=== PATIENT | female | born 1960 | race Caucasian/White ===

== ENCOUNTER 2020-10-07 16:05 | Outpatient (REF) | payer OTHER, SELFPAY ==
[2020-10-07 16:46] LABS: MANUAL DIFF FLAG NO
[2020-10-07 16:49] LABS: Basophils Percent Auto 0.3 % (0-2); Eosinophils Percent Auto 0.5 % (0-4); Hematocrit 36.3 % (37-47); Imm Gran Abs Auto 0.02 X10*3/uL (0.00-0.03); Imm Gran Pct Auto 0.3 % (0.0-0.4); Lymphocytes Absolute Auto 2.3 X10*3/uL (1.2-4.9); Lymphocytes Percent Auto 39.1 % (20-40); Mean Corpuscular HGB Conc 33.1 g/dl (31.0-35.0); Mean Corpuscular Hemoglobin 27.8 pg (27.0-33.0); Mean Platelet Volume 10.7 fL (9.4-12.3); Monocytes Absolute Auto 0.3 X10*3/uL (0.1-1.2); Monocytes Percent Auto 5.3 % (2-11); Neutrophils Absolute Auto 3.2 X10*3/uL (2.0-8.3); Neutrophils Percent Auto 54.5 % (45-73); Platelet Count 305 X10*3/uL (160-400); Red Blood Count 4.32 X10*6/uL (4.20-5.50); Red Cell Distribution Width 14.2 % (11.0-16.0); White Blood Count 5.8 X10*3/uL (4.8-10.8)
[2020-10-07 17:33] LABS: Alanine Aminotransferase 17 U/L (0-31); Albumin Level 4.4 g/dL (3.5-5.0); Alkaline Phosphatase 98 U/L (39-117); Anion Gap 9 (12-20); Aspartate Amino Transferase 15 U/L (5-31); Bilirubin Total 0.2 mg/dL (0.0-1.0); Blood Urea Nitrogen 12 mg/dL (9-16); C Reactive Protein 0.29 mg/dL (< or = 0.50); Calcium 9.1 mg/dL (8.4-10.2); Carbon Dioxide 27 mmol/L (22-29); Chloride 104 mmol/L (96-108); Estimated Glomerular Filt Rate > 60; Glucose Random 85 mg/dL (60-115); Potassium 4.1 mmol/l (3.3-5.1); Sodium 136 mmol/L (135-145); Total Protein 7.7 g/dL (6.5-8.0)
[2020-10-07 17:34] LABS: Vitamin D 25-OH Total 13.6 ng/mL (>30)
== END 2020-10-07 16:06 | disposition home or self-care (01) ==
LOC: HO.LAB 16:05
PROVIDERS: PCP Family Medicine; Visit Provider Student in an Organized Health Care Education/Training Program
DX: M05.9 Rheumatoid arthritis with rheumatoid factor, unspecified (principal); R76.8 Other specified abnormal immunological findings in serum; Z79.899 Other long term (current) drug therapy
CPT/HCPCS: 36415; 80053; 82306; 85025; 86140

== ENCOUNTER → 2020-10-11 09:03 | Outpatient (BNVA) | payer OTHER, SELFPAY | PROVIDERS: PCP Family Medicine; Visit Provider Student in an Organized Health Care Education/Training Program | DX: Z13.89 Encounter for screening for other disorder (principal) ==

== ENCOUNTER 2020-12-19 15:32 | Outpatient (REF) | payer OTHER, SELFPAY ==
[2020-12-19 17:01] LABS: MANUAL DIFF FLAG NO
[2020-12-19 17:12] LABS: Basophils Percent Auto 0.9 % (0-2); Eosinophils Percent Auto 0.6 % (0-4); Hematocrit 38.7 % (37-47); Hemoglobin 12.5 g/dl (12.0-16.0); Imm Gran Abs Auto 0.01 X10*3/uL (0.00-0.03); Imm Gran Pct Auto 0.2 % (0.0-0.4); Lymphocytes Absolute Auto 2.2 X10*3/uL (1.2-4.9); Mean Corpuscular HGB Conc 32.3 g/dl (31.0-35.0); Mean Corpuscular Hemoglobin 27.5 pg (27.0-33.0); Mean Corpuscular Volume 85.1 fL (80-98); Mean Platelet Volume 11.5 fL (9.4-12.3); Monocytes Absolute Auto 0.4 X10*3/uL (0.1-1.2); Monocytes Percent Auto 7.9 % (2-11); Neutrophils Absolute Auto 2.1 X10*3/uL (2.0-8.3); Neutrophils Percent Auto 44.4 % (45-73); Platelet Count 286 X10*3/uL (160-400); Red Blood Count 4.55 X10*6/uL (4.20-5.50); Red Cell Distribution Width 13.9 % (11.0-16.0); White Blood Count 4.7 X10*3/uL (4.8-10.8)
[2020-12-19 17:47] LABS: Alanine Aminotransferase 13 U/L (0-31); Albumin Level 4.2 g/dL (3.5-5.0); Alkaline Phosphatase 99 U/L (39-117); Anion Gap 12 (12-20); Aspartate Amino Transferase 14 U/L (5-31); Bilirubin Total 0.3 mg/dL (0.0-1.0); Blood Urea Nitrogen 14 mg/dL (9-16); C Reactive Protein 0.19 mg/dL (< or = 0.50); Calcium 8.9 mg/dL (8.4-10.2); Carbon Dioxide 25 mmol/L (22-29); Chloride 105 mmol/L (96-108); Estimated Glomerular Filt Rate > 60; Glucose Random 96 mg/dL (60-115); Potassium 4.1 mmol/L (3.3-5.1); Sodium 138 mmol/L (135-145); Total Protein 7.4 g/dL (6.5-8.0)
[2020-12-19 18:17] LABS: Erythrocyte Sedimentation Rate 14 MM/HR (0-20)
== END 2020-12-19 15:33 | disposition home or self-care (01) ==
LOC: HO.LAB 15:32
PROVIDERS: PCP Family Medicine; Visit Provider Student in an Organized Health Care Education/Training Program
DX: M05.9 Rheumatoid arthritis with rheumatoid factor, unspecified (principal)
CPT/HCPCS: 36415; 80053; 85025; 85652; 86140

== ENCOUNTER → 2020-12-27 08:18 | Outpatient (BNVA) | payer OTHER, SELFPAY | PROVIDERS: Visit Provider Student in an Organized Health Care Education/Training Program ==

== ENCOUNTER 2021-03-24 15:31 | Outpatient (REF) | payer OTHER, SELFPAY ==
[2021-03-24 17:54] LABS: MANUAL DIFF FLAG NO
[2021-03-24 17:57] LABS: Basophils Percent Auto 0.7 % (0-2); Eosinophils Absolute Auto 0.1 X10*3/uL (0.0-0.4); Eosinophils Percent Auto 1.5 % (0-4); Hematocrit 37.5 % (37-47); Hemoglobin 12.4 g/dl (12.0-16.0); Imm Gran Abs Auto 0.01 X10*3/uL (0.00-0.03); Imm Gran Pct Auto 0.2 % (0.0-0.4); Lymphocytes Absolute Auto 2.4 X10*3/uL (1.2-4.9); Lymphocytes Percent Auto 51.3 % (20-40); Mean Corpuscular HGB Conc 33.1 g/dl (31.0-35.0); Mean Corpuscular Hemoglobin 27.9 pg (27.0-33.0); Mean Corpuscular Volume 84.3 fL (80-98); Monocytes Absolute Auto 0.4 X10*3/uL (0.1-1.2); Neutrophils Absolute Auto 1.7 X10*3/uL (2.0-8.3); Neutrophils Percent Auto 37.3 % (45-73); Platelet Count 306 X10*3/uL (160-400); Red Blood Count 4.45 X10*6/uL (4.20-5.50); Red Cell Distribution Width 14.6 % (11.0-16.0); White Blood Count 4.6 X10*3/uL (4.8-10.8)
[2021-03-24 18:23] LABS: Alanine Aminotransferase 22 U/L (0-31); Albumin Level 4.4 g/dL (3.5-5.0); Alkaline Phosphatase 98 U/L (39-117); Anion Gap 13 (12-20); Aspartate Amino Transferase 18 U/L (5-31); Bilirubin Total 0.3 mg/dL (0.0-1.0); Blood Urea Nitrogen 13 mg/dL (9-16); Calcium 9.3 mg/dL (8.4-10.2); Carbon Dioxide 24 mmol/L (22-29); Chloride 105 mmol/L (96-108); Estimated Glomerular Filt Rate > 60; Glucose Random 89 mg/dL (60-115); Potassium 4.4 mmol/L (3.3-5.1); Sodium 138 mmol/L (135-145); Total Protein 7.7 g/dL (6.5-8.0)
[2021-03-24 18:38] LABS: Erythrocyte Sedimentation Rate 14 MM/HR (0-20)
== END 2021-03-24 15:32 | disposition home or self-care (01) ==
LOC: HO.LAB 15:31
PROVIDERS: PCP Family Medicine; Visit Provider Student in an Organized Health Care Education/Training Program
DX: M05.9 Rheumatoid arthritis with rheumatoid factor, unspecified (principal)
CPT/HCPCS: 36415; 80053; 85025; 85652; 86140

== ENCOUNTER → 2021-03-27 07:59 | Outpatient (BNVA) | payer OTHER, SELFPAY | PROVIDERS: PCP Family Medicine; Visit Provider Student in an Organized Health Care Education/Training Program ==

== ENCOUNTER 2021-04-16 15:32 | Outpatient (REF) | payer OTHER, SELFPAY ==
--- NOTE | ~2021-04-16 | XR_ITS ---
EXAMINATION: XR TIBIA AND FIBULA, LEFT CLINICAL INFORMATION: Left lower leg pain. COMPARISON: None TECHNIQUE: AP and lateral views of the left tibia and fibula were obtained. FINDINGS: No acute fracture or dislocation. No lytic or blastic osseous lesion. No abnormal soft tissue calcification. XR/XR tibia fibula LT 2V IMPRESSION: Unremarkable examination.
== END 2021-04-16 15:33 | disposition home or self-care (01) ==
LOC: HO.XRAY 15:32
PROVIDERS: PCP Family Medicine; Visit Provider Family Medicine
DX: M79.662 Pain in left lower leg (principal)
CPT/HCPCS: 73590

== ENCOUNTER 2021-04-17 15:36 | Outpatient (REF) | payer OTHER, SELFPAY ==
--- NOTE | ~2021-04-17 | MM_ITS ---
EXAMINATION: MM SCREENING DIGITAL BREAST TOMOSYNTHESIS, BILATERAL CLINICAL INFORMATION: Screening. Asymptomatic. The lifetime risk of breast cancer based on the Tyrer-Cuzick Model is 4%. COMPARISON: Mammography: 12/13/2018, 12/11/2016, 10/08/2015, 06/06/2014, 05/31/2013 TECHNIQUE: Digital breast tomosynthesis is performed in both the craniocaudal and mediolateral oblique views along with computer-aided detection (CAD). Synthesized 2D images are generated from the tomosynthesis. FINDINGS: There are scattered areas of fibroglandular density (ACR BI-RADS breast composition Category b). There are no significant masses, abnormal calcifications, or other abnormalities. Axillary nodes are stable. The skin contours are smooth. No significant changes. MM/MM tomosynthesis screening BI IMPRESSION: No mammographic evidence of malignancy. ASSESSMENT: BI-RADS 1: Negative RECOMMENDATION: Routine annual mammography screening. This patient's information was entered into a reminder system with a target due date for their next mammogram.
== END 2021-04-17 15:37 | disposition home or self-care (01) ==
LOC: HO.MAMMO 15:36
PROVIDERS: PCP Family Medicine; Visit Provider Family Medicine
DX: Z12.31 Encounter for screening mammogram for malignant neoplasm of breast (principal)
CPT/HCPCS: 77063; 77067

== ENCOUNTER 2021-07-29 15:36 | Outpatient (REF) | payer OTHER, SELFPAY ==
[2021-07-29 15:47] LABS: MANUAL DIFF FLAG NO
[2021-07-29 16:08] LABS: Basophils Percent Auto 0.8 % (0-2); Eosinophils Absolute Auto 0.1 X10*3/uL (0.0-0.4); Eosinophils Percent Auto 1.5 % (0-4); Hematocrit 37.5 % (37-47); Hemoglobin 12.3 g/dl (12.0-16.0); Imm Gran Abs Auto 0.01 X10*3/uL (0.00-0.03); Imm Gran Pct Auto 0.2 % (0.0-0.4); Lymphocytes Absolute Auto 2.2 X10*3/uL (1.2-4.9); Lymphocytes Percent Auto 41.9 % (20-40); Mean Corpuscular HGB Conc 32.8 g/dl (31.0-35.0); Mean Corpuscular Hemoglobin 27.6 pg (27.0-33.0); Mean Corpuscular Volume 84.3 fL (80-98); Mean Platelet Volume 10.6 fL (9.4-12.3); Monocytes Absolute Auto 0.4 X10*3/uL (0.1-1.2); Monocytes Percent Auto 7.1 % (2-11); Neutrophils Absolute Auto 2.6 X10*3/uL (2.0-8.3); Neutrophils Percent Auto 48.5 % (45-73); Platelet Count 295 X10*3/uL (160-400); Red Blood Count 4.45 X10*6/uL (4.20-5.50); Red Cell Distribution Width 14.5 % (11.0-16.0); White Blood Count 5.3 X10*3/uL (4.8-10.8)
[2021-07-29 16:25] LABS: Alanine Aminotransferase 17 U/L (0-31); Albumin Level 4.2 g/dL (3.5-5.0); Alkaline Phosphatase 96 U/L (39-117); Anion Gap 13 (12-20); Aspartate Amino Transferase 12 U/L (5-31); Bilirubin Total 0.3 mg/dL (0.0-1.0); Blood Urea Nitrogen 12 mg/dL (9-16); C Reactive Protein 0.28 mg/dL (< or = 0.50); Calcium 9.4 mg/dL (8.4-10.2); Carbon Dioxide 22 mmol/L (22-29); Chloride 105 mmol/L (96-108); Estimated Glomerular Filt Rate > 60; Glucose Random 102 mg/dL (60-115); Potassium 4.3 mmol/L (3.3-5.1); Sodium 136 mmol/L (135-145); Total Protein 7.7 g/dL (6.5-8.0)
== END 2021-07-29 15:37 | disposition home or self-care (01) ==
LOC: HO.LAB 15:36
PROVIDERS: Visit Provider Student in an Organized Health Care Education/Training Program
DX: M05.9 Rheumatoid arthritis with rheumatoid factor, unspecified (principal)
CPT/HCPCS: 36415; 80053; 85025; 86140

== ENCOUNTER → 2021-07-31 08:05 | Outpatient (BNVA) | payer OTHER, SELFPAY | PROVIDERS: PCP Family Medicine; Visit Provider Nurse Practitioner Family ==

== ENCOUNTER 2021-09-27 10:35 | Emergency (ER) | payer OTHER, SELFPAY ==
--- NOTE | ~2021-09-27 | XR_ITS ---
EXAMINATION: XR hand wrist RT, XR forearm RT 2V CLINICAL INFORMATION: Injury. COMPARISON: Left hand radiographs 03/09/2019. TECHNIQUE: 4 view series right wrist; 2 view series right forearm. FINDINGS: Right wrist: A minimally displaced comminuted intra-articular fracture of the distal radius with minimal dorsal angulation is identified. A minimally displaced transverse fracture of the ulnar styloid process is identified. Diffuse osteopenia is noted. Mild joint space narrowing and osteophytosis of the second through fourth distal interphalangeal joints is visualized. Soft tissue inflammatory changes are noted about the wrist. The scaphoid is intact. Left forearm: No additional fractures beyond those noted above identified. The radial head appears intact. XR/XR forearm RT 2V IMPRESSION: *Minimally displaced comminuted intra-articular fracture of the distal radius. *Minimally displaced transverse fracture of the ulnar styloid process. 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
--- NOTE | ~2021-09-27 | XR_ITS ---
EXAMINATION: XR hand wrist RT, XR forearm RT 2V CLINICAL INFORMATION: Injury. COMPARISON: Left hand radiographs 03/09/2019. TECHNIQUE: 4 view series right wrist; 2 view series right forearm. FINDINGS: Right wrist: A minimally displaced comminuted intra-articular fracture of the distal radius with minimal dorsal angulation is identified. A minimally displaced transverse fracture of the ulnar styloid process is identified. Diffuse osteopenia is noted. Mild joint space narrowing and osteophytosis of the second through fourth distal interphalangeal joints is visualized. Soft tissue inflammatory changes are noted about the wrist. The scaphoid is intact. Left forearm: No additional fractures beyond those noted above identified. The radial head appears intact. XR/XR hand wrist RT IMPRESSION: *Minimally displaced comminuted intra-articular fracture of the distal radius. *Minimally displaced transverse fracture of the ulnar styloid process. 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
[2021-09-27 10:52] VITALS: BP 133/69; PULSE 93; RESP 16; TEMP 36.8; O2SAT 97; BMI 21.6
--- NOTE | 2021-09-27 11:09 | ED.EXTPRO ---
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 The parking lot was coated with ice and the patient slipped and fell No other injury or complaint Related Data Previous Rx's Medication Instructions Recorded miscellaneous medical supply 1 ea MISCELLANEOUS DAILY #2 ea 03/27/21 cholecalciferol (vitamin D3) 25 25 mcg PO DAILY #30 cap 07/31/21 mcg (1,000 unit) capsule leflunomide 20 mg tablet 20 mg PO DAILY #30 tab 07/31/21 acetaminophen 500 mg tablet 1,000 mg PO QID PRN #30 tab 09/27/21 acetaminophen 500 mg tablet 1,000 mg PO QID PRN #30 tab 09/27/21 ibuprofen 600 mg tablet 600 mg PO Q6H PRN #20 tab 09/27/21 oxycodone 5 mg tablet 5 mg PO Q6H PRN #20 tab 09/27/21 Allergies Allergy/AdvReac Type Severity Reaction Status Date / Time No Known Allergies Allergy Verified 07/31/21 08:12 [No Known Allergies*] Review of Systems Review of Systems: Positive for right wrist pain and swelling Negatives are no headache no head injury no neck pain no numbness weakness or tingling no chest pain no abdominal pain no back pain no other extremity pains Yes all other systems are reviewed and are negative PMFSH Past Medical History Source: nursing notes reviewed Medical History DARLEEN positive Arthritis GERD (gastroesophageal reflux disease) Seropositive rheumatoid arthritis Surgical History H/O abdominoplasty Hx of section Family History Family History Mother HTN (hypertension) CVD (cardiovascular disease) Father Stroke HTN (hypertension) Brother CVD (cardiovascular disease) Social History Social History Alcohol intake: never Patient Tobacco Use Status: Current everyday Tobacco user Tobacco use type: Cigarette Cigarettes Per Day: 6 Years Smoked: 30 e-Cigarette/Vaping Use: Never Used Advance Directives: No Advance Directives Information Provided: No Patient : No Physical Exam Vital Signs: Vital Signs: Last Vital Signs Temp 98.3 F 09/27/21 10:52 Pulse 93 09/27/21 10:52 Resp 16 09/27/21 10:52 BP 133/69 09/27/21 10:52 Pulse Ox 97 09/27/21 10:52 BMI result Body Mass Index 21.6 General appearance no acute distress Head is normocephalic atraumatic Neck is supple nontender The back has full range of motion and is nontender Respiratory no distress Extremities the right wrist is tender and swollen with limited range of motion neurovascular intact distal, there is also some tenderness to the right forearm, right elbow and shoulder have full range of motion as do the fingers Other extremities normal Neuro no focal motor sensory deficits Course Course Course Narrative: Right hand and wrist x-ray showed minimally displaced comminuted intra-articular fracture of the distal radius It also showed minimally displaced transverse fracture of the ulnar styloid process A sterile splint was placed with immobilization of the wrist and elbow as well as a sling The arm was neurovascular intact after the splint was placed Patient ambulated easily and was comfortable after analgesics and was discharged to follow with work connection for work related arm fracture Discharge Plan Discharge Clinical Impression: Fracture of right wrist Patient Disposition: Home, Self-Care Additional Instructions: Follow with work connection and Orthopedics for your broken wrist next week Return any time any worse condition or concerns Leave splint on and return if it is too tight or if there are any problems Prescriptions: New acetaminophen 500 mg tablet 1,000 mg PO QID PRN (Reason: pain) Qty: 30 RF: 0 ibuprofen 600 mg tablet 600 mg PO Q6H PRN (Reason: pain) Qty: 20 RF: 0 acetaminophen 500 mg tablet 1,000 mg PO QID PRN (Reason: pain) Qty: 30 RF: 0 oxycodone 5 mg tablet 5 mg PO Q6H PRN (Reason: pain) Qty: 20 RF: 0 No Action miscellaneous medical supply Misc 1 ea miscellaneous DAILY Qty: 2 RF: 0 cholecalciferol (vitamin D3) 25 mcg (1,000 unit) capsule 25 mcg PO DAILY Qty: 30 RF: 3 leflunomide 20 mg tablet 20 mg PO DAILY Qty: 30 RF: 3 Referrals: Harjit Williamson MD [Physician] - 2 days (Employee 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
[2021-09-27] MEDS: Acetaminophen 325 MG TABLET 650 MG PO (11:32)
[2021-09-27] MEDS: oxyCODONE HCl Immed Release 5 MG TABLET PO (11:33)
[2021-09-27] MEDS: Ibuprofen 600 MG TABLET PO (11:33)
== END 2021-09-27 13:33 | disposition home or self-care (01) ==
PROVIDERS: Emergency Provider Emergency Medicine Emergency Medical Services; PCP Family Medicine
DX: S52.571A Other intraarticular fracture of lower end of right radius, initial encounter for closed fracture (principal); S52.611A Displaced fracture of right ulna styloid process, initial encounter for closed fracture; W00.0XXA Fall on same level due to ice and snow, initial encounter; Y93.9 Activity, unspecified; Y92.238 Other place in hospital as the place of occurrence of the external cause; Y99.0 Civilian activity done for income or pay
CPT/HCPCS: 29125; 73090; 73110; 73130; 99283; 99284

== ENCOUNTER → 2021-09-29 11:26 | Outpatient (BNVA) | payer OTHER, SELFPAY | PROVIDERS: PCP Family Medicine; Visit Provider Physician Assistant Medical | DX: Z13.89 Encounter for screening for other disorder (principal) | CPT/HCPCS: 99202 ==

== ENCOUNTER 2021-10-07 10:49 | Outpatient (REF) | payer OTHER, SELFPAY ==
--- NOTE | ~2021-10-07 | XR_ITS ---
EXAMINATION: CR WRIST, RIGHT CLINICAL INFORMATION: Pain in right wrist. COMPARISON: Right hand films dated 09/27/2021. TECHNIQUE: PA, lateral, and oblique views of the right wrist. FINDINGS: Diffuse osteopenia. No significant change in the subtle comminuted minimally displaced intra-articular fracture of the distal radius compared to 09/27/2021. A mildly displaced transverse fracture at the base of the ulna styloid process is also unchanged. Mild soft tissue swelling about the breast is again noted. No additional fracture is seen. Carpal row alignment is maintained. No radiopaque foreign body is seen in the soft tissues. XR/XR wrist RT min 3V IMPRESSION: 1. No significant change in the comminuted minimally displaced intra-articular fracture of the distal radius. 2. No significant change in minimally displaced transverse fracture of the ulna styloid process.
== END 2021-10-07 10:50 | disposition home or self-care (01) ==
LOC: HO.HOSX 10:49
PROVIDERS: PCP Family Medicine; Visit Provider Physician Assistant
DX: S52.501A Unspecified fracture of the lower end of right radius, initial encounter for closed fracture (principal); S52.611A Displaced fracture of right ulna styloid process, initial encounter for closed fracture; F17.210 Nicotine dependence, cigarettes, uncomplicated; W19.XXXA Unspecified fall, initial encounter; Y93.9 Activity, unspecified; Y92.9 Unspecified place or not applicable; Y99.0 Civilian activity done for income or pay
CPT/HCPCS: 29085; 73110; 99202

== ENCOUNTER 2021-10-29 14:40 | Outpatient (REF) | payer OTHER, SELFPAY ==
[2021-10-29 14:54] LABS: MANUAL DIFF FLAG NO
[2021-10-29 15:03] LABS: Basophils Percent Auto 0.4 % (0-2); Eosinophils Absolute Auto 0.1 X10*3/uL (0.0-0.4); Eosinophils Percent Auto 0.7 % (0-4); Hematocrit 41.2 % (37.0-47.0); Hemoglobin 13.4 g/dl (12.0-16.0); Imm Gran Abs Auto 0.02 X10*3/uL (0.00-0.03); Imm Gran Pct Auto 0.3 % (0.0-0.4); Lymphocytes Absolute Auto 2.5 X10*3/uL (1.2-4.9); Lymphocytes Percent Auto 34.3 % (20-40); Mean Corpuscular HGB Conc 32.5 g/dl (31.0-35.0); Mean Corpuscular Hemoglobin 27.9 pg (27.0-33.0); Mean Corpuscular Volume 85.7 fL (80.0-98.0); Mean Platelet Volume 10.2 fL (9.4-12.3); Monocytes Absolute Auto 0.4 X10*3/uL (0.1-1.2); Monocytes Percent Auto 5.8 % (2-11); Neutrophils Absolute Auto 4.2 x10*3/uL (2.0-8.3); Neutrophils Percent Auto 58.5 % (45-73); Platelet Count 323 X10*3/uL (160-400); Red Blood Count 4.81 X10*6/uL (4.20-5.50); Red Cell Distribution Width 14.7 % (11.0-16.0); White Blood Count 7.2 X10*3/uL (4.8-10.8)
[2021-10-29 15:28] LABS: Alanine Aminotransferase 43 U/L (0-31); Albumin Level 4.5 g/dL (3.5-5.0); Alkaline Phosphatase 100 U/L (39-117); Anion Gap 12 (12-20); Aspartate Amino Transferase 25 U/L (5-31); Bilirubin Total < 0.2 mg/dL (0.0-1.0); Blood Urea Nitrogen 17 mg/dL (9-16); C Reactive Protein 0.22 mg/dL (< or = 0.50); Calcium 10.1 mg/dL (8.4-10.2); Carbon Dioxide 26 mmol/L (22-29); Chloride 104 mmol/L (96-108); Estimated Glomerular Filt Rate > 60; Glucose Random 111 mg/dL (60-115); Sodium 138 mmol/L (135-145); Total Protein 8.3 g/dL (6.5-8.0)
[2021-10-29 15:40] LABS: Erythrocyte Sedimentation Rate 13 MM/HR (0-20)
== END 2021-10-29 14:41 | disposition home or self-care (01) ==
LOC: HO.LAB 14:40
PROVIDERS: PCP Family Medicine; Visit Provider Nurse Practitioner Family
DX: M05.9 Rheumatoid arthritis with rheumatoid factor, unspecified (principal)
CPT/HCPCS: 36415; 80053; 85025; 85652; 86140

== ENCOUNTER → 2021-10-31 08:05 | Outpatient (BNVA) | payer OTHER, SELFPAY | PROVIDERS: PCP Family Medicine; Visit Provider Nurse Practitioner Family ==

== ENCOUNTER 2021-11-11 07:43 | Outpatient (REF) | payer OTHER, SELFPAY ==
--- NOTE | ~2021-11-11 | XR_ITS ---
EXAMINATION: XR WRIST, RIGHT CLINICAL INFORMATION: Pain. COMPARISON: None TECHNIQUE: PA, lateral, and oblique views of the right wrist. FINDINGS: There is diffuse osteopenia with reduction of the radioulnar scaphoid joint. No visible acute fracture or dislocation seen. The soft tissues are normal. XR/XR wrist RT min 3V IMPRESSION: Diffuse osteopenia. No visible acute fracture or dislocation seen.
== END 2021-11-11 07:44 | disposition home or self-care (01) ==
LOC: HO.HOSX 07:43
PROVIDERS: Visit Provider Physician Assistant
DX: S52.611D Displaced fracture of right ulna styloid process, subsequent encounter for closed fracture with routine healing (principal); F17.210 Nicotine dependence, cigarettes, uncomplicated; X58.XXXD Exposure to other specified factors, subsequent encounter
CPT/HCPCS: 29085; 73110

== ENCOUNTER 2021-11-25 07:29 | Outpatient (REF) | payer OTHER, SELFPAY ==
--- NOTE | ~2021-11-25 | XR_ITS ---
EXAMINATION: XR WRIST, RIGHT CLINICAL INFORMATION: Wrist pain COMPARISON: Previous exam most recent November 11 2021 TECHNIQUE: PA, lateral, and oblique views of the right wrist. FINDINGS: The bones are osteopenic. There is a transverse sclerotic line in the right distal radius suggestive of healing nondisplaced fracture. This is similar to previous exam. There is a minimally displaced ulnar styloid fracture that appears unchanged. The carpal bones are normal. Soft tissues are normal. XR/XR wrist RT min 3V IMPRESSION: Osteopenia. Healing nondisplaced distal radius fracture. No change in the ulnar styloid fracture.
== END 2021-11-25 07:30 | disposition home or self-care (01) ==
LOC: HO.HOSX 07:29
PROVIDERS: Visit Provider Physician Assistant
DX: M25.531 Pain in right wrist (principal); S52.611A Displaced fracture of right ulna styloid process, initial encounter for closed fracture; S52.501A Unspecified fracture of the lower end of right radius, initial encounter for closed fracture; X58.XXXA Exposure to other specified factors, initial encounter; Y93.9 Activity, unspecified; Y92.9 Unspecified place or not applicable; Y99.8 Other external cause status; M85.80 Other specified disorders of bone density and structure, unspecified site; M05.9 Rheumatoid arthritis with rheumatoid factor, unspecified; F17.210 Nicotine dependence, cigarettes, uncomplicated
CPT/HCPCS: 73110; 99212

== ENCOUNTER → 2021-12-01 12:47 | Outpatient (BNVA) | payer OTHER, SELFPAY | LOC: CF 14:24 | PROVIDERS: PCP Family Medicine; Visit Provider Internal Medicine Rheumatology | DX: M05.9 Rheumatoid arthritis with rheumatoid factor, unspecified (principal); S52.501D Unspecified fracture of the lower end of right radius, subsequent encounter for closed fracture with routine healing; N95.9 Unspecified menopausal and perimenopausal disorder; Z79.899 Other long term (current) drug therapy | CPT/HCPCS: 99212 ==

== ENCOUNTER 2021-12-03 13:12 | Outpatient (REF) | payer OTHER, SELFPAY ==
--- NOTE | ~2021-12-03 | XR_ITS ---
EXAMINATION: XR CHEST CLINICAL INFORMATION: R05.9 - Cough, unspecified COMPARISON: Chest radiographs 10/01/2009 TECHNIQUE: 2 views of the chest were obtained. FINDINGS: There is no airspace consolidation or groundglass opacity or effusion. The heart is normal in size. The vascularity is normal. The hilar and mediastinal contours and bony structures are unremarkable. XR/XR chest 2V IMPRESSION: Unremarkable examination.
[2021-12-03 13:34] LABS: MANUAL DIFF FLAG NO
[2021-12-03 13:46] LABS: Basophils Percent Auto 0.3 % (0-2); Eosinophils Percent Auto 0.7 % (0-4); Hematocrit 40.1 % (37.0-47.0); Imm Gran Abs Auto 0.02 X10*3/uL (0.00-0.03); Imm Gran Pct Auto 0.3 % (0.0-0.4); Lymphocytes Absolute Auto 2.2 X10*3/uL (1.2-4.9); Lymphocytes Percent Auto 36.9 % (20-40); Mean Corpuscular HGB Conc 32.4 g/dl (31.0-35.0); Mean Corpuscular Hemoglobin 27.2 pg (27.0-33.0); Mean Corpuscular Volume 83.9 fL (80.0-98.0); Mean Platelet Volume 10.2 fL (9.4-12.3); Monocytes Absolute Auto 0.4 X10*3/uL (0.1-1.2); Monocytes Percent Auto 6.7 % (2-11); Neutrophils Absolute Auto 3.2 x10*3/uL (2.0-8.3); Neutrophils Percent Auto 55.1 % (45-73); Platelet Count 329 X10*3/uL (160-400); Red Blood Count 4.78 X10*6/uL (4.20-5.50); Red Cell Distribution Width 14.6 % (11.0-16.0); White Blood Count 5.9 X10*3/uL (4.8-10.8)
[2021-12-03 14:25] LABS: Alanine Aminotransferase 27 U/L (0-31); Aspartate Amino Transferase 19 U/L (5-31); C Reactive Protein 0.28 mg/dL (< or = 0.50); Estimated Glomerular Filt Rate > 60
[2021-12-03 14:31] LABS: Erythrocyte Sedimentation Rate 27 MM/HR (0-20)
== END 2021-12-03 13:13 | disposition home or self-care (01) ==
LOC: HO.LAB 13:12
PROVIDERS: PCP Family Medicine; Visit Provider Internal Medicine Rheumatology
DX: R05.9 Cough, unspecified (principal); M05.9 Rheumatoid arthritis with rheumatoid factor, unspecified; Z79.899 Other long term (current) drug therapy
CPT/HCPCS: 36415; 71046; 82565; 84450; 84460; 85025; 85652; 86140

== ENCOUNTER 2021-12-23 07:20 | Outpatient (REF) | payer OTHER, SELFPAY ==
--- NOTE | ~2021-12-23 | XR_ITS ---
EXAMINATION: XR WRIST, RIGHT CLINICAL INFORMATION: Right wrist pain COMPARISON: None TECHNIQUE: PA, lateral, and oblique views of the right wrist. FINDINGS: There is diffuse osteopenia. No visible acute fracture, dislocation or subluxation seen. The joint space is maintained normal. There is minimal dorsal wrist soft tissue swelling. XR/XR wrist RT min 3V IMPRESSION: Diffuse osteopenia. No visible acute fracture or dislocation seen. Minimal dorsal wrist soft tissue swelling.
== END 2021-12-23 07:21 | disposition home or self-care (01) ==
LOC: HO.HOSX 07:20
PROVIDERS: Visit Provider Physician Assistant
DX: M25.531 Pain in right wrist (principal)
CPT/HCPCS: 73110; 99212

== ENCOUNTER 2021-12-26 09:31 | Outpatient (REF) | payer OTHER, SELFPAY ==
--- NOTE | ~2021-12-26 | MM_ITS ---
EXAMINATION: BONE DENSITOMETRY CLINICAL INDICATION: Unspecified fracture of the distal lower end right radius, initial encounter for closed fracture. COMPARISON: This is the patient's baseline examination. TECHNIQUE: Using a OMsignal DXA System (software version: 13.1) manufactured by [employer], dual-energy x-ray absorptiometry was performed of the lumbar spine and left hip. The images are of good technical quality. Summary results are attached. FINDINGS: AP SPINE L1-L4: BMD 0.971 g/cm2, Z-score -0.3, T-score -1.7, osteopenia. LEFT FEMUR, NECK: BMD 0.832 g/cm2, Z-score -0.1, T-score -1.5, osteopenia. LEFT FEMUR, TOTAL: BMD 0.848 g/cm2, Z-score -0.2, T-score -1.3, osteopenia. IDENTIFIED RISK FACTORS: History of adult fracture. Rheumatoid arthritis. Current smoker. Low body weight. Secondary osteoporosis (early menopause). HISTORY OF FRACTURE: Wrist. MEDICATIONS: Vitamin D. MM/XR DEXA axial skeleton IMPRESSION: 1. DIAGNOSIS: Osteopenia based on the lowest T-score value of -1.7 in the lumbar spine applying World Health Organization criteria. 2. 10-YEAR FRACTURE RISK PREDICTION, FRAX: Major osteoporotic fracture (clinical spine, forearm, hip or shoulder) 9.6%. Hip fracture 1.7%. 3. Treatment Recommendations: NOF guidelines recommend consideration for treatment in postmenopausal women and men age 50 and older presenting with the following: -A hip or vertebral (clinical or morphometric) fracture. -T-score less than or equal to -2.5 at the femoral neck or spine after appropriate evaluation to exclude secondary causes. -Low bone mass at the hip or spine and a 10-year fracture probability by FRAX of greater than or equal to 3% for hip fracture or greater than or equal to 20% for major osteoporotic fracture based on the [place] adapted WHO algorithm. 4. Other Recommendations: All treatment decisions require clinical judgment and consideration of individual patient factors, including patient preferences, comorbidities, previous drug use, risk factors not captured in the FRAX model (e.g. frailty, falls, vitamin D deficiency, increased bone turnover, interval significant decline in bone density) and possible under or overestimation of fracture risk by FRAX. Additional medical evaluation for secondary cause of low bone mineral density may be appropriate. FUTURE SCAN RECOMMENDATION: People with diagnosed cases of osteoporosis or at high risk for fracture should have regular bone mineral density tests. For patients eligible for Medicare, routine testing is allowed once every 2 years. The testing frequency can be increased to one year for patients who have rapidly progressing disease, those who are receiving or discontinuing medical therapy to restore bone mass, or have additional risk factors.
== END 2021-12-26 09:32 | disposition home or self-care (01) ==
LOC: HO.MAMMO 09:31
PROVIDERS: Visit Provider Internal Medicine Rheumatology
DX: Z13.820 Encounter for screening for osteoporosis (principal); S52.501A Unspecified fracture of the lower end of right radius, initial encounter for closed fracture; Z78.0 Asymptomatic menopausal state; M85.80 Other specified disorders of bone density and structure, unspecified site
CPT/HCPCS: 77080

== ENCOUNTER 2022-01-08 10:00 | Outpatient (RCR) | payer OTHER, SELFPAY ==
--- NOTE | 2021-12-22 13:59 | MHC.OT.OR ---
Occupational Therapy Outpt Reeval Start: 12/03/21 13:53 Freq: Status: Active Protocol: Activity Type Activity Date Activity User E-Sign Co-Sign Detail Recorded Client Recorded Date Recorded By Document 12/22/21 13:55 JOSEPH [id number] 12/22/21 13:56 JOSEPH 12/22/21 13:55 Outpatient Occupational Therapy Re- evaluation [Treatment History] -Attending Provider JANICE Bui -Diagnosis Right DR fx and right ulna styloid process fx -Evaluation Date 12/03/21 -Treatments to Date 8 -Cancellations to Date 0 -No-Shows to Date 0 [Subjective] -Subjective Pt reports low pain with very limited use of her right dominant hand. Unable to use right to bathe self Appt with [facility] on at 1:30 -Pain Scale(0-10) 3 -Pain Location left ulnar wrist [Objective] -Tests and Measures AROM right wrist 40 deg ext, 30 deg flex.. inc to 35 deg after rx . 5 deg rad dev, 20 deg ulnar dev Digits 2-5 to DPC Modified wt bearing test with Wrist Widget on R 15 lb L 40 lb [Assessment] -Status Progressing -Assessment Pt with sx of TFCC injury, benefiting from fabricated Wrist Widget and ther ex. Working in pronation and WW on for pain management. ROM right wrist 40 deg ext, 30 deg flex.. inc to 35 deg after rx. 5 deg rad dev, 20 deg ulnar dev Digits 2-5 to DPC Modified wt bearing test with Wrist Widget on R 15 lb L 40 lb [ End ] [Plan of Care] -Short Term Goals Demo indep with her HEP Inc wrist flex to >40 deg Inc wrist ext to > 55 deg Inc wrist ulnar dev to 5 deg Right ceramic saw tender to > 15 lb Right hand use with all ADL -Yarn Carrier Goals Wrist ext to > 60 deg Wrist flex to > 60 deg Ulnar dev to > 20 deg Gun Stock Maker to > 45 lb Demo safe lift Tolerate simulated work tasks with modifications as needed -Frequency and Duration of Visits 2x wk x 3 wks -Treatment Plan Therapeutic Exercise, Therapeutic Activity,Home Exercise Program,Patient Education, Edema Control, Ultrasound, Fluidotherapy, MHP,Soft Tissue Mobilization -Electronically signed by: Maria Esther Townsend OT CHT CLT -Reviewed/agreed with student N/A documentation
--- NOTE | 2022-01-08 11:14 | MHC.OT.DC ---
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 Pain improved with ibuprofen at night but returned in this am Pt reports an inc pain today with no change in strength or wt bearing tolerance with a Bulls eye wrist wrap on she purchased on [employer]. Improvement with wrist strap for DRUJ stabilization may be needed due to pt injury and ho RA sx. Progress in OT at a plateau. Goals not met for ROM or strength. Pt to con't her HEP and follow up with MD Electronically Signed By: Maria Esther Townsend OT CHT CLT Reviewed/agree with student documentation: N/A Therapist: Please Sign and return to therapist, thank you for your referral.
== END 2022-01-08 11:14 | disposition home or self-care (01) ==
LOC: HO.OT 10:00
PROVIDERS: Visit Provider Physician Assistant
DX: S52.611D Displaced fracture of right ulna styloid process, subsequent encounter for closed fracture with routine healing (principal); S52.501D Unspecified fracture of the lower end of right radius, subsequent encounter for closed fracture with routine healing
CPT/HCPCS: 97018; 97033; 97035; 97110; 97165; 97530

== ENCOUNTER → 2022-01-22 13:36 | Outpatient (BNVA) | payer OTHER, SELFPAY | PROVIDERS: PCP Family Medicine; Visit Provider Physician Assistant | DX: Z13.89 Encounter for screening for other disorder (principal) | CPT/HCPCS: 99214 ==

== ENCOUNTER → 2022-02-10 09:36 | Outpatient (BNVA) | payer OTHER, SELFPAY | PROVIDERS: PCP Family Medicine; Visit Provider Physician Assistant | DX: S52.611D Displaced fracture of right ulna styloid process, subsequent encounter for closed fracture with routine healing (principal); S52.501D Unspecified fracture of the lower end of right radius, subsequent encounter for closed fracture with routine healing | CPT/HCPCS: 99212 ==

== ENCOUNTER → 2022-02-23 12:52 | Outpatient (BNVA) | payer OTHER, SELFPAY | PROVIDERS: PCP Family Medicine; Visit Provider Internal Medicine Rheumatology | DX: M05.9 Rheumatoid arthritis with rheumatoid factor, unspecified (principal) ==

== ENCOUNTER → 2022-03-05 12:53 | Outpatient (BNVA) | payer OTHER, SELFPAY | PROVIDERS: PCP Family Medicine; Visit Provider Physician Assistant | DX: Z13.89 Encounter for screening for other disorder (principal) | CPT/HCPCS: 99213 ==

== ENCOUNTER 2022-03-24 07:37 | Outpatient (REF) | payer OTHER, SELFPAY ==
--- NOTE | ~2022-03-24 | XR_ITS ---
EXAMINATION: XR WRIST, RIGHT CLINICAL INFORMATION: M25.539 - Pain in unspecified wrist COMPARISON: Radiographs right wrist 12/22/2019, 11/25/2021, 10/07/2021, 09/27/2021 TECHNIQUE: PA, lateral, and oblique views of the right wrist. FINDINGS: There is interval healing of the distal radial fracture and fracture base ulnar styloid since prior studies. There is no acute fracture or dislocation or destructive process. Ulnar variance is neutral. There is no interval joint narrowing or erosive changes or chondrocalcinosis. XR/XR wrist RT min 3V IMPRESSION: No acute fracture or dislocation or interval arthropathy.
== END 2022-03-24 07:38 | disposition home or self-care (01) ==
LOC: HO.HOSX 07:37
PROVIDERS: Visit Provider Physician Assistant
DX: M25.531 Pain in right wrist (principal); M05.9 Rheumatoid arthritis with rheumatoid factor, unspecified; S52.511D Displaced fracture of right radial styloid process, subsequent encounter for closed fracture with routine healing; S52.611D Displaced fracture of right ulna styloid process, subsequent encounter for closed fracture with routine healing; W00.0XXD Fall on same level due to ice and snow, subsequent encounter
CPT/HCPCS: 73110; 99212

== ENCOUNTER 2022-03-25 15:30 | Outpatient (RCR) | payer OTHER, SELFPAY ==
--- NOTE | 2022-03-06 12:43 | MHC.OT.OEV ---
[address] [phone] F: [phone] Occupational Therapy Evaluation Diagnosis: Right DR FX and right ulna styloid FX Date of Onset: 09/27/21 Date of Surgery: Attending Provider: JANICE Bui Prescribed Treatment: Eval and treat MD Follow Up Appointment: History of Current Condition: Pt with a minimally displaced comminuted intra articular DR FX and minimally displaced transverse ulna styoid FX Cast was removed 11/25/21. Pt placed in a removable wrist splint Pt seen in OT 12/03/21-01/08/22 without improvement in pain. 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 Turning ignition kaye Pain on right with scrubbing, lifting... Uses left as able Sleep: WNL wearing wrist support Driving: Pain with ignition kaye and turning the steering wheel with right Vision: Balance: Pain Assessment Pain Score: 5 Pain Scale Used: Numeric (0 - 10) Pain Location and Description: 0-5 Right ulnar wrist and medial elbow Aggravating Factors: Turning palm up and down, Pronation >supination Alleviating Factors: Wrist support Skin and Soft Tissue Assessment Skin and Soft Tissue: Swelling Comments: Mild edema at ulnar and dorsal wrist Nerve assessment Ulnar Nerve: WFL Median Nerve: WFL Radial Nerve: Not Tested Comments: MMT in neutral rotation for pain control Sensory Assessment Temperature: Light Touch: WNL Proprioception: Vibration: Comments: Edema Assessment Upper Extremity: Lower Extremity: Comments: Mild right ulnar wrist Dexterity Assessment Dexterity: WNL Not Tested Comments: Special Tests Comments: Avoided Polks test for medial and lateral epicondylitis to protect TFCC Trialed a counter force brace with classified ad taker strength test . Right classified ad taker inc to 40 lb without pain AROM(PROM) Strength Cervical Cervical Flexion: Cervical Extension: Cervical Lateral Flexion: Cervical Rotation: Comments: Shoulder Flexion: Extension: Abduction: Internal Rotation: External Rotation: Comments: WNL Flexion: Extension: Abduction: Internal Rotation: External Rotation: Comments: Elbow Flexion: Extension: Pronation: 50 deg Supination: 75 deg Comments: WFL. Pain at end range pronation, discomfort at end range supination Flexion: Extension: Pronation: Supination: Comments: Wrist Flexion: 55 deg Extension: 55 deg Ulnar Deviation: 5 deg Radial Deviation: 25 deg Comments: Wrist ROM pain free Flexion: Extension: Ulnar Deviation: Radial Deviation: Comments: Thumb Thumb CMC Flexion: Thumb MCP Flexion: Thumb IP Flexion: Radial Abduction: Palmar Abduction: [place] (Kapandji 0-10): Comments: WNL Digits Index MCP: PIP: DIP: Long MCP: PIP: DIP: Ring MCP: PIP: DIP: Small MCP: PIP: DIP: Comments: WNL Gross Grasp: R 30 lb with pain....L 55 lb Lateral Pinch: Two-Point Pinch: Three-Jaw Hossein: Comments: R classified ad taker with CFB on 40 lb painfree Patient Education Primary Language: Stunner And Shackler Required: Yes Current Knowledge: Minimal, needs reinforcement Teaching Method: Demonstration Verbal Education Needs Identified on Evaluation: ADL's Exercise Pain How did patient/family demonstrate learning? Patient demonstrates Patient verbalizes Barriers to Learning: None Readiness for Learning: Accepting Who was educated? Patient Comments: Plan of Care Assessment: Pt is a 61 yo female re referred to OT for right radial wrist pain s/p right DR fx 5 months ago.She has returned to work and is avoiding use of her right dominant hand for heavy use as she is able. Today this Pt presents with residual ulna styloid pain and S+S consistent with mild lateral epicondylitis and mild medial epicondylitis. 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
--- NOTE | 2022-03-23 16:29 | MHC.OT.OP ---
[address] [phone] F: [phone] Occupational Therapy Progress Note Diagnosis: Right DR FX and right ulna styloid FX Date of Surgery: Date of Evaluation: 03/06/22 Treatments to Date: 5 Cancellations to Date: 0 No Shows to Date: 0 Subjective: Pt reports inc wrist pain today with increased work load today .. Wednesday and Wednesday alot of pain. Pt reports doing a lot of housework over the week end. Pt reports pain a five this am. Not noticing pain while working.. 5 after working wrist and medial elbow Pain Score: 5 Pain Location: Right ulnar wrist and medial elbow Objective Measures: Right paper baler 20 lb max Left 50 lb Status: Not Progressing Assessment: Reports decrease in pain with resting and not working. 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 Attempts to avoid heavy use with her right dominant hand . Pt using a counter force brace with work Pain and paper baler strength essentially unchanged Mild wrist edema inc today /varies Tolerating light-mod resist isometric wrist ther ex . Mild dec strength at right shoulder noted. Pt educated and practiced scapula stabilization for her HEP Has f/u with ortho PA on 03/24/22. Short Term Goals: Indep with HEP Tolerate eccentric wrist strengthening ex Painfree forearm pronation to end range Right paper baler to > 40 lb Full use of right dominant hand with all ADL Demo awareness of jt protection techniques with homemaking and work tasks Quick DASH to < 30 pts Combine Mechanic Goals: Same as above Frequency and Duration: The patient will be seen 2 x wk x 3 wks Treatment Plan: Therapeutic Exercise Therapeutic Activity Home Exercise Program Patient Education Pt reports not noticing pain while working, avoiding use of her right dominant hand much of the day as she is able Electronically Signed By: Maria Esther Townsend OT CHT CLT Reviewed/agree with student documentation: N/A Therapist:
== END 2022-06-25 09:11 | disposition home or self-care (01) ==
LOC: HO.OT 15:30
PROVIDERS: Visit Provider Physician Assistant
DX: S52.611A Displaced fracture of right ulna styloid process, initial encounter for closed fracture (principal); S52.501A Unspecified fracture of the lower end of right radius, initial encounter for closed fracture
CPT/HCPCS: 97033; 97110; 97140; 97166

== ENCOUNTER 2022-06-18 11:04 | Outpatient (REF) | payer OTHER, SELFPAY ==
[2022-06-18 11:28] LABS: MANUAL DIFF FLAG NO
[2022-06-18 11:59] LABS: Basophils Percent Auto 0.5 % (0-2); Eosinophils Absolute Auto 0.1 X10*3/uL (0.0-0.4); Eosinophils Percent Auto 1.4 % (0-4); Hematocrit 40.5 % (37.0-47.0); Hemoglobin 13.1 g/dl (12.0-16.0); Imm Gran Abs Auto 0.02 X10*3/uL (0.00-0.03); Imm Gran Pct Auto 0.3 % (0.0-0.4); Lymphocytes Absolute Auto 2.2 X10*3/uL (1.2-4.9); Lymphocytes Percent Auto 33.1 % (20-40); Mean Corpuscular HGB Conc 32.3 g/dl (31.0-35.0); Mean Corpuscular Hemoglobin 26.9 pg (27.0-33.0); Mean Corpuscular Volume 83.2 fL (80.0-98.0); Mean Platelet Volume 10.6 fL (9.4-12.3); Monocytes Absolute Auto 0.4 X10*3/uL (0.1-1.2); Monocytes Percent Auto 5.4 % (2-11); Neutrophils Absolute Auto 3.9 x10*3/uL (2.0-8.3); Neutrophils Percent Auto 59.3 % (45-73); Platelet Count 341 X10*3/uL (160-400); Red Blood Count 4.87 X10*6/uL (4.20-5.50); Red Cell Distribution Width 14.5 % (11.0-16.0); White Blood Count 6.5 X10*3/uL (4.8-10.8)
[2022-06-18 12:20] LABS: Alanine Aminotransferase 26 U/L (0-31); Aspartate Amino Transferase 19 U/L (5-31); C Reactive Protein 0.29 mg/dL (< or = 0.50); Estimated Glomerular Filt Rate > 60
[2022-06-18 12:56] LABS: Erythrocyte Sedimentation Rate 16 MM/HR (0-20)
[2022-06-24 12:01] LABS: Vitamin D 25-OH, D2 4 ng/mL; Vitamin D 25-OH, D3 13 ng/mL; Vitamin D 25-OH, Total 17 ng/mL (30-100)
== END 2022-06-18 11:05 | disposition home or self-care (01) ==
LOC: HO.LAB 11:04
PROVIDERS: PCP Family Medicine; Visit Provider Internal Medicine Rheumatology
DX: M05.9 Rheumatoid arthritis with rheumatoid factor, unspecified (principal); M85.80 Other specified disorders of bone density and structure, unspecified site; Z79.899 Other long term (current) drug therapy
CPT/HCPCS: 36415; 82306; 82565; 84450; 84460; 85025; 85652; 86140

== ENCOUNTER 2022-09-23 12:23 | Outpatient (REF) | payer OTHER, SELFPAY ==
[2022-09-23 12:35] LABS: MANUAL DIFF FLAG NO
[2022-09-23 13:29] LABS: Basophils Percent Auto 0.6 % (0-2); Eosinophils Absolute Auto 0.1 X10*3/uL (0.0-0.4); Hematocrit 38.4 % (37.0-47.0); Hemoglobin 12.2 g/dl (12.0-16.0); Imm Gran Abs Auto 0.03 X10*3/uL (0.00-0.03); Imm Gran Pct Auto 0.4 % (0.0-0.4); Lymphocytes Absolute Auto 2.2 X10*3/uL (1.2-4.9); Lymphocytes Percent Auto 30.7 % (20-40); Mean Corpuscular HGB Conc 31.8 g/dl (31.0-35.0); Mean Corpuscular Hemoglobin 26.8 pg (27.0-33.0); Mean Corpuscular Volume 84.4 fL (80.0-98.0); Mean Platelet Volume 10.5 fL (9.4-12.3); Monocytes Absolute Auto 0.4 X10*3/uL (0.1-1.2); Monocytes Percent Auto 5.1 % (2-11); Neutrophils Absolute Auto 4.5 x10*3/uL (2.0-8.3); Neutrophils Percent Auto 62.2 % (45-73); Platelet Count 396 X10*3/uL (160-400); Red Blood Count 4.55 X10*6/uL (4.20-5.50); Red Cell Distribution Width 14.3 % (11.0-16.0); White Blood Count 7.2 X10*3/uL (4.8-10.8)
[2022-09-23 13:45] LABS: Alanine Aminotransferase 15 U/L (0-31); Aspartate Amino Transferase 10 U/L (5-31); C Reactive Protein 1.46 mg/dL (< or = 0.50); Estimated Glomerular Filt Rate > 60
[2022-09-23 14:22] LABS: Erythrocyte Sedimentation Rate 28 MM/HR (0-20)
[2022-09-29 16:24] LABS: Vitamin D 25-OH, D2 <4 ng/mL; Vitamin D 25-OH, D3 8 ng/mL; Vitamin D 25-OH, Total 8 ng/mL (30-100)
== END 2022-09-23 12:24 | disposition home or self-care (01) ==
LOC: HO.LAB 12:23
PROVIDERS: PCP Family Medicine; Visit Provider Internal Medicine Rheumatology
DX: M05.9 Rheumatoid arthritis with rheumatoid factor, unspecified (principal); M85.80 Other specified disorders of bone density and structure, unspecified site; R79.89 Other specified abnormal findings of blood chemistry; Z79.899 Other long term (current) drug therapy
CPT/HCPCS: 36415; 82306; 82565; 84450; 84460; 85025; 85652; 86140

== ENCOUNTER → 2022-09-24 10:28 | Outpatient (BNVA) | payer OTHER, SELFPAY | PROVIDERS: PCP Family Medicine; Visit Provider Internal Medicine Rheumatology | DX: M05.9 Rheumatoid arthritis with rheumatoid factor, unspecified (principal) ==

== ENCOUNTER 2023-01-13 13:24 | Outpatient (REF) | payer OTHER, SELFPAY ==
[2023-01-13 13:34] LABS: MANUAL DIFF FLAG NO
[2023-01-13 14:43] LABS: Basophils Percent Auto 0.6 % (0-2); Eosinophils Absolute Auto 0.1 X10*3/uL (0.0-0.4); Eosinophils Percent Auto 1.1 % (0-4); Hematocrit 37.7 % (37.0-47.0); Hemoglobin 12.6 g/dl (12.0-16.0); Imm Gran Abs Auto 0.02 X10*3/uL (0.00-0.03); Imm Gran Pct Auto 0.3 % (0.0-0.4); Lymphocytes Absolute Auto 2.6 X10*3/uL (1.2-4.9); Lymphocytes Percent Auto 39.3 % (20-40); Mean Corpuscular HGB Conc 33.4 g/dl (31.0-35.0); Mean Corpuscular Hemoglobin 28.1 pg (27.0-33.0); Mean Corpuscular Volume 84.2 fL (80.0-98.0); Mean Platelet Volume 10.8 fL (9.4-12.3); Monocytes Absolute Auto 0.4 X10*3/uL (0.1-1.2); Monocytes Percent Auto 5.4 % (2-11); Neutrophils Absolute Auto 3.5 x10*3/uL (2.0-8.3); Neutrophils Percent Auto 53.3 % (45-73); Platelet Count 340 X10*3/uL (160-400); Red Blood Count 4.48 X10*6/uL (4.20-5.50); Red Cell Distribution Width 14.6 % (11.0-16.0); White Blood Count 6.6 X10*3/uL (4.8-10.8)
[2023-01-13 15:22] LABS: Erythrocyte Sedimentation Rate 14 MM/HR (0-20)
[2023-01-13 15:51] LABS: Alanine Aminotransferase 14 U/L (0-31); Aspartate Amino Transferase 14 U/L (5-31); C Reactive Protein 0.48 mg/dL (< or = 0.50); Estimated Glomerular Filt Rate > 60
== END 2023-01-13 13:25 | disposition home or self-care (01) ==
LOC: HO.LAB 13:24
PROVIDERS: PCP Family Medicine; Visit Provider Internal Medicine Rheumatology
DX: M05.9 Rheumatoid arthritis with rheumatoid factor, unspecified (principal); Z79.899 Other long term (current) drug therapy
CPT/HCPCS: 36415; 82565; 84450; 84460; 85025; 85652; 86140

== ENCOUNTER → 2023-01-14 09:59 | Outpatient (BNVA) | payer OTHER, SELFPAY | PROVIDERS: PCP Family Medicine; Visit Provider Internal Medicine Rheumatology | DX: Z13.89 Encounter for screening for other disorder (principal) ==

== ENCOUNTER 2023-04-29 12:13 | Outpatient (REF) | payer OTHER, SELFPAY ==
--- NOTE | ~2023-04-29 | XR_ITS ---
EXAMINATION: XR ELBOW, RIGHT CLINICAL INFORMATION: Right elbow pain for a year. No injury. COMPARISON: None available. TECHNIQUE: AP, lateral, and oblique views of the right elbow. FINDINGS: There is no evidence of acute fracture or dislocation of the right elbow. No right elbow effusion is identified. There is a small calcification about the coronoid process. There is mild prominence of the soft tissues about the olecranon and may be related to olecranon bursitis. XR/XR elbow RT min 3V IMPRESSION: Small bony density adjacent to the coronoid process which could represent spur or possible small loose body. Soft tissue prominence about the olecranon which may be related to olecranon bursitis.
== END 2023-04-29 12:14 | disposition home or self-care (01) ==
LOC: HO.HHCX 12:13
PROVIDERS: Visit Provider Family Medicine
DX: M25.521 Pain in right elbow (principal); G89.29 Other chronic pain
CPT/HCPCS: 73080

== ENCOUNTER 2023-05-10 10:56 | Outpatient (REF) | payer OTHER, SELFPAY ==
[2023-05-10 11:05] LABS: MANUAL DIFF FLAG NO
[2023-05-10 11:50] LABS: Basophils Percent Auto 0.4 % (0-2); Eosinophils Absolute Auto 0.1 X10*3/uL (0.0-0.4); Eosinophils Percent Auto 0.9 % (0-4); Hematocrit 37.8 % (37.0-47.0); Hemoglobin 12.2 g/dl (12.0-16.0); Imm Gran Abs Auto 0.02 X10*3/uL (0.00-0.03); Imm Gran Pct Auto 0.3 % (0.0-0.4); Lymphocytes Absolute Auto 2.1 X10*3/uL (1.2-4.9); Lymphocytes Percent Auto 30.7 % (20-40); Mean Corpuscular HGB Conc 32.3 g/dl (31.0-35.0); Mean Corpuscular Hemoglobin 27.7 pg (27.0-33.0); Mean Corpuscular Volume 85.9 fL (80.0-98.0); Mean Platelet Volume 10.8 fL (9.4-12.3); Monocytes Absolute Auto 0.4 X10*3/uL (0.1-1.2); Monocytes Percent Auto 5.8 % (2-11); Neutrophils Absolute Auto 4.1 x10*3/uL (2.0-8.3); Neutrophils Percent Auto 61.9 % (45-73); Platelet Count 320 X10*3/uL (160-400); Red Cell Distribution Width 14.3 % (11.0-16.0); White Blood Count 6.7 X10*3/uL (4.8-10.8)
[2023-05-10 12:09] LABS: Alanine Aminotransferase 16 U/L (0-31); Aspartate Amino Transferase 13 U/L (5-31); C Reactive Protein 0.39 mg/dL (< or = 0.50); Estimated Glomerular Filt Rate > 60
[2023-05-10 12:25] LABS: Erythrocyte Sedimentation Rate 14 MM/HR (0-20)
== END 2023-05-10 10:57 | disposition home or self-care (01) ==
LOC: HO.LAB 10:56
PROVIDERS: PCP Family Medicine; Visit Provider Internal Medicine Rheumatology
DX: M05.9 Rheumatoid arthritis with rheumatoid factor, unspecified (principal); Z79.899 Other long term (current) drug therapy
CPT/HCPCS: 36415; 82565; 84450; 84460; 85025; 85652; 86140

== ENCOUNTER 2023-05-12 08:41 | Outpatient (AMB) | payer OTHER, SELFPAY ==
[2023-05-12 08:47] VITALS: BP 103/65; PULSE 82; RESP 17; TEMP 36.7; O2SAT 97
--- NOTE | 2023-05-12 08:47 | A.OFFVIS_ITS ---
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 She remains on the leflunomide 20 mg daily. She had some back pain that developed yesterday with some spasm. Other than that she still has some right elbow pain. Now it seems to be mostly on the medial aspect. There was no injury or swelling in that area allthough that was the limb that sustained a wrist fracture about a year and half ago. The wrist is occasionally uncomfortable but it is getting stronger. 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 [facility] Medical History DARLEEN positive GERD (gastroesophageal reflux disease) Osteopenia Seropositive rheumatoid arthritis Surgical History H/O abdominoplasty Hx of section Family History Mother HTN (hypertension) CVD (cardiovascular disease) Father Stroke HTN (hypertension) Brother CVD (cardiovascular disease) Social History Housing Other:: Born in [place]. In the [place] since [place]. Alcohol intake: never Patient Tobacco Use Status: Current everyday Tobacco user Tobacco use type: Cigarette Cigarettes Per Day: 6 Years Smoked: 30 e-Cigarette/Vaping Use: Never Used Current occupational status: employed Current occupation: [employer] Review of Systems Const Details: Negative for appetite change, weight change, fever, chills, malaise and fatigue Eyes Details: Negative for vision change, dry eyes,headaches and dizziness ENT Details: Negative for hearing change, tinnitus, oral ulcer, nose bleeds and oral dryness. Card Details: Negative chest pain, edema and syncope Resp Details: Negative for SOB, cough and wheezing GI Details: Negative indigestion/heartburn, nausea, abdominal pain, bowel changes, diarrhea, constipation and bloody stool. Skin/Breast Details: Negative for itching, rash, hives, Raynaud's symptoms, sun sensitivity, and skin cancer Endo Details: Negative for polyuria and polydypsia Juan/Lymph Details: Negative for excessive bruising or bleeding. Physical Exam Vital Signs: Last Vital Signs Temp 98.1 F 05/12/23 08:47 Pulse 82 05/12/23 08:47 Resp 17 05/12/23 08:47 BP 103/65 05/12/23 08:47 Pulse Ox 97 05/12/23 08:47 Oxygen Delivery Method Room Air 05/12/23 08:47 APPEARANCE: Patient in no acute distress EYES no redness, pupils equal and reactive to light, eyelids normal EXTREMITIES:? No edema, no calf tenderness, normal peripheral pulses. JOINT EXAM:?? Cervical Spine:.? Full range of motion without pain; no tenderness. Thoracic Spine:.? No scoliosis.? No tenderness on palpation. Lumbar Spine:.? Alignment normal.? Full range of motion without pain, no tenderness. Chest Wall:.? No tenderness, swelling, increased warmth or erythema. Hands:.? Right; no TENDERNESS ACROSS THE PIP JOINTS WITH MINIMAL BONY ENLARGEMENT.? MILD BONY ENLARGEMENT AND TENDERNESS AT THE 2ND and 3rd D IP joints.? There is some slight thickening without tenderness of the 1st MCP joint.? No pain with motion or triggering. Left:?? Mild bony enlargement and minimal tenderness at the 2nd and 3rd PIP joints but there is no tenderness in the other PIP or MCP joints.. Wrists:? Right:? Mild discomfort with flexion at 75 degrees or extension at 60 degrees with some minimal tenderness but no swelling.? No redness or warmth..Left:? There is no pain with extremes of flexion or extension.? She has no tenderness or swelling.? No redness or warmth. Elbows:.? Right:? Mild pain at full extension or flexion.? There is mild medial epicondylar tenderness.? No tenderness or swelling over the joint space.? Left: Normal pain-free range of motion without tenderness, swelling, increased warmth or erythema. Shoulders:? Right: Slight discomfort with extremes of normal range of motion.? There is some minimal anterior tenderness but no abductor weakness, swelling, or adenopathy.? Left:?? Full range of motion without pain. No tenderness, weakness, swelling, increased warmth or erythema. Hips:.? Full range of motion without pain. Hip bursa:.? No tenderness. Knees:.?? Normal pain-free range of motion without tenderness, swelling, increased warmth or erythema.? There is no effusion or crepitation Ankles:.? Normal pain-free range of motion without tenderness, swelling, increased warmth or erythema. Feet:. Right: Normal pain-free range of motion. There is some hammertoe defor mity at the 3rd and 4th toes. These are tight slightly tender but there is no breaks in the skin. Left:? Normal pain-free range of motion without tenderness, swelling, increased warmth or erythema. Tender points: No tenderness at the occiput, trapezius, second rib, lateral epicondyle, knees, greater trochanter and gluteal area bilaterally. Results Reviewed Results Reviewed: Laboratory Tests 05/10/23 05/10/23 05/10/23 11:04 11:04 11:04 WBC 6.7 Hgb 12.2 ESR 14 Creatinine 0.66 AST 13 ALT 16 C-Reactive Protein 0.[address] [address] XRay Report Signed Patient: Jannette Hanley MR#: [id number] : 1960 Acct:[id number] Age/Sex: 62 / F ADM Date: 04/29/[address]: Marielos Dumont MD Ordering Physician: Marielos Dumont MD Date of Service: 04/29/23 Procedure(s): XR elbow RT min 3V Accession Number(s): [id number] cc: Marielos Dumont MD~ EXAMINATION: XR ELBOW, RIGHT CLINICAL INFORMATION: Right elbow pain for a year. No injury.? COMPARISON: None available.? TECHNIQUE: AP, lateral, and oblique views of the right elbow. FINDINGS: There is no evidence of acute fracture or dislocation of the right elbow. No right elbow effusion is identified. There is a small calcification about the coronoid process. There is mild prominence of the soft tissues about the olecranon and may be related to olecranon bursitis.? XR/XR elbow RT min 3V IMPRESSION: Small bony density adjacent to the coronoid process which could represent spur or possible small loose body. ? Soft tissue prominence about the olecranon which may be related to olecranon bursitis. Dictated By: Zheng Lauren MD Assessment & Plan Assessment & Plan (1) Medial epicondylitis of right elbow: Code(s): M77.01 - Medial epicondylitis, right elbow (2) superintendent container terminal current use of immunosuppressive drug: Code(s): Z79.899 - Other termite inspector (current) drug therapy (3) Seropositive rheumatoid arthritis: Comment: Onset of rheumatoid arthritis, perhaps in 2019: Initial treatment with methotrexate complicated by GI intolerance. Leflunomide started 2019 Code(s): M05.9 - Rheumatoid arthritis with rheumatoid factor, unspecified Plan Rheumatoid arthritis with I think good control of synovitis with current treatment. She has some mild changes in her hands suggesting some underlying osteoarthritis. There is some medial epicondylar pain in the right elbow consistent with medial epicondylitis. This has not improved with the use of a tennis elbow band. We talked about possible corticosteroid injection but she was not that interested. The x-ray has been done and looks normal. We will see if Orthopedics can offer her something. She is advised to get another set of blood work before next visit in about 3 months and continue with the above leflunomide. Orders: Orders Alanine Aminotransferase Today M05.9 - Rheumatoid arthritis with rheumatoid factor, unspecified, Z79.899 - Other [facility] (current) drug therapy Aspartate Amino Transferase Today M05.9 - Rheumatoid arthritis with rheumatoid factor, unspecified, Z79.899 - Other termite inspector (current) drug therapy Creatinine Today M05.9 - Rheumatoid arthritis with rheumatoid factor, unspecified, Z79.899 - Other [facility] (current) drug therapy C Reactive Protein Today M05.9 - Rheumatoid arthritis with rheumatoid factor, unspecified Complete Blood Count Auto Diff Today M05.9 - Rheumatoid arthritis with rheumatoid factor, unspecified, Z79.899 - Other termite inspector (current) drug therapy Erythrocyte Sedimentation Rate Today M05.9 - Rheumatoid arthritis with rheumatoid factor, unspecified Referrals Orthopedics Referral M77.01 - Medial epicondylitis, right elbow Coding Level of Care Code Est Pt Level 3 (89627) Diagnoses Medial epicondylitis of right elbow M77.01 long-term current use of immunosuppressive drug Z79.899 Seropositive rheumatoid arthritis M05.9
== END 2023-05-12 09:35 | disposition home or self-care (01) ==
PROVIDERS: PCP Family Medicine; Visit Provider Internal Medicine Rheumatology
DX: M05.89 Other rheumatoid arthritis with rheumatoid factor of multiple sites (principal); M77.01 Medial epicondylitis, right elbow; Z79.899 Other long term (current) drug therapy
CPT/HCPCS: 99213

== ENCOUNTER → 2023-05-12 08:41 | Outpatient (BNVA) | payer OTHER, SELFPAY | PROVIDERS: PCP Family Medicine; Visit Provider Internal Medicine Rheumatology ==

== ENCOUNTER 2023-05-31 12:28 | Outpatient (AMB) | payer OTHER, SELFPAY ==
[2023-05-31 12:33] VITALS: BMI 21.8
--- NOTE | 2023-05-31 12:33 | A.OFFVIS_ITS ---
Intake Vital Signs 05/31/23 12:33 Height 5 ft 5 in Weight 131 lb BMI 21.8 Intake Visit Reasons: New prob-RT elbow, Medial epicondylitis Intake Note: Jannette 62 yr old female who is right hand dominant, presents today for her right elbow pain. Hx of R.A and O.A. Seen with rhumeaologist who referred patient to see an orthopedic for further evaluation of elbow. States her elbow pain started about 1 little less than 1 yr ago and increases with over use of arm and with daily activities. No injury she can recall. 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 Denies P.T, bracing or numbness. Allergies No Known Allergies [No Known Allergies*] Allergy (Verified 05/31/23 12:40) HPI New prob-RT elbow, Medial epicondylitis HPI Details 62-year-old right hand dominant female, who is Tristanian speaking, presents in the office today for an evaluation of right elbow pain. The patient reports the right elbow pain began around a year ago, in 2021, and has increased over time with use of the arm and with daily activities. She does not recall any injury. She denies numbness or tingling. Patient denies use of a brace or participating in Physical Therapy. Patient has a medical history of rheumatoid arthritis and osteoarthritis. She is currently follow by a Cylinder Machine Operator who referred her to Orthopedics for further evaluation. 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 She states the right elbow pain is affecting her work. [facility] Medical History DARLEEN positive GERD (gastroesophageal reflux disease) Osteopenia Seropositive rheumatoid arthritis Surgical History H/O abdominoplasty Hx of section Family History Mother HTN (hypertension) CVD (cardiovascular disease) Father Stroke HTN (hypertension) Brother CVD (cardiovascular disease) Social History Housing Other:: Born in [place]. [place] the [place]. Alcohol intake: never Patient Tobacco Use Status: Current everyday Tobacco user Tobacco use type: Cigarette Cigarettes Per Day: 6 Years Smoked: 30 e-Cigarette/Vaping Use: Never Used Current occupational status: employed Current occupation: [employer] Review of Systems Const All systems reviewed & are unremarkable except as noted in HPI and below Physical Exam Vital Signs: BMI result Body Mass Index 21.8 Const General: cooperative, healthy appearing and no acute distress Resp Effort & Inspection: normal respiratory effort and able to speak in complete sentences Cardio Rate: regular rate Peripheral pulses: Peripheral pulses 2+ throughout GI Palpation (GI): Soft to palpation Skin Lesions: no lesions Rashes: no rashes Extrem Other: Right elbow: Normal to inspection. No ecchymosis, erythema, or edema. Tenderness to palpation over the medial epicondyle. Full elbow ROM in all planes. NVI. Assessment & Plan Assessment & Plan (1) Medial epicondylitis of right elbow: Code(s): M77.01 - Medial epicondylitis, right elbow Plan Ms. Hanley is a 62-year-old right hand dominant female, who is Tristanian speaking, presents in the office today for an evaluation of right elbow pain. The patient reports the right elbow pain began around a year ago, in 2021, and has increased over time with use of the arm and with daily activities. She does not recall any injury. She denies numbness or tingling. Patient denies use of a brace or participating in Physical Therapy. Patient has a medical history of rheumatoid arthritis and osteoarthritis. She is currently follow by a Cylinder Machine Operator who referred her to Orthopedics for further evaluation. 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 She states the right elbow pain is affecting her work. The patient will be referred to physical therapy. I also sent in a prescription for Diclofenac 75 mg PO BID to the pharmacy. She reports her symptoms have been present for 8 months. She will follow up in 6 weeks after working with physical therapy. Should her elbow still be symptomatic and bothering her we will discuss the possibility of cortisone injection. Follow up will be in 6 weeks after completion of physical therapy, or sooner if needed. Medications: New diclofenac sodium 75 mg PO BID 30 days PRN 60 tabs 0RF pain Patient Instructions: Scribed for Judi Tubbs PA-C by Aimee Klein biomedical engineering supervisor, on 05/31/2023 at 12:32 pm, EST. Coding Level of Care Code New Pt Level 4 (93261) Diagnoses Medial epicondylitis of right elbow M77.01
== END 2023-05-31 12:47 | disposition home or self-care (01) ==
PROVIDERS: PCP Family Medicine; Visit Provider Physician Assistant
DX: M77.01 Medial epicondylitis, right elbow (principal)
CPT/HCPCS: 99214

== ENCOUNTER → 2023-05-31 12:28 | Outpatient (BNVA) | payer OTHER, SELFPAY | PROVIDERS: PCP Family Medicine; Visit Provider Physician Assistant ==

== ENCOUNTER 2023-07-14 10:00 | Outpatient (RCR) | payer OTHER, SELFPAY ==
--- NOTE | 2023-06-14 11:19 | MHC.OT.EP ---
[address] [phone] Occupational Therapy Plan of Care Patient Name: Jannette Hanley Date of Evaluation: 06/14/23 Diagnosis: Right Medial Epicondylitis Pain Location: 4/10 resting pain in right medial elbow, constant ache 8/10 sharp burning in right medial elbow w/ heavy use Tender to palpate right medial epicondyle and volar soft tissue also noting pain through right radial wrist and tender at MCP Pain Score: 4 Pain Scale Used: Numeric (0 - 10) Aggravating Factors: Mopping, scrubbing Alleviating Factors: Medication for ortho Assessment: 62 yo female presents w/ persistent sharp/burning pain in right medial elbow for the past few months. She was seen at [facility] and referred to OT for cont'd management of right medial epicondylitis. On assessment today, she has complaint of constant sharp pain in right elbow w/ tenderness to palpate over medial epicondyle with some discomfort over volar forearm. She also reports pain/tenderness in right thumb MCP, states she has hx of arthritis. No loss of range, sensation or coordination, but she does have weakness w/ gross grasp and reports difficulty w/ heavy everyday use of arm (ie mopping, lifting, grasping, scrubbing). 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 Frequency and Duration: The patient will be seen 2x/wk for 4 weeks Short Term Goals: Ind w/ HEP Ind w/ CFB wear Good follow through w/ joint protection techniques Ind w/ heat/cold modalities Usp Goals: Ind w/ progression of strengthening exercises Gross grasp 45lb w/ ease QuickDASH score <20 pts Pain free at rest Pt to report <3/10 pain w/ work tasks (w/ cont'd CFB wear) Treatment Plan: Therapeutic Exercise Therapeutic Activity Home Exercise Program Splinting Patient Education Edema Control ADL Training Ultrasound Iontophoresis MHP Cold Packs Soft Tissue Mobilization Kinesiotaping Counter Force Brace Nighttime resting wrist orthosis Ionto w/ Dex for pain and inflammation Electronically Signed By: Izabel Pink, OTR/L CHT Please Sign and return to therapist. Thank you once again for your referral.
--- NOTE | 2023-07-14 14:00 | MHC.OT.DC ---
[address] [phone] F: [phone] Occupational Therapy Discharge Note Patient Name: Jannette Hanley Provider: Judi Tubbs PA-C Diagnosis: Right Medial Epicondylitis Date of Evaluation: 06/14/23 Date of Discharge: 07/14/23 Treatments to Date: 7 Discharge Status: Achieved Goals Improved Function Independent with HEP Discharge Summary: Jannette was seen initially for R medial epicondylitis. Her symptoms included pain and tenderness at the medial epicondyle and some weakness with gripping and heavy lifting. She has been using a counter force brace and states it works well for her when she is working. She is currently pain free at rest w/ occasional pain at medial epicondyle with heavier use. Most of her therapy goals have been met, and she Ind w/ HEP and good awareness of joint protection and activity modification. Electronically Signed By: Joyce Walker OT/s Reviewed/agree with student documentation: Yes Therapist: Izabel Pink OTR/L Please Sign and return to therapist, thank you for your referral.
== END 2023-07-15 07:03 | disposition home or self-care (01) ==
LOC: HO.OT 10:00
PROVIDERS: PCP Family Medicine; Visit Provider Physician Assistant
DX: M77.01 Medial epicondylitis, right elbow (principal)
CPT/HCPCS: 97033; 97035; 97110; 97140; 97165

== ENCOUNTER 2023-08-05 11:24 | Outpatient (REF) | payer OTHER, SELFPAY ==
--- NOTE | ~2023-08-05 | XR_ITS ---
EXAMINATION: XR ANKLE, LEFT CLINICAL INFORMATION: Left ankle swelling for 3 days. Ongoing pain and swelling. Patient states her pain is in the back of her ankle. COMPARISON: None available. TECHNIQUE: AP, lateral, and mortise views of the left ankle. FINDINGS: Ankle joint effusion present. Small dorsal calcaneal spur. Alignment preserved. Narrowing of the talonavicular joint. No displaced fracture. XR/XR ankle LT min 3V IMPRESSION: Ankle joint effusion present. Small dorsal calcaneal spur. No displaced fracture. Recommend follow-up imaging in 10-14 days if fracture is suspected.
== END 2023-08-05 11:25 | disposition home or self-care (01) ==
LOC: HO.HHCX 11:24
PROVIDERS: Visit Provider Student in an Organized Health Care Education/Training Program
DX: M25.472 Effusion, left ankle (principal)
CPT/HCPCS: 73610

== ENCOUNTER 2023-08-10 09:14 | Outpatient (REF) | payer OTHER, SELFPAY ==
[2023-08-10 09:26] LABS: MANUAL DIFF FLAG NO
[2023-08-10 09:56] LABS: Basophils Percent Auto 0.6 % (0-2); Eosinophils Absolute Auto 0.1 X10*3/uL (0.0-0.4); Eosinophils Percent Auto 1.1 % (0-4); Hematocrit 38.7 % (37.0-47.0); Hemoglobin 12.7 g/dl (12.0-16.0); Imm Gran Abs Auto 0.02 X10*3/uL (0.00-0.03); Imm Gran Pct Auto 0.3 % (0.0-0.4); Lymphocytes Absolute Auto 1.8 X10*3/uL (1.2-4.9); Lymphocytes Percent Auto 27.5 % (20-40); Mean Corpuscular HGB Conc 32.8 g/dl (31.0-35.0); Mean Corpuscular Hemoglobin 27.3 pg (27.0-33.0); Mean Corpuscular Volume 83.2 fL (80.0-98.0); Mean Platelet Volume 10.1 fL (9.4-12.3); Monocytes Absolute Auto 0.4 X10*3/uL (0.1-1.2); Monocytes Percent Auto 6.1 % (2-11); Neutrophils Absolute Auto 4.2 x10*3/uL (2.0-8.3); Neutrophils Percent Auto 64.4 % (45-73); Platelet Count 371 X10*3/uL (160-400); Red Blood Count 4.65 X10*6/uL (4.20-5.50); Red Cell Distribution Width 14.2 % (11.0-16.0); White Blood Count 6.6 X10*3/uL (4.8-10.8)
[2023-08-10 10:32] LABS: Alanine Aminotransferase 13 U/L (0-31); Aspartate Amino Transferase 15 U/L (5-31); C Reactive Protein 0.26 mg/dL (< or = 0.50); Estimated Glomerular Filt Rate > 60
[2023-08-10 10:45] LABS: Erythrocyte Sedimentation Rate 14 MM/HR (0-20)
== END 2023-08-10 09:15 | disposition home or self-care (01) ==
LOC: HO.LAB 09:14
PROVIDERS: PCP Family Medicine; Visit Provider Internal Medicine Rheumatology
DX: M05.9 Rheumatoid arthritis with rheumatoid factor, unspecified (principal); Z79.899 Other long term (current) drug therapy
CPT/HCPCS: 36415; 82565; 84450; 84460; 85025; 85652; 86140

== ENCOUNTER 2023-08-11 08:20 | Outpatient (AMB) | payer OTHER, SELFPAY ==
[2023-08-11 08:22] VITALS: BP 94/56; PULSE 93; TEMP 36.5; O2SAT 97; BMI 21.2
--- NOTE | 2023-08-11 08:22 | MHC.OFFVIS ---
Intake Vital Signs 08/11/23 08:22 Height 5 ft 5 in Weight 127 lb 3.307 oz BMI 21.2 BP 94/56 L Blood Pressure Location Lt brachial Position Sitting Pulse 93 Pulse Source Pulse Oximeter Temp 97.7 F Temp Source Skin Pulse Oximetry (%) 97 Oxygen Delivery Method Room Air Intake Visit Reasons: ra Intake Note: Patient presents today to follow up on RA. Reports having a bump on her foot that is now gone. Xray's were done at [facility]. Per patient, she never received results. 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 Required: No Accompanied by: Self / Same As Patient Allergies No Known Allergies [No Known Allergies*] Allergy (Verified 08/11/23 08:26) Medication List - Last Reconciled 08/11/23 by Carlos Teran MD acetaminophen 1,000 mg (2 x 500 mg) PO QID PRN arm brace (Elbow Strap) use on arm when heavy use of arm or hand is equred cholecalciferol (vitamin D3) 25 mcg PO DAILY ibuprofen 400 mg PO TID leflunomide 20 mg PO DAILY miscellaneous medical supply 1 ea miscellaneous DAILY omeprazole mg PO HPI HPI Comments History of Present Illness Details The patient returns for evaluation of her rheumatoid arthritis. She is presently taking leflunomide 20 mg every other day. She had cut the dose back from 20mg daily dosage because of some cramping in the abdomen and loose stools at times. With the reduced dose she does not seem to have any of those side effects. In general the joints have been fairly comfortable. She has been having some discomfort around the left Achilles where she notes some swelling. She gets intermittent elbow pain that was helped with some physical therapy but still occurs when she works heavily. 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 She did have an x-ray of the ankle. [facility] Medical History (Updated 08/11/23 @ 08:57 by Carlos Teran MD) Fracture of right ulnar styloid Fracture of distal end of right radius Osteopenia DARLEEN positive GERD (gastroesophageal reflux disease) Seropositive rheumatoid arthritis Surgical History H/O abdominoplasty Hx of section Family History Mother HTN (hypertension) CVD (cardiovascular disease) Father Stroke HTN (hypertension) Brother CVD (cardiovascular disease) Social History (Updated 08/11/23 @ 08:28 by SHEY Grover) Housing Other:: Born in [place]. In the [place]. Alcohol intake: never Patient Tobacco Use Status: Current everyday Tobacco user Tobacco use type: Cigarette Cigarettes Per Day: 5 Years Smoked: 30 e-Cigarette/Vaping Use: Never Used Current occupational status: employed Current occupation: [employer] Review of Systems Const Details: Negative for appetite change, weight change, fever, chills, malaise and fatigue Eyes Details: Negative for vision change, dry eyes,headaches and dizziness ENT Details: Negative for hearing change, tinnitus, oral ulcer, nose bleeds and oral dryness. Card Details: Negative chest pain, edema and syncope Resp Details: Negative for SOB, cough and wheezing GI Details: Intermittent crampy pain and loose stools, helped with reduction in the dose frequency of the leflunomide. Negative indigestion/heartburn, nausea, constipation and bloody stool. Skin/Breast Details: Negative for itching, rash, hives, Raynaud's symptoms, sun sensitivity, and skin cancer Juan/Lymph Details: Negative for excessive bruising or bleeding. Physical Exam Vital Signs: Last Vital Signs Temp 97.7 F 08/11/23 08:22 Pulse 93 08/11/23 08:22 BP 94/56 L 08/11/23 08:22 Pulse Ox 97 08/11/23 08:22 Oxygen Delivery Method Room Air 08/11/23 08:22 BMI result Body Mass Index 21.2 APPEARANCE: Patient in no acute distress EYES no redness, pupils equal and reactive to light, eyelids normal ABD: Normal bowel sounds, no organomegaly, masses or tenderness. EXTREMITIES: No edema, no calf tenderness, normal peripheral pulses. SKIN: No inflammatory or neoplastic lesions. Normal color and turgor JOINT EXAM: Cervical Spine:.? Full range of motion without pain; no tenderness. Thoracic Spine:.? No scoliosis.? No tenderness on palpation. Lumbar Spine:.? Alignment normal.? Full range of motion without pain; there is some mild left paraspinal muscle tenderness. Chest Wall:.? No tenderness, swelling, increased warmth or erythema. Hands:.? Right: Slight bony enlargement across the thumb IP and PIP joints with some minimal tenderness at the 2nd through 4th PIP.? MILD BONY ENLARGEMENT AND TENDERNESS AT THE 2ND and 3rd D IP joints.? There is some slight thickening without tenderness of the 1st MCP joint.? No pain with motion or triggering. Left:?? Mild bony enlargement and minimal tenderness at the 2nd and 3rd PIP joints and the 2nd and 3rd D IP joints. However there there is no tenderness or swelling in the MCP joints.. Wrists:? Right:?no discomfort with flexion at 75 degrees or extension at 60 degrees with some minimal tenderness but no swelling.? No redness or warmth..Left:? There is no pain with extremes of flexion or extension.? She has no tenderness or swelling.? No redness or warmth. Elbows:.? Right:? no pain at full extension or flexion.? There is mild medial epicondylar tenderness.? No tenderness or swelling over the joint space.? Left: Normal pain-free range of motion without tenderness, swelling, increased warmth or erythema. Shoulders:? Right: no discomfort with extremes of normal range of motion.? There is some minimal anterior tenderness but no abductor weakness, swelling, or adenopathy.? Left:?? Full range of motion without pain. No tenderness, weakness, swelling, increased warmth or erythema. Hips:.? Full range of motion without pain. Hip bursa:.? No tenderness. Knees:.?? Normal pain-free range of motion without tenderness, swelling, increased warmth or erythema.? There is no effusion or crepitation Ankles:. Right: Slight tenderness over the base of the Achilles without swelling or redness. Otherwise there is normal pain-free range of motion without tenderness, swelling, increased warmth or erythema. Left: Mild tenderness and perhaps some slight thickening in the lower 3rd of the Achilles tendon. No redness or warmth. Otherwise range of motion in the ankle seems normal without pain and there is no swelling or tenderness elsewhere. Feet:. Right: Normal pain-free range of motion. There is some hammertoe deformity at the 3rd and 4th toes. These are tight slightly tender but there is no breaks in the skin. Left:? Normal pain-free range of motion without tenderness, swelling, increased warmth or erythema. Tender points: No tenderness at the occiput, trapezius, second rib, lateral epicondyle, knees, greater trochanter and gluteal area bilaterally. ??? Results Reviewed Results Reviewed: Laboratory Tests 08/10/23 09:25 WBC 6.6 Hgb 12.7 ESR 14 Creatinine 0.66 AST 15 ALT 13 C-Reactive Protein 0.[address] [address] XRay Report Signed Patient: Jannette Hanley MR#: [id number] : 1960 Acct:[id number] Age/Sex: 62 / F ADM Date: 08/05/[address]: Caity Sinha MD Ordering Physician: Caity Fields MD Date of Service: 08/05/23 Procedure(s): XR ankle LT min 3V Accession Number(s): [id number] cc: Caity Fields MD~ EXAMINATION: XR ANKLE, LEFT CLINICAL INFORMATION: Left ankle swelling for 3 days. Ongoing pain and swelling. Patient states her pain is in the back of her ankle. COMPARISON: None available. TECHNIQUE: AP, lateral, and mortise views of the left ankle. FINDINGS: Ankle joint effusion present. Small dorsal calcaneal spur. Alignment preserved. Narrowing of the talonavicular joint. No displaced fracture. XR/XR ankle LT min 3V IMPRESSION: Ankle joint effusion present. Small dorsal calcaneal spur. No displaced fracture. Recommend follow-up imaging in 10-14 days if fracture is suspected. 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 Leflunomide started 2019 Code(s): M05.9 - Rheumatoid arthritis with rheumatoid factor, unspecified Plan Rheumatoid arthritis with I think good control of synovitis with current treatment. She has cut the frequency of the 20 mg leflunomide down to every other day the but there has been no increase in synovitis so far. The cramping and diarrhea are likely due to the leflunomide as that is a dose related side effect. She has normal blood tests so I think it can be continued as every other day dosing. She does have some tenderness across the PIP joints and a few DIP joints consistent with some osteoarthritis. There is some tenderness around right medial epicondyle indicating some tendinitis at the elbow. There is also some Achilles tendinitis. Stretching for these problems is recommended. Local icing is recommended if she gets soreness after using the joints. She has ibuprofen 400 mg that she can take up to 3 or 4 times a day but she is warned about potential GI side effects. A return visit at 3 months with lab work before that visit is recommended. Orders: Orders Erythrocyte Sedimentation Rate 1 Month M05.9 - Rheumatoid arthritis with rheumatoid factor, unspecified Creatinine Today M05.9 - Rheumatoid arthritis with rheumatoid factor, unspecified, Z79.899 - Other rodent exterminator (current) drug therapy C Reactive Protein 1 Month M05.9 - Rheumatoid arthritis with rheumatoid factor, unspecified Alanine Aminotransferase Today M05.9 - Rheumatoid arthritis with rheumatoid factor, unspecified, Z79.899 - Other senior living (current) drug therapy Aspartate Amino Transferase Today M05.9 - Rheumatoid arthritis with rheumatoid factor, unspecified, Z79.899 - Other rodent exterminator (current) drug therapy Complete Blood Count Auto Diff 1 Month M05.9 - Rheumatoid arthritis with rheumatoid factor, unspecified, Z79.899 - Other rodent exterminator (current) drug therapy Medications: Changed From leflunomide 20 mg PO DAILY 90 tabs 1RF M05.9 - Rheumatoid arthritis with rheumatoid factor, unspecified To leflunomide 20 mg PO .every other day 45 tabs 1RF M05.9 - Rheumatoid arthritis with rheumatoid factor, unspecified Coding Level of Care Code Est Pt Level 3 (86871) Diagnoses Medial epicondylitis of right elbow M77.01 Osteoarthritis of hands, bilateral M19.041; M19.042 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
== END 2023-08-11 08:48 | disposition home or self-care (01) ==
PROVIDERS: PCP Family Medicine; Visit Provider Internal Medicine Rheumatology
DX: M05.79 Rheumatoid arthritis with rheumatoid factor of multiple sites without organ or systems involvement (principal); M77.01 Medial epicondylitis, right elbow; M19.041 Primary osteoarthritis, right hand; M19.042 Primary osteoarthritis, left hand; Z79.899 Other long term (current) drug therapy; M76.62 Achilles tendinitis, left leg
CPT/HCPCS: 99214

== ENCOUNTER → 2023-08-11 08:20 | Outpatient (BNVA) | payer OTHER, SELFPAY | PROVIDERS: PCP Family Medicine; Visit Provider Internal Medicine Rheumatology ==

== ENCOUNTER 2023-09-13 08:07 | Outpatient (REF) | payer OTHER, SELFPAY | END 2023-09-13 08:08 | disposition home or self-care (01) | LOC: HO.MAMMO 08:07 | PROVIDERS: Visit Provider Family Medicine | DX: Z12.31 Encounter for screening mammogram for malignant neoplasm of breast (principal) | CPT/HCPCS: 77063; 77067 ==

== ENCOUNTER → 2023-09-13 08:15 | Outpatient (BNV) | payer OTHER, SELFPAY | PROVIDERS: Visit Provider Radiology Diagnostic Radiology | DX: Z12.31 Encounter for screening mammogram for malignant neoplasm of breast (principal) | CPT/HCPCS: 77063; 77067 ==

== ENCOUNTER 2023-12-17 09:02 | Outpatient (AMB) | payer OTHER, SELFPAY ==
--- NOTE | 2023-12-17 09:12 | MHC.OFFVIS ---
Intake Vital Signs 12/17/23 09:15 Height 5 ft 5 in Weight 125 lb BMI 20.8 BP 136/62 Blood Pressure Location Lt brachial Position Sitting Pulse 88 Intake Visit Reasons: Hx tubular Adenoma, GERD, Gastritis Intake Note: Patient new consult for tubular Adenoma, GERD and Gastritis. Patient cc: heartburn with burning sensation, abdominal pain with bloating, N/V. Corporate General Manager Required: Yes Corporate General Manager Name: [facility] Interpeter Accompanied by: Self / Same As Patient Allergies No Known Allergies [No Known Allergies*] Allergy (Verified 12/17/23 09:10) HPI Hx tubular Adenoma, GERD, Gastritis HPI Details 63 year old? female with past medical history of rheumatoid arthritis, osteopenia, osteoarthritis of bilateral hands, history of the abdominoplasty is here today for pre colonoscopy screening.? Patient was sent to us by her PCP.? Last colonoscopy was done in [facility] in 2015. Tubular adenoma found.? Patient reports to have dyspepsia and acid reflux worse at nighttime. Currently taking 20 mg of omeprazole and feels like it has not helping. Patient is trying to avoid dietary triggers. Patient denies any dysphagia or odynophagia. Denies any melena, hematochezia, unintentional weight loss or ribbon like stools.? Denies any family history of colorectal cancer.? Denies history of difficulty with sedation or anesthesia in the past.? Negative for history of sleep apnea.? Denies any history of cardiac, renal, pulmonary, or hepatic disease.?? No history of infectious? diseases like hepatitis A, B, C, HIV or tuberculosis.? Patient is not on any anticoagulation therapy. [facility] Medical History (Updated 08/11/23 @ 08:57 by Carlos Teran MD) Fracture of right ulnar styloid Fracture of distal end of right radius Osteopenia DARLEEN positive GERD (gastroesophageal reflux disease) Seropositive rheumatoid arthritis Surgical History H/O abdominoplasty Hx of section Family History Mother HTN (hypertension) CVD (cardiovascular disease) Father Stroke HTN (hypertension) Brother CVD (cardiovascular disease) Social History (Updated 08/11/23 @ 08:28 by SHEY Armenta) Housing Other:: Born in [place]. In the [place]. Alcohol intake: never Patient Tobacco Use Status: Current everyday Tobacco user Tobacco use type: Cigarette Cigarettes Per Day: 5 Years Smoked: 30 e-Cigarette/Vaping Use: Never Used Current occupational status: employed Current occupation: [employer] Review of Systems Const Denies weight gain and Denies weight loss ENT Reports no additional complaints, Denies dysphagia and Denies odynophagia Card Reports no additional complaints Resp Reports no additional complaints GI Denies abdominal pain, Denies belching, Denies melena, Denies bloating, Denies change in bowel habits, Denies dysphagia, Denies excessive flatus, Denies dyspepsia, Reports heartburn, Denies diarrhea, Denies loose stools, Denies nausea, Denies odynophagia and Denies vomiting Reports no additional complaints Musc Reports no additional complaints Neuro Reports no additional complaints Psych Reports no additional complaints Endo Reports no additional complaints Physical Exam Const General: healthy appearing, no acute distress and well developed Nutritional Appearance: well nourished Orientation/consciousness: patient oriented x3 Resp Effort & Inspection: normal respiratory effort, able to speak in complete sentences, no tracheal deviation and symmetric chest movement Auscultation: clear to auscultation bilaterally Cardio Rate: regular rate GI Inspection: Yes normal to inspection and No distended Palpation (GI): Soft to palpation, not firm, nontender and No hepatosplenomegaly present Auscultation: normal bowel sounds General: Yes no CVA tenderness Back/Spine/Pelvis Back: no CVA tenderness Skin General skin exam: elasticity normal, turgor normal and dry skin Neuro General: patient oriented x3 Psych Appearance: grossly normal Mental Status: mental status grossly normal Judgement: Good judgement present (Psych) Assessment & Plan Assessment & Plan (1) Screen for colon cancer: Code(s): Z12.11 - Encounter for screening for malignant neoplasm of colon (2) GERD (gastroesophageal reflux disease): Code(s): K21.9 - Gastro-esophageal reflux disease without esophagitis Qualifiers: Esophagitis presence: esophagitis presence not specified Qualified Code(s): K21.9 - Gastro-esophageal reflux disease without esophagitis Plan Patient denies any cardiac or respiratory symptoms.? Denies any issues with anesthesia in the past.? Denies any history of sleep apnea.? No history infectious diseases in the past or present.? Not on any anticoagulation therapy.? Colonoscopy in 2016 tubular adenoma found. Patient reports epigastric pain and reflux mostly at night time. Patient is taking omeprazole 20 mg, however she does not believe that it is helping her much. I will send her script for pantoprazole 40 mg daily and famotidine at bedtime. Patient was encouraged to avoid dietary triggers and late night snacking. Staying upright for minimum 3 hours after meals discussed with patient. Patient will go for upper endoscopy to rule out esophagitis, gastritis, duodenitis, gastric or peptic ulcers, Galvez's, H pylori.? Patient denies melena, hematochezia, unintentional weight loss or ribbon like stools.? Discussed at length the pre-procedure,? prep, diet & medications as well as what to expect prior, during and after the procedure.?? Stressed the importance of good bowel prep. ?Recommended the use of Vaseline or Calmoseptine OTC & baby wipes with bowel movements to promote comfort.? ?Patient verbalizes understanding and agrees to plan of care.? She was given the opportunity to ask questions and all questions answered.? We will see her after the procedure.? Medications: New bisacodyl (Dulcolax (bisacodyl)) take 4 tabs at noon the day before your colonoscopy 20 mg (4 x 5 mg) PO ONCE 4 tabs 0RF 1 day Z12.11 - Encounter for screening for malignant neoplasm of colon pantoprazole take one tablet half an hour before breakfast 40 mg PO DAILY 90 tabs 2RF K21.9 - Gastro-esophageal reflux disease without esophagitis famotidine (Pepcid) 20 mg PO BEDTIME 90 tabs 3RF K21.9 - Gastro-esophageal reflux disease without esophagitis polyethylene glycol 3350 (Miralax) As directed by gastroenterology department at [facility] 238 grams PO ONCE 238 grams 0RF Z12.11 - Encounter for screening for malignant neoplasm of colon Coding Level of Care Code New Pt Level 3 (98788) Diagnoses Screen for colon cancer Z12.11 Gastroesophageal reflux disease, unspecified whether esophagitis present K21.9 Esophagitis presence: esophagitis presence not specified Time Spent (min) 40 Comment 30 minutes spent with patient and additional 10 minutes spent reviewing her records
[2023-12-17 09:15] VITALS: BP 136/62; PULSE 88; BMI 20.8
== END 2023-12-17 09:36 | disposition home or self-care (01) ==
PROVIDERS: PCP Family Medicine; Visit Provider Nurse Practitioner Family
DX: K21.9 Gastro-esophageal reflux disease without esophagitis (principal); Z01.818 Encounter for other preprocedural examination; Z12.11 Encounter for screening for malignant neoplasm of colon; Z86.010 Personal history of colon polyps
CPT/HCPCS: 99203

== ENCOUNTER → 2023-12-17 09:02 | Outpatient (BNVA) | payer OTHER, SELFPAY | PROVIDERS: PCP Family Medicine; Visit Provider Nurse Practitioner Family ==

== ENCOUNTER 2024-01-10 16:01 | Outpatient (REF) | payer OTHER, SELFPAY ==
[2024-01-10 17:49] LABS: Alanine Aminotransferase 11 U/L (0-31); Albumin Level 4.1 g/dL (3.5-5.0); Alkaline Phosphatase 105 U/L (39-117); Anion Gap 8 (12-20); Aspartate Amino Transferase 14 U/L (5-31); Bilirubin Total 0.2 mg/dL (0.0-1.0); Blood Urea Nitrogen 15 mg/dL (9-16); Calcium 9.5 mg/dL (8.4-10.2); Carbon Dioxide 27 mmol/L (22-29); Chloride 107 mmol/L (96-108); Cholesterol 194 mg/dL (<200); Estimated Glomerular Filt Rate > 60; Glucose Random 87 mg/dL (60-115); HDL Cholesterol 38 mg/dL (>40); LDL Cholesterol Calculated 117 mg/dL (<100); Potassium 3.9 mmol/L (3.3-5.1); Sodium 138 mmol/L (135-145); Total Protein 7.7 g/dL (6.5-8.0); Triglycerides 199 mg/dL (<150)
[2024-01-10 18:05] LABS: TSH reflex Free T4 1.88 uIU/mL (0.32-4.0)
[2024-01-10 18:06] LABS: Reflex LDLD? No
== END 2024-01-10 16:02 | disposition home or self-care (01) ==
LOC: HO.HHCL 16:01
PROVIDERS: Visit Provider Family Medicine
DX: Z13.6 Encounter for screening for cardiovascular disorders (principal); L85.3 Xerosis cutis; B35.1 Tinea unguium; Z91.89 Other specified personal risk factors, not elsewhere classified
CPT/HCPCS: 36415; 80053; 80061; 84443

== ENCOUNTER 2024-05-31 08:46 | Day surgery (SDC) | payer OTHER, SELFPAY ==
--- NOTE | 2024-05-30 10:43 | HO.ANESPROP2 ---
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 (Acute) Osteopenia (Acute) Low back pain (Acute) DARLEEN positive (Acute) Seropositive rheumatoid arthritis (Acute) Past Medical History Medical History Fracture of right ulnar styloid Fracture of distal end of right radius Osteopenia DARLEEN positive GERD (gastroesophageal reflux disease) Seropositive rheumatoid arthritis Family History Family History Mother HTN (hypertension) CVD (cardiovascular disease) Father Stroke HTN (hypertension) Brother CVD (cardiovascular disease) Surgical History Surgical History H/O abdominoplasty Hx of section Social History Social History Housing Other:: Born in [place]. In the [place]. Are you a primary hospice patient care secretary to a significant other at home: No Do you presently have visiting nurse or other home services: No Alcohol intake: never Patient Tobacco Use Status: Current everyday Tobacco user Tobacco use type: Cigarette Cigarettes Per Day: 6 Years Smoked: 30 e-Cigarette/Vaping Use: Never Used Use of substances other than those prescribed or required for medical reasons: No Have you been hit, kicked, punched, or otherwise hurt by someone within the past year? If so, by whom?: No Are you DNR?: No Advance Directives: No Advance Directives Information Provided: Yes Recently lost weight without trying: No Nutrition Risks: No Nutritional Risk Patient : No Current occupational status: employed Current occupation: [employer] Meds Allergies Allergy/AdvReac Type Severity Reaction Status Date / Time No Known Allergies Allergy Verified 12/17/23 09:10 [No Known Allergies*] Home Medications ?Medication ?Instructions ?Recorded ?Confirmed ?Last Taken ?Type ibuprofen 400 mg tablet 400 mg PO TID 08/11/23 08/11/23 Unknown History Assessment and Plan Assessment Anesthesia Assessment: Chart Reviewed Documented by User: Mayito Strong MD 05/31/24 10:54 HPI - Anesthesia Eval Consult details Narrative: 63yo F for EGD & Colonoscopy PMFSH Past Medical History Medical History Fracture of right ulnar styloid Fracture of distal end of right radius Osteopenia DARLEEN positive GERD (gastroesophageal reflux disease) Seropositive rheumatoid arthritis Family History Family History Mother HTN (hypertension) CVD (cardiovascular disease) Father Stroke HTN (hypertension) Brother CVD (cardiovascular disease) Family history of problems with anesthesia: No Surgical History Surgical History H/O abdominoplasty Hx of section History of Problems with Anesthesia: No Social History Social History Housing Other:: Born in [place]. In the [place]. Are you a primary hospice patient care secretary to a significant other at home: No Do you presently have visiting nurse or other home services: No Alcohol intake: never Patient Tobacco Use Status: Current everyday Tobacco user Tobacco use type: Cigarette Cigarettes Per Day: 6 Years Smoked: 30 e-Cigarette/Vaping Use: Never Used Use of substances other than those prescribed or required for medical reasons: No Have you been hit, kicked, punched, or otherwise hurt by someone within the past year? If so, by whom?: No Are you DNR?: No Advance Directives: No Advance Directives Information Provided: Yes Recently lost weight without trying: No Nutrition Risks: No Nutritional Risk Patient : No Current occupational status: employed Current occupation: [employer] Meds Allergies Allergy/AdvReac Type Severity Reaction Status Date / Time No Known Allergies Allergy Verified 12/17/23 09:10 [No Known Allergies*] Home Medications ?Medication ?Instructions ?Recorded ?Confirmed ?Last Taken ?Type ibuprofen 400 mg tablet 400 mg PO TID 08/11/23 08/11/23 Unknown History Exam Airway Mallampati Class: II TM Dist: >3cm Neck ROM: Full Loose/Missing/Broken Teeth: No Heart: ok Lungs: ok Assessment and Plan Assessment Anesthesia Assessment: Anesthesia Plan Discussed Final Anesthetic Review Family History of Problems with Anesthesia: No History of Problems with Anesthesia: No NPO: Yes ASA Class: III Final Preanesthetic Review: No Changes in Pt Med Stat, Meds/Allgs Chart Reviewed, Consent Obtained/Reviewed and Anes Risks/Benef Reviewed Patient Risk: Low Procedure Risk: Intermediate Anesthetic Plan Anesthetic Plan: Agree w/ Assess. and Plan and TIVA Disposition: Standard PACU
[2024-05-31 09:40] VITALS: BMI 20.9
[2024-05-31 09:55] VITALS: BP 117/62; PULSE 73; RESP 16; TEMP 36.4; O2SAT 98
[2024-05-31] MEDS: Lactated Ringers 1,000 ML 100 ML IVCONT (10:06)
--- NOTE | 2024-05-31 10:42 | P.HPSUR_ITS ---
Pre-Procedural Eval Section A - 24 Hr Update-Section A only Date of Service: 05/31/24 Section B - Complete if H&P > 30 days Chief Complaint: Encounter for screening for malignant neoplasm of Relevant Family History (Specify if Yes): No Relevant Social History: Tobacco Use Present Medications: see Short Stay Collaborative assessment Medical History: Significant History (Fracture of right ulnar styloid Fracture of distal end of right radius Osteopenia DARLEEN positive GERD (gastroesophageal reflux disease) Seropositive rheumatoid arthritis) History of Previous Operations: Relevant previous surgery/procedure and date(s) (H/O abdominoplasty Hx of section) Allergies: Allergies Allergy/AdvReac Type Severity Reaction Status Date / Time No Known Allergies Allergy Verified 12/17/23 09:10 [No Known Allergies*] Review of Systems Sugical H&P ROS: Negative: Constitution, Cardiovascular, Respiratory, Neurological, Psychiatric, Hem-Onc, Allergic/Immunologic, Gastrointestinal, Genitourinary, Musculoskeletal, Integumentary, Endocrine and Eyes/Ear s/Nose/Throat Exam Surgical H&P Exam: Normal: HEENT, Normal: Heart, Normal: Lungs, Normal: Extremities, Normal: Abdomen, Normal: Skin and Normal: Neurological Plan Diagnosis/Plan: Unchanged I have reviewed the history and physical and performed a pertinent physical examination on my patient. No changes have occurred unless specified. EGD for ix of GERD Time Spent With Patient Time: Total time managing care of this patient today ____ minutes.
--- NOTE | 2024-05-31 11:05 | P.OPN-COLO_ITS ---
Colonoscopy Operative Note Operative Note Date of Service: 05/31/24 Narrative: Operative Information Procedure Description: EGD, Colonoscopy Indication: GERD, colon screening Anesthesia: MAC FLEXIBLE TRANSORAL UPPER GASTROINTESTINAL ENDOSCOPY AND COLONOSCOPY PROCEDURE NOTE UPPER ENDOSCOPY Consent: Indications for the procedure and potential complications of bleeding, perforation, reaction to medications and missed diagnosis were discussed with the patient and informed consent was obtained. Instrument: Olympus GIF H 190 J mid size upper endoscope Monitoring: Vital signs and clinical assessment, continuous EKG monitoring, Pulse oximetry, Carbon Dioxide monitoring and blood pressure monitoring were done throughout the procedure. Procedure: The patient was placed in the left lateral decubitis position and pre-procedure medications were administered and a bite block was placed. The endoscope was inserted into the mouth and advanced under direct vision to the third part of duodenum. A careful inspection was made as the upper endoscope was withdrawn including a retroflexed examination of the proximal stomach; Findings and interventions are described below. Findings: Larynx:normal Esophagus: GE junction at 40 cm, diaphragm hiatus at 40 cm, few tongues of salmon pink tissue consistent with short segment Barretts- 3 cm in max length, bx taken aslo sent for tissue cypher Stomach: patchy erythema and few erosions. Biopsies were obtained. Grade 2 flap valve on retroflexed examination of the cardia. Duodenum: Normal bulb and descending duodenum, bx taken Intervention: Biopsies as noted above, COLONOSCOPY Instrument: Olympus variable stiffness pediatric scope 190L Colonoscopy Monitoring: Vital signs and clinical assessment, continuous EKG monitoring, Pulse oximetry, Carbon Dioxide monitoring and blood pressure monitoring were done throughout the procedure. Colon withdrawal time was 8 minutes. Procedure: The patient was placed in the left lateral decubitis position and pre-procedure medications were administered. After a digital rectal examination of the ano-rectum, the video colonoscope was inserted into the rectum and advanced through the colon to the cecum/TI. The colonoscope was slowly withdrawn in a retrograde panoramic fashion and the colon mucosa was carefully examined including a retroflexed view of the rectum. Findings and interventions are described below. Procedure Difficulty:moderate Findings: Terminal Ileum-normal Cecum:normal right sided retroflexion- normal Ascending Colon: 4-5 mm sessile polyp removed with cold forceps Transverse Colon -normal Descending Colon:normal Sigmoid Colon: 10 mm sessile polyp removed with cold snare Rectum: Retroflexion with small internal hemorrhoids, grade I Anorectum - normal Colon preparation: [place] Bowel Preparation Scale Right colon; 2 Transverse colon: 3 Left colon; 3 (0 = Unprepared colon segment with mucosa not seen due to solid stool that cannot be cleared. 1 = Portion of mucosa of the colon segment seen, but other areas of the colon segment not well seen due to staining, residual stool and/or opaque liquid. 2 = Minor amount of residual staining, small fragments of stool and/or opaque liquid, but mucosa of colon segment seen well. 3 = Entire mucosa of colon segment seen well with no residual staining, small fragments of stool or opaque liquid) Impression and Post Procedure Diagnosis: Endoscopy Findings: barretts gastritis Colonoscopy Findings: colon polyps internal hemorrhoids Plan: Await Pathology results Repeat Colonoscopy in 5 years or earlier if clinically indicated High fiber diet leaflet avoid straining at stool, epsom salts and sitz bath, anusol supps or cream repeat EGD in 5 yrs --cont with PPI Above findings were reviewed with the patient and relevant handouts were provided if indicated.
[2024-05-31 11:27] VITALS: BP 97/57; PULSE 75; RESP 18; TEMP 36.2; O2SAT 97
[2024-05-31 11:32] VITALS: BP 99/59; PULSE 71; RESP 16; O2SAT 98
[2024-05-31 11:37] VITALS: BP 106/67; PULSE 72; RESP 15; O2SAT 99
[2024-05-31 11:42] VITALS: BP 109/60; PULSE 80; RESP 14; O2SAT 99
[2024-05-31 11:57] VITALS: BP 118/71; PULSE 77; RESP 15; TEMP 36.4; O2SAT 99
== END 2024-05-31 12:14 | disposition home or self-care (01) ==
PROVIDERS: PCP Family Medicine; Visit Provider Internal Medicine Gastroenterology
PROC: 0DJD8ZZ Inspection of Lower Intestinal Tract, Via Natural or Artificial Opening Endoscopic (ICD-10-PCS; CPT 45378; principal; 2024-05-31 11:00)
DX: Z12.11 Encounter for screening for malignant neoplasm of colon (principal); Z86.010 Personal history of colon polyps; D12.2 Benign neoplasm of ascending colon; D12.3 Benign neoplasm of transverse colon; K64.0 First degree hemorrhoids; K21.9 Gastro-esophageal reflux disease without esophagitis; K22.70 Barrett's esophagus without dysplasia; K29.60 Other gastritis without bleeding; K29.80 Duodenitis without bleeding; K44.9 Diaphragmatic hernia without obstruction or gangrene; M05.9 Rheumatoid arthritis with rheumatoid factor, unspecified; M85.80 Other specified disorders of bone density and structure, unspecified site; Z79.899 Other long term (current) drug therapy; Z98.890 Other specified postprocedural states; F17.210 Nicotine dependence, cigarettes, uncomplicated
CPT/HCPCS: 45385; 45380; 43239; 88305; 88313; 88342; J2704

== ENCOUNTER → 2024-05-31 08:46 | Outpatient (BNV) | payer OTHER, SELFPAY | PROVIDERS: PCP Family Medicine; Visit Provider Internal Medicine Gastroenterology | DX: Z12.11 Encounter for screening for malignant neoplasm of colon (principal); K63.5 Polyp of colon; K64.8 Other hemorrhoids; K22.70 Barrett's esophagus without dysplasia; K29.70 Gastritis, unspecified, without bleeding | CPT/HCPCS: 43239; 45380; 45385 ==

== ENCOUNTER 2024-06-20 08:16 | Outpatient (AMB) | payer OTHER, SELFPAY ==
[2024-06-20 08:18] VITALS: BP 120/54; PULSE 84; O2SAT 97; BMI 21.3
--- NOTE | 2024-06-20 08:18 | MHC.OFFVIS ---
Vital Signs 06/20/24 08:18 Height 5 ft 5 in Weight 128 lb 4.944 oz BMI 21.3 BP 120/54 L Blood Pressure Location Rt brachial Position Sitting Pulse 84 Pulse Source Pulse Oximeter Pulse Oximetry (%) 97 Oxygen Delivery Method Room Air Intake Visit Reasons: S/p colon Intake Note: Jannette presents in office today for a scheduled s/p FUV. CC; Pt denies any complications post op. Pt denies any new sx or concerns at this time. Pt reports that they are here to discuss the results of their procedure. Pt needs a refill of their famotidine they believe. Turbine Blade Assembler Required: Yes Turbine Blade Assembler Name: [id number] [place] Allergies No Known Allergies [No Known Allergies*] Allergy (Verified 06/20/24 08:21) HPI HPI S/p colon: Details: LAST VISIT Screen for colon cancer GERD (gastroesophageal reflux disease) Plan Patient denies any cardiac or respiratory symptoms.? Denies any issues with anesthesia in the past.? Denies any history of sleep apnea.? No history infectious diseases in the past or present.? Not on any anticoagulation therapy.? Colonoscopy in 2016 tubular adenoma found. Patient reports epigastric pain and reflux mostly at night time. Patient is taking omeprazole 20 mg, however she does not believe that it is helping her much. I will send her script for pantoprazole 40 mg daily and famotidine at bedtime. Patient was encouraged to avoid dietary triggers and late night snacking. Staying upright for minimum 3 hours after meals discussed with patient. Patient will go for upper endoscopy to rule out esophagitis, gastritis, duodenitis, gastric or peptic ulcers, Galvez's, H pylori.? Patient denies melena, hematochezia, unintentional weight loss or ribbon like stools.? Discussed at length the pre-procedure,? prep, diet & medications as well as what to expect prior, during and after the procedure.?? Stressed the importance of good bowel prep. ?Recommended the use of Vaseline or Calmoseptine OTC & baby wipes with bowel movements to promote comfort.? ?Patient verbalizes understanding and agrees to plan of care.? She was given the opportunity to ask questions and all questions answered.? We will see her after the procedure.? Medications New bisacodyl (Dulcolax (bisacodyl)) take 4 tabs at noon the day before your colonoscopy 20 mg (4 x 5 mg) PO ONCE 4 tabs 0RF 1 day Z12.11 pantoprazole take one tablet half an hour before breakfast 40 mg PO DAILY 90 tabs 2RF K21.9 famotidine (Pepcid) 20 mg PO BEDTIME 90 tabs 3RF K21.9 polyethylene glycol 3350 (Miralax) As directed by gastroenterology department at [facility] 238 grams PO ONCE 238 grams 0RF Z12.11 UPPER ENDOSCOPY AND COLONOSCOPY Findings: Larynx:normal Esophagus: GE junction at 40 cm, diaphragm hiatus at 40 cm, few tongues of salmon pink tissue consistent with short segment Barretts- 3 cm in max length, bx taken aslo sent for tissue cypher Stomach: patchy erythema and few erosions. Biopsies were obtained. Grade 2 flap valve on retroflexed examination of the cardia. Duodenum: Normal bulb and descending duodenum, bx taken Intervention: Biopsies as noted above, COLONOSCOPY Instrument: Olympus variable stiffness pediatric scope 190L Colonoscopy Monitoring: Vital signs and clinical assessment, continuous EKG monitoring, Pulse oximetry, Carbon Dioxide monitoring and blood pressure monitoring were done throughout the procedure. Colon withdrawal time was 8 minutes. Procedure: The patient was placed in the left lateral decubitis position and pre-procedure medications were administered. After a digital rectal examination of the ano-rectum, the video colonoscope was inserted into the rectum and advanced through the colon to the cecum/TI. The colonoscope was slowly withdrawn in a retrograde panoramic fashion and the colon mucosa was carefully examined including a retroflexed view of the rectum. Findings and interventions are described below. Procedure Difficulty:moderate Findings: Terminal Ileum-normal Cecum:normal right sided retroflexion- normal Ascending Colon: 4-5 mm sessile polyp removed with cold forceps Transverse Colon -normal Descending Colon:normal Sigmoid Colon: 10 mm sessile polyp removed with cold snare Rectum: Retroflexion with small internal hemorrhoids, grade I Anorectum - normal Colon preparation: [place] Bowel Preparation Scale Right colon; 2 Transverse colon: 3 Left colon; 3 (0 = Unprepared colon segment with mucosa not seen due to solid stool that cannot be cleared. 1 = Portion of mucosa of the colon segment seen, but other areas of the colon segment not well seen due to staining, residual stool and/or opaque liquid. 2 = Minor amount of residual staining, small fragments of stool and/or opaque liquid, but mucosa of colon segment seen well. 3 = Entire mucosa of colon segment seen well with no residual staining, small fragments of stool or opaque liquid) Impression and Post Procedure Diagnosis: Endoscopy Findings: barretts gastritis Colonoscopy Findings: colon polyps internal hemorrhoids Plan: Await Pathology results Repeat Colonoscopy in 5 years or earlier if clinically indicated High fiber diet leaflet avoid straining at stool, epsom salts and sitz bath, anusol supps or cream repeat EGD in 5 yrs --cont with PPI Above findings were reviewed with the patient and relevant handouts were provided if indicated. PATHOLOGY RESULTS Diagnosis A. Duodenum, biopsy: Duodenal mucosa within normal limits. B. Stomach, biopsy: Antral-type and oxyntic mucosa with mild chronic inactive inflammation; no Helicobacter organisms seen. C. GE junction, biopsy: - Galvez esophagus with background moderate chronic inactive inflammation. - No dysplasia seen. - Squamous mucosa within normal limits. D. Colon, ascending, polypectomy: Fragments of tubular adenoma; negative for high-grade dysplasia or carcinoma. E. Colon, sigmoid, polypectomy: Tubular adenoma; negative for high-grade dysplasia or carcinoma. Comment: TissueCypher results will be addended TODAY'S VISIT: Patient is here today for follow-up and to discuss upper endoscopy and colonoscopy results. Patient denies any ill effects from the prep, anesthesia or procedure itself. Patient reports that for the most part she is feeling well, however she feels like the pantoprazole is not truly working for her. Patient continues to have postprandial epigastric pain. Patient was found to have Barretts diagnosed on biopsy at GE junction. No Barretts in her esophagus. Will change PPI. Patient will continue taking her famotidine. Patient states that famotidine is helpful. Occasionally patient admits to eating late at night. Patient denies any dysphagia or odynophagia. Denies any dyspepsia. Upper endoscopy recommended in 5 years, sooner if clinically necessary. Denies melena, hematochezia. Patient had tubular adenoma in ascending and sigmoid colon. No high-grade dysplasia or carcinoma found. Recommendation was made to return in 5 years. [facility] Medical History (Updated 06/20/24 @ 08:45 by Cecile Carvajal, [facility]) Galvez's esophagus determined by endoscopy Tubular adenoma of colon Fracture of right ulnar styloid Fracture of distal end of right radius Osteopenia DARLEEN positive GERD (gastroesophageal reflux disease) Seropositive rheumatoid arthritis Surgical History H/O abdominoplasty Hx of section Family History Mother HTN (hypertension) CVD (cardiovascular disease) Father Stroke HTN (hypertension) Brother CVD (cardiovascular disease) Social History Housing Other:: Born in [place]. In the [place] since [place]. Are you a primary childcare worker to a significant other at home: No Do you presently have visiting nurse or other home services: No Alcohol intake: never Patient Tobacco Use Status: Current everyday Tobacco user Tobacco use type: Cigarette Cigarettes Per Day: 6 Years Smoked: 30 e-Cigarette/Vaping Use: Never Used Current occupational status: employed Current occupation: [employer] Review of Systems Const Denies weight gain and Denies weight loss ENT Reports no additional complaints, Denies dysphagia and Denies odynophagia Card Reports no additional complaints Resp Reports no additional complaints GI Denies abdominal pain, Denies belching, Denies melena, Denies bloating, Denies change in bowel habits, Reports constipation, Denies dysphagia, Denies excessive flatus, Denies dyspepsia, Reports heartburn, Denies diarrhea, Denies loose stools, Denies nausea, Denies odynophagia and Denies vomiting Reports no additional complaints Musc Reports no additional complaints Neuro Reports no additional complaints Psych Reports no additional complaints Endo Reports no additional complaints Physical Exam Vital Signs: Last Vital Signs Pulse 84 06/20/24 08:18 BP 120/54 L 06/20/24 08:18 Pulse Ox 97 06/20/24 08:18 Oxygen Delivery Method Room Air 06/20/24 08:18 BMI result Body Mass Index 21.3 Const General: healthy appearing, no acute distress and well developed Nutritional Appearance: well nourished Orientation/consciousness: patient oriented x3 Resp Effort & Inspection: normal respiratory effort, able to speak in complete sentences, no tracheal deviation and symmetric chest movement Auscultation: clear to auscultation bilaterally Cardio Rate: regular rate GI Inspection: Yes normal to inspection and No distended Palpation (GI): Soft to palpation, not firm, nontender and No hepatosplenomegaly present Auscultation: normal bowel sounds General: Yes no CVA tenderness Back/Spine/Pelvis Back: no CVA tenderness Skin General skin exam: elasticity normal, turgor normal and dry skin Neuro General: patient oriented x3 Psych Appearance: grossly normal Mental Status: mental status grossly normal Judgement: Good judgement present (Psych) Assessment & Plan Assessment & Plan (1) Tubular adenoma of colon: Code(s): D12.6 - Benign neoplasm of colon, unspecified Category: Medical (2) Galvez's esophagus determined by endoscopy: Code(s): K22.70 - Galvez's esophagus without dysplasia Category: Medical (3) GERD (gastroesophageal reflux disease): Code(s): K21.9 - Gastro-esophageal reflux disease without esophagitis Qualifiers: Esophagitis presence: without esophagitis Qualified Code(s): K21.9 - Gastro-esophageal reflux disease without esophagitis (4) Constipation: Code(s): K59.00 - Constipation, unspecified Qualifiers: Constipation type: slow transit constipation Qualified Code(s): K59.01 - Slow transit constipation (5) Status post colonoscopy: Code(s): Z98.890 - Other specified postprocedural states Plan Upper endoscopy and colonoscopy results discussed with patient. Patient will stop pantoprazole and start taking esomeprazole. Continue famotidine at bedtime. Avoid dietary triggers and late night snacking. Staying upright for minimum 3 hours after meals discussed with patient. Upper endoscopy repeat in 5 years, sooner if clinically necessary. Colonoscopy showed 2 tubular adenomas without high-grade dysplasia or carcinoma. Colonoscopy recommended in 5 years. Patient will return in 6 months to re-evaluate. She is agreeable to this plan and verbalizes understanding of instructions. She was given the opportunity to ask questions and all questions answered. Thank you for allowing me to participate in her care Medications: New esomeprazole magnesium (Nexium) 40 mg PO DAILY 30 caps 5RF K21.9 - Gastro-esophageal reflux disease without esophagitis sennosides (Natural Senna Laxative) 17.2 mg (2 x 8.6 mg) PO BEDTIME 60 tabs 1RF constipation K59.00 - Constipation, unspecified Discontinued pantoprazole take one tablet half an hour before breakfast Discontinued Reason: Doctor's Order 40 mg PO DAILY 90 tabs 2RF K21.9 - Gastro-esophageal reflux disease without esophagitis Coding Level of Care Code Est Pt Level 4 (92115) Diagnoses Tubular adenoma of colon D12.6 Galvez's esophagus determined by endoscopy K22.70 Gastroesophageal reflux disease without esophagitis K21.9 Esophagitis presence: without esophagitis Slow transit constipation K59.01 Constipation type: slow transit constipation Status post colonoscopy Z98.890 Time Spent (min) 35 Comment 20 minutes spent with patient and additional 15 minutes spent reviewing records
== END 2024-06-20 08:45 | disposition home or self-care (01) ==
PROVIDERS: PCP Family Medicine; Visit Provider Nurse Practitioner Family
DX: D12.6 Benign neoplasm of colon, unspecified (principal); K22.70 Barrett's esophagus without dysplasia; K21.9 Gastro-esophageal reflux disease without esophagitis; K59.01 Slow transit constipation; Z98.890 Other specified postprocedural states
CPT/HCPCS: 99214

== ENCOUNTER → 2024-06-20 08:16 | Outpatient (BNVA) | payer OTHER, SELFPAY | PROVIDERS: PCP Family Medicine; Visit Provider Nurse Practitioner Family ==

== ENCOUNTER 2024-07-19 13:30 | Outpatient (REF) | payer OTHER, SELFPAY ==
--- NOTE | ~2024-07-19 | XR_ITS ---
EXAMINATION: XR CHEST CLINICAL INFORMATION: Left posterior chest pain. Smoker. Cough. COMPARISON: December 03, 2021. TECHNIQUE: PA and lateral views of the chest were obtained. FINDINGS: No significant abnormality is noted involving the heart, lungs, mediastinum, bony thorax or soft tissues. XR/XR chest 2V IMPRESSION: Unremarkable examination. Electronically signed by: Junaid Brewer MD 07/19/2024 04:22 PM EDT RP
== END 2024-07-19 13:31 | disposition home or self-care (01) ==
LOC: HO.HHCX 13:30
PROVIDERS: Visit Provider Emergency Medicine
DX: R07.89 Other chest pain (principal)
CPT/HCPCS: 71046

== ENCOUNTER 2024-09-18 07:51 | Outpatient (REF) | payer OTHER, SELFPAY | END 2024-09-18 07:52 | disposition home or self-care (01) | LOC: HO.MAMMO 07:51 | PROVIDERS: PCP Family Medicine; Visit Provider Family Medicine | DX: Z12.31 Encounter for screening mammogram for malignant neoplasm of breast (principal) | CPT/HCPCS: 77063; 77067 ==

== ENCOUNTER → 2024-09-18 08:00 | Outpatient (BNV) | payer OTHER, SELFPAY | PROVIDERS: PCP Family Medicine; Visit Provider Internal Medicine | DX: Z12.31 Encounter for screening mammogram for malignant neoplasm of breast (principal) | CPT/HCPCS: 77063; 77067 ==

== ENCOUNTER 2024-12-12 08:23 | Outpatient (AMB) | payer OTHER, SELFPAY ==
--- NOTE | 2024-12-12 08:25 | A.OFFVIS_ITS ---
Vital Signs 12/12/24 08:26 Height 5 ft 5 in Weight 129 lb 3.054 oz BMI 21.5 BP 102/56 L Blood Pressure Location Rt brachial Position Sitting Pulse 90 Pulse Source Pulse Oximeter Pulse Oximetry (%) 98 Oxygen Delivery Method Room Air Intake Visit Reasons: 6 month follow up Intake Note: ESTABLISHED PATIENT for GERD + Galvez's mgmt. Chief Complaint; C/O reflux which has remained unchanged since last visit. Still intermittent and seemingly dietary dependent. Pt is doing OK with nexium but would also be open to change if necessary. No additional concerns at this time. Bread Packer Required: No Bread Packer Services: Bread Packer Offered & Declined Accompanied by: Self / Same As Patient Allergies No Known Allergies [No Known Allergies*] Allergy (Verified 12/12/24 08:25) HPI HPI 6 month follow up: Details: LAST VISIT: Tubular adenoma of colon Galvez's esophagus determined by endoscopy GERD (gastroesophageal reflux disease) Constipation Status post colonoscopy Plan Upper endoscopy and colonoscopy results discussed with patient. Patient will stop pantoprazole and start taking esomeprazole. Continue famotidine at bedtime. Avoid dietary triggers and late night snacking. Staying upright for minimum 3 hours after meals discussed with patient. Upper endoscopy repeat in 5 years, sooner if clinically necessary. Colonoscopy showed 2 tubular adenomas without high-grade dysplasia or carcinoma. Colonoscopy recommended in 5 years. Patient will return in 6 months to re-evaluate. She is agreeable to this plan and verbalizes understanding of instructions. She was given the opportunity to ask questions and all questions answered. ? Thank you for allowing me to participate in her care Medications New esomeprazole magnesium (Nexium) 40 mg PO DAILY 30 caps 5RF K21.9 sennosides (Natural Senna Laxative) 17.2 mg (2 x 8.6 mg) PO BEDTIME 60 tabs 1RF constipation K59.00 Discontinued pantoprazole take one tablet half an hour before breakfast Discontinued Reason: Doctor's Order 40 mg PO DAILY 90 tabs 2RF K21.9 TODAY'S VISIT Patient is here today for follow-up. Patient reports that she continues to have occasional epigastric pain with epigastric burning postprandially. This morning patient had coffee with bread and is feeling epigastric pain with reflux. Patient forgot to take her Nexium. Patient reports that when she does forget to take Nexium she has reflux. Patient usually uses regular milk in her coffee. Symptoms controlled for the most part when she does take the medication and avoid dietary triggers. Patient denies dyspepsia, dysphagia or odynophagia. Patient denies any melena, hematochezia, unintentional weight loss or ribbon like stools. Patient reports that she is moving her bowels better now that she is taking Senokot. Patient reports that she takes Senokot on as needed basis. Patient denies any other GI concerning symptoms. [facility] Medical History Galvez's esophagus determined by endoscopy Tubular adenoma of colon Fracture of right ulnar styloid Fracture of distal end of right radius Osteopenia DARLEEN positive GERD (gastroesophageal reflux disease) Seropositive rheumatoid arthritis Surgical History H/O abdominoplasty Hx of section Family History Mother HTN (hypertension) CVD (cardiovascular disease) Father Stroke HTN (hypertension) Brother CVD (cardiovascular disease) Social History Housing Other:: Born in [place]. In the [place] since [place]. Are you a primary resident care associate to a significant other at home: No Do you presently have visiting nurse or other home services: No Alcohol intake: never Patient Tobacco Use Status: Current everyday Tobacco user Tobacco use type: Cigarette Cigarettes Per Day: 6 Years Smoked: 30 e-Cigarette/Vaping Use: Never Used Current occupational status: employed Current occupation: [employer] Review of Systems Const Denies weight gain and Denies weight loss ENT Reports no additional complaints, Denies dysphagia and Denies odynophagia Card Reports no additional complaints Resp Reports no additional complaints GI Denies abdominal pain, Denies belching, Denies melena, Denies bloating, Denies change in bowel habits, Reports constipation, Denies dysphagia, Denies excessive flatus, Denies dyspepsia, Reports heartburn, Denies diarrhea, Denies loose stools, Denies nausea, Denies odynophagia and Denies vomiting Reports no additional complaints Musc Reports no additional complaints Neuro Reports no additional complaints Psych Reports no additional complaints Endo Reports no additional complaints Physical Exam Const General: healthy appearing, no acute distress and well developed Nutritional Appearance: well nourished Orientation/consciousness: patient oriented x3 Resp Effort & Inspection: normal respiratory effort, able to speak in complete sentences, no tracheal deviation and symmetric chest movement Auscultation: clear to auscultation bilaterally Cardio Rate: regular rate GI Inspection: Yes normal to inspection and No distended Palpation (GI): Soft to palpation, not firm, nontender and No hepatosplenomegaly present Auscultation: normal bowel sounds General: Yes no CVA tenderness Back/Spine/Pelvis Back: no CVA tenderness Skin General skin exam: elasticity normal, turgor normal and dry skin Neuro General: patient oriented x3 Psych Appearance: grossly normal Mental Status: mental status grossly normal Judgement: Good judgement present (Psych) Assessment & Plan Assessment & Plan (1) Galvez's esophagus determined by endoscopy: Code(s): K22.70 - Galvez's esophagus without dysplasia Category: Medical (2) GERD (gastroesophageal reflux disease): Code(s): K21.9 - Gastro-esophageal reflux disease without esophagitis Qualifiers: Esophagitis presence: esophagitis presence not specified Qualified Code(s): K21.9 - Gastro-esophageal reflux disease without esophagitis (3) Constipation: Code(s): K59.00 - Constipation, unspecified Qualifiers: Constipation type: slow transit constipation Qualified Code(s): K59.01 - Slow transit constipation (4) Postprandial abdominal bloating: Code(s): R14.0 - Abdominal distension (gaseous) Plan Continue Nexium every morning half an hour before breakfast. Avoid dietary triggers. Avoid lactose. Patient was encouraged to avoid eating late at night. May take famotidine at bedtime as needed. Continue taking Senokot. Increase fluid intake and activity to promote better bowel motility. Follow-up in 6 months, sooner on as needed basis. Patient is agreeable to current plan of care and verbalizes understanding of instructions. She was given the opportunity to ask questions and all questions answered. Thank you for allowing me to participate in her care Medications: Refilled esomeprazole magnesium (Nexium) 40 mg PO DAILY 90 caps 3RF K21.9 - Gastro- esophageal reflux disease without esophagitis famotidine (Pepcid) 20 mg PO BEDTIME 90 tabs 3RF K21.9 - Gastro-esophageal reflux disease without esophagitis sennosides (Natural Senna Laxative) 17.2 mg (2 x 8.6 mg) PO BEDTIME 180 tabs 1RF constipation K59.00 - Constipation, unspecified Coding Level of Care Code Est Pt Level 4 (37138) Complex EM visit Add On G2211 Diagnoses Galvez's esophagus determined by endoscopy K22.70 Gastroesophageal reflux disease, unspecified whether esophagitis present K21.9 Esophagitis presence: esophagitis presence not specified Slow transit constipation K59.01 Constipation type: slow transit constipation Postprandial abdominal bloating R14.0 Time Spent (min) 35 Comment 25 minutes spent with patient and additional 10 minutes spent reviewing her records
[2024-12-12 08:26] VITALS: BP 102/56; PULSE 90; O2SAT 98; BMI 21.5
--- OUTSIDE RECORDS SUMMARY | 2024-12-12 09:04 | XMS_ITS | Clinical Summary ---
Author Organization [facility] Address [address] [facility] [address] [place] [address] Care Team Providers Care Blacksmith Assistant Name Role Phone Marielos Dumont MD Primary Care Provider [phone] Allergies No known active allergies Medications cholecalciferol (Vitamin D-3) 25 MCG (1000 UT) capsule Take 25 mcg by mouth in the morning. 2 Active leflunomide (Arava) 20 MG tablet Take 20 mg by mouth in the morning. 2 Active cetirizine (ZyrTEC) 10 MG tabletIndication s:Allergic rhinitis, unspecified seasonality, unspecified trigger Take 1 tablet (10 mg) by mouth in the morning. 30 tablet 5 2 Active famotidine (Pepcid) 20 MG tablet Take 20 mg by mouth at bedtime. 4 Active hydrocortisone 2.5 % cream Apply topically 2 times daily. Apply topically once daily, immediately after shower / bath 28 g 3 4 Active ibuprofen 400 MG tabletIndication s:Left ankle swelling Take 1 tablet by mouth every 8 hours as needed for pain or fever 30 tablet 4 Active Diclofenac Sodium 1 % gel Apply 4 g topically if needed in the morning, at noon, in the evening, and at bedtime (pain). 100 g 4 Active Acetaminophen Extra Strength 500 MG tablet TAKE 1 TO 2 TABLETS BY MOUTH EVERY 8 HOURS NEEDED FOR PAIN OR FEVER 60 tablet 3 4 Active albuterol (Proventil HFA) 108 (90 Base) MCG/ACT inhaler Take 2 puffs every 4 hours as needed for difficulty breathing 18 g 1 4 Active meclizine (Antivert) 25 MG tablet Take 1 tablet (25 mg) by mouth if needed in the morning, at noon, and at bedtime for dizziness. 30 tablet 1 4 Active esomeprazole (NexIUM) [address] capsule Take 40 mg by mouth Once per day. 4 Active tiZANidine (Zanaflex) 2 MG tablet TAKE 1 TABLET(2 MG) BY MOUTH EVERY 8 HOURS NEEDED FOR MUSCLE SPASMS. MAY TAKE 2 TABLETS AT A TIME NEEDED 30 tablet 4 Active celecoxib (CeleBREX) 100 MG capsule Take 1 capsule (100 mg) by mouth if needed in the morning and at bedtime for mild pain or moderate pain. 60 capsule 5 01/04/20 25 Active Varenicline Tartrate, Starter, (Chantix Starting Month ) 0.5 MG X 11 & 1 MG X 42 tablet therapy pack Take 1 tablet by mouth 2 times daily. 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 - reviewed si/sx of possible adverse reaction with terbinafine; patient verbalized understanding Atopic dermatitis 01/10/2024 Assessment & Plan (01/10/2024 5:04 PM EDT): - avoid scratching - use hypoallergenic and unscented skin care / laundry / cleaning product - liberal moisturization with emollient (such as Vaseline) - judicious use of topical steroid Ankle pain 08/06/2023 Assessment & Plan (08/06/2023 5:05 AM EDT): Pt with hx left ankle pain and swelling for 3 days , at this time no suspicion for infection . Reports hx of similar swelling and pain in that joint in the past. Possible from OA? ,RA? -alarm signs ans symptoms discussed w pt -advised to elevated joint and rest-gave excuse letter for work for 72 hours -tylenol prn -ibuprofen 400 mg Q 8h prn for mod pain and swelling -XR left ankle -to see her tongue and quarter stitcher in 6 days -if no improve may need prednisone and possible arthrocentesis Right lateral epicondylitis 04/29/2023 Assessment & Plan (12/10/2024 12:27 PM EDT): - seen by ortho in May 2023. Recommended PT, brace, NSAID - improving symptom - topical NSAID - continue activity modification - minimize NSAIDs use Assessment & Plan (01/10/2024 5:02 PM EDT): - seen by ortho in May 2023. Recommended PT, brace, NSAID - improving symptom - topical NSAID - continue activity modification - minimize NSAIDs use Assessment & Plan (09/18/2023 6:49 AM EST): - her symptom now involves medial side - seen by ortho in May 2023. Recommended PT, brace, NSAID Assessment & Plan (05/05/2023 10:09 AM EDT): - her symptom now involves medial side - will check X-ray and refer for steroid injection treatment Gastroesophageal reflux disease 12/29/2022 Assessment & Plan (08/07/2024 5:51 PM EST): -followed by [facility] Treatment history 12/17/23, switched omeprazole to pantoprazole. 06/20/24 switched pantoprazole to esomeprazole -work on smoking cessation Assessment & Plan (01/10/2024 4:59 PM EDT): -seen by GI on 12/17/23, switched omeprazole to pantoprazole. -continue pantoprazole -upcoming EGD -minimize NSAIDs use -work on smoking cessation Assessment & Plan (09/18/2023 6:48 AM EST): -start omeprazole 20 mg daily, may increase to bid if no improvement in symptoms -ordered H. Pylori test; pt is unable to do stool antigen, [facility] lab takes urea breath test order from GI only. -minimize NSAIDs use -work on smoking cessation -requested EGD at the time of colonoscopy Assessment & Plan (05/05/2023 10:08 AM EDT): -start omeprazole 20 mg daily, may increase to bid if no improvement in symptoms -ordered H. Pylori test; pt is unable to do stool antigen, [facility] lab takes urea breath test order from GI only. -minimize NSAIDs use -work on smoking cessation -will ask for EGD Assessment & Plan (01/03/2023 7:18 AM EDT): -start omeprazole 20 mg daily, may increase to bid if no improvement in symptoms -check H. Pylori -minimize NSAIDs use -work on smoking cessation Non-seasonal allergic rhinitis 09/21/2022 Overview (09/21/2022): -Continue cetirizine prn Osteoarthritis 09/20/2022 Assessment & Plan (09/21/2022 10:04 AM EST): -Followed by tongue and quarter stitcher for RA and OA -Continue judicious use of NSAIDs and APAP prn Rheumatoid arthritis, seropositive 09/16/2022 Assessment & Plan (12/05/2024 6:17 AM EST): -Followed by tongue and quarter stitcher, [facility], last seen in Aug 2023 -Positive Rheumatoid Factor, negative CCP -Current medication: leflunomide 20 mg every other day -Treatment Hx --Methotrexate (with folic acid) , discontinued due to its side effect --prednisone , tapered down and off after stabilization with DMARD. -Continue current Tx plan per tongue and quarter stitcher - Ordered Sed Rate by Adi Carney 12/04/24 - Ordered C-reactive Protein 12/04/24 Assessment & Plan (08/07/2024 5:47 PM EST): -Followed by tongue and quarter stitcher [facility], last seen in Aug 2023 -Positive Rheumatoid Factor, negative CCP -Current medication: leflunomide 20 mg every other day -Treatment Hx --Methotrexate (with folic acid) , discontinued due to its side effect --prednisone , tapered down and off after stabilization with DMARD. -Continue current Tx plan per tongue and quarter stitcher Assessment & Plan (01/10/2024 5:21 PM EDT): -Followed by tongue and quarter stitcher [facility], last seen in Aug 2023 -Positive Rheumatoid Factor, negative CCP -Current medication: leflunomide 20 mg every other day -Treatment Hx --Methotrexate (with folic acid) , discontinued due to its side effect --prednisone , tapered down and off after stabilization with DMARD. -Continue current Tx plan per tongue and quarter stitcher Assessment & Plan (09/18/2023 6:50 AM EST): -Followed by tongue and quarter stitcher [facility], last seen in Aug 2023 -Positive Rheumatoid Factor, negative CCP -Current medication: leflunomide 20 mg every other day -Treatment Hx --Methotrexate (with folic acid) , discontinued due to its side effect --prednisone , tapered down and off after stabilization with DMARD. -Continue current Tx plan per tongue and quarter stitcher Assessment & Plan (05/05/2023 10:11 AM EDT): -Followed by tongue and quarter stitcher [facility], last seen on 01/14/23 -Positive Rheumatoid Factor, negative CCP -Current medication: leflunomide 20 mg daily -Treatment Hx --Methotrexate (with folic acid) , discontinued due to its side effect --prednisone , tapered down after stabilization with DMARD. -Continue current Tx plan per tongue and quarter stitcher Assessment & Plan (01/03/2023 7:20 AM EDT): -Followed by tongue and quarter stitcher [facility], last seen in Sep 2022 -Positive Rheumatoid Factor, negative CCP -Current medication: leflunomide 20 mg daily -Treatment Hx --Methotrexate (with folic acid) , discontinued due to its side effect --prednisone , tapered down after stabilization with DMARD. -Continue current Tx plan per tongue and quarter stitcher Assessment & Plan (09/21/2022 9:58 AM EST): -Followed by tongue and quarter stitcher, [facility], last seen on 06/22/22 -Positive Rheumatoid Factor, negative CCP -Current medication: leflunomide 20 mg daily -Treatment Hx --Methotrexate (with folic acid) , discontinued due to its side effect --prednisone , tapered down after stabilization with DMARD. -Continue current Tx plan per tongue and quarter stitcher History of herpes zoster 09/15/2022 Tobacco use 09/15/2022 Assessment & Plan (12/10/2024 12:23 PM EDT): -5 cigarettes per day currently -Started smoking around age 28, Smoking 35 years, smoked usually 1/3-1/2 ppd. -Smoking < 20 pack year at this time; will order CT scan when she reaches > 20 pack year or per guideline -continue working on smoking cessation -action stage of change today -will try varenicline Assessment & Plan (08/07/2024 5:47 PM EST): -5 cigarettes per day currently -Started smoking around age 28, Smoking 35 years, smoked usually 1/3-1/2 ppd. -Smoking < 20 pack year at this time; will order CT scan when she reaches > 20 pack year or per guideline -work on smoking cessation Assessment & Plan (01/10/2024 5:23 PM EDT): -5 cigarettes per day currently -Started smoking around age 28, Smoking 35 years, smoked usually 1/3-1/2 ppd. -Smoking < 20 pack year at this time; will order CT scan when she reaches > 20 pack year or per guideline -work on smoking cessation Assessment & Plan (09/18/2023 6:49 AM EST): -5 cigarettes per day -Smoking < 20 pack year; will order CT scan when she reaches > 20 pack year or per guideline -work on smoking cessation Assessment & Plan (05/05/2023 10:09 AM EDT): -5 cigarettes per day -Smoking < 20 pack year; will order CT scan when she reaches > 20 pack year or per guideline -work on smoking cessation Assessment & Plan (01/03/2023 7:19 AM EDT): -5 cigarettes per day -Smoking < 20 pack year; will order CT scan when she reaches > 20 pack year or per guideline -work on smoking cessation Tubular adenoma of colon 06/02/2016 Assessment & Plan (08/07/2024 5:49 PM EST): -04/24/16 Colonoscopoy at [facility] -05/31/24 Colonoscopy at [facility] -Repeat colonoscopy in 5 years Assessment & Plan (01/10/2024 4:59 PM EDT): -04/24/16 Colonoscopoy at [facility] -Seen by [facility] GI on 12/17/23 and being scheduled for EGD / colonoscopy soon Assessment & Plan (09/18/2023 6:47 AM EST): -04/24/16 Colonoscopoy at [facility] -Seen for pre-colonoscopy appt in Jul 2021, but pt has not done it yet -Referred to [facility] GI in May 2023; advised to check with GI office for appt date Assessment & Plan (05/05/2023 10:06 AM EDT): -04/24/16 Colonoscopoy at [facility] -Seen for pre-colonoscopy appt in Jul 2021, but pt has not done it yet -Pt requests to be referred to GI in [place]; will refer Assessment & Plan (01/03/2023 7:17 AM EDT): -04/24/16 Colonoscopoy at [facility] -Seen for pre-colonoscopy appt in Jul 2021, but pt has not done it yet -Will ask for colonoscopy when she has EGD Assessment & Plan (09/21/2022 9:56 AM EST): -04/24/16 Colonoscopoy at [facility] -Seen for pre-colonoscopy appt in Jul 2021, but pt has not done it yet -Will remind pt to reschedule appt Depression 01/27/2016 Assessment & Plan (01/10/2024 5:19 PM EDT): Worsened after her son's (suicide) in August 2015. Previous S provider: lenard AVERY Previously on amitriptyline. No longer on medication and she is not interested in pharmacological tx or referral to behavioral health service agency. She has good family and friend support. PHQ-9 score 0 today. Asthma 10/24/2015 Assessment & Plan (12/10/2024 12:28 PM EDT): -PFT on 12/14/18 normal -Continue albuterol prn -Continue working on smoking cessation -Consider repeating PFT Assessment & Plan (01/10/2024 4:47 PM EDT): -PFT on 12/14/18 normal -Continue albuterol prn -Continue working on smoking cessation -Follow-up in 6 mo. Assessment & Plan (09/18/2023 6:47 AM EST): -PFT on 12/14/18 normal -Continue albuterol prn -Continue working on smoking cessation -Follow-up in 6 mo. Assessment & Plan (05/05/2023 10:05 AM EDT): -PFT on 12/14/18 normal -Continue albuterol prn -Continue working on smoking cessation -Follow-up in 6 mo. Assessment & Plan (01/03/2023 7:16 AM EDT): -PFT on 12/14/18 normal -Continue albuterol prn -Continue working on smoking cessation -Follow-up in 6 mo. -Optimize Tx since frequent cough can worsen GERD symptoms Assessment & Plan (09/21/2022 9:50 AM EST): -PFT on 12/14/18 normal -Continue albuterol prn -Continue working on smoking cessation -Follow-up in 6 mo. 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 Due to recent outbreak, will treat empirically - Prescribed azithromycin (Zithromax) 250 MG tablet 08/22/24 - Recommends drinking tea with honey - ER precautions discussed. - Seek medical attention for worsening symptoms. Dizziness 09/15/2022 01/10/2024 Encounters Date Type Department Care Team Description 12/04/2024 3:00 PM EST Office Visit [facility] [address] [place] [id number] Marielos Dumont MD Mild intermittent asthma without complication (Primary Dx); Rheumatoid arthritis, seropositive ([facility]); Tobacco use; Encounter for immunization; Dyspnea, unspecified type; Screening for lipid disorders; Screening for diabetes mellitus; Right lateral epicondylitis 12/04/2024 Travel 11/29/2024 Telephone [facility] [address] [place] [phone] Ceci Maldonado MA chart prep 09/18/2024 Orders Only [facility] [address] [place] [id number] Marielos Dumont MD from Last 3 Months Immunizations Name Administration Dates Next Due Influenza injectable quadriv alent IIV4 with preservative 09/16/2022,07/30/2017,07/21/2016,09/24 Influenza injectable quadriv alent preservative free 07/17/2021,07/10/2020,07/19/2019,07/20 Influenza, IIV3, injectable 07/11/2008 Influenza, Split (incl. shonda fied surface antigen) 10/17/2013 Pfizer Covid-19 Vaccine 12+ 10/14/2020, 0 Pneumococcal Conjugate PCV 20 12/04/2024 Pneumococcal Polysaccharide PPSV23 02/25/2012 TD (adult), 2 Lf tetanus tox oid, preservative free, adsorbed 09/20/2009,04/10/1999 Td (adult), 5 Lf tetanus tox oid, preservative free, adsorbed 11/10/2014 Tdap 12/04/2024,02/25/2012 Family History Medical History Relation Name Comments Coronary artery disease Mother Hypertension Mother Suicide Son Relation Name Status Comments Mother Son Social History Tobacco Use Types Packs/Day Years Used Date Smoking Tobacco: Every Day Cigarettes Passive Smoke Exposure: Current Tobacco Cessation:Ready to Q uit: Not Asked; Counseling Given: Not Answered Depression Answer Date Recorded Patient Health Questionnaire-9 Score 0 01/10/2024 Patient Health Questionnaire-9 Score 0 01/10/2024 Last PHQ-9: Questionnaire Data Not on file 0 01/10/2024 Housing Stability Answer Date Recorded What is your housing situation today? I have andrea alexander 07/26/[address] you li ve. Do you have problems with any of the following? None of the above 07/26/2023 Food Insecurity Answer Date Recorded Within the past 12 months, y ou worried that your food would run out before you got money to buy more: Sometimes True 2023 Within the past 12 months,th e food you bought just didn't last and you didn't have enough money to get more: Sometimes True 12/30/2023 Transportation Answer Date Recorded In the past 12 months, has l ack of transportation kept you from medical appts, meetings, work or from getting things needed for daily living? No 07/26/2023 Utilities Answer Date Recorded In the past 12 months, has t he electric, gas, oil or water company threatened to shut off services in your home? No 07/26/2023 Depression Answer Date Recorded Patient Health Questionnaire-2 Score 0 01/10/2024 Internet Access Answer Date Recorded Internet Access Q1 No 07/26/2024 Internet Access Q2 I do not want or need it 07/05 Comments Unknown Sex and Gender Information Value Date Recorded Sex Assigned at Female 08/03/2022 10:14 AM EDT Legal Sex Female 10:14 AM EDT Gender Identity Female 08/03/2022 10:14 AM EDT Sexual Orientation Straight 08/03/2022 10 :14 AM EDT Last Filed Vital Signs Vital Sign Reading Time Taken Comments Blood Pressure 98/59 12/04/2024 3:07 PM EST Pulse 96 12/04/2024 3:07 PM EST Temperature 36.2 ??C (97.1 ??F) 12/04/2024 3:07 PM ES T Respiratory Rate 16 12/04/2024 3:07 PM EST Oxygen Saturation 96% 12/04/2024 3:07 PM EST Inhaled Oxygen Concentration - - Weight 59.3 kg (130 lb 12.8 oz) 12/04/2024 3:07 PM EST Height 161.5 cm (5' 3.59 ) 12/04/2024 3:07 PM ES T Body Mass Index 22.74 12/04/2024 3:07 PM EST Plan of Treatment Health Maintenance Due Date Last Done Comments CT Colonography 1960 FIT DNA/Cologuard 1960 FIT 1960 FOBT 1960 Sigmoidoscopy 1960 Zoster Vaccines (1 of 2) 2010 RSV Patients and Patients Aged 60 years or older (1 - Risk 60-74 years 1-dose series) 2020 COVID-19 Vaccine ( season) 2024 10/14/2020, 09/20/2020 Influenza Vaccine (#1) 2024 , 07/17/2021, 07/10/2020, Additional history exists SDOH Screening 12/29/2024 12/30/2023 Depression Screening 01/09/2025 01/10/2024, 01/10/20 24 Alcohol/Substance Use Screening 08/07/2025 08/07/2024 Pap Smear 09/16/2025 09/16/2022, 04/16/2021 Tobacco Screening 12/10/2025 12/10/2024 Mammogram 09/18/2026 09/18/2024, 09/03, 04/17/2021, Additional history exists Cervical Cancer Screening 09/16/2027 HPV/Cotest 09/16/2027 09/16/2022, 04/16/2021 Lipid Panel 01/09/2029 01/10/2024 Colonoscopy 05/31/2029 05/31/2024, 04/29/2016 Colorectal Cancer Screening 05/31/2029 DTaP/Tdap/Td Vaccines (4 - Td or Tdap) 12/04/2034 12/04/2024, 11/10/2014, 02/25/2012, Additional history exists Pneumococcal Vaccine: 50+ Years Completed 12/04/2024, 02/25/2012 HIB Vaccines Aged Out No longer eligi ble based on patient's age to complete this topic HIV Screening Discontinued HPV Vaccines Aged Out No longer eligi ble based on patient's age to complete this topic Hepatitis A Vaccines Aged Out No long er eligible based on patient's age to complete this topic Hepatitis B Vaccines Aged Out No long er eligible based on patient's age to complete this topic Hepatitis C Screening Discontinued IPV Vaccines Aged Out No longer eligi ble based on patient's age to complete this topic Meningococcal Vaccine Aged Out No reva davi eligible based on patient's age to complete this topic RSV under 20 months Aged Out No longe r eligible based on patient's age to complete this topic Rotavirus Vaccines Aged Out No longer eligible based on patient's age to complete this topic Procedures Procedure Name Priority Date/Time Associated Diagnosis Comments BI MAMMOGRAM SCREENING TOMOSYNTHESIS BILATERAL Routine 09/18/2024 8:00 AM EST HM COLONOSCOPY Routine 05/31/2024 9:33 AM EDT LIPID PANEL WITH REFLEX TO DIRECT LDL Routine 01/10/2024 4:05 PM EDT Cardiovascular risk factor THINPREP IMAGING PAP AND HPV MRNA E6/E7 WITH REFLEX TO HPV 16,18/45 Routine 09/16/2022 11:00 AM EST Encounter for annual routine gynecological examination Pap smear for cervical cancer screening from Last 3 Months or Most Recently Relevant to Health Maintenance Results * BI Mammogram Screening Tomosynthesis Bilateral (09/18/2024 8:00 AM EST) Anatomical Region Laterality Modality Breast Bilateral Mammography 09/18/2024 8:00 AM EST Narrative 09/26/2024 11:16 AM EST ? [place] [facility] ? [address] ?[place] [address] ? Mammography Report ? Signed ? Patient: Hanley,Jannette ?MR#: [id number] ?? [id number] ? : 1960 ?Acct:[id number] ? Age/Sex: 63 / F ?ADM Date: 09/18/24 ? Loc: HO.MAMMO ? Attending Dr: Marielos Dumont MD ? Ordering Physician: Marielos Dumont MD ?Results: 1Negative ? Date of Service: 09/18/24 ?Follow Up: 1 Year From Orig ?? inal Mammogram ? Procedure(s): MM tomosynthesis screening BI ?? Accession Number(s): [id number] ? cc: Marielos Dumont MD ? EXAMINATION: ?? MM SCREENING DIGITAL BREAST TOMOSYNTHESIS, BILATERAL ? CLINICAL INFORMATION: ? Screening. Asymptomatic. ? COMPARISON: ?? Mammography: Comparison is made with available priors ? TECHNIQUE: ?? Digital breast mammography with tomosynthesis is performed in both the ?? craniocaudal and mediolateral oblique views along with computer-aided ?? detection (CAD). ? FINDINGS: ?? There are scattered areas of fibroglandular density (ACR BI-RADS breast ?? composition Category b). ? There are no significant masses, abnormal calcifications, or other ?? abnormalities. ? MM/MM tomosynthesis screening BI ?? IMPRESSION: ?? No mammographic evidence of malignancy. ? ASSESSMENT: ? BI-RADS BI-RADS 1 - Negative ? RECOMMENDATION: ?? Routine annual mammography screening. ? 1 year F/U ? This examination should not preclude the clinical evaluation of a ?? suspicious palpable abnormality. ? This patient's information was entered into a reminder system with a ?? target due date for their next mammogram. ? Electronically signed by: ??Masha Souza DO ??09/26/2024 11:13 AM EST ?? RP ? Dictated By: ?Masha Souza DO ? Signed By: ?<Electronically signed by Masha Souza, DO in OV> ? 09/26/24 1113 ? DD/ 0800 ? TD/TT: 09/18/24 0814 ? Gusset Maker: ? Procedure Note Donrogerter, Image - 09/26/2024 [facility] [address] [place], [place] [address] Mammography Report Signed Patient: Jannette HanleyMR#: [id number] : 1960cct:[id number] Age/Sex: 63 / FADM Date: 09/18/24 Loc: [facility] Attending Dr: Marielos Dumont MD Ordering Physician: Marielos Dumont MDResults: 1Negative Date of Service: 09/18/24Follow Up: 1 Year From Orig ina Mammogram Procedure(s): MM tomosynthesis screening BI Accession Number(s): [id number] cc: Marielos Dumont MD EXAMINATION: MM SCREENING DIGITAL BREAST TOMOSYNTHESIS, BILATERAL CLINICAL INFORMATION: Screening. Asymptomatic. COMPARISON: Mammography: Comparison is made with available priors TECHNIQUE: Digital breast mammography with tomosynthesis is performed in both the craniocaudal and mediolateral oblique views along with computer-aided detection (CAD). FINDINGS: There are scattered areas of fibroglandular density (ACR BI-RADS breast composition Category b). There are no significant masses, abnormal calcifications, or other abnormalities. MM/MM tomosynthesis screening BI IMPRESSION: No mammographic evidence of malignancy. ASSESSMENT: BI-RADS BI-RADS 1 - Negative RECOMMENDATION: Routine annual mammography screening. 1 year F/U This examination should not preclude the clinical evaluation of a suspicious palpable abnormality. This patient's information was entered into a reminder system with a target due date for their next mammogram. Electronically signed by: Masha Souza DO 09/26/2024 11:13 AM EST Dictated By: Masha Souza DO Signed By: <Electronically signed by Masha Souza DO in OV> 09/26/24 1113 DD/ 0800 TD/TT: 09/18/24 0814 Gusset Maker: Marielos Dumont MD IMG BI PROCEDURES Edited Result - Final * (ABNORMAL) Lipid Panel with Reflex to Direct LDL (01/10/2024 4:05 PM EDT) Triglycerides 199(H) <150 mg/dL [facility] Comment:Desirable Triglyceri de: less than 150 mg/dLBorderline High Triglyceride 150-199 mg/dLHigh Triglyceride: 200-499 mg/dLVery High Triglyceride: greater than or equal to 5OO mg/dL Cholesterol 194 <200 mg/dL [facility] Comment:Desirable Cholestero l: less than 200 mg/dLBorderline High Cholesterol: 200-239 mg/dLHigh Cholesterol: greater than 239 mg/dL LDL Cholesterol Calculated 117(H) <100 mg/dL [facility] Comment:Desirable LDL: less than 100 mg/dLNear Optimal/Above Optimal LDL: 110- 129 mg/dLBorderline High LDL: 130-159 mg/dLHigh LDL: 160-189 mg/dLVery High LDL: greater than or equal to 190 mg/dL HDL Cholesterol 38(L) >40 mg/dL [facility] Comment:Desirable HDL: great er than 40 mg/dL Note: This HDL assay may give artificially low results in patients with liver disease. Blood 01/10/2024 4:05 PM EDT 01/10/2024 5:22 PM EDT Marielos Dumont MD LAB BLOOD ORDERABLES Final Resul t [facility] [address] [place] [phone] * Thinprep TIS PAP And HPV mRNA E6/E7 With Reflex To HPV 16,18/45 (09/16/2022 11:00 AM EST) Clinical Information: None given [facility] LMP: NONE GIVEN [employer] Prev. PAP: NONE GIVEN [facility] Prev. BX: NONE GIVEN [facility] SOURCE: None given [facility] Statement Of Adequacy: SATISFACTORY FOR EVALUATION [facility] Interpretation/Re sult: [facility] Comment: Negative for intraepithelial lesion or malignancy. Atrophic pattern; predominantly parabasal cells COMMENT: This Pap test has been evaluated with computer assisted technology. [facility] Microbiology Director: Derrick [employer] Comment: BLC,CT(ASCP) CT screening location: [address] ??[id number] (Always Message) [facility] Comment: EXPLANATORY NOTE: The Pap is a screening test for cervical cancer. It is not a diagnostic test and is subject to false negative and false positive results. It is most reliable when a satisfactory sample, regularly obtained, is submitted with relevant clinical findings and history, and when the Pap result is evaluated along with historic and current clinical information. HPV nRNA E6/E7 Not Detected Not Detected [facility] Comment: Methodology: [employer]-Mediated Amplification This assay detects E6/E7 viral messenger RNA (mRNA) from 14 high-risk HPV types (16,18,31,33,35,39,45,51,52,56,58,59,66,68). Cervical sources are required for HPV testing. If a vaginal source from a patient who has had a total hysterectomy with removal of cervix was submitted, please contact the testing laboratory for alternative testing options. For additional information, please refer to http://education.[employer]faq/LCZ128i5 (This link if provided for information/ educational purposes only.) Genital fluid specimen (specimen) 09/16/2022 11:00 AM EST 09/17/2022 9:25 AM EST Marielos Dumont MD LAB PATHOLOGY ORDERABLES Final R esult [facility] [address] [facility], [facility], [place] [address] [facility] [address], ([address]) [place] [address] * Colonoscopy (04/29/2016) Colonoscopy Normal Normal Historical Provider HEALTH MAINTENANCE Final Result from Last 3 Months or Most Recently Relevant to Health Maintenance Insurance [employer] Care Teams Blacksmith Assistant Relationship Specialty Start Date End Date Marielos Dumont MD [address] [place] [address] CT PCP - General Family Medicine 10/04/18
--- OUTSIDE RECORDS SUMMARY | 2024-12-12 09:04 | XMS_ITS | Encounter Summary ---
Author Organization [employer] Address [address] [place] [address] Care Team Providers Care Bottle Booth Attendant Name Role Phone Marielos Dumont MD Primary Care Provider [phone] Reason for Visit * Reason Onset Date Comments chart prep 11/29/2024 Encounter Details Date Type Department Care Team ([facility] st Contact Info) Description 11/29/2024 Telephone [facility] [address] [place], [place] [phone] Ceci Maldonado MA chart prep Social History Tobacco Use Types Packs/Day Years Used Date Smoking Tobacco: Every Day Cigarettes Passive Smoke Exposure: Current Depression Answer Date Recorded Patient Health Questionnaire-9 [...] Orientation Straight 08/03/2022 10 :14 AM EDT documented as of this encounter Miscellaneous Notes * Telephone Encounter - Ceci Maldonado MA - 11/29/2024 10:31 AM EST ..chart Prep Labs: not applicable Images: not applicable Vaccines due: Covid Due, Tdap Due, and Flu Due Referrals: Completed 12/12/24 gstro appt 10/01/25 devika Screenings: Not Applicable Overdue care gaps: barb-7 documented in this encounter Plan of Treatment Not on file documented as of this encounter Visit Diagnoses Not on filedocumented in this encounter Additional Health Concerns Assessment Noted Time PHQ-9 Depression Total Score: 0 01/10/20 24 3:14 PM EDT documented as of this encounter Care Teams Bottle Booth Attendant Relationship Specialty Start Date End Date Marielos Dumont MD [address] [place] [address] PCP - General Family Medicine 10/04/18 documented as of this encounter
--- OUTSIDE RECORDS SUMMARY | 2024-12-12 09:04 | XMS_ITS | Encounter Summary ---
Author Organization [employer] Address [address] [place] [address] Care Team Providers Care Merchandise Team Manager Name Role Phone Marielos Dumont MD Primary Care Provider [phone] Encounter Details Date Type Department Care Team (Latest Contact Info) Description 12/04/2024 Travel Social History Tobacco Use Types Packs/Day Years [...] AM EDT documented as of this encounter Plan of Treatment Not on file documented as of this encounter Visit Diagnoses Not on filedocumented in this encounter Additional Health Concerns Assessment Noted Time PHQ-9 Depression Total Score: 0 01/10/20 24 3:14 PM EDT documented as of this encounter Care Teams Merchandise Team Manager Relationship Specialty Start Date End Date Marielos Dumont MD [address] [place] [phone] PCP - General Family Medicine 10/04/18 documented as of this encounter
--- OUTSIDE RECORDS SUMMARY | 2024-12-12 09:04 | XMS_ITS | Encounter Summary ---
Author Organization [employer] Address [address] [facility] 7t [place] [address] Care Team Providers Care Assistant Restaurant General Manager Name Role Phone Marielos Dumont MD Primary Care Provider [phone] Reason for Referral * PFT (Routine) - Authorized Specialty Diagnoses / Procedures Referred By Chava nguyen Referred To Contact Diagnoses Mild intermittent asthma without complication Dyspnea, unspecified type Procedures Pulmonary function testing Marielos Dumont MD [address] [place] [address] Phone: tel: fax: [address] Phone: tel: fax: Referral ID Status Reason Start Date Expiration Date V isits Requested Visits Authorized [id number] Authorized 12/10/2024 12/10/2025 1 1 * Consultation (Routine) - Authorized Specialty Diagnoses / Procedures Referred By Chava nguyen Referred To Contact Orthopaedic Surgery Diagnoses Right lateral epicondylitis Marielos Dumont MD [address] [place] [address] Phone: tel: fax: [facility] [address] [place] [address] Phone: tel: Referral ID Status Reason Start Date Expiration Date Visits Requested Visits Authorized [id number] Authorized Specialty Services Required 12/10/2024 12/10/2025 1 1 * Consultation (Routine) - Closed Specialty Diagnoses / Procedures Referred By Contac t Referred To Contact Rheumatology Diagnoses Rheumatoid arthritis, seropositive (CMS/HCC) Marielos Dumont MD [address] [place] [address] Phone: tel: fax: [facility] [address] [facility] [address] [place] [address] Phone: tel: fax: Referral ID Status Reason Start Date Expiration Date V isits Requested Visits Authorized [id number] Closed Specialty Services Required 12/10/2024 12/10/2025 1 1 Encounter Details Date Type Department Care Team (Latest Contact Info) Description 12/04/2024 3:00 PM EST Office Visit [facility] [address] [place] [phone] Marielos Dumont MD [address] [place] [phone] Mild intermittent asthma without complication (Primary Dx); Rheumatoid arthritis, seropositive (CMS/HCC); Tobacco use; Encounter for immunization; Dyspnea, unspecified type; Screening for lipid disorders; Screening for diabetes mellitus; Right lateral epicondylitis Social History Tobacco Use Types Packs/Day Years [...] AM EDT documented as of this encounter Last Filed Vital Signs Vital Sign Reading [...] Mass Index 22.74 12/04/2024 3:07 PM EST documented in this encounter Progress Notes * Marielos Dumont MD - 12/04/2024 3:00 PM EST Subjective Jannette Hanley is a 64 y.o. female who has rheumatoid arthritis and asthma, and patient presents for follow up of chronic conditions. Background: Our last encounter was 08/07/2024. Dx COVID. Interval history: Seen in the walk-in clinic for cough. Dx viral URI, possible pertussis. Rx azithromycin. Today: Pt reports right arm pain, mostly elbow, but now radiates to forearm. Right- handed. Previously diagnosed with epicondylitis by her orthopedist. She can???t hold anything heavy and she hasn???t slept for a week. Pt reports she has been feeling short of breath and fatigued, to where she has to use her inhaler but it has not been a constant feeling. Pt agrees to the pneumonia and tinnitus vaccine. Pt agrees to get her blood work done. Pt states she takes esomeprazole for her stomach and reports her appetite has been good. Review of Systems Constitutional: Negative for activity change, appetite change and fever. Respiratory: Negative for shortness of breath. Cardiovascular: Negative for chest pain. Objective Vitals: 12/04/24 1507 BP: 98/59 Pulse: 96 Resp: 16 Temp: 97.1 ??F (36.2 ??C) TempSrc: Temporal SpO2: 96% Weight: 130 lb 12.8 oz (59.3 kg) Height: 5' 3.59 (1.615 m) Physical Exam Constitutional: General: She is not in acute distress. Appearance: Normal appearance. She is not ill-appearing. HENT: Head: Normocephalic and atraumatic. Mouth/Throat: Mouth: Mucous membranes are moist. Eyes: Extraocular Movements: Extraocular movements intact. Pupils: Pupils are equal, round, and reactive to light. Cardiovascular: Rate and Rhythm: Normal rate and regular rhythm. Heart sounds: No murmur heard. Pulmonary: Effort: Pulmonary effort is normal. No respiratory distress. Breath sounds: Normal breath sounds. No wheezing or rhonchi. Skin: General: Skin is warm. Neurological: Mental Status: She is alert. Mental status is at baseline. Psychiatric: Mood and Affect: Mood normal. Results: Lab Results Component Value Date NA 138 01/10/2024 K 3.9 01/10/2024 CL 107 01/10/2024 CO2 27 01/10/2024 BUN 15 01/10/2024 CREATININE 0.64 01/10/2024 EGFR >60 01/10/2024 GLUCOSE 87 01/10/2024 TOTALBILIRUB 0.2 01/10/2024 AST 14 01/10/2024 ALT 11 01/10/2024 TOTPROTEIN 7.7 01/10/2024 ALB 4.1 01/10/2024 ALP 105 01/10/2024 Lab Results Component Value Date TRIG 199 (H) 01/10/2024 CHOL 194 01/10/2024 LDLCHOLCAL 117 (H) 01/10/2024 HDL 38 (L) 01/10/2024 Lab Results Component Value Date HGBA1C 5.6 07/25/2021 Lab Results Component Value Date WBC 6.6 08/10/2023 HGB 12.7 08/10/2023 HCT 38.7 08/10/2023 PLT 371 08/10/2023 MCV 83.2 08/10/2023 The 10-year ASCVD risk score (Radha BIRD, et al., 2019) is: 6.6% Values used to calculate the score: Age: 64 years Sex: Female Is Non- : No Diabetic: No Tobacco smoker: Yes Systolic Blood Pressure: 98 mmHg Is BP treated: No HDL Cholesterol: 38 mg/dL Total Cholesterol: 194 mg/dL Screening and Health Care Maintenance: PHQ-2/9 Score: Patient Health Questionnaire-9 Score: 0 (01/10/2024 3:14 PM) Patient Health Questionnaire-2 Score: 0 (01/10/2024 3:14 PM) Thoughts that you would be better off or hurting yourself in some way: Not at all (01/10/2024 3:14 PM) ROBBIE-7 Score: ROBBIE-7 Total Score: 0 (12/04/2024 3:06 PM) Health Maintenance Due Topic Date Due HIV Screening Never done Hepatitis C Screening Never done Zoster Vaccines (1 of 2) Never done RSV Patients and Patients Aged 60 years or older (1 - Risk 60-74 years 1-dose series) Never done Influenza Vaccine (1) 06/04/2024 COVID-19 Vaccine (2023- season) 2024 SDOH Screening 12/29/2024 Depression Screening 01/09/2025 Assessment/Plan Problem List Items Addressed This Visit Asthma - Primary -PFT on 12/14/18 normal -Continue albuterol prn -Continue working on smoking cessation -Follow-up in 6 mo. Tobacco use -5 cigarettes per day currently -Started smoking around age 28, Smoking 35 years, smoked usually 1/3-1/2 ppd. -Smoking < 20 pack year at this time; will order CT scan when she reaches > 20 pack year or per guideline -work on smoking cessation Rheumatoid arthritis, seropositive (CMS/HCC) -Followed by indoor landscape architect, [facility], last seen in Aug 2023 -Positive Rheumatoid Factor, negative CCP -Current medication: leflunomide 20 mg every other day -Treatment Hx --Methotrexate (with folic acid) , discontinued due to its side effect --prednisone , tapered down and off after stabilization with DMARD. -Continue current Tx plan per indoor landscape architect - Ordered Sed Rate by Modified Westergren 12/04/24 - Ordered C-reactive Protein 12/04/24 Relevant Orders Sed Rate by Modified Westergren C-reactive Protein Other Visit Diagnoses Encounter for immunization Relevant Orders PCV-20 VACCINE 6 wks + (Completed) Dyspnea, unspecified type Relevant Orders TSH with Reflex to Free T4 Comprehensive Metabolic Panel CBC auto differential Screening for lipid disorders Relevant Orders Lipid Panel with Reflex to Direct LDL Screening for diabetes mellitus Relevant Orders Hemoglobin A1c No Known Allergies Current Outpatient Medications Medication Instructions Acetaminophen Extra Strength 500 MG tablet TAKE 1 TO 2 TABLETS BY MOUTH EVERY 8 HOURS NEEDED FORPAIN OR FEVER albuterol (Proventil HFA) 108 (90 Base) MCG/ACT inhaler Take 2 puffs every 4 hours as needed for difficulty breathing celecoxib (CELEBREX) 100 mg, Oral, 2 times daily PRN cetirizine (ZYRTEC) 10 mg, Oral, Daily cholecalciferol (VITAMIN D-3) 25 mcg, Oral, Daily Diclofenac Sodium 4 g, Apply externally, 4 times daily PRN esomeprazole (NEXIUM) 40 mg, Oral, Daily famotidine (PEPCID) 20 mg, Oral, Nightly hydrocortisone 2.5 % cream Topical, 2 times daily, Apply topically once daily, immediately after shower / bath ibuprofen 400 MG tablet Take 1 tablet by mouth every 8 hours as needed for pain or fever leflunomide (ARAVA) 20 mg, Oral, Daily meclizine (ANTIVERT) 25 mg, Oral, 3 times daily PRN tiZANidine (Zanaflex) 2 MG tablet TAKE 1 TABLET(2 MG) BY MOUTH EVERY 8 HOURS NEEDED FOR MUSCLE SPASMS. MAY TAKE 2 TABLETS AT A TIME NEEDED Varenicline Tartrate, Starter, (Chantix Starting Month ) 0.5 MG X 11 & 1 MG X 42 tablet therapy pack 1 tablet, Oral, 2 times daily Follow-up: 4 months or sooner if any problem arises. Scribe Attestation: IAlondra, am serving as a scribe to document services personally performed by Marielos Dumont MD, based on the patient's response to questions by provider and provides statements to me. documented in this encounter Miscellaneous Notes * Assessment & Plan Note - Marielos Dumont MD - 12/10/2024 12:27 PM EDTAssociated Problem(s): Right lateral epicondylitis - seen by ortho in May 2023. Recommended PT, brace, NSAID - improving symptom - topical NSAID - continue activity modification - minimize NSAIDs use * Assessment & Plan Note - Alondra Camarena MA - 12/05/2024 6:15 AM ESTAssociated Problem(s): Rheumatoid arthritis, seropositive ([facility]) -Followed by indoor landscape architect, [facility], last seen in Aug 2023 -Positive Rheumatoid Factor, negative CCP -Current medication: leflunomide 20 mg every other day -Treatment Hx --Methotrexate (with folic acid) , discontinued due to its side effect --prednisone , tapered down and off after stabilization with DMARD. -Continue current Tx plan per indoor landscape architect - Ordered Sed Rate by Adi Carney 12/04/24 - Ordered C-reactive Protein 12/04/24 * Assessment & Plan Note - Alondra Camarena MA - 12/05/2024 6:15 AM ESTAssociated Problem(s): Tobacco use -5 cigarettes per day currently -Started smoking around age 28, Smoking 35 years, smoked usually 1/3-1/2 ppd. -Smoking < 20 pack year at this time; will order CT scan when she reaches > 20 pack year or per guideline -continue working on smoking cessation -action stage of change today -will try varenicline * Assessment & Plan Note - Alondra Camarena MA - 12/05/2024 6:15 AM ESTAssociated Problem(s): Asthma -PFT on 12/14/18 normal -Continue albuterol prn -Continue working on smoking cessation -Consider repeating PFT documented in this encounter Plan of Treatment Scheduled Orders Name Type Priority Associated Diagnoses Orde r Schedule TSH with Reflex to Free T4 Lab Routine Dyspnea, unspecified type Expected: 12/04/2024 (Approximate), Expires: 12/04/2025 Hemoglobin A1c Lab Routine Screening for diabetes mellitus Expected: 12/04/2024 (Approximate), Expires: 12/04/2025 Comprehensive Metabolic Panel Lab Routine Dyspnea, unspecified type Expected: 12/04/2024 (Approximate), Expires: 12/04/2025 Lipid Panel with Reflex to Direct LDL Lab Routine Screening for lipid disorders Expected: 12/04/2024 (Approximate), Expires: 12/04/2025 CBC auto differential Lab Routine Dyspnea, unspecified type Expected: 12/04/2024 (Approximate), Expires: 12/04/2025 Sed Rate by Modified Westergren Lab Routine Rheumatoid arthritis, seropositive (CMS/HCC) Expected: 12/04/2024 (Approximate), Expires: 12/04/2025 C-reactive Protein Lab Routine Rheumatoid arthritis, seropositive (CMS/HCC) Expected: 12/04/2024 (Approximate), Expires: 12/04/2025 Pulmonary function testing PFT Routine Mild intermittent asthma without complication Dyspnea, unspecified type Expected: 12/10/2024 (Approximate), Expires: 12/10/2025 Scheduled Referrals Name Type Priority Associated Diagnoses Orde r Schedule Referral to Rheumatology Outpatient Referral Routine Rheumatoid arthritis, seropositive ([facility]) Expected: 12/10/2024 (Approximate), Expires: 12/10/2025 Referral to Orthopaedic Surgery Outpatient Referral Routine Right lateral epicondylitis Expected: 12/10/2024 (Approximate), Expires: 12/10/2025 documented as of this encounter Visit Diagnoses Diagnosis Mild intermittent asthma without complication- Primary Rheumatoid arthritis, seropositive ([facility]) Tobacco use Encounter for immunization Dyspnea, unspecified type Screening for lipid disorders Screening for diabetes mellitus Right lateral epicondylitis documented in this encounter Additional Health Concerns Assessment Noted Time PHQ-9 Depression Total Score: 0 01/10/20 24 3:14 PM EDT documented as of this encounter Care Teams Assistant Restaurant General Manager Relationship Specialty Start Date End Date Marielos Dumont MD [address] [place] [phone] PCP - General Family Medicine 10/04/18 documented as of this encounter
--- OUTSIDE RECORDS SUMMARY | 2024-12-12 09:04 | XMS_ITS | Encounter Summary ---
Author Organization [employer] Address [address] [facility] [address]t [place] [address] Care Team Providers Care Field Consultant Name Role Phone Marielos Dumont MD Primary Care Provider [phone] Encounter Details Date Type Department Care Team (Late st Contact Info) Description 06/07/[address] [facility] [address] [place], [place] [phone] Marielos Dumont MD [address] [place], [place] [phone] Social History Tobacco Use Types Packs/Day Years [...] Recorded Patient Health Questionnaire-2 Score 0 01/10/2024 Comments Unknown Sex and Gender Information Value Date Recorded Sex Assigned at Female 08/03/2022 10:14 AM EDT Legal Sex Female 10:14 AM EDT Gender Identity Female 08/03/2022 10:14 AM EDT Sexual Orientation Straight 08/03/2022 10 :14 AM EDT documented as of this encounter Plan of Treatment Not on file documented as of this encounter Procedures Procedure Name Priority Date/Time Associated Diagnosis Comments HM COLONOSCOPY Routine 05/31/2024 9:33 AM EDT documented in this encounter Visit Diagnoses Not on filedocumented in this encounter Additional Health Concerns Assessment Noted Time PHQ-9 Depression Total Score: 0 01/10/20 24 3:14 PM EDT documented as of this encounter Care Teams Field Consultant Relationship Specialty Start Date End Date Marielos Dumont MD [address] [place] [id number] PCP - General Family Medicine 10/04/18 documented as of this encounter
== END 2024-12-12 08:49 | disposition home or self-care (01) ==
LOC: HO.HGI 08:24
PROVIDERS: PCP Family Medicine; Visit Provider Nurse Practitioner Family
DX: K22.70 Barrett's esophagus without dysplasia (principal); K21.9 Gastro-esophageal reflux disease without esophagitis; K59.01 Slow transit constipation; R14.0 Abdominal distension (gaseous)
CPT/HCPCS: 99214

== ENCOUNTER 2025-01-30 13:37 | Outpatient (AMB) | payer OTHER, SELFPAY ==
[2025-01-30 13:55] VITALS: BMI 21.5
--- NOTE | 2025-01-30 13:55 | MHC.OFFVIS ---
Vital Signs 01/30/25 13:55 Height 5 ft 5 in Weight 129 lb BMI 21.5 Intake Visit Reasons: OV-Right elbow pain f/u Intake Note: Jannette is a 64 year old female who presents today for a follow up of right elbow pain. Patient was last seen in office for her elbow pain on 05/31/23, she was referred to physical therapy, prescribed Diclofenac 75 mg. She was instructed to follow up in office in 6 weeks after attending physical therapy. Patient reports that the elbow pain is not improving. She takes Acetaminophen for her pain with no relief. Allergies No Known Allergies [No Known Allergies*] Allergy (Verified 12/12/24 08:25) HPI HPI OV-Right elbow pain f/u: Details: Ms. Hanley is a 64-year-old female who presents to the office today for evaluation of right elbow pain. She reports that the pain has been present for quite some time. She points to the area over the lateral epicondyle where she is experiencing most of her pain. She has tried taking diclofenac and Tylenol for her pain with little relief. 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 In the [place] since [place]. Are you a primary critical care registered nurse to a significant other at home: No Do you presently have visiting nurse or other home services: No Alcohol intake: never Patient Tobacco Use Status: Current everyday Tobacco user Tobacco use type: Cigarette Cigarettes Per Day: 6 Years Smoked: 30 e-Cigarette/Vaping Use: Never Used Current occupational status: employed Current occupation: [employer] Review of Systems Const All systems reviewed & are unremarkable except as noted in HPI and below Physical Exam Vital Signs: BMI result Body Mass Index 21.5 Const General: cooperative, healthy appearing and no acute distress Extrem Other: Right elbow: Normal to inspection. No ecchymosis, erythema, or edema. No tenderness to palpation over the olecranon. Tenderness over the lateral epicondyle. Pain with resisted wrist extension over the lateral epicondyle. NVI. Office Procedures AMB Joint Injection/Aspiration Joint Injection/Aspiration Primary Site: right tennis elbow Prep: site was prepped using aseptic technique, ethochloride spray was applied and injection warnings given Injected: with 1 mL of and other (1 mL of dexamethasone and 1 mL of 2% plain lidocaine) Approach Used: other (Lateral epicondyle) Procedure: The patient tolerated the procedure well, but had some pain with the injection and there was some relief with the local anesthesia Coding 03295 - Epicondyle Procedure code (CPT) selection complete Assessment & Plan Assessment & Plan (1) Lateral epicondylitis of right elbow: Code(s): M77.11 - Lateral epicondylitis, right elbow Category: Medical Plan The patient was offered a cortisone injection in the right elbow lateral epicondyle with 1 mg of DEXA. The patient was explained the risks, benefits, and alternatives to receiving this injection. After receiving consent for the injection, the patient had the procedure done while in the office today. The patient tolerated the procedure well with no complications. Follow-up will be p.r.n., or sooner if needed Coding Level of Care Code Est Pt Level 3 (28396) Diagnoses Lateral epicondylitis of right elbow M77.11 CPT Codes Coding - Joint 2: 23703 - Epicondyle ([id number])
--- OUTSIDE RECORDS SUMMARY | 2025-01-30 15:42 | XMS_ITS | Clinical Summary ---
Author Organization [employer] Address [address] [address] [place] [address] Care Team Providers Care Physical Testing Supervisor Name Role Phone Marielos Dumont MD Primary Care Provider [phone] Allergies No known active allergies Medications cholecalcifero l (Vitamin D-3) 25 MCG (1000 UT) capsule Take 25 mcg by mouth in the morning. 12/04/19 22 Active leflunomide (Arava) 20 MG tablet Take 20 mg by mouth in the morning. 12/01/19 22 Active cetirizine (ZyrTEC) 10 MG tabletIndicati ons:Allergic rhinitis, unspecified seasonality, unspecified trigger Take 1 tablet (10 mg) by mouth in the morning. 30 tablet 5 09/16/20 22 Active famotidine (Pepcid) 20 MG tablet Take 20 mg by mouth at bedtime. 12/17/19 24 Active hydrocortisone 2.5 % cream Apply topically 2 times daily. Apply topically once daily, immediately after shower / bath 28 g 3 01/10/20 24 Active ibuprofen 400 MG tabletIndicati ons:Left ankle swelling Take 1 tablet by mouth every 8 hours as needed for pain or fever 30 tablet 07/19/20 24 Active Diclofenac Sodium 1 % gel Apply 4 g topically if needed in the morning, at noon, in the evening, and at bedtime (pain). 100 g 07/19/20 24 Active Acetaminophen Extra Strength 500 MG tablet TAKE 1 TO 2 TABLETS BY MOUTH EVERY 8 HOURS NEEDED FOR PAIN OR FEVER 60 tablet 3 08/07/20 24 Active albuterol (Proventil HFA) 108 (90 Base) MCG/ACT inhaler Take 2 puffs every 4 hours as needed for difficulty breathing 18 g 1 11/04/20 24 Active meclizine (Antivert) 25 MG tablet Take 1 tablet (25 mg) by mouth if needed in the morning, at noon, and at bedtime for dizziness. 30 tablet 1 08/07/20 24 Active esomeprazole (NexIUM) [address] capsule Take 40 mg by mouth Once per day. 06/20/20 24 Active tiZANidine (Zanaflex) 2 MG tablet TAKE 1 TABLET(2 MG) BY MOUTH EVERY 8 HOURS NEEDED FOR MUSCLE SPASMS. MAY TAKE 2 TABLETS AT A TIME NEEDED 30 tablet 09/05/20 24 Active Varenicline Tartrate, Starter, (Chantix Starting Month ) 0.5 MG X 11 & 1 MG X 42 tablet therapy pack Take 1 tablet by mouth 2 times daily. 1 each 12/05/19 25 Active celecoxib (CeleBREX) 100 MG capsule Take 1 capsule (100 mg) by mouth if needed in the morning and at bedtime for mild pain or moderate pain. 60 capsule 01/09/20 25 025 Active celecoxib (CeleBREX) 100 MG capsule Take 1 capsule (100 mg) by mouth if needed in the morning and at bedtime for mild pain or moderate pain. 60 capsule 12/05/19 25 025 Discontinued(R eorder (will not trigger notification to Pharmacy)) Active Problems Problem Noted Date Diagnosed Date [...] swelling -XR left ankle -to see her assistive technology specialist in 6 days -if no improve may [...] Plan (08/07/2024 5:51 PM EST): -followed by [facility] Treatment history [...] pt is unable to do stool antigen, [facility] lab takes urea breath test order from GI only. -minimize NSAIDs use -work on smoking cessation -requested EGD at the time of colonoscopy Assessment & Plan (05/05/2023 10:08 AM EDT): -start omeprazole 20 mg daily, may increase to bid if no improvement in symptoms -ordered H. Pylori test; pt is unable to do stool antigen, [facility] lab takes urea [...] Plan (09/21/2022 10:04 AM EST): -Followed by assistive technology specialist for RA and OA -Continue judicious use of NSAIDs and APAP prn Rheumatoid arthritis, seropositive 09/16/2022 Assessment & Plan (12/05/2024 6:17 AM EST): -Followed by assistive technology specialist, [facility], last seen in Aug 2023 -Positive Rheumatoid Factor, negative CCP -Current medication: leflunomide 20 mg every other day -Treatment Hx --Methotrexate (with folic acid) [id number], discontinued due to its side effect --prednisone , tapered down and off after stabilization with DMARD. -Continue current Tx plan per assistive technology specialist - Ordered Sed Rate by Adi Carney 12/04/24 - Ordered C-reactive Protein 12/04/24 Assessment & Plan (08/07/2024 5:47 PM EST): -Followed by assistive technology specialist, [facility], last seen in Aug 2023 -Positive Rheumatoid Factor, negative CCP -Current medication: leflunomide 20 mg every other day -Treatment Hx --Methotrexate (with folic acid) , discontinued due to its side effect --prednisone , tapered down and off after stabilization with DMARD. -Continue current Tx plan per assistive technology specialist Assessment & Plan (01/10/2024 5:21 PM EDT): -Followed by assistive technology specialist [facility], last seen in Aug 2023 -Positive Rheumatoid Factor, negative CCP -Current medication: leflunomide 20 mg every other day -Treatment Hx --Methotrexate (with folic acid) , discontinued due to its side effect --prednisone , tapered down and off after stabilization with DMARD. -Continue current Tx plan per assistive technology specialist Assessment & Plan (09/18/2023 6:50 AM EST): -Followed by assistive technology specialist [facility], last seen in Aug 2023 -Positive Rheumatoid Factor, negative CCP -Current medication: leflunomide 20 mg every other day -Treatment Hx --Methotrexate (with folic acid) , discontinued due to its side effect --prednisone , tapered down and off after stabilization with DMARD. -Continue current Tx plan per assistive technology specialist Assessment & Plan (05/05/2023 10:11 AM EDT): -Followed by assistive technology specialist [facility], last seen on 01/14/23 -Positive Rheumatoid Factor, negative CCP -Current medication: leflunomide 20 mg daily -Treatment Hx --Methotrexate (with folic acid) , discontinued due to its side effect --prednisone , tapered down after stabilization with DMARD. -Continue current Tx plan per assistive technology specialist Assessment & Plan (01/03/2023 7:20 AM EDT): -Followed by assistive technology specialist, [facility], last seen in Sep 2022 -Positive Rheumatoid Factor, negative CCP -Current medication: leflunomide 20 mg daily -Treatment Hx --Methotrexate (with folic acid) , discontinued due to its side effect --prednisone , tapered down after stabilization with DMARD. -Continue current Tx plan per assistive technology specialist Assessment & Plan (09/21/2022 9:58 AM EST): -Followed by assistive technology specialist, [facility], last seen on 06/22/22 -Positive Rheumatoid Factor, negative CCP -Current medication: leflunomide 20 mg daily -Treatment Hx --Methotrexate (with folic acid) , discontinued due to its side effect --prednisone , tapered down after stabilization with DMARD. -Continue current Tx plan per assistive technology specialist History of herpes zoster 09/15/2022 Tobacco use [...] (08/07/2024 5:49 PM EST): -04/24/16 Colonoscopoy at [facility] -05/31/24 Colonoscopy at [facility] -Repeat colonoscopy in 5 years Assessment & Plan (01/10/2024 4:59 PM EDT): -04/24/16 Colonoscopoy at [facility] -Seen by [facility] on 12/17/23 and being scheduled for EGD / colonoscopy soon Assessment & Plan (09/18/2023 6:47 AM EST): -04/24/16 Colonoscopoy at [facility] -Seen for pre-colonoscopy appt in Jul 2021, but pt has not done it yet -Referred to [facility] in May 2023; advised to check with GI office for appt date Assessment & Plan (05/05/2023 10:06 AM EDT): -04/24/16 Colonoscopoy at [facility] -Seen for pre-colonoscopy appt in Jul 2021, but pt has not done it yet -Pt requests to be referred to GI in [place]; will refer Assessment & Plan (01/03/2023 7:17 AM EDT): -04/24/16 Colonoscopoy at [facility] -Seen for pre-colonoscopy appt in Jul 2021, but pt has not done it yet -Will ask for colonoscopy when she has EGD Assessment & Plan (09/21/2022 9:56 AM EST): -04/24/16 Colonoscopoy at [facility] -Seen for pre-colonoscopy appt in Jul [...] Encounters Date Type Department Care Team Description 01/08/2025 Refill [facility] [address] [place] [address] Marielos Dumont MD 12/04/2024 3:00 PM EST Office Visit [facility] MEDICINE [address] [place] [address] [phone] Marielos Dumont MD Mild intermittent asthma without complication (Primary Dx); Rheumatoid arthritis, seropositive ([facility]); Tobacco use; Encounter for immunization; Dyspnea, unspecified type; Screening for lipid disorders; Screening for diabetes mellitus; Right lateral epicondylitis 12/04/2024 Travel 11/29/2024 Telephone [facility] [address] [place] [address] Ceci Maldonado MA chart prep from Last 3 Months Immunizations Name Administration [...] 12/29/2024 12/30/2023 Depression Screening 01/09/2025 01/10/2024, 01/10/20 Alcohol/Substance Use Screening 08/07/2025 08/07/2024 Pap Smear [...] EST Narrative 09/26/2024 11:16 AM EST ? [facility] ? [address] ?[place] [address] ? Mammography Report ? Signed ? Patient: Hanley,Jannette ?MR#: [id number] ?? [id number] ? : 1960 ?Acct:[id number] ? Age/Sex: 63 / F ?ADM Date: 09/18/24 ? Loc: HO.MAMMO ? Attending Dr: Marielos Dumont MD ? Ordering Physician: Marielos Dumont MD ?Results: 1Negative ? Date of Service: 09/18/24 ?Follow Up: 1 Year From Orig ?? inal Mammogram ? Procedure(s): MM tomosynthesis screening BI ?? Accession Number(s): [id number] ? cc: Marielos Dumont MD ? EXAMINATION: [...] ??Masha Souza DO ??09/26/2024 11:13 AM EST ? Dictated By: ?Masha Souza DO ? Signed By: ?<Electronically signed by Masha Souza, DO in OV> ? 09/26/24 1113 ? DD/ 0800 ? TD/TT: 09/18/24 0814 ? Ripening Room Hand: ? Procedure Note Rebecca Cr - 09/26/2024 [facility] [address] [place], [place] [address] Mammography Report Signed Patient: Jannette HanleyMR#: [id number] : 1960cct:[id number] Age/Sex: 63 / FADM Date: 09/18/24 Loc: [facility] Attending Dr: Marielos Dumont MD Ordering Physician: Marielos Dumont MDResults: 1Negative Date of Service: 09/18/24Follow Up: 1 Year From Orig inal Mammogram Procedure(s): MM tomosynthesis screening BI Accession Number(s): [id number] cc: Marielos Dumont MD EXAMINATION: MM SCREENING [...] Souza DO in OV> 09/26/24 1113 DD/ 9 TD/TT: 09/18/24813 Ripening Room Hand: us Marielos Dumont MD IMG BI PROCEDURES Edited Result - Final * (ABNORMAL) Lipid Panel with Reflex to Direct LDL (01/10/2024 4:05 PM EDT) Triglycerides 199(H) <150 mg/dL [facility] Comment:Desirable Triglyceri de: less than 150 mg/dLBorderline High Triglyceride 150-199 mg/dLHigh Triglyceride: 200-499 mg/dLVery High Triglyceride: greater than or equal to 5OO mg/dL Cholesterol 194 <200 mg/dL [facility] Comment:Desirable Cholestero l: less than 200 mg/dLBorderline High Cholesterol: 200-239 mg/dLHigh Cholesterol: greater than 239 mg/dL LDL Cholesterol Calculated 117(H) <100 mg/dL [facility] Comment:Desirable LDL: less than 100 mg/dLNear Optimal/Above Optimal LDL: 110- 129 mg/dLBorderline High LDL: 130-159 mg/dLHigh LDL: 160-189 mg/dLVery High LDL: greater than or equal to 190 mg/dL HDL Cholesterol 38(L) >40 mg/dL [facility] Comment:Desirable HDL: great er than 40 mg/dL Note: This HDL assay may give artificially low results in patients with liver disease. Blood 01/10/2024 4:05 PM EDT 01/10/2024 5:22 PM EDT us Marielos Dumont MD LAB BLOOD ORDERABLES Final Resul t [facility] [address] [place] [phone] * Thinprep TIS PAP And HPV mRNA E6/E7 With Reflex To HPV 16,18/45 (09/16/2022 11:00 AM EST) Clinical Information: None given [facility] LMP: NONE GIVEN [employer] Prev. PAP: NONE GIVEN [employer] Prev. BX: NONE GIVEN [employer] SOURCE: None given [employer] Statement Of Adequacy: SATISFACTORY FOR EVALUATION [facility] Interpretation/Re sult: [employer] Comment: Negative for intraepithelial lesion or malignancy. Atrophic pattern; predominantly parabasal cells COMMENT: This Pap test has been evaluated with computer assisted technology. [employer] Straight Line Edger: Derrick [employer] Comment: BLC,CT(ASCP) CT screening location: [address] ??[address] (Always Message) [facility] Comment: EXPLANATORY NOTE: The Pap is a [...] HPV nRNA E6/E7 Not Detected Not Detected [employer] Comment: Methodology: Regulatory Affairs Strategy Specialist-Mediated Amplification This assay detects E6/E7 viral messenger RNA (mRNA) from 14 high-risk HPV types (16,18,31,33,35,39,45,51,52,56,58,59,66,68). Cervical sources are required for HPV testing. If a vaginal source from a patient who has had a total hysterectomy with removal of cervix was submitted, please contact the testing laboratory for alternative testing options. For additional information, please refer to http://education.[employer]/faq/QXM343u9 (This link if provided for information/ educational purposes only.) Genital fluid specimen (specimen) 09/16/2022 11:00 AM EST 09/17/2022 9:25 AM EST Marielos Dumont MD LAB PATHOLOGY ORDERABLES Final R esult [facility] [address], [address] [place] [address] [facility] [address], ([address]) [place] [address] * Colonoscopy (04/29/2016) Colonoscopy Normal Normal Historical Provider HEALTH MAINTENANCE Final Result from Last 3 Months or Most Recently Relevant to Health Maintenance Insurance [employer] Care Teams Physical Testing Supervisor Relationship Specialty Start Date End Date Marielos Dumont MD [address] [facility] [place] [address] PCP - General Family Medicine 10/04/18
--- OUTSIDE RECORDS SUMMARY | 2025-01-30 15:42 | XMS_ITS | Encounter Summary ---
Author Organization [employer] Address [address] [facility] [address] [place] [address] Care Team Providers Care Tourist Home Keeper Name Role Phone Marielos Dumont MD Primary Care Provider [phone] Encounter Details Date Type Department Care Team (Late st Contact Info) Description 06/07/2024 Abstract [facility] MEDICINE [address] [place], [place] [phone] Marielos Dumont MD [address] [place], [place] [phone] Social History Tobacco Use Types Packs/Day Years [...] documented as of this encounter Care Teams Tourist Home Keeper Relationship Specialty Start Date End Date Marielos Dumont MD [address] [place] [address] PCP - General Family Medicine 10/04/18 documented as of this encounter
== END 2025-01-30 14:38 | disposition home or self-care (01) ==
LOC: HO.HOS 13:37
PROVIDERS: PCP Family Medicine; Visit Provider Physician Assistant
DX: M77.11 Lateral epicondylitis, right elbow (principal)
CPT/HCPCS: 20551; 99213

== ENCOUNTER → 2025-01-30 13:37 | Outpatient (BNVA) | payer OTHER, SELFPAY | PROVIDERS: PCP Family Medicine; Visit Provider Physician Assistant | DX: M77.11 Lateral epicondylitis, right elbow (principal) | CPT/HCPCS: 20551; J1100; J2003 ==

== ENCOUNTER 2025-01-31 14:54 | Outpatient (REF) | payer OTHER, SELFPAY ==
--- NOTE | 2025-01-31 14:59 | PFT_ITS ---
Spirometry [] Lung Volumes [] Diffusion Capacity [] Methacholine Challenge [] Flow Volume Loops [] MVV [] MIP/MEP(Max inspiratory pressure/Max expiratory pressure) [] 6 Minute Walk Test [] ABG [] Interpretation [] MTDD
[2025-01-31 15:37] VITALS: PULSE 84; O2SAT 97
--- OUTSIDE RECORDS SUMMARY | 2025-01-31 16:00 | XMS_ITS | Encounter Summary ---
Author Organization [facility] Address [address] [facility] [address] [place] [address] Care Team Providers Care Sign Painter Helper Name Role Phone Marielos Dumont MD Primary Care Provider [phone] Reason for Visit * Reason Onset Date Comments march recall 01/31/2025 Encounter Details Date Type Department Care Team ([facility] st Contact Info) Description 01/31/2025 Telephone [facility] MEDICINE [address] [place], [place] [phone] Marielos Dumont MD [address] [place], [place] [phone] march recall Social History Tobacco Use Types Packs/Day Years [...] Telephone Encounter - Ceci Maldonado MA - 01/31/2025 3:30 PM EDT ..Telephone call to patient to schedule a recall appointment. No answer, Left voicemail to return call to clinic.. Recall letter sent. Visit type: Office Visit Appointment notes: Rv for RA Month due: April With: Tim Please schedule appointment above if patient returns call documented in this encounter Plan of Treatment Not on file documented as of this encounter Visit Diagnoses Not on filedocumented in this encounter Additional Health Concerns Assessment Noted Time PHQ-9 Depression Total Score: 0 01/10/20 24 3:14 PM EDT documented as of this encounter Care Teams Sign Painter Helper Relationship Specialty Start Date End Date Marielos Dumont MD [address] [place] [address] PCP - General Family Medicine 10/04/18 documented as of this encounter
--- OUTSIDE RECORDS SUMMARY | 2025-01-31 16:00 | XMS_ITS | Encounter Summary ---
Author Organization [employer] Address [address] [facility] [address] [place] [address] Care Team Providers Care Stewardesses Teacher Name Role Phone Marielos Duomnt MD Primary Care Provider [phone] Encounter Details Date Type Department Care Team (Late st Contact Info) Description 06/07/2024 Abstract [facility] MEDICINE [address] [place], [place] [phone] Marielos Dumont MD [address] [place], [place] [phone] Social History Tobacco Use Types Packs/Day Years [...] documented as of this encounter Care Teams Stewardesses Teacher Relationship Specialty Start Date End Date Marielos Dumont MD [address] [place] [address] PCP - General Family Medicine 10/04/18 documented as of this encounter
--- OUTSIDE RECORDS SUMMARY | 2025-01-31 16:00 | XMS_ITS | Clinical Summary ---
Author Organization [employer] Address [address] [place] [address] Care Team Providers Care Otr Flatbed Driver Name Role Phone Marielos Dumont MD Primary Care Provider [phone] Allergies No known active allergies Medications cholecalcifero [...] swelling -XR left ankle -to see her lead generator in 6 days -if no improve may [...] Plan (08/07/2024 5:51 PM EST): -followed by [facility] GI Treatment history [...] pt is unable to do stool antigen, [facility] lab takes urea breath test order from GI only. -minimize NSAIDs use -work on smoking cessation -requested EGD at the time of colonoscopy Assessment & Plan (05/05/2023 10:08 AM EDT): -start omeprazole 20 mg daily, may increase to bid if no improvement in symptoms -ordered H. Pylori test; pt is unable to do stool antigen, [facility] lab takes urea [...] Plan (09/21/2022 10:04 AM EST): -Followed by lead generator for RA and OA -Continue judicious use of NSAIDs and APAP prn Rheumatoid arthritis, seropositive 09/16/2022 Assessment & Plan (12/05/2024 6:17 AM EST): -Followed by lead generator, [facility], last seen in Aug 2023 -Positive Rheumatoid Factor, negative CCP -Current medication: leflunomide 20 mg every other day -Treatment Hx --Methotrexate (with folic acid) [id number], discontinued due to its side effect --prednisone , tapered down and off after stabilization with DMARD. -Continue current Tx plan per lead generator - Ordered Sed Rate by Adi Carney 12/04/24 - Ordered C-reactive Protein 12/04/24 Assessment & Plan (08/07/2024 5:47 PM EST): -Followed by lead generator, [facility], last seen in Aug 2023 -Positive Rheumatoid Factor, negative CCP -Current medication: leflunomide 20 mg every other day -Treatment Hx --Methotrexate (with folic acid) , discontinued due to its side effect --prednisone , tapered down and off after stabilization with DMARD. -Continue current Tx plan per lead generator Assessment & Plan (01/10/2024 5:21 PM EDT): -Followed by lead generator [facility], last seen in Aug 2023 -Positive Rheumatoid Factor, negative CCP -Current medication: leflunomide 20 mg every other day -Treatment Hx --Methotrexate (with folic acid) , discontinued due to its side effect --prednisone , tapered down and off after stabilization with DMARD. -Continue current Tx plan per lead generator Assessment & Plan (09/18/2023 6:50 AM EST): -Followed by lead generator [facility], last seen in Aug 2023 -Positive Rheumatoid Factor, negative CCP -Current medication: leflunomide 20 mg every other day -Treatment Hx --Methotrexate (with folic acid) , discontinued due to its side effect --prednisone , tapered down and off after stabilization with DMARD. -Continue current Tx plan per lead generator Assessment & Plan (05/05/2023 10:11 AM EDT): -Followed by lead generator [facility], last seen on 01/14/23 -Positive Rheumatoid Factor, negative CCP -Current medication: leflunomide 20 mg daily -Treatment Hx --Methotrexate (with folic acid) , discontinued due to its side effect --prednisone , tapered down after stabilization with DMARD. -Continue current Tx plan per lead generator Assessment & Plan (01/03/2023 7:20 AM EDT): -Followed by lead generator, [facility], last seen in Sep 2022 -Positive Rheumatoid Factor, negative CCP -Current medication: leflunomide 20 mg daily -Treatment Hx --Methotrexate (with folic acid) , discontinued due to its side effect --prednisone , tapered down after stabilization with DMARD. -Continue current Tx plan per lead generator Assessment & Plan (09/21/2022 9:58 AM EST): -Followed by lead generator, [facility], last seen on 06/22/22 -Positive Rheumatoid Factor, negative CCP -Current medication: leflunomide 20 mg daily -Treatment Hx --Methotrexate (with folic acid) , discontinued due to its side effect --prednisone , tapered down after stabilization with DMARD. -Continue current Tx plan per lead generator History of herpes zoster 09/15/2022 Tobacco use [...] (08/07/2024 5:49 PM EST): -04/24/16 Colonoscopoy at [facility] -05/31/24 Colonoscopy at [facility] -Repeat colonoscopy in 5 years Assessment & Plan (01/10/2024 4:59 PM EDT): -04/24/16 Colonoscopoy at [facility] -Seen by [facility] GI on 12/17/23 and being scheduled for EGD / colonoscopy soon Assessment & Plan (09/18/2023 6:47 AM EST): -04/24/16 Colonoscopoy at [facility] -Seen for pre-colonoscopy appt in Jul 2021, but pt has not done it yet -Referred to [facility] GI in May 2023; advised to check with GI office for appt date Assessment & Plan (05/05/2023 10:06 AM EDT): -04/24/16 Colonoscopoy at [facility] -Seen for pre-colonoscopy appt in Jul 2021, but pt has not done it yet -Pt requests to be referred to GI in [place]; will refer Assessment & Plan (01/03/2023 7:17 AM EDT): -04/24/16 Colonoscopoy at [facility] -Seen for pre-colonoscopy appt in Jul 2021, but pt has not done it yet -Will ask for colonoscopy when she has EGD Assessment & Plan (09/21/2022 9:56 AM EST): -04/24/16 Colonoscopoy at [facility] -Seen for pre-colonoscopy appt in Jul [...] Encounters Date Type Department Care Team Description 01/31/2025 Telephone [facility] MEDICINE [address] [place] [address] Marielos Dumont MD march recall 01/08/2025 Refill [facility] CHC MED & PEDS [address], [place] [phone] Marielos Dumont MD 12/04/2024 3:00 PM EST Office Visit [facility] MEDICINE [address] [place] [address] Marielos Dumont MD Mild intermittent asthma without complication (Primary Dx); Rheumatoid arthritis, seropositive ([facility]); Tobacco use; Encounter for immunization; Dyspnea, unspecified type; Screening for lipid disorders; Screening for diabetes mellitus; Right lateral epicondylitis 12/04/2024 Travel 11/29/2024 Telephone [facility] MEDICINE [address], [place] [phone] Ceci Maldonaod [place] chart prep from Last 3 Months [...] EST Narrative 09/26/2024 11:16 AM EST ? [facility] ? [address] ?[place] [address] ? Mammography Report ? Signed ? Patient: Hanley,Jannette ?MR#: [id number] ?? [id number] ? : 1960 ?Acct:[id number] ? Age/Sex: 63 / F ?ADM Date: /16/24 ? Loc: HO.MAMMO ? Attending Dr: Marielos Dumont MD ? Ordering Physician: Marielos Dumont MD ?Results: 1Negative ? Date of Service: 09/18/ ?Follow Up: 1 Year From Orig ?? inal Mammogram ? Procedure(s): MM tomosynthesis screening BI ?? Accession Number(s): [id number] ? cc: Marielos Dumont MD ? EXAMINATION: [...] DD/ 0800 ? TD/TT: 09/18/24 0814 ? Occupational Hygienist: ? Procedure Note Shaye, Image - 09/26/2024 [facility] [address] [place], [place] [address] Mammography Report Signed Patient: Kandy Hanley#: [id number] : 1Acct:[id number] Age/Sex: 63 / FADM Date: 09/18/24 Loc: [facility] Attending Dr: Marielos Dumont MD Ordering Physician: Marielos Dumont MDResults: 1Negative Date of Service: 09/18/24Follow Up: 1 Year From Orig inal Mammogram Procedure(s): MM tomosynthesis screening BI Accession Number(s): [id number] cc: Marielos Dumont MD EXAMINATION: MM SCREENING [...] 09/26/24 1113 DD/ 0800 TD/TT: 09/18/24 0814 Occupational Hygienist: Marielos Dumont MD IM BI PROCEDURES Edited Result - Final * (ABNORMAL) Lipid Panel with Reflex to Direct LDL (01/10/2024 4:05 PM EDT) Triglycerides 199(H) <150 mg/dL [facility] Comment:Desirable Triglyceri de: less than 150 mg/dLBorderline High Triglyceride 150-199 mg/dLHigh Triglyceride: 200-499 mg/dLVery High Triglyceride: greater than or equal to 5OO mg/dL Cholesterol 194 <200 mg/dL [facility] Comment:Desirable Cholestero l: less than 200 mg/dLBorderline High Cholesterol: 200-239 mg/dLHigh Cholesterol: greater than 239 mg/dL LDL Cholesterol Calculated 117(H) <100 mg/dL [facility] Comment:Desirable LDL: less than 100 mg/dLNear Optimal/Above Optimal LDL: 110- 129 mg/dLBorderline High LDL: 130-159 mg/dLHigh LDL: 160-189 mg/dLVery High LDL: greater than or equal to 190 mg/dL HDL Cholesterol 38(L) >40 mg/dL [facility] Comment:Desirable HDL: great er than 40 mg/dL Note: This HDL assay may give artificially low results in patients with liver disease. Blood 01/10/2024 4:05 PM EDT 01/10/2024 5:22 PM EDT Marielos Dumont MD LAB BLOOD ORDERABLES Final Resul t [facility] [address] [place] [address] [phone] * Thinprep TIS PAP And HPV mRNA E6/E7 With Reflex To HPV 16,18/45 (09/16/2022 11:00 AM EST) Clinical Information: None given [employer] LMP: NONE GIVEN [employer] Prev. PAP: NONE GIVEN [employer] Prev. BX: NONE GIVEN [employer] SOURCE: None given [employer] Statement Of Adequacy: SATISFACTORY FOR EVALUATION [employer] Interpretation/Re sult: [employer] Comment: Negative for intraepithelial lesion or malignancy. Atrophic pattern; predominantly parabasal cells COMMENT: This Pap test has been evaluated with computer assisted technology. [employer] Innovation Manager: [facility]lb[facility] Comment: BLC,CT(ASCP) CT screening location: [address] ??[address] (Always Message) [facility] [employer] Comment: EXPLANATORY NOTE: The Pap is a [...] HPV nRNA E6/E7 Not Detected Not Detected [employer] Comment: Methodology: Clinical Training Specialist-Mediated Amplification This assay detects E6/E7 viral messenger RNA (mRNA) from 14 high-risk HPV types (16,18,31,33,35,39,45,51,52,56,58,59,66,68). Cervical sources are required for HPV testing. If a vaginal source from a patient who has had a total hysterectomy with removal of cervix was submitted, please contact the testing laboratory for alternative testing options. For additional information, please refer to http://education.[employer]/faq/BCV979b0 (This link if provided for information/ educational purposes only.) Genital fluid specimen (specimen) 09/16/2022 11:00 AM EST 09/17/2022 9:25 AM EST Marielos Dumont MD LAB PATHOLOGY ORDERABLES Final R esult [employer] [address] [facility], [facility], [place] [address] [employer] [facility] [employer] [address] [facility], ([address]) [place] [address] * Colonoscopy (04/29/2016) Colonoscopy Normal Normal Historical Provider HEALTH MAINTENANCE Final Result from Last 3 Months or Most Recently Relevant to Health Maintenance Insurance [employer] Care Teams Otr Flatbed Driver Relationship Specialty Start Date End Date Marielos Dumont MD [address] [place] [phone] PCP - General Family Medicine 10/04/18
== END 2025-01-31 14:55 | disposition home or self-care (01) ==
LOC: HO.RESP 14:54
PROVIDERS: PCP Family Medicine; Visit Provider Family Medicine
DX: J45.20 Mild intermittent asthma, uncomplicated (principal); R06.00 Dyspnea, unspecified
CPT/HCPCS: 94010; 94640; 94727; 94729

== ENCOUNTER → 2025-01-31 14:59 | Outpatient (BNV) | payer OTHER, SELFPAY | PROVIDERS: PCP Family Medicine; Visit Provider Internal Medicine Pulmonary Disease | DX: J45.20 Mild intermittent asthma, uncomplicated (principal) | CPT/HCPCS: 94060; 94727; 94729 ==

== ENCOUNTER 2025-02-02 13:28 | Outpatient (AMB) | payer OTHER, SELFPAY ==
[2025-02-02 13:33] VITALS: BP 110/62; PULSE 93; O2SAT 96; BMI 21.8
--- NOTE | 2025-02-02 13:33 | MHC.OFFVIS ---
Vital Signs 02/02/25 13:33 Height 5 ft 5 in Weight 131 lb 2.801 oz BMI 21.8 BP 110/62 Blood Pressure Location Lt brachial Pulse 93 Pulse Source Pulse Oximeter Pulse Oximetry (%) 96 Oxygen Delivery Method Room Air Intake Visit Reasons: RA Intake Note: Patient presents for RA follow up, she had cortisone shot on Wednesday, but still painful, her knee is very painful. Patient states Leflunomide is not helping her. Allergies No Known Allergies [No Known Allergies*] Allergy (Verified 02/02/25 13:39) Medication List - Last Reconciled 02/02/25 by Kellen Dean MD acetaminophen 1,000 mg (2 x 500 mg) PO QID PRN cholecalciferol (vitamin D3) 25 mcg PO DAILY famotidine (Pepcid) 20 mg PO BEDTIME ibuprofen 400 mg PO TID miscellaneous medical supply 1 ea miscellaneous DAILY sennosides (Natural Senna Laxative) 17.2 mg (2 x 8.6 mg) PO BEDTIME HPI Comments Details: Patient is a 64-year-old female with Galvez's esophagus, polyarticular osteoarthritis, osteopenia and seropositive rheumatoid arthritis here today for follow up Interval History: Patient last seen 08/11/[address] Teran. At that time she was following up for her seropositive rheumatoid arthritis. She was taking leflunomide 20 mg every other day cutting back from daily dosage due to cramping in the abdomen and loose stools. Her joints have been fairly well controlled with intermittent aches. She also had some Achilles tendinitis at that time for which stretching was recommended as well as local icing and ibuprofen. Since then she has been lost to follow up and now returns to reestablish care Has been off of her medication for the past 2 years. Last took leflunomide in 2022. Since then she has been having joint pain in the elbow and the knees, especially for the past year. Got an elbow injection 01/30 from orthopedics. Also complaining of pain to her hands a lot as well as prolonged morning stiffness. Rheumatologic History: Onset of rheumatoid arthritis, perhaps in 2019: Initial treatment with methotrexate complicated by GI intolerance. Leflunomide started 2019 Current Rheumatology Medication(s): [facility] Medical History Galvez's esophagus determined by endoscopy Tubular adenoma of colon Fracture of right ulnar styloid Fracture of distal end of right radius Osteopenia DARLEEN positive GERD (gastroesophageal reflux disease) Seropositive rheumatoid arthritis Surgical History H/O abdominoplasty Hx of section Family History Mother HTN (hypertension) CVD (cardiovascular disease) Father Stroke HTN (hypertension) Brother CVD (cardiovascular disease) Social History Housing Other:: Born in [place]. In the [place]. Are you a primary care administrative tech to a significant other at home: No Do you presently have visiting nurse or other home services: No Alcohol intake: never Patient Tobacco Use Status: Current everyday Tobacco user Tobacco use type: Cigarette Cigarettes Per Day: 6 Years Smoked: 30 e-Cigarette/Vaping Use: Never Used Current occupational status: employed Current occupation: [employer] Review of Systems Const Details: Review of Systems Constitutional: Denies fever, chills, weight loss ENT: Denies vision changes, eye pain or eye redness, dental caries, dry mouth GI: Denies nausea, vomiting, diarrhea, abdominal pain, change in BM Pulm: Denies SOB, GRIFFITHS, hemoptysis, wheezing Cards: Denies chest pain, palpitations Skin: Denies Raynaud's, rash, nail changes, photosensitivity, ASP DEVELOPER: Denies headaches, weakness, paresthesias, recurrent falls MSK: as per HPI All other systems reviewed and are unremarkable except noted above Physical Exam Vital Signs: Last Vital Signs Pulse 93 02/02/25 13:33 BP 110/62 02/02/25 13:33 Pulse Ox 96 02/02/25 13:33 Oxygen Delivery Method Room Air 02/02/25 13:33 BMI result Body Mass Index 21.8 Vital signs reviewed Physical Examination CONSTITUITIONAL Patient alert and cooperative. Well appearing and in no apparent painful distress HEENT Conjunctiva and sclera clear. ?Pupils equal round and reactive to light. ?No lymphadenopathy. ? CHEST/RESPIRATORY SYSTEM Normal respiratory effort and able to speak in complete sentences. ?Clear to auscultation bilaterally. ?No crackles, rales, rhonchi, wheezes heard. CARDIAC SYSTEM Regular rate and rhythm. ?S1 and S2 heard no murmurs. ?Radial pulses intact bilaterally MSK Hands: ?Able to make a fist. TTP of the PIPs throughout with tenderness to some of the MCPs. Prominent herbeden's nodes Wrists: ?Full range of motion at the wrists without pain. ?No tenderness to palpation or synovitis noted to the wrists. Elbows: Full range of motion without pain. No tenderness, weakness, swelling, increased warmth or erythema. Shoulders: Full range of active range of motion without pain. No tenderness, weakness, swelling, increased warmth or erythema. Knees: ?Full range of motion. ?TTP of the bilateral knees Ankles: Full range of motion. ?No tenderness, swelling, increased warmth or erythema.? Feet: ?Negative squeeze test. ?No tenderness to palpation or swelling of the MTPs. Tender points:?No tenderness to palpation of the bilateral trapezius, supraspinatus, greater trochanters, anterior costochondral junctions, bilateral gluteal areas, bilateral suboccipital muscle insertions SKIN Skin intact without rashes. Results Reviewed Results Reviewed: Laboratory Tests 08/10/23 01/10/24 09:25 16:05 WBC 6.6 RBC 4.65 Hgb 12.7 Hct 38.7 Plt Count 371 ESR 14 Sodium 138 Potassium 3.9 Chloride 107 Carbon Dioxide 27 BUN 15 Creatinine 0.64 AST 14 ALT 11 Alkaline Phosphatase 105 C-Reactive Protein 0.26 Immunology Labs 12/13/18 03/09/19 10:01 09:55 Rheumatoid Factor 94.0 H Cycl Citrul Peptide IgG <16 DARLEEN Screen Positive H DARLEEN Titer 1:160 H Assessment & Plan Assessment & Plan (1) Seropositive rheumatoid arthritis: Comment: Onset of rheumatoid arthritis, perhaps in 2019: Initial treatment with methotrexate complicated by GI intolerance. Leflunomide started 2019 Code(s): M05.9 - Rheumatoid arthritis with rheumatoid factor, unspecified Category: Medical Plan: #Seropositive RA Patient is a 64-year-old female with seropositive rheumatoid arthritis here today to reestablish care after being lost to follow up 2 years. Patient is currently in a flare of her rheumatoid arthritis with evidenced by tenderness to palpation of all of her PIPs DIPs and some of her MCPs bilaterally. Discussed with patient the importance of compliance. We will check x-rays of her hands, wrists and knees to make sure there are no erosions or progression of disease. We will start Plaquenil 200 mg twice a day. Refer to Ophthalmology. Plan - Plaquenil 200mg bid - XRs bilateral hands, wrists, and knees - Labs today: CBC, CMP, ESR, CRP - RTC 3 months (2) Osteopenia: Comment: DEXA 12/2021: T-scores at hip-1.3 and at LS spine -1.7 Code(s): M85.80 - Other specified disorders of bone density and structure, unspecified site Category: Medical Qualifiers: Osteopenia location: multiple sites Qualified Code(s): M85.89 - Other specified disorders of bone density and structure, multiple sites Plan: #Osteopenia Last bone densitiy in 2021 showed osteopenia Need to get an updated DEXA Plan - DEXA - Continue vitamin D supplementation - Vit D levels checked at next blood draw (3) Encounter for monitoring of hydroxychloroquine therapy: Code(s): Z51.81 - Encounter for therapeutic drug level monitoring; Z79.899 - Other nursing home (current) drug therapy Plan: #Long-term Use of Hydroxychloroquine Discussed with patient the risks and benefits of hydroxychloroquine in managing the rheumatic condition Benefits include: - Reduced pain, reduce mortality, maintenance of remission and reduction of flares Risks include: - GI upset, skin hyperpigmentation, retinal toxicity (especially after more than 5 years of use), myopathy Advised yearly ophthalmology visits Referral to ophthalmology placed Plan I spent 32 minutes reviewing the record and labs, taking a history, examining the patient, discussing the treatment plan, ordering diagnostic work up and documenting in the medical record Orders: Orders XR hand LT min 3V Today M05.9 - Rheumatoid arthritis with rheumatoid factor, unspecified XR hand RT min 3V Today M05.9 - Rheumatoid arthritis with rheumatoid factor, unspecified XR wrist RT min 3V Today M05.9 - Rheumatoid arthritis with rheumatoid factor, unspecified XR DEXA axial skeleton Today M81.0 - Age-related osteoporosis without current pathological fracture Comprehensive Met. Panel Today M05.9 - Rheumatoid arthritis with rheumatoid factor, unspecified C Reactive Protein Today M05.9 - Rheumatoid arthritis with rheumatoid factor, unspecified T Spot TB Today M05.9 - Rheumatoid arthritis with rheumatoid factor, unspecified Vitamin D 25-OH Total Today E55.9 - Vitamin D deficiency, unspecified XR knee RT 3V Today M05.9 - Rheumatoid arthritis with rheumatoid factor, unspecified XR knee LT 3V Today M05.9 - Rheumatoid arthritis with rheumatoid factor, unspecified XR wrist LT min 3V Today M05.9 - Rheumatoid arthritis with rheumatoid factor, unspecified Complete Blood Count Auto Diff Today M05.9 - Rheumatoid arthritis with rheumatoid factor, unspecified Erythrocyte Sedimentation Rate Today M05.9 - Rheumatoid arthritis with rheumatoid factor, unspecified Hepatitis A,B,C Profile Today M05.9 - Rheumatoid arthritis with rheumatoid factor, unspecified Referrals Ophthalmology Referral Z51.81 - Encounter for therapeutic drug level monitoring, Z79.899 - Other nursing home (current) drug therapy Medications: New hydroxychloroquine (Plaquenil) 200 mg PO BID 90 days 180 tabs 1RF M05.9 - Rheumatoid arthritis with rheumatoid factor, unspecified Coding Level of Care Code Est Pt Level 4 (49181) Complex EM visit Add On G2211 Diagnoses Seropositive rheumatoid arthritis M05.9 Osteopenia of multiple sites M85.89 Osteopenia location: multiple sites Encounter for monitoring of hydroxychloroquine therapy Z51.81; Z79.89
--- OUTSIDE RECORDS SUMMARY | 2025-02-02 13:45 | XMS_ITS | Clinical Summary ---
Author Organization [employer] Address [address] [facility] [address] [place] [address] Care Team Providers Care Music Publisher Name Role Phone Marielos Dumont MD Primary Care Provider [phone] Allergies No known active allergies Medications cholecalcifero [...] swelling -XR left ankle -to see her sign out clerk in 6 days -if no improve may [...] Plan (08/07/2024 5:51 PM EST): -followed by [facility] [place] [place] [facility] Treatment history 12/17/23, switched omeprazole to [...] pt is unable to do stool antigen, [facility] [place] [place] lab takes urea breath test order from GI only. -minimize NSAIDs use -work on smoking cessation -requested EGD at the time of colonoscopy Assessment & Plan (05/05/2023 10:08 AM EDT): -start omeprazole 20 mg daily, may increase to bid if no improvement in symptoms -ordered H. Pylori test; pt is unable to do stool antigen, [facility] [place] [place] lab takes urea breath test order from [...] Plan (09/21/2022 10:04 AM EST): -Followed by sign out clerk for RA and OA -Continue judicious use of NSAIDs and APAP prn Rheumatoid arthritis, seropositive 09/16/2022 Assessment & Plan (12/05/2024 6:17 AM EST): -Followed by sign out clerk, [facility] [place] [place], last seen in Aug 2023 -Positive Rheumatoid Factor, negative CCP -Current medication: leflunomide 20 mg every other day -Treatment Hx --Methotrexate (with folic acid) [id number], discontinued due to its side effect --prednisone , tapered down and off after stabilization with DMARD. -Continue current Tx plan per sign out clerk - Ordered Sed Rate by Adi Carney 12/04/24 - Ordered C-reactive Protein 12/04/24 Assessment & Plan (08/07/2024 5:47 PM EST): -Followed by sign out clerk, [facility] [place] [place], last seen in Aug 2023 -Positive Rheumatoid Factor, negative CCP -Current medication: leflunomide 20 mg every other day -Treatment Hx --Methotrexate (with folic acid) , discontinued due to its side effect --prednisone , tapered down and off after stabilization with DMARD. -Continue current Tx plan per sign out clerk Assessment & Plan (01/10/2024 5:21 PM EDT): -Followed by sign out clerk [facility] [place] [place], last seen in Aug 2023 -Positive Rheumatoid Factor, negative CCP -Current medication: leflunomide 20 mg every other day -Treatment Hx --Methotrexate (with folic acid) , discontinued due to its side effect --prednisone , tapered down and off after stabilization with DMARD. -Continue current Tx plan per sign out clerk Assessment & Plan (09/18/2023 6:50 AM EST): -Followed by sign out clerk [facility] [place] [place], last seen in Aug 2023 -Positive Rheumatoid Factor, negative CCP -Current medication: leflunomide 20 mg every other day -Treatment Hx --Methotrexate (with folic acid) , discontinued due to its side effect --prednisone , tapered down and off after stabilization with DMARD. -Continue current Tx plan per sign out clerk Assessment & Plan (05/05/2023 10:11 AM EDT): -Followed by sign out clerk [facility] [place] [place], last seen on 01/14/23 -Positive Rheumatoid Factor, negative CCP -Current medication: leflunomide 20 mg daily -Treatment Hx --Methotrexate (with folic acid) , discontinued due to its side effect --prednisone , tapered down after stabilization with DMARD. -Continue current Tx plan per sign out clerk Assessment & Plan (01/03/2023 7:20 AM EDT): -Followed by sign out clerk, [facility] [place] [place], last seen in Sep 2022 -Positive Rheumatoid Factor, negative CCP -Current medication: leflunomide 20 mg daily -Treatment Hx --Methotrexate (with folic acid) , discontinued due to its side effect --prednisone , tapered down after stabilization with DMARD. -Continue current Tx plan per sign out clerk Assessment & Plan (09/21/2022 9:58 AM EST): -Followed by sign out clerk, [facility] [place] [place], last seen on 06/22/22 -Positive Rheumatoid Factor, negative CCP -Current medication: leflunomide 20 mg daily -Treatment Hx --Methotrexate (with folic acid) , discontinued due to its side effect --prednisone , tapered down after stabilization with DMARD. -Continue current Tx plan per sign out clerk History of herpes zoster 09/15/2022 Tobacco use [...] (08/07/2024 5:49 PM EST): -04/24/16 Colonoscopoy at [facility] -05/31/24 Colonoscopy at [facility] [place] [place] -Repeat colonoscopy in 5 years Assessment & Plan (01/10/2024 4:59 PM EDT): -04/24/16 Colonoscopoy at [facility] -Seen by [facility] [place] [place] [facility] on 12/17/23 and being scheduled for EGD / colonoscopy soon Assessment & Plan (09/18/2023 6:47 AM EST): -04/24/16 Colonoscopoy at [facility] -Seen for pre-colonoscopy appt in Jul 2021, but pt has not done it yet -Referred to [facility] [place] [place] [facility] in May 2023; advised to check with GI office for appt date Assessment & Plan (05/05/2023 10:06 AM EDT): -04/24/16 Colonoscopoy at [facility] -Seen for pre-colonoscopy appt in Jul 2021, but pt has not done it yet -Pt requests to be referred to GI in [place]; will refer Assessment & Plan (01/03/2023 7:17 AM EDT): -04/24/16 Colonoscopoy at [facility] -Seen for pre-colonoscopy appt in Jul 2021, but pt has not done it yet -Will ask for colonoscopy when she has EGD Assessment & Plan (09/21/2022 9:56 AM EST): -04/24/16 Colonoscopoy at [facility] -Seen for pre-colonoscopy appt in Jul [...] Type Department Care Team Description 01/31/2025 Telephone [facility] MEDICINE [address] [place] [address] Marielos Dumont MD march recall 01/08/2025 Refill [facility] MED & PEDS [address] [place], [place] [phone] Marielos Dumont MD 12/04/2024 3:00 PM EST Office Visit [facility] MEDICINE [address] [place] [address] Marielos Dumont MD Mild intermittent asthma without complication (Primary Dx); Rheumatoid arthritis, seropositive ([facility] Tobacco use; Encounter for immunization; Dyspnea, unspecified type; Screening for lipid disorders; Screening for diabetes mellitus; Right lateral epicondylitis 12/04/2024 Travel 11/29/2024 Telephone [facility] MEDICINE [address], [place] [phone] Ceci Maldonado [place] chart prep from Last [...] EST Narrative 09/26/2024 11:16 AM EST ? [facility] ? [address] ?[place] [address] ? Mammography Report ? Signed ? Patient: Hanley,Jannette ?MR#: [id number] ?? [id number] ? : 1960 ?Acct:[id number] ? Age/Sex: 63 / F ?ADM Date: /16/24 ? Loc: HO.MAMMO ? Attending Dr: Marielos Dumont MD ? Ordering Physician: Marielos Dumont MD ?Results: 1Negative ? Date of Service: 09/18/ ?Follow Up: 1 Year From Orig ?? inal Mammogram ? Procedure(s): MM tomosynthesis screening BI ?? Accession Number(s): [id number] ? cc: Marielos Dumont MD ? EXAMINATION: [...] DD/ 0800 ? TD/TT: 09/18/24 0814 ? Agent Broker: ? Procedure Note Shaye, Image - 09/26/2024 [facility] [address] [place], [place] [address] Mammography Report Signed Patient: Kandy Hanley#: [id number] : 1Acct:[id number] Age/Sex: 63 / FADM Date: 09/18/24 Loc: [facility] Attending Dr: Marielos Dumont MD Ordering Physician: Marielos Dumont MDResults: 1Negative Date of Service: 09/18/24Follow Up: 1 Year From Orig inal Mammogram Procedure(s): MM tomosynthesis screening BI Accession Number(s): [id number] cc: Marielos Dumont MD EXAMINATION: MM SCREENING [...] 09/26/24 1113 DD/ 0800 TD/TT: 09/18/24 0814 Agent Broker: Marielos Dumont MD IM BI PROCEDURES Edited Result - Final * (ABNORMAL) Lipid Panel with Reflex to Direct LDL (01/10/2024 4:05 PM EDT) Triglycerides 199(H) <150 mg/dL [facility] Comment:Desirable Triglyceri de: less than 150 mg/dLBorderline High Triglyceride 150-199 mg/dLHigh Triglyceride: 200-499 mg/dLVery High Triglyceride: greater than or equal to 5OO mg/dL Cholesterol 194 <200 mg/dL [facility] Comment:Desirable Cholestero l: less than 200 mg/dLBorderline High Cholesterol: 200-239 mg/dLHigh Cholesterol: greater than 239 mg/dL LDL Cholesterol Calculated 117(H) <100 mg/dL [facility] Comment:Desirable LDL: less than 100 mg/dLNear Optimal/Above Optimal LDL: 110- 129 mg/dLBorderline High LDL: 130-159 mg/dLHigh LDL: 160-189 mg/dLVery High LDL: greater than or equal to 190 mg/dL HDL Cholesterol 38(L) >40 mg/dL [facility] Comment:Desirable HDL: great er than 40 mg/dL Note: This HDL assay may give artificially low results in patients with liver disease. Blood 01/10/2024 4:05 PM EDT 01/10/2024 5:22 PM EDT Marielos Dumont MD LAB BLOOD ORDERABLES Final Resul t [facility] [address] [place] [address] [phone] * Thinprep TIS PAP And HPV mRNA E6/E7 With Reflex To HPV 16,18/45 (09/16/2022 11:00 AM EST) Clinical Information: None given MYRt LMP: NONE GIVEN MYRt Prev. PAP: NONE GIVEN MYRt Prev. BX: NONE GIVEN MYRt SOURCE: None given [employer] Statement Of Adequacy: SATISFACTORY FOR EVALUATION [employer] Interpretation/Re sult: [employer] Comment: Negative for intraepithelial lesion or malignancy. Atrophic pattern; predominantly parabasal cells COMMENT: This Pap test has been evaluated with computer assisted technology. [employer] Locomotive Pipe Fitter: [facility] [employer] Comment: BLC,CT(ASCP) CT screening location: [address] ??[phone] (Always Message) [facility] [employer] Comment: EXPLANATORY NOTE: The Pap is a [...] HPV nRNA E6/E7 Not Detected Not Detected [employer] Comment: Methodology: Painter Set-Mediated Amplification This assay detects E6/E7 viral messenger RNA (mRNA) from 14 high-risk HPV types (16,18,31,33,35,39,45,51,52,56,58,59,66,68). Cervical sources are required for HPV testing. If a vaginal source from a patient who has had a total hysterectomy with removal of cervix was submitted, please contact the testing laboratory for alternative testing options. For additional information, please refer to http://education.BioPoly/faq/UED925n6 (This link if provided for information/ educational purposes only.) Genital fluid specimen (specimen) 09/16/2022 11:00 AM EST 09/17/2022 9:25 AM EST Marielos Dumont MD LAB PATHOLOGY ORDERABLES Final R esult [employer] [address] [facility], [facility], [place] [address] [employer] [facility] [address] [facility], ([address]) [place] [address] * Colonoscopy (04/29/2016) Colonoscopy Normal Normal Historical Provider HEALTH MAINTENANCE Final Result from Last 3 Months or Most Recently Relevant to Health Maintenance Insurance [employer] Care Teams Music Publisher Relationship Specialty Start Date End Date Marielos Dumont MD [address] [place] [phone] PCP - General Family Medicine 10/04/18
--- OUTSIDE RECORDS SUMMARY | 2025-02-02 13:45 | XMS_ITS | Encounter Summary ---
Author Organization [employer] Address [address] [facility] [address] [place] [address] Care Team Providers Care Army Ranger Name Role Phone Marielos Dumont MD Primary Care Provider [phone] Encounter Details Date Type Department Care Team (Late st Contact Info) Description 06/07/2024 Abstract [facility] MEDICINE [address] [place], [place] [phone] Marielos Dumont MD [address] [place], [place] [phone] Social History Tobacco Use Types Packs/Day Years [...] documented as of this encounter Care Teams Army Ranger Relationship Specialty Start Date End Date Marielos Dumont MD [address] [place] [id number] PCP - General Family Medicine 10/04/18 documented as of this encounter
--- OUTSIDE RECORDS SUMMARY | 2025-02-02 13:45 | XMS_ITS | Encounter Summary ---
Author Organization [employer] Address [address] [facility] [address] [place] [address] Care Team Providers Care Window Assembler Name Role Phone Marielos Dumont MD Primary Care Provider [phone] Reason for Visit * Reason Onset Date Comments march recall 01/31/2025 Encounter Details Date Type Department Care Team ([facility] st Contact Info) Description 01/31/2025 Telephone [facility] MEDICINE [address] [place], [place] [phone] Marielos Dumont MD [address] [place], [place] [phone] march recall Social History Tobacco Use Types [...] documented as of this encounter Care Teams Window Assembler Relationship Specialty Start Date End Date Marielos Dumont MD [address] [place] [address] PCP - General Family Medicine 10/04/18 documented as of this encounter
== END 2025-02-02 14:02 | disposition home or self-care (01) ==
LOC: HO.RHE 13:29
PROVIDERS: PCP Family Medicine; Visit Provider Student in an Organized Health Care Education/Training Program
DX: M05.79 Rheumatoid arthritis with rheumatoid factor of multiple sites without organ or systems involvement (principal); M85.89 Other specified disorders of bone density and structure, multiple sites; Z51.81 Encounter for therapeutic drug level monitoring; Z79.899 Other long term (current) drug therapy
CPT/HCPCS: 99214

== ENCOUNTER → 2025-02-02 13:28 | Outpatient (BNVA) | payer OTHER, SELFPAY | PROVIDERS: PCP Family Medicine; Visit Provider Student in an Organized Health Care Education/Training Program ==

== ENCOUNTER 2025-02-05 07:17 | Outpatient (REF) | payer OTHER, SELFPAY ==
--- NOTE | ~2025-02-05 | XR_ITS ---
CLINICAL HISTORY: M05.9 - Rheumatoid arthritis with rheumatoid factor, unspecified 4 view right wrist 4 view left wrist Comparison: None Findings: Bones intact. No dislocations. Mild bilateral symmetrical intercarpal and radiocarpal joint space narrowing. No erosions or localized soft tissue swelling. No radiopaque foreign body. IMPRESSION: 1. No acute fracture or dislocation. 2. Mild arthritic changes. 3. No erosive changes. This document has been electronically signed by: Ester Kaur DO on 02/06/2025 16:04:18
--- NOTE | ~2025-02-05 | XR_ITS ---
CLINICAL HISTORY: M05.9 - Rheumatoid arthritis with rheumatoid factor, unspecified Radiograph of the bilateral knees AP standing Radiographs of the right knee 3 views Radiographs of the left knee 3 views Comparison: None Findings: Right knee: No suprapatellar joint effusion. No acute fracture or dislocation. Very mild tricompartmental joint space narrowing. No erosions. No loose ossific body. No radiopaque foreign body. Left knee: No suprapatellar joint effusion. No acute fracture or dislocation. Very mild tricompartmental joint space narrowing. No erosions. No loose ossific body. No radiopaque foreign body. Impression: 1. Right knee: No acute process. Very mild arthritic changes. No erosions. 2. Left knee: No acute process. Very mild arthritic changes. No erosions. This document has been electronically signed by: Ester Kaur DO on 02/06/2025 16:10:10
--- NOTE | ~2025-02-05 | XR_ITS ---
CLINICAL HISTORY: M05.9 - Rheumatoid arthritis with rheumatoid factor, unspecified 3 view right hand 3 view left hand Comparison: None Findings: Bones intact. No dislocations. Moderate narrowing of the right 3rd and 5th distal interphalangeal joints. Mild narrowing in the remaining interphalangeal joints bilaterally. No erosive changes. No radiopaque foreign body. No localized soft tissue swelling. IMPRESSION: 1. No acute fracture or dislocation. 2. [id number] arthritic changes. 3. No erosive changes. This document has been electronically signed by: Ester Kaur DO on 02/06/2025 16:08:55
--- OUTSIDE RECORDS SUMMARY | 2025-02-05 07:19 | XMS_ITS | Clinical Summary ---
Author Organization [employer] Address [address] [facility] [address] [place] [address] Care Team Providers Care Electronic Operator Name Role Phone Marielos Dumont MD Primary Care Provider [phone] Allergies No known active allergies Medications cholecalcifero [...] swelling -XR left ankle -to see her limited radiology technician in 6 days -if no improve may [...] Plan (08/07/2024 5:51 PM EST): -followed by [facility] Treatment history 12/17/23, switched omeprazole to [...] pt is unable to do stool antigen, [facility] lab takes urea breath test order from GI only. -minimize NSAIDs use -work on smoking cessation -requested EGD at the time of colonoscopy Assessment & Plan (05/05/2023 10:08 AM EDT): -start omeprazole 20 mg daily, may increase to bid if no improvement in symptoms -ordered H. Pylori test; pt is unable to do stool antigen, [facility] lab takes urea breath test order from [...] Plan (09/21/2022 10:04 AM EST): -Followed by limited radiology technician for RA and OA -Continue judicious use of NSAIDs and APAP prn Rheumatoid arthritis, seropositive 09/16/2022 Assessment & Plan (12/05/2024 6:17 AM EST): -Followed by limited radiology technician, [facility], last seen in Aug 2023 -Positive Rheumatoid Factor, negative CCP -Current medication: leflunomide 20 mg every other day -Treatment Hx --Methotrexate (with folic acid) [id number], discontinued due to its side effect --prednisone , tapered down and off after stabilization with DMARD. -Continue current Tx plan per limited radiology technician - Ordered Sed Rate by Adi Carney 12/04/24 - Ordered C-reactive Protein 12/04/24 Assessment & Plan (08/07/2024 5:47 PM EST): -Followed by limited radiology technician, [facility], last seen in Aug 2023 -Positive Rheumatoid Factor, negative CCP -Current medication: leflunomide 20 mg every other day -Treatment Hx --Methotrexate (with folic acid) , discontinued due to its side effect --prednisone , tapered down and off after stabilization with DMARD. -Continue current Tx plan per limited radiology technician Assessment & Plan (01/10/2024 5:21 PM EDT): -Followed by limited radiology technician [facility], last seen in Aug 2023 -Positive Rheumatoid Factor, negative CCP -Current medication: leflunomide 20 mg every other day -Treatment Hx --Methotrexate (with folic acid) , discontinued due to its side effect --prednisone , tapered down and off after stabilization with DMARD. -Continue current Tx plan per limited radiology technician Assessment & Plan (09/18/2023 6:50 AM EST): -Followed by limited radiology technician [facility], last seen in Aug 2023 -Positive Rheumatoid Factor, negative CCP -Current medication: leflunomide 20 mg every other day -Treatment Hx --Methotrexate (with folic acid) , discontinued due to its side effect --prednisone , tapered down and off after stabilization with DMARD. -Continue current Tx plan per limited radiology technician Assessment & Plan (05/05/2023 10:11 AM EDT): -Followed by limited radiology technician [facility], last seen on 01/14/23 -Positive Rheumatoid Factor, negative CCP -Current medication: leflunomide 20 mg daily -Treatment Hx --Methotrexate (with folic acid) , discontinued due to its side effect --prednisone , tapered down after stabilization with DMARD. -Continue current Tx plan per limited radiology technician Assessment & Plan (01/03/2023 7:20 AM EDT): -Followed by limited radiology technician, [facility], last seen in Sep 2022 -Positive Rheumatoid Factor, negative CCP -Current medication: leflunomide 20 mg daily -Treatment Hx --Methotrexate (with folic acid) , discontinued due to its side effect --prednisone , tapered down after stabilization with DMARD. -Continue current Tx plan per limited radiology technician Assessment & Plan (09/21/2022 9:58 AM EST): -Followed by limited radiology technician, [facility], last seen on 06/22/22 -Positive Rheumatoid Factor, negative CCP -Current medication: leflunomide 20 mg daily -Treatment Hx --Methotrexate (with folic acid) , discontinued due to its side effect --prednisone , tapered down after stabilization with DMARD. -Continue current Tx plan per limited radiology technician History of herpes zoster 09/15/2022 Tobacco use [...] (08/07/2024 5:49 PM EST): -04/24/16 Colonoscopoy at [facility] -05/31/24 Colonoscopy at [facility] -Repeat colonoscopy in 5 years Assessment & Plan (01/10/2024 4:59 PM EDT): -04/24/16 Colonoscopoy at [facility] -Seen by [facility] on 12/17/23 and being scheduled for EGD / colonoscopy soon Assessment & Plan (09/18/2023 6:47 AM EST): -04/24/16 Colonoscopoy at [facility] -Seen for pre-colonoscopy appt in Jul 2021, but pt has not done it yet -Referred to [facility] in May 2023; advised to check with GI office for appt date Assessment & Plan (05/05/2023 10:06 AM EDT): -04/24/16 Colonoscopoy at [facility] -Seen for pre-colonoscopy appt in Jul 2021, but pt has not done it yet -Pt requests to be referred to GI in [place]; will refer Assessment & Plan (01/03/2023 7:17 AM EDT): -04/24/16 Colonoscopoy at [facility] -Seen for pre-colonoscopy appt in Jul 2021, but pt has not done it yet -Will ask for colonoscopy when she has EGD Assessment & Plan (09/21/2022 9:56 AM EST): -04/24/16 Colonoscopoy at [facility] -Seen for pre-colonoscopy appt in Jul 2021, but pt has not done it yet -Will remind pt to reschedule appt Depression 01/27/2016 Assessment & Plan (01/10/2024 5:19 PM EDT): Worsened after her son's (suicide) in August 2015. Previous S provider: lenadr AVERY Previously on amitriptyline. No longer on [...] Type Department Care Team Description 01/31/2025 Telephone [facility] [address] [place] [address] Marielos Dumont MD march recall 01/08/2025 Refill [facility] [address] [place], [place] [phone] Marielos Dumont MD 12/04/2024 3:00 PM EST Office Visit [facility] [address] [place] [address] Marielos Dumont MD Mild intermittent asthma without complication (Primary Dx); Rheumatoid arthritis, seropositive ([facility]); Tobacco use; Encounter for immunization; Dyspnea, unspecified type; Screening for lipid disorders; Screening for diabetes mellitus; Right lateral epicondylitis 12/04/2024 Travel 11/29/2024 Telephone [facility] [address] [place], [place] [phone] Ceci Maldonado [place] chart prep from Last [...] EST Narrative 09/26/2024 11:16 AM EST ? [facility] ? [address] ?[place] [address] ? Mammography Report ? Signed ? Patient: Hanley,Jannette ?MR#: [id number] ?? [id number] ? : 1960 ?Acct:[id number] ? Age/Sex: 63 / F ?ADM Date: /16/24 ? Loc: HO.MAMMO ? Attending Dr: Marielos Dumont MD ? Ordering Physician: Marielos Dumont MD ?Results: 1Negative ? Date of Service: 09/18/ ?Follow Up: 1 Year From Orig ?? inal Mammogram ? Procedure(s): MM tomosynthesis screening BI ?? Accession Number(s): [id number] ? cc: Marielos Dumont MD ? EXAMINATION: [...] DD/ 0800 ? TD/TT: 09/18/24 0814 ? Assistant Federal Public Defender: ? Procedure Note Shaye, Image - 09/26/2024 [facility] [address] [place], [place] [address] Mammography Report Signed Patient: Kandy Hanley#: [id number] : 1Acct:[id number] Age/Sex: 63 / FADM Date: 09/18/24 Loc: [facility] Attending Dr: Marielos Dumont MD Ordering Physician: Marielos Dumont MDResults: 1Negative Date of Service: 09/18/24Follow Up: 1 Year From Orig inal Mammogram Procedure(s): MM tomosynthesis screening BI Accession Number(s): [id number] cc: Marielos Dumont MD EXAMINATION: MM SCREENING [...] 09/26/24 1113 DD/ 0800 TD/TT: 09/18/24 0814 Assistant Federal Public Defender: Marielos Dumont MD IM BI PROCEDURES Edited Result - Final * (ABNORMAL) Lipid Panel with Reflex to Direct LDL (01/10/2024 4:05 PM EDT) Triglycerides 199(H) <150 mg/dL [facility] Comment:Desirable Triglyceri de: less than 150 mg/dLBorderline High Triglyceride 150-199 mg/dLHigh Triglyceride: 200-499 mg/dLVery High Triglyceride: greater than or equal to 5OO mg/dL Cholesterol 194 <200 mg/dL [facility] Comment:Desirable Cholestero l: less than 200 mg/dLBorderline High Cholesterol: 200-239 mg/dLHigh Cholesterol: greater than 239 mg/dL LDL Cholesterol Calculated 117(H) <100 mg/dL [facility] Comment:Desirable LDL: less than 100 mg/dLNear Optimal/Above Optimal LDL: 110- 129 mg/dLBorderline High LDL: 130-159 mg/dLHigh LDL: 160-189 mg/dLVery High LDL: greater than or equal to 190 mg/dL HDL Cholesterol 38(L) >40 mg/dL [facility] Comment:Desirable HDL: great er than 40 mg/dL Note: This HDL assay may give artificially low results in patients with liver disease. Blood 01/10/2024 4:05 PM EDT 01/10/2024 5:22 PM EDT Marielos Dumont MD LAB BLOOD ORDERABLES Final Resul t [facility] [address] [place] [address] [phone] * Thinprep TIS PAP And HPV mRNA E6/E7 With Reflex To HPV 16,18/45 (09/16/2022 11:00 AM EST) Clinical Information: None given indenit LMP: NONE GIVEN indenit Prev. PAP: NONE GIVEN indenit Prev. BX: NONE GIVEN indenit SOURCE: None given [employer] Statement Of Adequacy: SATISFACTORY FOR EVALUATION [employer] Interpretation/Re sult: [employer] Comment: Negative for intraepithelial lesion or malignancy. Atrophic pattern; predominantly parabasal cells COMMENT: This Pap test has been evaluated with computer assisted technology. [employer] Media Production Support Manager: [facility] [employer] Comment: BLC,CT(ASCP) CT screening location: [address] ??[id number] (Always Message) [facility] [employer] Comment: EXPLANATORY NOTE: The Pap is a [...] HPV nRNA E6/E7 Not Detected Not Detected [employer] Comment: Methodology: [employer]-Mediated Amplification This assay detects E6/E7 viral messenger RNA (mRNA) from 14 high-risk HPV types (16,18,31,33,35,39,45,51,52,56,58,59,66,68). Cervical sources are required for HPV testing. If a vaginal source from a patient who has had a total hysterectomy with removal of cervix was submitted, please contact the testing laboratory for alternative testing options. For additional information, please refer to http://education.[employer]/faq/LPY045w9 (This link if provided for information/ educational purposes only.) Genital fluid specimen (specimen) 09/16/2022 11:00 AM EST 09/17/2022 9:25 AM EST Marielos Dumont MD LAB PATHOLOGY ORDERABLES Final R esult [employer] [facility] [address] [facility], [place] [address] [employer] [facility] [employer] [address], ([address]) [place] [address] * Colonoscopy (04/29/2016) Colonoscopy Normal Normal Historical Provider HEALTH MAINTENANCE Final Result from Last 3 Months or Most Recently Relevant to Health Maintenance Insurance [employer] Care Teams Electronic Operator Relationship Specialty Start Date End Date Marielos Dumont MD [address] [place] [id number] PCP - General Family Medicine 10/04/18
--- OUTSIDE RECORDS SUMMARY | 2025-02-05 07:19 | XMS_ITS | Encounter Summary ---
Author Organization [employer] Address [address] [facility] [address] [place] [address] Care Team Providers Care Diagnostic Radiologist Name Role Phone Marielos Dumont MD Primary Care Provider [phone] Encounter Details Date Type Department Care Team (Late st Contact Info) Description 06/07/2024 Abstract [facility] [address] [place], [place] [phone] Marielos Dumont MD [address] [place], [place] [phone] Social History Tobacco Use Types Packs/Day Years [...] documented as of this encounter Care Teams Diagnostic Radiologist Relationship Specialty Start Date End Date Marielos Dumont MD [address] [place] [id number] PCP - General Family Medicine 10/04/18 documented as of this encounter
--- OUTSIDE RECORDS SUMMARY | 2025-02-05 07:19 | XMS_ITS | Encounter Summary ---
Author Organization [employer] Address [address] [facility] [address] [place] [address] Care Team Providers Care Swiss Machinist Name Role Phone Marielos Dumont MD Primary Care Provider [phone] Reason for Visit * Reason Onset Date Comments march recall 01/31/2025 Encounter Details Date Type Department Care Team ([facility] st Contact Info) Description 01/31/2025 Telephone [facility] [address] [place], [place] [phone] Marielos Dumont MD [address] [place], [place] [phone] march recall Social History Tobacco Use Types [...] documented as of this encounter Care Teams Swiss Machinist Relationship Specialty Start Date End Date Marielos Dumont MD [address] [place] [address] PCP - General Family Medicine 10/04/18 documented as of this encounter
[2025-02-05 07:38] LABS: MANUAL DIFF FLAG NO
[2025-02-05 07:51] LABS: Basophils Percent Auto 0.6 % (0-2); Eosinophils Absolute Auto 0.2 X10*3/uL (0.0-0.4); Eosinophils Percent Auto 2.6 % (0-4); Hematocrit 39.7 % (37.0-47.0); Hemoglobin 13.2 g/dl (12.0-16.0); Imm Gran Abs Auto 0.01 X10*3/uL (0.00-0.03); Imm Gran Pct Auto 0.2 % (0.0-0.4); Lymphocytes Absolute Auto 2.5 X10*3/uL (1.2-4.9); Lymphocytes Percent Auto 40.4 % (20-40); Mean Corpuscular HGB Conc 33.2 g/dl (31.0-35.0); Mean Corpuscular Hemoglobin 28.1 pg (27.0-33.0); Mean Corpuscular Volume 84.6 fL (80.0-98.0); Monocytes Absolute Auto 0.5 X10*3/uL (0.1-1.2); Monocytes Percent Auto 7.5 % (2-11); Neutrophils Absolute Auto 3.1 x10*3/uL (2.0-8.3); Neutrophils Percent Auto 48.7 % (45-73); Platelet Count 344 X10*3/uL (160-400); Red Blood Count 4.69 X10*6/uL (4.20-5.50); Red Cell Distribution Width 14.7 % (11.0-16.0); White Blood Count 6.3 X10*3/uL (4.8-10.8)
[2025-02-05 07:57] LABS: Estimated Average Glucose 120 mg/dL; Hemoglobin A1C 130.0407 umol/L; Hemoglobin A1c % 5.8 % (<6.0); Total Hemoglobin (HGBA1C) 3272.7339 umol/L
[2025-02-05 08:23] LABS: Alanine Aminotransferase 18 U/L (0-31); Albumin Level 4.2 g/dL (3.5-5.0); Alkaline Phosphatase 104 U/L (39-117); Anion Gap 12 (12-20); Aspartate Amino Transferase 17 U/L (5-31); Bilirubin Total 0.3 mg/dL (0.0-1.0); Blood Urea Nitrogen 16 mg/dL (9-16); Calcium 9.1 mg/dL (8.4-10.2); Carbon Dioxide 24 mmol/L (22-29); Chloride 108 mmol/L (96-108); Cholesterol 230 mg/dL (<200); Estimated Glomerular Filt Rate > 60; Glucose Random 94 mg/dL (60-115); HDL Cholesterol 44 mg/dL (>40); LDL Cholesterol Calculated 162 mg/dL (<100); Potassium 3.8 mmol/L (3.3-5.1); Sodium 140 mmol/L (135-145); Total Protein 7.4 g/dL (6.5-8.0); Triglycerides 122 mg/dL (<150)
[2025-02-05 08:39] LABS: TSH reflex Free T4 2.02 uIU/mL (0.32-4.0)
[2025-02-05 08:42] LABS: Vitamin D 25-OH Total 19.3 ng/mL (>30)
[2025-02-05 08:44] LABS: HBS Num1 0.34 mIU/mL (0-7.99); HBc Num1 0.07 S/CO (0.00-0.79); HBsAGNum1 0.34 S/CO (0.00-0.99); Hepatitis A Antibody IgM 0.25 Index (0-0.79); Hepatitis B Core Antibody Nonreactive (Nonreactive); Hepatitis B Surface Antigen Negative (Negative); ~HepC Num1 0.09 S/CO (0.00-0.79); ~Hepatitis A Antibody IgM Nonreactive (Nonreactive); ~Hepatitis B Surface Antibody NONREACTIVE (Nonreactive); ~Hepatitis C Antibody Nonreactive (Nonreactive)
[2025-02-05 08:47] LABS: Erythrocyte Sedimentation Rate 14 MM/HR (0-20)
[2025-02-05 09:33] LABS: Reflex LDLD? No
[2025-02-08 12:58] LABS: TS Negative Control Passed; TS Panel A 0; TS Panel B 0; TS Positive Control Passed; TSpotTB Negative (Negative)
== END 2025-02-05 07:18 | disposition home or self-care (01) ==
LOC: HO.LAB 07:17
PROVIDERS: Absent Provider Student in an Organized Health Care Education/Training Program; PCP Family Medicine; Visit Provider Family Medicine
DX: M05.9 Rheumatoid arthritis with rheumatoid factor, unspecified (principal); E55.9 Vitamin D deficiency, unspecified; R06.00 Dyspnea, unspecified; Z13.1 Encounter for screening for diabetes mellitus; Z13.220 Encounter for screening for lipoid disorders; Z13.6 Encounter for screening for cardiovascular disorders
CPT/HCPCS: 36415; 73110; 73130; 73562; 80053; 80061; 82306; 83036; 84443; 85025; 85652; 86140; 86481; 86704; 86706; 86709; 86803; 87340

== ENCOUNTER → 2025-02-05 11:42 | Outpatient (BNV) | payer OTHER, SELFPAY | PROVIDERS: Absent Provider Student in an Organized Health Care Education/Training Program; PCP Family Medicine; Visit Provider Radiology Diagnostic Radiology | DX: M05.9 Rheumatoid arthritis with rheumatoid factor, unspecified (principal); M19.041 Primary osteoarthritis, right hand | CPT/HCPCS: 73110; 73130; 73562 ==

== ENCOUNTER 2025-03-16 08:39 | Outpatient (REF) | payer OTHER, SELFPAY ==
--- NOTE | ~2025-03-16 | MM_ITS ---
EXAMINATION: DXA BONE DENSITY AXIAL HISTORY: M81.0 - Age-related osteoporosis without current pathological fracture TECHNIQUE: [employer] Dual energy absorptiometry (DEXA) of the lumbar spine, total left hip, and femoral neck was performed. COMPARISON: Comparison is made with the prior examination dated 12/26/2021. FINDINGS: The bone mineral density of the lumbar spine is 0.962, corresponding to a T-score of -1.8, and a Z-score of -0.1. This is indicative of osteopenia. This represents a BMD change of -0.9% compared to the prior exam. This is not statistically significant. The bone mineral density of the left total hip is 0.815, corresponding to a T-score of -1.5, and a Z-score of -0.2. This is indicative of osteopenia. This represents a BMD change of -3.9% compared to the prior exam. This is not statistically significant. The bone mineral density of the left femoral neck is 0.826, corresponding to a T-score of -1.5, and a Z-score of 0.1. This is indicative of osteopenia. This represents a BMD change of -0.7% compared to the prior exam. FRACTURE RISK: The FRAX index suggests a ten year probability of major osteoporotic fracture of 10.1%, and of hip fracture 2.0%. MM/XR DEXA axial skeleton IMPRESSION: Based on bone mineral density, and according to World Health Organization (WHO) criteria, the diagnosis is consistent with osteopenia. All bone density values are in grams per centimeter squared (g/cm2). Statistically, 68% of repeat scans fall within 1 SD (+/- 0.010 g/cm2 for AP spine L1-L4) and 1 SD (+/- 0.012 g/cm2 for femur total) FRAX is a trademark of the [employer] [place] for Metabolic Bone Disease, a World Health Organization (WHO) Collaborating Center. Electronically signed by: Krish Peters MD 03/16/2025 09:26 AM EDT
--- OUTSIDE RECORDS SUMMARY | 2025-03-16 08:51 | XMS_ITS | Clinical Summary ---
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 Treatment history 12/17/23, switched omeprazole to [...] pt is unable to do stool antigen, [facility] lab takes urea breath test order from GI only. -minimize NSAIDs use -work on smoking cessation -requested EGD at the time of colonoscopy Assessment & Plan (05/05/2023 10:08 AM EDT): -start omeprazole 20 mg daily, may increase to bid if no improvement in symptoms -ordered H. Pylori test; pt is unable to do stool antigen, [facility] lab takes urea breath test order from [...] Plan (09/21/2022 10:04 AM EST): -Followed by hand tufter for RA and OA -Continue judicious use of NSAIDs and APAP prn Rheumatoid arthritis, seropositive 09/16/2022 Assessment & Plan (12/05/2024 6:17 AM EST): -Followed by hand tufter, [facility], last seen in Aug 2023 -Positive Rheumatoid Factor, negative CCP -Current medication: leflunomide 20 mg every other day -Treatment Hx --Methotrexate (with folic acid) , discontinued due to its side effect --prednisone , tapered down and off after stabilization with DMARD. -Continue current Tx plan per hand tufter - Ordered Sed Rate by Adi Carney 12/04/24 - Ordered C-reactive Protein 12/04/24 Assessment & Plan (08/07/2024 5:47 PM EST): -Followed by hand tufter, [facility], last seen in Aug 2023 -Positive Rheumatoid Factor, negative CCP -Current medication: leflunomide 20 mg every other day -Treatment Hx --Methotrexate (with folic acid) , discontinued due to its side effect --prednisone , tapered down and off after stabilization with DMARD. -Continue current Tx plan per hand tufter Assessment & Plan (01/10/2024 5:21 PM EDT): -Followed by hand tufter [facility], last seen in Aug 2023 -Positive Rheumatoid Factor, negative CCP -Current medication: leflunomide 20 mg every other day -Treatment Hx --Methotrexate (with folic acid) , discontinued due to its side effect --prednisone , tapered down and off after stabilization with DMARD. -Continue current Tx plan per hand tufter Assessment & Plan (09/18/2023 6:50 AM EST): -Followed by hand tufter [facility], last seen in Aug 2023 -Positive Rheumatoid Factor, negative CCP -Current medication: leflunomide 20 mg every other day -Treatment Hx --Methotrexate (with folic acid) , discontinued due to its side effect --prednisone , tapered down and off after stabilization with DMARD. -Continue current Tx plan per hand tufter Assessment & Plan (05/05/2023 10:11 AM EDT): -Followed by hand tufter [facility], last seen on 01/14/23 -Positive Rheumatoid Factor, negative CCP -Current medication: leflunomide 20 mg daily -Treatment Hx --Methotrexate (with folic acid) , discontinued due to its side effect --prednisone , tapered down after stabilization with DMARD. -Continue current Tx plan per hand tufter Assessment & Plan (01/03/2023 7:20 AM EDT): -Followed by hand tufter [facility], last seen in Sep 2022 -Positive Rheumatoid Factor, negative CCP -Current medication: leflunomide 20 mg daily -Treatment Hx --Methotrexate (with folic acid) , discontinued due to its side effect --prednisone , tapered down after stabilization with DMARD. -Continue current Tx plan per hand tufter Assessment & Plan (09/21/2022 9:58 AM EST): -Followed by hand tufter, [facility], last seen on 06/22/22 -Positive Rheumatoid Factor, negative CCP -Current medication: leflunomide 20 mg daily -Treatment Hx --Methotrexate (with folic acid) , discontinued due to its side effect --prednisone , tapered down after stabilization with DMARD. -Continue current Tx plan per hand tufter History of herpes zoster 09/15/2022 Tobacco use [...] (08/07/2024 5:49 PM EST): -04/24/16 Colonoscopoy at [facility] -05/31/[address] [facility] -Repeat colonoscopy in 5 years Assessment & Plan (01/10/2024 4:59 PM EDT): -04/24/16 Colonoscopoy at [facility] -Seen by [facility] on 12/17/23 and being scheduled for EGD / colonoscopy soon Assessment & Plan (09/18/2023 6:47 AM EST): -04/24/16 Colonoscopoy at [facility] -Seen for pre-colonoscopy appt in Jul 2021, but pt has not done it yet -Referred to [facility] in May 2023; advised to check with GI office for appt date Assessment & Plan (05/05/2023 10:06 AM EDT): -04/24/16 Colonoscopoy at [facility] -Seen for pre-colonoscopy appt in Jul 2021, but pt has not done it yet -Pt requests to be referred to GI in [place]; will refer Assessment & Plan (01/03/2023 7:17 AM EDT): -04/24/16 Colonoscopoy at [facility] -Seen for pre-colonoscopy appt in Jul 2021, but pt has not done it yet -Will ask for colonoscopy when she has EGD Assessment & Plan (09/21/2022 9:56 AM EST): -04/24/16 Colonoscopoy at [facility] -Seen for pre-colonoscopy appt in Jul [...] Encounters Date Type Department Care Team Description 02/05/2025 Orders Only GENERIC EXTERNAL DATA DEPARTMENT Provider, Generic External Data 01/31/[address] [facility] MEDICINE [address] [place], [place] [phone] Marielos Dumont MD march01/08/[address] [facility] MED & PEDS [address] [place] [address] Marielos Dumont MD from Last 3 Months Immunizations Immunization Administration Dates Next Due Influenza injectable quadriv alent IIV4 with preservative 09/16/2022,07/30/2017,07/21/2016,09/24 Influenza injectable quadriv alent preservative free 07/17/2021,07/10/2020,07/19/2019,07/20 Influenza, IIV3, injectable 07/11/2008 Influenza, Split (incl. shonda fied surface antigen) 10/17/2013 Pfizer Covid-19 Vaccine 12+ 10/14/2020, Pneumococcal Conjugate PCV 20 12/04/2024 Pneumococcal Polysaccharide [...] 12/04/2024 3:07 PM EST Plan of Treatment Upcoming Encounters Date Type Department Care Team (Late st Contact Info) Description 04/10/2025 11:15 AM EDT Office Visit [facility] [address] [facility] [place] [address] Marielos Dumont MD [address] [place], [place] [phone] Health Maintenance Due Date Last Done Comments CT Colonography 1960 FIT DNA/Cologuard 1960 FIT 1960 FOBT 1960 Sigmoidoscopy 1960 Disability Screening 1960 Zoster Vaccines (1 of 2) 2010 RSV Patients and Patients Aged 60 years or older (1 - Risk 60-74 years 1-dose series) 2020 COVID-19 Vaccine ( season) 2024 10/14/2020, 09/20/2020 SDOH Screening 12/29/2024 12/30/2023 Depression Screening 01/09/2025 01/10/2024, 01/10/20 24 Influenza Vaccine (Season Ended) 2025 09/16/2022, 07/17/2021, 07/10/2020, Additional history exists Alcohol/Substance Use Screening 08/07/2025 08/07/2024 Pap Smear 09/16/2025 09/16/2022, 04/16/2021 Tobacco Screening 12/10/2025 12/10/2024 Diabetes: Hemoglobin A1C 02/05/2026 05 025, 07/25/2021, 04/14/2021 Mammogram 09/18/2026 09/18/2024, 09/03, 04/17/2021, Additional history exists Cervical Cancer Screening 09/16/2027 HPV/Cotest 09/16/2027 09/16/2022, 04/16/2021 Colonoscopy 05/31/2029 05/31/2024, 04/29/2016 Colorectal Cancer Screening 05/31/2029 Lipid Panel 02/05/2030 02/05/2025, 01/10/2024 DTaP/Tdap/Td Vaccines (4 - Td or Tdap) 12/04/2034 12/04/2024, 11/10/2014, 02/25/2012, Additional history exists Pneumococcal Vaccine: 50+ Years Completed 12/04/2024, 02/25/2012 Hepatitis C Screening Discontinued 02/05/2025 HIB Vaccines Aged Out No longer eligi [...] on patient's age to complete this topic IPV Vaccines Aged Out No longer eligi ble based on patient's age to complete this topic Meningococcal B Vaccine Aged Out No l onger eligible based on patient's age to complete [...] Procedure Name Priority Date/Time Associated Diagnosis Comments XR KNEE 3 VIEWS BILATERAL Routine 02/06/2025 4:10 PM EDT XR HAND 3+ VIEWS BILATERAL Routine 02/06/2025 4:08 PM EDT XR WRIST 3+ VIEWS BILATERAL Routine 02/06/2025 4:04 PM EDT T-SPOT(R).TB Routine 02/05/2025 7:37 AM EDT HEPATITIS PANEL, GENERAL Routine 02/05/2025 7:37 AM EDT SED RATE BY MODIFIED HAILEYERGREN Routine 02/05/2025 7:37 AM EDT VITAMIN D,25-OH,TOTAL,IA Routine 02/05/2025 7:37 AM EDT C-REACTIVE PROTEIN Routine 02/05/2025 7: 37 AM EDT COMPREHENSIVE METABOLIC PANEL Routine 02/05/2025 7:37 AM EDT CBC WITH AUTO DIFFERENTIAL Routine 02/05/2025 7:37 AM EDT LIPID PANEL WITH REFLEX TO DIRECT LDL Routine 02/05/2025 7:37 AM EDT Screening for lipid disorders HEMOGLOBIN A1C Routine 02/05/2025 7:37 AM EDT Screening for diabetes mellitus TSH W/REFLEX TO FT4 Routine 02/05/2025 7 :37 AM EDT Dyspnea, unspecified type BI MAMMOGRAM SCREENING TOMOSYNTHESIS BILATERAL Routine 09/18/2024 8:00 AM EST HM COLONOSCOPY Routine 05/31/2024 9:33 AM EDT THINPREP IMAGING PAP AND HPV MRNA E6/E7 WITH REFLEX TO HPV 16,18/45 Routine 09/16/2022 11:00 AM EST Encounter for annual routine gynecological examination Pap smear for cervical cancer screening from Last 3 Months or Most Recently Relevant to Health Maintenance Results * XR Knee 3 Views Bilateral (02/06/2025 4:10 PM EDT) Anatomical Region Laterality Modality Lower Extremities, Knee Bilateral Radiogra phic Imaging 02/06/2025 4:10 PM EDT Narrative 02/06/2025 4:11 PM EDT ? [facility] ?[address] ?[place] [address] ?XRay Report ? Signed ? Patient: Hanley,Jannette ?MR#: [id number] ?? 953 ? : 1960 ?Acct:[id number] ? Age/Sex: 64 / F ?ADM Date: 05/05/25 ? Loc: HO.LAB ? Attending Dr: Marielos Dumont MD ? Ordering Physician: Kellen Dean MD ?? Date of Service: 02/05/25 ?? Procedure(s): XR Knee Wayne 3V ?? Accession Number(s): [id number] ? cc: Kellen Dean MD; Marielos Dumont MD ? CLINICAL HISTORY: M05.9 - Rheumatoid arthritis with rheumatoid factor, unspecified ? Radiograph of the bilateral knees AP standing ?? Radiographs of the right knee 3 views ?? Radiographs of the left knee 3 views ? Comparison: None ? Findings: ?? Right knee: ?? No suprapatellar joint effusion. ?? No acute fracture or dislocation. ?? Very mild tricompartmental joint space narrowing. ?? No erosions. ?? No loose ossific body. ?? No radiopaque foreign body. ? Left knee: ?? No suprapatellar joint effusion. ?? No acute fracture or dislocation. ?? Very mild tricompartmental joint space narrowing. ?? No erosions. ?? No loose ossific body. ?? No radiopaque foreign body. ? Impression: ?? 1. Right knee: No acute process. Very mild arthritic changes. No erosions. ?? 2. Left knee: No acute process. Very mild arthritic changes. No erosions. ? This document has been electronically signed by: Ester Kaur DO on ?? 02/06/2025 16:10:10 ? Dictated By: ?Ester Kaur MD ? Signed By: ?<Electronically signed by Ester Kaur MD in OV> ?02/06/250 ? DD/ 09 ? TD/TT: 02/06/251609 ? 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 Procedure Note Rebecca Cr - 02/06/[address] [address] XRay Report Signed Patient: Jannette HanleyMR#: [id number] 953 : 1Acct:[id number] Age/Sex: 64 / FADM Date: 02/05/25 Loc: HO.LAB Attending Dr: Marielos Dumont MD Ordering Physician: Kellen Dean MD Date of Service: 02/05/25 Procedure(s): XR Knee Wayne 3V Accession Number(s): [id number] cc: Kellen Dean MD; Marielos Dumont MD CLINICAL HISTORY: M05.9 - Rheumatoid arthritis with rheumatoid factor,unspecified Radiograph of the bilateral knees AP standing Radiographs of the right knee 3 views Radiographs of the left knee 3 views Comparison: None Findings: Right knee: No suprapatellar joint effusion. No acute fracture or dislocation. Very mild tricompartmental joint space narrowing. No erosions. No loose ossific body. No radiopaque foreign body. Left knee: No suprapatellar joint effusion. No acute fracture or dislocation. Very mild tricompartmental joint space narrowing. No erosions. No loose ossific body. No radiopaque foreign body. Impression: 1. Right knee: No acute process. Very mild arthritic changes. No erosions. 2. Left knee: No acute process. Very mild arthritic changes. No erosions. This document has been electronically signed by: Ester Kaur DO on 02/06/2025 16:10:10 Dictated By: Ester Kaur MD Signed By: <Electronically signed by Ester Kaur MD in OV> 02/06/25 1610 DD/ 1610 TD/TT: 02/06/25 1610 [employer]: [facility] External Provider IMG XR PROCEDURES Final Result * XR Hand 3+Views Bilateral (02/06/2025 4:08 PM EDT) Anatomical Region Laterality Modality Upper Extremities, Hand Bilateral Radiogra phic Imaging 02/06/2025 4:08 PM EDT Narrative 02/06/2025 4:10 PM EDT ? [facility] ?[address] ?[place] [address] ?XRay Report ? Signed ? Patient: Hanley,Jannette ?MR#: [id number] ?? 953 ? : 1960 ?Acct:[id number] ? Age/Sex: 64 / F ?ADM Date: 05/05/25 ? Loc: HO.LAB ? Attending Dr: Marielos Dumont MD ? Ordering Physician: Kellen Dean MD ?? Date of Service: 02/05/25 ?? Procedure(s): XR Hand Bilat min 3v ?? Accession Number(s): [id number] ? cc: Kellen Dean MD; Marielos Dumont MD ? CLINICAL HISTORY: M05.9 - Rheumatoid arthritis with rheumatoid factor, unspecified ? 3 view right hand ?? 3 view left hand ? Comparison: None ? Findings: ?? Bones intact. No dislocations. ?? Moderate narrowing of the right 3rd and 5th distal interphalangeal joints. ?? Mild narrowing in the remaining interphalangeal joints bilaterally. ?? No erosive changes. ?? No radiopaque foreign body. ?? No localized soft tissue swelling. ? IMPRESSION: ?? 1. No acute fracture or dislocation. ?? 2. Wcfe-pa-uemmbyze arthritic changes. ?? 3. No erosive changes. ? This document has been electronically signed by: Ester Kaur, DO on ?? 02/06/2025 16:08:55 ? Dictated By: ?Ester Kaur MD ? Signed By: ?<Electronically signed by Ester Kaur MD in OV> ?02/06/25 1610 ? DD/ 1608 ? TD/TT: 02/06/25 1608 ? 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 Procedure Note Rebecca Cr - 02/06/[address] [address] XRay Report Signed Patient: Kandy Hanley#: [id number] 953 : 1960cct:[id number] Age/Sex: 64 / FADM Date: 02/05/25 Loc: HO.LAB Attending Dr: Marielos Dumont MD Ordering Physician: Kellen Dean MD Date of Service: 02/05/25 Procedure(s): XR Hand Bilat min 3v Accession Number(s): [id number] cc: Kellen Dean MD; Marielos Dumont MD CLINICAL HISTORY: M05.9 - Rheumatoid arthritis with rheumatoid factor,unspecified 3 view right hand 3 view left hand Comparison: None Findings: Bones intact. No dislocations. Moderate narrowing of the right 3rd and 5th distal interphalangeal joints. Mild narrowing in the remaining interphalangeal joints bilaterally. No erosive changes. No radiopaque foreign body. No localized soft tissue swelling. IMPRESSION: 1. No acute fracture or dislocation. 2. Cvhy-eo-lacruvfw arthritic changes. 3. No erosive changes. This document has been electronically signed by: Ester Kaur DO on 02/06/2025 16:08:55 Dictated By: Ester Kaur MD Signed By: <Electronically signed by Ester Kaur MD in OV> 02/06/25 1610 DD/ 1608 TD/TT: 02/06/25 1608 [employer]: [facility] External Provider IMG XR PROCEDURES Final Result * XR Wrist 3+ Views Bilateral (02/06/2025 4:04 PM EDT) Anatomical Region Laterality Modality Upper Extremities, Wrist Bilateral Radiogr aphic Imaging 02/06/2025 4:04 PM EDT Narrative 02/06/2025 4:05 PM EDT ? [facility] ?[address] ?[place] [address] ?XRay Report ? Signed ? Patient: Hanley,Jannette ?MR#: [id number] ?? 953 ? : 1960 ?Acct:[id number] ? Age/Sex: 64 / F ?ADM Date: 02/05/25 ? Loc: HO.LAB ? Attending Dr: Marielos Dumont MD ? Ordering Physician: Kellen Dean MD ?? Date of Service: 02/05/25 ?? Procedure(s): XR Wrist Wayne min 3V ?? Accession Number(s): [id number] ? cc: Kellen Dean MD; Marielos Dumont MD ? CLINICAL HISTORY: M05.9 - Rheumatoid arthritis with rheumatoid factor, unspecified ? 4 view right wrist ?? 4 view left wrist ? Comparison: None ? Findings: ?? Bones intact. No dislocations. ?? Mild bilateral symmetrical intercarpal and radiocarpal joint space ?? narrowing. ?? No erosions or localized soft tissue swelling. ?? No radiopaque foreign body. ? IMPRESSION: ?? 1. No acute fracture or dislocation. ?? 2. Mild arthritic changes. ?? 3. No erosive changes. ? This document has been electronically signed by: Ester Kaur, DO on ?? 02/06/2025 16:04:18 ? Dictated By: ?Ester Kaur MD ? Signed By: ?<Electronically signed by Ester Kaur MD in OV> ?02/06/25 1605 ? DD/ 1604 ? TD/TT: 02/06/25 1604 ? 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 Procedure Note Shaye, Image - 02/06/[address] [address] XRay Report Signed Patient: Jannette HanleyMR#: [id number] 953 : 1960cct:[id number] Age/Sex: 64 / FADM Date: 02/05/25 Loc: HO.LAB Attending Dr: Marielos Dumont MD Ordering Physician: Kellen Dean MD Date of Service: 02/05/25 Procedure(s): XR Wrist Wayne min 3V Accession Number(s): [id number] cc: Kellen Dean MD; Marielos Dumont MD CLINICAL HISTORY: M05.9 - Rheumatoid arthritis with rheumatoid factor,unspecified 4 view right wrist 4 view left wrist Comparison: None Findings: Bones intact. No dislocations. Mild bilateral symmetrical intercarpal and radiocarpal joint space narrowing. No erosions or localized soft tissue swelling. No radiopaque foreign body. IMPRESSION: 1. No acute fracture or dislocation. 2. Mild arthritic changes. 3. No erosive changes. This document has been electronically signed by: Ester Kaur DO on 02/06/2025 16:04:18 Dictated By: Ester Kaur MD Signed By: <Electronically signed by Ester Kaur MD in OV> 02/06/25 1605 DD/ 1604 TD/TT: 02/06/25 1604 [employer]: [facility] External Provider IMG XR PROCEDURES Final Result * (ABNORMAL) Vitamin D, 25-Hydroxy, Total, Immunoassay (02/05/2025 7:37 AM EDT) Vitamin D 25-OH Total 19.3(L) >30 ng/mL [facility] Comment: Health Based Reference Values*< 20 ??ng/mL ??Naqmonvbn45-14 ng/mL ??Insufficient> 30 ??ng/mL ??Sufficient*Dung HEATH. N Engl J Med. 2007;357:266-280There is no well-established upper level of normal vitamin Dlevels. Some laboratories use 50 ng/mL as an upper limit ofnormal. However, toxicity is patient-dependent and may occurat any level. Careful correlation with the patient'spresentation is necessary and, if there is concern forvitamin D toxicity, treatment should be consideredirrespective of the serum level.Care must be taken in interpreting Vitamin D results fromdifferent laboratories and methodologies. ??Published datademonstrated that results from patients undergoinghemodialysis may show a negative bias when tested withvarious automated 25-OH vitamin D assays when compared toLC- MS/MS.When testing samples from patients whose predominant form ofVitamin D is Vitamin D2, such as patients receiving VitaminD2 supplementation, results that are subtherapeutic shouldbe confirmed with another method such as LC-MS/MS. 02/05/2025 7:37 AM EDT 02/05/2025 7:37 AM EDT us Generic External Data Provider LAB BLOOD ORDERAB LES Final Result [facility] [address] [place] [phone] * T-SPOT??.TB (02/05/2025 7:37 AM EDT) [facility] T Spot TB Negative Negative [facility] Comment:A negative test resu lt does not exclude the possibilityof exposure to or infection with Mycobacteriumtuberculosis (M. tuberculosis). Patients with recentexposure to TB infected individuals exhibiting anegative T-SPOT.TB result should be considered forretesting within 6 weeks or if other relevant clinicalsymptoms indicate. Results from T-SPOT.TB testing mustbe used in conjunction with each individual'sepidemiological history, current medical status,and results of other diagnostic evaluations.The T-SPOT.TB test is qualitative and results arereported as positive, borderline, or negative, giventhat the test controls perform as expected. In linewith the Centers for Disease Control and Prevention's2010 recommendation to report quantitative measurementsalongside the qualitative result, the laboratoryprovides spot counts for informational purposes only.The T-SPOT.TB test should not be interpreted as aquantitative test. TS PANEL A 0 [facility] TS PANEL B 0 [facility] Negative Control Passed [facility] Positive Control Passed [facility] Comment:For additional infor karis, please refer tohttp://education.[employer]/faq/YMK652(This link is being provided for informational/educational purposes only.)THIS TEST WAS PERFORMED AT:[employer] [id number] [place] [id number] LINN MD,PHD 02/05/2025 7:37 AM EDT 02/05/2025 7:37 AM EDT us Generic External Data Provider LAB BLOOD ORDERAB LES Final Result Performing Organization Address [facility]/ZIP Co de Phone Number [facility] [address] [place] [phone] * TSH with Reflex to Free T4 (02/05/2025 7:37 AM EDT) TSH reflex Free T4 2.02 0.32 - 4.0 uIU/mL [facility] Blood 02/05/2025 7:37 AM EDT 02/05/2025 7:37 AM EDT us Marielos Dumont MD LAB BLOOD ORDERABLES Final Resul t Performing Organization Address [facility]/ZIP Co de Phone Number [facility] [address] [place] [phone] * (ABNORMAL) Lipid Panel with Reflex to Direct LDL (02/05/2025 7:37 AM EDT) Triglycerides 122 <150 mg/dL [facility] Comment:Desirable Triglyceri de: less than 150 mg/dLBorderline High Triglyceride 150-199 mg/dLHigh Triglyceride: 200-499 mg/dLVery High Triglyceride: greater than or equal to 5OO mg/dL Cholesterol 230(H) <200 mg/dL [facility] Comment:Desirable Cholestero l: less than 200 mg/dLBorderline High Cholesterol: 200-239 mg/dLHigh Cholesterol: greater than 239 mg/dL LDL Cholesterol Calculated 162(H) <100 mg/dL [facility] Comment:Desirable LDL: less than 100 mg/dLNear Optimal/Above Optimal LDL: 110- 129 mg/dLBorderline High LDL: 130-159 mg/dLHigh LDL: 160-189 mg/dLVery High LDL: greater than or equal to 190 mg/dL HDL Cholesterol 44 >40 mg/dL [facility] Comment:Desirable HDL: great er than 40 mg/dL Note: This HDL assay may give artificially low results in patients with liver disease. Blood 02/05/2025 7:37 AM EDT 02/05/2025 7:37 AM EDT us Marielos Dumont MD LAB BLOOD ORDERABLES Final Resul t [facility] [address] [place] [phone] * Hepatitis Panel, General (02/05/2025 7:37 AM EDT) Hepatitis A IgM Nonreactive Nonreactive [facility] Comment:IgM antibodies to MONTERROSO V not detected; does not exclude earlyacute or recovered HAV infection. ~Hepatitis B Surface Antibody NONREACTIVE Nonreactive [facility] Comment:Nonreactive: < 8.00 mIU/mL Hepatitis B Core Antibody Nonreactive Nonreactive [facility] Hepatitis C Antibody Nonreactive Nonreactive [facility] Comment:Antibodies to HCV no t detected; does not exclude early acuteHCV infection. Hepatitis B Surface Ag Negative Negative [facility] 02/05/2025 7:37 AM EDT 02/05/2025 7:37 AM EDT us Generic External Data Provider LAB BLOOD ORDERAB LES Final Result [facility] [address], [place] [phone] * (ABNORMAL) CBC auto differential (02/05/2025 7:37 AM EDT) White Blood Count 6.3 4.8 - 10.8 X10*3/uL [facility] Red Blood Count 4.69 4.20 - 5.50 X10*6/uL [facility] Hemoglobin 13.2 12.0 - 16.0 g/dl [facility] Hematocrit 39.7 37.0 - 47.0 % [facility] Mean Corpuscular Volume 84.6 80.0 - 98.0 fL [facility] Mean Corpuscular Hemoglobin 28.1 27.0 - 33.0 pg [facility] Mean Corpuscular HGB Conc 33.2 31.0 - 35.0 g/dl [facility] Red Cell Distribution Width 14.7 11.0 - 16.0 % [facility] Platelet Count 344 160 - 400 X10*3/uL [facility] Mean Platelet Volume 10.0 9.4 - 12.3 fL [facility] Neutrophils Percent Auto 48.7 45 - 73 % [facility] Imm Gran Pct Auto 0.2 0.0 - 0.4 % [facility] Lymphocytes Percent Auto 40.4(H) 20 - 40 % [facility] Monocytes Percent Auto 7.5 2 - 11 % [facility] Eosinophils Percent Auto 2.6 0 - 4 % [facility] Basophils Percent Auto 0.6 0 - 2 % [facility] NRBC Pct Auto 0.0 0.0 - 0.2 /100WBC [facility] Neutrophils Absolute Auto 3.1 2.0 - 8.3 x10*3/uL [facility] Imm Gran Abs Auto 0.01 0.00 - 0.03 X10*3/uL [facility] Lymphocytes Absolute Auto 2.5 1.2 - 4.9 X10*3/uL [facility] Monocytes Absolute Auto 0.5 0.1 - 1.2 X10*3/uL [facility] Eosinophils Absolute Auto 0.2 0.0 - 0.4 X10*3/uL [facility] Basophils Absolute Auto 0.0 0.0 - 0.2 X10*3/uL [facility] NRBC Abs Auto 0.000 0.0 - 0.012 X10*3/uL [facility] 02/05/2025 7:37 AM EDT 02/05/2025 7:37 AM EDT us Generic External Data Provider LAB BLOOD ORDERAB LES Final Result Performing Organization Address [facility] Co de Phone Number [facility] [address] [place] [phone] * Sed Rate by Modified Angelika (02/05/2025 7:37 AM EDT) Pathologist [facility] Erythrocyte Sedimentation Rate 14 0 - 20 MM/HR [facility] Comment:Patients with polycy themia and many hemoglobin abnormalitiesmay have depressed sed rates whereas patients with anemiamay have elevated sed rates. 02/05/2025 7:37 AM EDT 02/05/2025 7:37 AM EDT us Generic External Data Provider LAB BLOOD ORDERAB LES Final Result Performing Organization Address [facility] Co de Phone Number [facility] [address] [place] [phone] * (ABNORMAL) C-reactive Protein (02/05/2025 7:37 AM EDT) C Reactive Protein 0.80(H) < or = 0.50 mg/dL [facility] 02/05/2025 7:37 AM EDT 02/05/2025 7:37 AM EDT us Generic External Data Provider LAB BLOOD ORDERAB LES Final Result Performing Organization Address [facility]/ZIP Co de Phone Number [facility] [address] [place] [phone] * Hemoglobin A1c (02/05/2025 7:37 AM EDT) Pathologist [facility] Hemoglobin A1c 5.8 <6.0 % [facility] Comment:Hemoglobin A1C Refer ence Range Adults: 4.8 - 6.0 % Non diabetic: < 6.0 % Goal: < 7.0 %Additional Action Suggested: > 8.0 %Note: Hemoglobin A1c results are invalid for patients with abnormal amounts of HbF. Blood transfusions may impact the HbA1c concentration in the patient sample. Estimated Average Glucose 120 mg/dL [facility] Comment:eAG = Estimated ave rage glucose which is %A1C expressed asaverage glucose, using the formula of the Q0K-YwwnfepMcibrdk Glucose study (ADAG), Diabetes Care, Vol.31,#8,May. 2007 Blood Venous blood specimen / Unknown 02/05/2025 7:37 AM EDT 02/05/2025 7:37 AM EDT Marielos Dumont MD LAB BLOOD ORDERABLES Final Resul t Performing Organization Address [facility] Co de Phone Number [facility] [address] [place] [phone] * Comprehensive Metabolic Panel (02/05/2025 7:37 AM EDT) Pathologist [facility] Sodium 140 135 - 145 mmol/L [facility] Potassium 3.8 3.3 - 5.1 mmol/L [facility] Chloride 108 96 - 108 mmol/L [facility] Carbon Dioxide 24 22 - 29 mmol/L [facility] Anion Gap 12 12 - 20 [facility] Urea Nitrogen (BUN) 16 9 - 16 mg/dL [facility] Creatinine, Serum 0.67 0.5 - 1.4 mg/dL [facility] Estimated Glomerular Filt Rate >60 [facility] Comment:Chronic Kidney Disea se: Estimated GFR < 60 mL/min/1.15e5Rtbugr Kidney Disease: Estimated GFR < 15 mL/min/1.73m2 Glucose 94 60 - 115 mg/dL [facility] Calcium 9.1 8.4 - 10.2 mg/dL [facility] Bilirubin, Total 0.3 0.0 - 1.0 mg/dL [facility] Aspartate Amino Transferase 17 5 - 31 U/L [facility] Alanine Aminotransferase 18 0 - 31 U/L [facility] Total Protein 7.4 6.5 - 8.0 g/dL [facility] Albumin Level 4.2 3.5 - 5.0 g/dL [facility] Alkaline Phosphatase 104 39 - 117 U/L [facility] 02/05/2025 7:37 AM EDT 02/05/2025 7:37 AM EDT us Generic External Data Provider LAB BLOOD ORDERAB LES Final Result Performing Organization Address [facility] Co de Phone Number [facility] [address] [place] [phone] * BI Mammogram Screening Tomosynthesis Bilateral (09/18/2024 8:00 AM EST) Anatomical Region Laterality Modality Breast Bilateral Mammography 09/18/2024 8:00 AM EST Narrative 09/26/2024 11:16 AM EST ? [facility] [place] ? [address] [facility] ?[place] [address] ? Mammography Report ? Signed ? Patient: Hanley,Jannette ?MR#: [id number] ?? [id number] ? : 1960 ?Acct:[id number] ? Age/Sex: 63 / F ?ADM Date: 12/16/24 ? Loc: HO.MAMMO ? Attending Dr: Marielos Sakurai MD ? Ordering Physician: Marielos Dumont MD ?Results: 1Negative ? Date of Service: 09/18/24 ?Follow Up: 1 Year From Orig ?? inal Mammogram ? Procedure(s): MM tomosynthesis screening BI ?? Accession Number(s): [id number] ? cc: Marielos Dumont MD ? EXAMINATION: [...] DD/ 0800 ? TD/TT: 09/18/24 0814 ? 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 Procedure Note Donotuseinterpreter, Image - [facility] [address] 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 PAP: NONE GIVEN [employer] Prev. BX: NONE GIVEN [employer] SOURCE: None given [employer] Statement Of Adequacy: SATISFACTORY FOR EVALUATION [employer] Interpretation/Re sult: [employer] Comment: Negative for intraepithelial lesion or malignancy. Atrophic pattern; predominantly parabasal cells COMMENT: This Pap test has been evaluated with computer assisted technology. [employer] Hot Box Checker: [facility] [[email or web address]] [employer] Comment: BLC,CT(ASCP) CT screening location: [address] ??[phone] (Always Message) [facility] Comment: EXPLANATORY NOTE: The Pap is a [...] HPV nRNA E6/E7 Not Detected Not Detected [employer] Comment: Methodology: Gro[employer]acker-Mediated Amplification This assay detects E6/E7 viral messenger RNA (mRNA) from 14 high-risk HPV types (16,18,31,33,35,39,45,51,52,56,58,59,66,68). Cervical sources are required for HPV testing. If a vaginal source from a patient who has had a total hysterectomy with removal of cervix was submitted, please contact the testing laboratory for alternative testing options. For additional information, please refer to http://education.[employer]/faq/EHS884y5 (This link if provided for information/ educational purposes only.) Genital fluid specimen (specimen) 09/16/2022 11:00 AM EST 09/17/2022 9:25 AM EST Marielos Dumont MD LAB PATHOLOGY ORDERABLES Final R esult [facility] [address] [facility], 3rd Fl, [address] [place] [phone] [facility] [address] , ([address]) [place] [phone] * Colonoscopy (04/29/2016) Colonoscopy Normal Normal Historical Provider HEALTH MAINTENANCE Final Result from Last 3 Months or Most Recently Relevant to Health Maintenance Insurance [employer] 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
== END 2025-03-16 08:40 | disposition home or self-care (01) ==
LOC: HO.MAMMO 08:39
PROVIDERS: PCP Family Medicine; Visit Provider Student in an Organized Health Care Education/Training Program
DX: M81.0 Age-related osteoporosis without current pathological fracture (principal)
CPT/HCPCS: 77080

== ENCOUNTER → 2025-03-16 08:45 | Outpatient (BNV) | payer OTHER, SELFPAY | PROVIDERS: PCP Family Medicine; Visit Provider Radiology Diagnostic Radiology | DX: E28.39 Other primary ovarian failure (principal) | CPT/HCPCS: 77080 ==

== ENCOUNTER 2025-04-13 09:34 | Outpatient (REF) | payer OTHER, SELFPAY ==
--- NOTE | ~2025-04-13 | XR_ITS ---
EXAMINATION: XR RIBS, RIGHT CLINICAL INFORMATION: right breast and rib pain COMPARISON: Correlated to x-ray same day. TECHNIQUE: Oblique views] hemithorax. There is skin bb marker placed in the right lower hemithorax. FINDINGS: No acute cortical disruption deformity in the ribs adjacent to the bb marker. XR/XR ribs RT 2V IMPRESSION: No acute rib fracture, right hemithorax. Electronically signed by: Monty Correa MD 04/13/2025 10:08 AM EDT
--- NOTE | ~2025-04-13 | XR_ITS ---
EXAMINATION: XR CHEST CLINICAL INFORMATION: right breast and rib pain COMPARISON: July 19, 2024. TECHNIQUE: 2 views of the chest were obtained. FINDINGS: Bilateral apical lung scarring. Mild pulmonary reticular pattern. No consolidation pleural effusion or pneumothorax. Cardiomediastinal silhouette size is normal. Mild multilevel thoracic spondylosis. S-shaped curvature of the thoracic spine. XR/XR chest 2V IMPRESSION: Chronic interstitial lung disease without acute airspace disease. Mild scoliosis and multilevel spondylosis. Electronically signed by: Monty Correa MD 04/13/2025 10:07 AM EDT
--- OUTSIDE RECORDS SUMMARY | 2025-04-13 09:51 | XMS_ITS | Clinical Summary ---
Author Organization [address] [employer] Address [address] [facility] [address] [place] [address] Care Team Providers Care [employer] Name Role Phone Marielos Dumont MD Primary Care Provider [phone] Allergies No known active allergies Medications cholecalciferol [...] 2 times daily. 1 each 5 Active hydroxychloroqui ne (Plaquenil) 200 MG tablet Take 1 tablet by mouth 2 times daily. 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 06/20/24 switched pantoprazole to esomeprazole -work on smoking cessation Assessment & Plan (08/07/2024 5:51 PM EST): -followed by [facility] Treatment history 12/17/23, switched omeprazole to [...] pt is unable to do stool antigen, [facility] lab takes urea breath test order from GI only. -minimize NSAIDs use -work on smoking cessation -requested EGD at the time of colonoscopy Assessment & Plan (05/05/2023 10:08 AM EDT): -start omeprazole 20 mg daily, may increase to bid if no improvement in symptoms -ordered H. Pylori test; pt is unable to do stool antigen, [facility] lab takes urea breath test order from [...] cetirizine prn Osteoarthritis 09/20/2022 Assessment & Plan (04/11/2025 6:02 PM EDT): -Followed by document specialist for RA and OA -Continue judicious use of NSAIDs and APAP prn Assessment & Plan (09/21/2022 10:04 AM EST): -Followed by document specialist for RA and OA -Continue judicious use of NSAIDs and APAP prn Rheumatoid arthritis, seropositive 09/16/2022 Assessment & Plan (04/11/2025 6:01 PM EDT): -Followed by document specialist [facility], last seen in Aug 2023 -Positive Rheumatoid Factor, negative CCP -Current medication: leflunomide 20 mg every other day -Treatment Hx --Methotrexate (with folic acid) , discontinued due to its side effect --prednisone , tapered down and off after stabilization with DMARD. -Continue current Tx plan per document specialist - Ordered Sed Rate by Modified Westergren 12/04/24 - Ordered C-reactive Protein 12/04/24 Assessment & Plan (12/05/2024 6:17 AM EST): -Followed by document specialist [facility], last seen in Aug 2023 -Positive Rheumatoid Factor, negative CCP -Current medication: leflunomide 20 mg every other day -Treatment Hx --Methotrexate (with folic acid) , discontinued due to its side effect --prednisone , tapered down and off after stabilization with DMARD. -Continue current Tx plan per document specialist - Ordered Sed Rate by Modified Westergren 12/04/24 - Ordered C-reactive Protein 12/04/24 Assessment & Plan (08/07/2024 5:47 PM EST): -Followed by document specialist [facility], last seen in Aug 2023 -Positive Rheumatoid Factor, negative CCP -Current medication: leflunomide 20 mg every other day -Treatment Hx --Methotrexate (with folic acid) , discontinued due to its side effect --prednisone , tapered down and off after stabilization with DMARD. -Continue current Tx plan per document specialist Assessment & Plan (01/10/2024 5:21 PM EDT): -Followed by document specialist [facility], last seen in Aug 2023 -Positive Rheumatoid Factor, negative CCP -Current medication: leflunomide 20 mg every other day -Treatment Hx --Methotrexate (with folic acid) , discontinued due to its side effect --prednisone , tapered down and off after stabilization with DMARD. -Continue current Tx plan per document specialist Assessment & Plan (09/18/2023 6:50 AM EST): -Followed by document specialist [facility], last seen in Aug 2023 -Positive Rheumatoid Factor, negative CCP -Current medication: leflunomide 20 mg every other day -Treatment Hx --Methotrexate (with folic acid) , discontinued due to its side effect --prednisone , tapered down and off after stabilization with DMARD. -Continue current Tx plan per document specialist Assessment & Plan (05/05/2023 10:11 AM EDT): -Followed by document specialist [facility], last seen on 01/14/23 -Positive Rheumatoid Factor, negative CCP -Current medication: leflunomide 20 mg daily -Treatment Hx --Methotrexate (with folic acid) , discontinued due to its side effect --prednisone , tapered down after stabilization with DMARD. -Continue current Tx plan per document specialist Assessment & Plan (01/03/2023 7:20 AM EDT): -Followed by document specialist [facility], last seen in Sep 2022 -Positive Rheumatoid Factor, negative CCP -Current medication: leflunomide 20 mg daily -Treatment Hx --Methotrexate (with folic acid) , discontinued due to its side effect --prednisone , tapered down after stabilization with DMARD. -Continue current Tx plan per document specialist Assessment & Plan (09/21/2022 9:58 AM EST): -Followed by document specialist [facility], last seen on 06/22/22 -Positive Rheumatoid Factor, negative CCP -Current medication: leflunomide 20 mg daily -Treatment Hx --Methotrexate (with folic acid) , discontinued due to its side effect --prednisone , tapered down after stabilization with DMARD. -Continue current Tx plan per document specialist History of herpes zoster 09/15/2022 Tobacco use 09/15/2022 Assessment & Plan (04/11/2025 6:03 PM EDT): -5 cigarettes per day currently -Started smoking around age 28, Smoking 35 years, smoked usually 1/3-1/2 ppd. -Smoking < 20 pack year at this time; will order CT scan when she reaches > 20 pack year or per guideline -continue working on smoking cessation -action stage of change today -will try varenicline Assessment & Plan (12/10/2024 12:23 PM EDT): [...] (08/07/2024 5:49 PM EST): -04/24/16 Colonoscopoy at [facility] -05/31/24 Colonoscopy at [facility] -Repeat colonoscopy in 5 years Assessment & Plan (01/10/2024 4:59 PM EDT): -04/24/16 Colonoscopoy at [facility] -Seen by [facility] GI on 12/17/23 and being scheduled for EGD / colonoscopy soon Assessment & Plan (09/18/2023 6:47 AM EST): -04/24/16 Colonoscopoy at [facility] -Seen for pre-colonoscopy appt in Jul 2021, but pt has not done it yet -Referred to [facility] in May 2023; advised to check with GI office for appt date Assessment & Plan (05/05/2023 10:06 AM EDT): -04/24/16 Colonoscopoy at [facility] -Seen for pre-colonoscopy appt in Jul 2021, but pt has not done it yet -Pt requests to be referred to GI in [place]; will refer Assessment & Plan (01/03/2023 7:17 AM EDT): -04/24/16 Colonoscopoy at [facility] -Seen for pre-colonoscopy appt in Jul 2021, but pt has not done it yet -Will ask for colonoscopy when she has EGD Assessment & Plan (09/21/2022 9:56 AM EST): -04/24/16 Colonoscopoy at [facility] -Seen for pre-colonoscopy appt in Jul [...] 0 today. Asthma 10/24/2015 Assessment & Plan (04/11/2025 6:02 PM EDT): -PFT on 12/14/18 normal -Continue albuterol prn -Continue working on smoking cessation -Consider repeating PFT Assessment & Plan (12/10/2024 12:28 PM EDT): [...] Encounters Date Type Department Care Team Description 04/12/2025 Telephone [facility] [address] [place] [address] Marielos Dumont MD Medication Question 04/10/2025 11:15 AM EDT Office Visit [facility] [address] [place] [address] Marielos Dumont MD Gastroesophageal reflux disease, unspecified whether esophagitis present (Primary Dx); Galvez's esophagus without dysplasia; Primary osteoarthritis involving multiple joints; Mild intermittent asthma without complication; Rheumatoid arthritis, seropositive ([facility]); Tobacco use; Breast pain, right 04/10/2025 Travel 04/09/2025 Telephone [facility] [address] [place] [address] Marielos Dumont MD chart prep 04/02/2025 Patient Outreach [facility]EDS [address] [place], [place] [id number] Marielos Dumnot MD Pre-visit Planning (SDOH negative. Tobacco screening positive. ) 03/16/2025 Orders Only [facility] External Provider, [facility] 02/05/2025 Orders Only GENERIC EXTERNAL DATA DEPARTMENT Provider, Generic External Data 01/31/2025 Telephone [facility] [address] [place] [address] Marielos Dumont MD march recall from Last 3 Months Immunizations Immunization Administration [...] Answer Date Recorded Patient Health Questionnaire-9 Score 2 04/10/2025 Patient Health Questionnaire-9 Score 2 04/10/2025 Last PHQ-9: Questionnaire Data Not on file 0 04/10/2025 Housing Stability Answer Date Recorded What is your housing situation today? I have andrea alexander 04/02/[address] you li ve. Do you have problems with any of the following? None of the above 04/02/2025 Food Insecurity Answer Date Recorded Within the past 12 months, y ou worried that your food would run out before you got money to buy more: Never True 04/02/2025 Within the past 12 months,th e food you bought just didn't last and you didn't have enough money to get more: Never True Transportation Answer Date Recorded In the past 12 months, has l ack of transportation kept you from medical appts, meetings, work or from getting things needed for daily living? No 04/02/2025 Utilities Answer Date Recorded In the past 12 months, has t he electric, gas, oil or water company threatened to shut off services in your home? No 04/02/2025 Depression Answer Date Recorded Patient Health Questionnaire-2 Score 0 04/10/2025 Internet Access Answer Date Recorded Internet Access Q1 Yes 04/02/2025 Internet Access Q2 I do not want or need it 03/06 Comments No Sex and Gender Information Value Date Recorded Sex Assigned at Female 08/03/2022 10:14 AM EDT Legal Sex Female 10:14 AM EDT Gender Identity Female 08/03/2022 10:14 AM EDT Sexual Orientation Straight 08/03/2022 10 :14 AM EDT Last Filed Vital Signs Vital Sign Reading Time Taken Comments Blood Pressure 130/70 04/10/2025 11:24 AM EDT Pulse 113 04/10/2025 11:24 AM EDT Temperature 36 C (96.8 F) 04/10/2025 11:24 AM EDT Respiratory Rate 19 04/10/2025 11:2 4 AM EDT Oxygen Saturation 98% 04/10/2025 11: 24 AM EDT Inhaled Oxygen Concentration - - Weight 59.3 kg (130 lb 12.8 oz) 025 11:24 AM EDT Height 160 cm (5' 3 ) 04/10/2025 11:24 AM EDT Body Mass Index 23.17 04/10/2025 11:24 AM EDT Plan of Treatment Health Maintenance Due Date Last Done Comments CT Colonography 1960 FIT DNA/Cologuard 1960 FIT 1960 FOBT 1960 Sigmoidoscopy 1960 Zoster Vaccines (1 of 2) 2010 RSV Patients and Patients Aged 60 years or older (1 - Risk 60-74 years 1-dose series) 2020 COVID-19 Vaccine ( season) 2024 10/14/2020, 09/20/2020 Influenza Vaccine (#1) 2025 , 07/17/2021, 07/10/2020, Additional history exists Alcohol/Substance Use Screening 08/07/2025 08/07/2024 Pap Smear 09/16/2025 09/16/2022, 04/16/2021 Diabetes: Hemoglobin A1C 02/05/2026 0505/ 025, 07/25/2021, 04/14/2021 SDOH Screening 04/02/2026 04/02/2025 Depression Screening 04/10/2026 04/10/2025, 04/10/20 25 Disability Screening 04/10/2026 04/10/2025 Tobacco Screening 04/10/2026 04/10/2025 Mammogram 09/18/2026 09/18/2024, 09/03, 04/17/2021, Additional history [...] Procedure Name Priority Date/Time Associated Diagnosis Comments BD DEXA AXIAL Routine 03/16/2025 8:46 AM EDT XR KNEE 3 VIEWS BILATERAL Routine 02/06/2025 4:10 PM EDT XR HAND 3+ VIEWS BILATERAL Routine 02/06/2025 4:08 PM EDT XR WRIST 3+ VIEWS BILATERAL Routine 02/06/2025 4:04 PM EDT T-SPOT(R).TB Routine 02/05/2025 7:37 AM EDT HEPATITIS PANEL, GENERAL Routine 02/05/2025 7:37 AM EDT SED RATE BY MODIFIED WESTERGREN Routine 02/05/2025 7:37 AM EDT VITAMIN D,25-OH,TOTAL,IA [...] Recently Relevant to Health Maintenance Results * BD DEXA Axial (03/16/2025 8:46 AM EDT) Anatomical Region Laterality Modality Body Radiographic Gina ging 03/16/2025 8:46 AM EDT Narrative 03/16/2025 9:29 AM EDT K[place]i [facility] [address] [place] [address] Mammography Report Signed Patient: Jannette Hanley MR#: [id number] 953 : 1960 Acct:[id number] Age/Sex: 64 / F ADM Date: 03/16/25 Loc: [facility] Attending Dr: Kellen Dean MD Ordering Physician: Kellen Dean MD Results: Date of Service: 03/16/25 Follow Up: Procedure(s): XR DEXA axial skeleton Accession Number(s): [id number] cc: Kellen Dean MD; Marielos Dumont MD EXAMINATION: DXA BONE DENSITY AXIAL HISTORY: M81.0 - Age-related osteoporosis without current pathological fracture TECHNIQUE: [employer] Dual energy absorptiometry (DEXA) of the lumbar spine, total left hip, and femoral neck was performed. COMPARISON: Comparison is made with the prior examination dated 12/26/2021. FINDINGS: The bone mineral density of the lumbar spine is 0.962, corresponding to a T-score of -1.8, and a Z-score of -0.1. This is indicative of osteopenia. This represents a BMD change of -0.9% compared to the prior exam. This is not statistically significant. The bone mineral density of the left total hip is 0.815, corresponding to a T-score of -1.5, and a Z-score of -0.2. This is indicative of osteopenia. This represents a BMD change of -3.9% compared to the prior exam. This is not statistically significant. The bone mineral density of the left femoral neck is 0.826, corresponding to a T-score of -1.5, and a Z-score of 0.1. This is indicative of osteopenia. This represents a BMD change of -0.7% compared to the prior exam. FRACTURE RISK: The FRAX index suggests a ten year probability of major osteoporotic fracture of 10.1%, and of hip fracture 2.0%. MM/XR DEXA axial skeleton IMPRESSION: Based on bone mineral density, and according to World Health Organization (WHO) criteria, the diagnosis is consistent with osteopenia. All bone density values are in grams per centimeter squared (g/cm2). Statistically, 68% of repeat scans fall within 1 SD (+/- 0.010 g/cm2 for AP spine L1-L4) and 1 SD (+/- 0.012 g/cm2 for femur total) FRAX is a trademark of the [employer]'s [place] for Metabolic Bone Disease, a World Health Organization (WHO) Collaborating Center. Electronically signed by: Krish Peters MD 03/16/2025 09:26 AM EDT RP Dictated By: Krish Peters MD Signed By: <Electronically signed by Krish Peters MD in OV> 03/16/25 09 DD/ TD/TT: 03/16/25 09 Computer Game Tester: Procedure Note Donotuseinterpreter, Image - 03/16/2025 [facility] [address] [place] [address] Mammography Report Signed Patient: Jannette Hanley#: [id number] 953 : 1960cct:[id number] Age/Sex: 64 / FADM Date: 03/16/25 Loc: [facility] Attending Dr: Kellen Dean MD Ordering Physician: Kellen Dean MDResults: Date of Service: 03/16/25Follow Up: Procedure(s): XR DEXA axial skeleton Accession Number(s): [id number] cc: Kellen Dean MD; Marielos Dumont MD EXAMINATION: DXA BONE DENSITY AXIAL HISTORY: M81.0 - Age-related osteoporosis without current pathological fracture TECHNIQUE: [employer] Dual energy absorptiometry (DEXA) of the lumbar spine, total left hip, and femoral neck was performed. COMPARISON: Comparison is made with the prior examination dated 12/26/2021. FINDINGS: The bone mineral density of the lumbar spine is 0.962, corresponding to a T-score of -1.8, and a Z-score of -0.1. This is indicative of osteopenia. This represents a BMD change of -0.9% compared to the prior exam. This is not statistically significant. The bone mineral density of the left total hip is 0.815, corresponding to a T-score of -1.5, and a Z-score of -0.2. This is indicative of osteopenia. This represents a BMD change of -3.9% compared to the prior exam. This is not statistically significant. The bone mineral density of the left femoral neck is 0.826, corresponding to a T-score of -1.5, and a Z-score of 0.1. This is indicative of osteopenia. This represents a BMD change of -0.7% compared to the prior exam. FRACTURE RISK: The FRAX index suggests a ten year probability of major osteoporotic fracture of 10.1%, and of hip fracture 2.0%. MM/XR DEXA axial skeleton IMPRESSION: Based on bone mineral density, and according to World Health Organization (WHO) criteria, the diagnosis is consistent with osteopenia. All bone density values are in grams per centimeter squared (g/cm2). Statistically, 68% of repeat scans fall within 1 SD (+/- 0.010 g/cm2 for AP spine L1-L4) and 1 SD (+/- 0.012 g/cm2 for femur total) FRAX is a trademark of the [employer] [place] for Metabolic Bone Disease, a World Health Organization (WHO) Collaborating Center. Electronically signed by: Krish Peters MD 03/16/2025 09:26 AM EDT Dictated By: Krish Peters MD Signed By: <Electronically signed by Krish Peters MD in OV> 03/16/25 0926 DD/ 0846 TD/TT: 03/16/25 0907 Computer Game Tester: [facility] External Provider IMG DXA PROCEDURES Final Result * XR Knee 3 Views Bilateral (02/06/2025 4:10 PM EDT) Anatomical Region Laterality Modality Lower Extremities, Knee Bilateral Radiogra phic Imaging 02/06/2025 4:10 PM EDT Narrative 02/06/2025 4:11 PM EDT [address] [address] XRay Report Signed Patient: Jannette Hanley MR#: [id number] 953 : 1960 Acct:[id number] Age/Sex: 64 / F ADM Date: 02/05/25 Loc: HO.LAB Attending Dr: Marielos Dumont MD Ordering Physician: Kellen Dean MD Date of Service: 02/05/25 Procedure(s): XR Knee Wayne 3V Accession Number(s): [id number] cc: Kellen Dean MD; Marielos Dumont MD CLINICAL HISTORY: M05.9 - Rheumatoid arthritis with rheumatoid factor, unspecified Radiograph of the bilateral knees AP standing [...] 02/06/25 1610 DD/ 1610 TD/TT: 02/06/25 1610 Computer Game Tester: Procedure Note Donotuseinterpreter, Image - 02/06/[address] [address] XRay Report Signed Patient: Jannette HanleyMR#: [id number] 953 : 1960cct:[id number] Age/Sex: 64 / FADM Date: 02/05/25 Loc: HO.LAB Attending Dr: Marielos Dumont MD Ordering Physician: Kellen Dean MD Date of Service: 02/05/25 Procedure(s): XR Knee Wayne 3V Accession Number(s): [id number] cc: Kellen Dean MD; Marielos Dumont MD [...] 02/06/25 1610 DD/ 1610 TD/TT: 02/06/25 1610 Computer Game Tester: us [facility] External Provider IMG XR PROCEDURES Final Result * XR Hand 3+Views Bilateral (02/06/2025 4:08 PM EDT) Anatomical Region Laterality Modality Upper Extremities, Hand Bilateral Radiogra phic Imaging 02/06/2025 4:08 PM EDT Narrative 02/06/2025 4:10 PM EDT [facility] [address] [place] [address] XRay Report Signed Patient: Jannette Hanley MR#: [id number] 953 : 1960 Acct:[id number] Age/Sex: 64 / F ADM Date: 02/05/25 Loc: HO.LAB Attending Dr: Marielos Dumont MD Ordering Physician: Kellen Dean MD Date of Service: 02/05/25 Procedure(s): XR Hand Bilat min 3v Accession Number(s): [id number] cc: Kellen Dean MD; Marielos Dumont MD CLINICAL HISTORY: M05.9 - Rheumatoid arthritis with rheumatoid factor, unspecified 3 view right hand 3 view left hand Comparison: None Findings: Bones intact. No dislocations. Moderate narrowing of the right 3rd and 5th distal interphalangeal joints. Mild narrowing in the remaining interphalangeal joints bilaterally. No erosive changes. No radiopaque foreign body. No localized soft tissue swelling. IMPRESSION: 1. No acute fracture or dislocation. 2. Avwg-bn-zvvlkqnz arthritic changes. 3. No erosive changes. This document has been electronically signed by: Ester Kaur DO on 02/06/2025 16:08:55 Dictated By: Ester Kaur MD Signed By: <Electronically signed by Ester Kaur MD in OV> 02/06/25 1610 DD/ 1608 TD/TT: 02/06/25 1608 Computer Game Tester: Procedure Note Donotuseinterpreter, Image - 02/06/[address] [address] XRay Report Signed Patient: Jannette HanleyMR#: [id number] 953 : 1960cct:[id number] Age/Sex: 64 / FADM Date: 02/05/25 Loc: HO.LAB Attending Dr: Marielos Dumont MD Ordering Physician: Kellen Dean MD Date of Service: 02/05/25 Procedure(s): XR Hand Bilat min 3v Accession Number(s): [id number] cc: Kellen Dean MD; Marielos Dumont MD [...] 1. No acute fracture or dislocation. 2. Loqy-my-furuerta arthritic changes. 3. No erosive changes. This document has been electronically signed by: Ester Kaur DO on 02/06/2025 16:08:55 Dictated By: Ester Kaur MD Signed By: <Electronically signed by Ester Kaur MD in OV> 02/06/25 1610 DD/ 1608 TD/TT: 02/06/25 1608 Computer Game Tester: [facility] External Provider IMG XR PROCEDURES Final Result * XR Wrist 3+ Views Bilateral (02/06/2025 4:04 PM EDT) Anatomical Region Laterality Modality Upper Extremities, Wrist Bilateral Radiogr aphic Imaging 02/06/2025 4:04 PM EDT Narrative 02/06/2025 4:05 PM EDT [place] [address] XRay Report Signed Patient: Jannette Hanley MR#: [id number] 953 : 1960 Acct:[id number] Age/Sex: 64 / F ADM Date: 02/05/25 Loc: HO.LAB Attending Dr: Marielos Dumont MD Ordering Physician: Kellen Dean MD Date of Service: 02/05/25 Procedure(s): XR Wrist Wayne min 3V Accession Number(s): [id number] cc: Kellen Dean MD; Marielos Dumont MD CLINICAL HISTORY: M05.9 - Rheumatoid arthritis with rheumatoid factor, unspecified 4 view right wrist 4 view left [...] OV> 02/06/25 1605 DD/ 1604 TD/TT: 02/06/25 160 Computer Game Tester: Procedure Note Donotuseinterpreter, Image - 02/06/2025 [place] [address] XRay Report Signed Patient: Kandy Hanley#: [id number] 953 : 1960cct:[id number] Age/Sex: 64 / FADM Date: 02/05/25 Loc: HO.LAB Attending Dr: Marielos Dumont MD Ordering Physician: Kellen Dean MD Date of Service: 02/05/25 Procedure(s): XR Wrist Wayne min 3V Accession Number(s): [id number] cc: Kellen Dean MD; Marielos Dumont MD [...] OV> 02/06/25 1605 DD/ 1604 TD/TT: 02/06/25 160 Computer Game Tester: [facility] External Provider IMG XR PROCEDURES Final Result * (ABNORMAL) Vitamin D, 25-Hydroxy, Total, Immunoassay (02/05/2025 7:37 AM EDT) Vitamin D 25-OH Total 19.3(L) >30 ng/mL [facility] Comment: Health Based Reference Values*< 20 ng/mL [id number] ng/mL Insufficient> 30 ng/mL Sufficient*Dung HEATH. N Engl J Med. 2007;357:266-280There is [...] Vitamin D results fromdifferent laboratories and methodologies. Published datademonstrated that results from patients undergoinghemodialysis may show a negative bias when tested withvarious automated 25-OH vitamin D assays when compared toLC-MS/MS.When testing samples from patients whose predominant form ofVitamin D is Vitamin D2, such as patients receiving VitaminD2 supplementation, results that are subtherapeutic shouldbe confirmed with another method such as LC-MS/MS. 02/05/2025 7:37 AM EDT 02/05/2025 7:37 AM EDT us Generic External Data Provider LAB BLOOD ORDERAB LES Final Result [facility] [address] [place] [phone] * T-SPOT??.TB (02/05/2025 7:37 AM EDT) Pathologist [facility] T Spot TB Negative Negative [facility] Comment:A negative test resu lt does [...] as aquantitative test. TS PANEL A 0 [facility] TS PANEL B 0 [facility] Negative Control Passed [facility] Positive Control Passed [facility] Comment:For additional infor karis, please refer tohttp://education.Oxatis/faq/CMM577(This link is being provided for informational/educational purposes only.)THIS TEST WAS PERFORMED AT:[employer] [id number] [place] [id number] LINN MD,PHD 02/05/2025 7:37 AM EDT 02/05/2025 7:37 AM EDT us Generic External Data Provider LAB BLOOD ORDERAB LES Final Result Performing Organization Address City/Department [facility]/ZIP Co de Phone Number [facility] [address] [place] [phone] * TSH with Reflex to Free T4 (02/05/2025 7:37 AM EDT) TSH reflex Free T4 2.02 0.32 - 4.0 uIU/mL [facility] Blood 02/05/2025 7:37 AM EDT 02/05/2025 7:37 AM EDT us Marielos Dumont MD LAB BLOOD ORDERABLES Final Resul t Performing Organization Address City/[facility]/ZIP Co de Phone Number [facility] [address] [place] [phone] * (ABNORMAL) Lipid Panel with Reflex to Direct LDL (02/05/2025 7:37 AM EDT) Triglycerides 122 <150 mg/dL [facility] Comment:Desirable Triglyceri de: less than 150 mg/dLBorderline High Triglyceride 150-199 mg/dLHigh Triglyceride: 200-499 mg/dLVery High Triglyceride: greater than or equal to 5OO mg/dL Cholesterol 230(H) <200 mg/dL [facility] Comment:Desirable Cholestero l: less than 200 mg/dLBorderline High Cholesterol: 200-239 mg/dLHigh Cholesterol: greater than 239 mg/dL LDL Cholesterol Calculated 162(H) <100 mg/dL [facility] Comment:Desirable LDL: less than 100 mg/dLNear Optimal/Above Optimal LDL: 110- 129 mg/dLBorderline High LDL: 130-159 mg/dLHigh LDL: 160-189 mg/dLVery High LDL: greater than or equal to 190 mg/dL HDL Cholesterol 44 >40 mg/dL [facility] Comment:Desirable HDL: great er than 40 mg/dL Note: This HDL assay may give artificially low results in patients with liver disease. Blood 02/05/2025 7:37 AM EDT 02/05/2025 7:37 AM EDT us Marielos Dumont MD LAB BLOOD ORDERABLES Final Resul t [facility] [address] [place] [phone] * Hepatitis Panel, General (02/05/2025 7:37 AM EDT) Hepatitis A IgM Nonreactive Nonreactive [facility] Comment:IgM antibodies to MONTERROSO V not detected; does not exclude earlyacute or recovered HAV infection. ~Hepatitis B Surface Antibody NONREACTIVE Nonreactive [facility] Comment:Nonreactive: < 8.00 mIU/mL Hepatitis B Core Antibody Nonreactive Nonreactive [facility] Hepatitis C Antibody Nonreactive Nonreactive [facility] Comment:Antibodies to HCV no t detected; does not exclude early acuteHCV infection. Hepatitis B Surface Ag Negative Negative [facility] 02/05/2025 7:37 AM EDT 02/05/2025 7:37 AM EDT us Generic External Data Provider LAB BLOOD ORDERAB LES Final Result [facility] [address] [place] [phone] * (ABNORMAL) CBC auto differential (02/05/2025 7:37 AM EDT) White Blood Count 6.3 4.8 - 10.8 X10*3/uL [facility] Red Blood Count 4.69 4.20 - 5.50 X10*6/uL [facility] Hemoglobin 13.2 12.0 - 16.0 g/dl [facility] Hematocrit 39.7 37.0 - 47.0 % [facility] Mean Corpuscular Volume 84.6 80.0 - 98.0 fL [facility] Mean Corpuscular Hemoglobin 28.1 27.0 - 33.0 pg [facility] Mean Corpuscular HGB Conc 33.2 31.0 - 35.0 g/dl [facility] Red Cell Distribution Width 14.7 11.0 - 16.0 % [facility] Platelet Count 344 160 - 400 X10*3/uL [facility] Mean Platelet Volume 10.0 9.4 - 12.3 fL [facility] Neutrophils Percent Auto 48.7 45 - 73 % [facility] Imm Gran Pct Auto 0.2 0.0 - 0.4 % [facility] Lymphocytes Percent Auto 40.4(H) 20 - 40 % [facility] Monocytes Percent Auto 7.5 2 - 11 % [facility] Eosinophils Percent Auto 2.6 0 - 4 % [facility] Basophils Percent Auto 0.6 0 - 2 % [facility] NRBC Pct Auto 0.0 0.0 - 0.2 /100WBC [facility] Neutrophils Absolute Auto 3.1 2.0 - 8.3 x10*3/uL [facility] Imm Gran Abs Auto 0.01 0.00 - 0.03 X10*3/uL [facility] Lymphocytes Absolute Auto 2.5 1.2 - 4.9 X10*3/uL [facility] Monocytes Absolute Auto 0.5 0.1 - 1.2 X10*3/uL [facility] Eosinophils Absolute Auto 0.2 0.0 - 0.4 X10*3/uL [facility] Basophils Absolute Auto 0.0 0.0 - 0.2 X10*3/uL [facility] NRBC Abs Auto 0.000 0.0 - 0.012 X10*3/uL [facility] 02/05/2025 7:37 AM EDT 02/05/2025 7:37 AM EDT Generic External Data Provider LAB BLOOD ORDERAB LES Final Result Performing Organization Address City/[facility]/ZIP Co de Phone Number [facility] [address] [place] [phone] * Sed Rate by Modified Gideonren (02/05/2025 7:37 AM EDT) Pathologist [facility] Erythrocyte Sedimentation Rate 14 0 - 20 MM/HR [facility] Comment:Patients with polycy themia and many hemoglobin abnormalitiesmay have depressed sed rates whereas patients with anemiamay have elevated sed rates. 02/05/2025 7:37 AM EDT 02/05/2025 7:37 AM EDT Generic External Data Provider LAB BLOOD ORDERAB LES Final Result Performing Organization Address [facility] Co de Phone Number [facility] [address] [place] [phone] * (ABNORMAL) C-reactive Protein (02/05/2025 7:37 AM EDT) Pathologist [facility] C Reactive Protein 0.80(H) < or = 0.50 mg/dL [facility] 02/05/2025 7:37 AM EDT 02/05/2025 7:37 AM EDT us Generic External Data Provider LAB BLOOD ORDERAB LES Final Result Performing Organization Address [facility] de Phone Number [facility] [address] [place] [phone] * Hemoglobin A1c (02/05/2025 7:37 AM EDT) Hemoglobin A1c 5.8 <6.0 % [facility] Comment:Hemoglobin A1C Refer ence Range Adults: 4.8 - 6.0 % Non diabetic: < 6.0 % Goal: < 7.0 %Additional Action Suggested: > 8.0 %Note: Hemoglobin A1c results are invalid for patients with abnormal amounts of HbF. Blood transfusions may impact the HbA1c concentration in the patient sample. Estimated Average Glucose 120 mg/dL [facility] Comment:eAG = Estimated ave rage glucose which is %A1C expressed asaverage glucose, using the formula of the F4E-AylhkgcUqpkpco Glucose study (ADAG), Diabetes Care, Vol.31,#8,May. 2007 Blood Venous blood specimen / Unknown 02/05/2025 7:37 AM EDT 02/05/2025 7:37 AM EDT us Marielos Dumont MD LAB BLOOD ORDERABLES Final Resul t Performing Organization Address [facility] Co de Phone Number [facility] [address] [place] [phone] * Comprehensive Metabolic Panel (02/05/2025 7:37 AM EDT) Sodium 140 135 - 145 mmol/L [facility] Potassium 3.8 3.3 - 5.1 mmol/L [facility] Chloride 108 96 - 108 mmol/L [facility] Carbon Dioxide 24 22 - 29 mmol/L [facility] Anion Gap 12 12 - 20 [facility] Urea Nitrogen (BUN) 16 9 - 16 mg/dL [facility] Creatinine, Serum 0.67 0.5 - 1.4 mg/dL [facility] Estimated Glomerular Filt Rate >60 [facility] Comment:Chronic Kidney Disea se: Estimated GFR < 60 mL/min/1.72j1Auhfse Kidney Disease: Estimated GFR < 15 mL/min/1.73m2 Glucose 94 60 - 115 mg/dL [facility] Calcium 9.1 8.4 - 10.2 mg/dL [facility] Bilirubin, Total 0.3 0.0 - 1.0 mg/dL [facility] Aspartate Amino Transferase 17 5 - 31 U/L [facility] Alanine Aminotransferase 18 0 - 31 U/L [facility] Total Protein 7.4 6.5 - 8.0 g/dL [facility] Albumin Level 4.2 3.5 - 5.0 g/dL [facility] Alkaline Phosphatase 104 39 - 117 U/L [facility] 02/05/2025 7:37 AM EDT 02/05/2025 7:37 AM EDT us Generic External Data Provider LAB BLOOD ORDERAB LES Final Result Performing Organization Address City/State/[facility] Co de Phone Number [facility] [address] [place] [phone] [phone] * BI Mammogram Screening Tomosynthesis Bilateral (09/18/2024 8:00 AM EST) Anatomical Region Laterality Modality Breast Bilateral Mammography 09/18/2024 8:00 AM EST Narrative 09/26/2024 11:16 AM EST [facility] [address] [place] [address] Mammography Report Signed Patient: Jannette Hanley MR#: [id number] : 1960 Acct:[id number] Age/Sex: 63 / F ADM Date: 09/18/24 Loc: [facility] Attending Dr: Marielos Dumont MD Ordering Physician: Marielos Dumont MD Results: 1Negative Date of Service: 09/18/24 Follow Up: 1 Year From Orig inal Mammogram Procedure(s): MM tomosynthesis screening BI Accession Number(s): [id number] cc: Marielos Dumont MD EXAMINATION: MM SCREENING [...] for their next mammogram. Electronically signed by: Msaha Souza DO 09/26/2024 11:13 AM EST Dictated By: Masha Souza DO Signed By: <Electronically signed by Masha Souza DO in OV> 09/26/24 1113 DD/ 0800 TD/TT: 09/18/24 0814 Computer Game Tester: Procedure Note Donotuseinterpreter, Image - 09/26/2024 [facility] [address] [place] [address] Mammography Report Signed Patient: Jnanette Hanley#: [id number] : 1Acct:[id number] Age/Sex: 63 / FADM Date: 09/18/24 Loc: [facility] Attending Dr: Marielos Dumont MD Ordering Physician: Marielos Dumont MDResults: 1Negative Date of Service: 09/18/24Follow Up: 1 Year From Orig inal Mammogram Procedure(s): MM tomosynthesis screening BI Accession Number(s): [id number] cc: Marielos Dumont MD EXAMINATION: MM SCREENING [...] Souza DO Signed By: <Electronically signed by Msaha Souza DO in OV> 09/26/24 1113 DD/ 0800 TD/TT: 09/18/24 0814 Computer Game Tester: Marielos Dumont MD [facility] BI PROCEDURES Edited Result - Final * Thinprep TIS PAP And HPV mRNA E6/E7 With Reflex To HPV 16,18/45 (09/16/2022 11:00 AM EST) Clinical Information: None given [facility] LMP: NONE GIVEN [facility] Prev. PAP: NONE GIVEN [facility] Prev. BX: NONE GIVEN [facility] SOURCE: None given [facility] Statement Of Adequacy: SATISFACTORY FOR EVALUATION [facility] Interpretation/Re sult: [facility] Comment: Negative for intraepithelial lesion or malignancy. Atrophic pattern; predominantly parabasal cells COMMENT: This Pap test has been evaluated with computer assisted technology. [employer] Meat Lugger: Qu est [facility] Comment: BLC,CT(ASCP) CT screening location: [address] [address] (Always Message) [employer] Comment: EXPLANATORY NOTE: The Pap is a [...] HPV nRNA E6/E7 Not Detected Not Detected [employer] Comment: Methodology: Exercise Physiology Professor-Mediated Amplification This assay detects E6/E7 viral messenger RNA (mRNA) from 14 high-risk HPV types (16,18,31,33,35,39,45,51,52,56,58,59,66,68). Cervical sources are required for HPV testing. If a vaginal source from a patient who has had a total hysterectomy with removal of cervix was submitted, please contact the testing laboratory for alternative testing options. For additional information, please refer to http://education.Oxatis/faq/VPG444p1 (This link if provided for information/ educational purposes only.) Genital fluid specimen (specimen) 09/16/2022 11:00 AM EST 09/17/2022 9:25 AM EST Marielos Dumont MD LAB PATHOLOGY ORDERABLES Final R esult [address], [place] [address] [employer] [address] [place] [address], (Nl2) [place] [phone] * Hm Colonoscopy (04/29/2016) Colonoscopy Normal Normal Sosa Provider HEALTH MAINTENANCE Final Result from Last 3 Months or Most Recently Relevant to Health Maintenance Insurance [employer] Care Teams [employer] Teacher Relationship Specialty Start Date End Date Marielos Dumont MD [address] [place] [address] [place] [address] PCP - General Family Medicine 10/04/18
== END 2025-04-13 09:35 | disposition home or self-care (01) ==
LOC: HO.XRAY 09:34
PROVIDERS: PCP Family Medicine; Visit Provider Family Medicine
DX: J94.2 Hemothorax (principal); J84.9 Interstitial pulmonary disease, unspecified
CPT/HCPCS: 71046; 71100

== ENCOUNTER → 2025-04-13 09:37 | Outpatient (BNV) | payer OTHER, SELFPAY | PROVIDERS: PCP Family Medicine; Visit Provider Radiology Diagnostic Radiology | DX: R07.81 Pleurodynia (principal); N64.4 Mastodynia; J84.9 Interstitial pulmonary disease, unspecified | CPT/HCPCS: 71046; 71100 ==

== ENCOUNTER 2025-05-29 10:56 | Outpatient (AMB) | payer OTHER, SELFPAY ==
--- NOTE | 2025-05-29 10:58 | A.OFFVIS_ITS ---
Vital Signs 05/29/25 10:59 Height 5 ft 5 in Weight 131 lb BMI 21.8 Intake Visit Reasons: OV - Rt lateral epicondylitis, last inj 01/30/25 Intake Note: Jannette is a 64 year old right hand dominant female who presents today for a follow up of right lateral epicondylitis, last injection 01/30/25. Patient reports her last injection did not give her relief and would like to know other treatment option to help with pain. Allergies No Known Allergies (No Known Allergies*) Allergy (Verified 05/29/25 11:06) HPI HPI OV - Rt lateral epicondylitis, last inj 01/30/25: Details: Ms. Hanley is a 64-year-old right-hand dominant female who presents to the office today for follow up of right lateral epicondylitis of the elbow. Her last cortisone injection was on 01/30/2025. She reports that the injection did not offer her any relief. In fact, this actually increased her pain. She would like to discuss if there is any other treatment options available. 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 In the [place]. Are you a primary customer care voice consultant to a significant other at home: No Do you presently have visiting nurse or other home services: No Alcohol intake: never Patient Tobacco Use Status: Current everyday Tobacco user Tobacco use type: Cigarette Cigarettes Per Day: 6 Years Smoked: 30 e-Cigarette/Vaping Use: Never Used Current occupational status: employed Current occupation: Rt handed/[employer] Review of Systems Const All systems reviewed & are unremarkable except as noted in HPI and below Physical Exam Vital Signs: BMI result Body Mass Index 21.8 Const General: cooperative, healthy appearing and no acute distress Resp Effort & Inspection: normal respiratory effort and able to speak in complete sentences Extrem Other: Right elbow: Normal to inspection. No ecchymosis, erythema, or edema. No tenderness to palpation over the olecranon. Tenderness over the lateral epicondyle. Pain with resisted wrist extension over the lateral epicondyle. NVI. Psych Appearance: grossly normal Mental Status: mental status grossly normal Attitude: cooperative Assessment & Plan Assessment & Plan (1) Lateral epicondylitis of right elbow: Code(s): M77.11 - Lateral epicondylitis, right elbow Category: Medical Plan Ms. Hanley is a 64-year-old right-hand dominant female who presents to the office today for follow up of right lateral epicondylitis of the elbow. Her last cortisone injection was on 01/30/2025. She reports that the injection did not offer her any relief. In fact, this actually increased her pain. She would like to discuss if there is any other treatment options available. 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 While in the office today, I discussed additional conservative treatment options with the patient including elbow bracing and physical therapy. Patient is already taking ibuprofen 400 mg t.i.d. as needed. I have given the patient recommendations for receiving [id number] tennis elbow braces. Should she have any questions regarding use she will contact our office and I am happy to demonstrate to her the proper way to fit her for this and to wear the brace. Additionally, I placed an order for physical therapy. Ultimately, this is an overuse injury and with the patient's occupation and this is going to be difficult diagnosis to treat. She understands and is willing to try physical therapy and bracing to see if this will help her symptoms. She will follow up PRN, sooner if needed. Coding Level of Care Code Est Pt Level 3 (51415) Diagnoses Lateral epicondylitis of right elbow M77.11
[2025-05-29 10:59] VITALS: BMI 21.8
--- OUTSIDE RECORDS SUMMARY | 2025-05-29 11:50 | XMS_ITS | Encounter Summary ---
Author Organization [employer] Address [address] [facility] [address] [place] [address] Care Team Providers Care Tier Lift Truck Operator Name Role Phone Marielos Dumont MD Primary Care Provider [phone] Encounter Details Date Type Department Care Team (Late st Contact Info) Description 06/07/2024 Abstract [facility] [address] [place], [place] [phone] Marielos Dumont MD [address] [place], [place] [phone] Social History Tobacco Use Types Packs/Day Years [...] documented as of this encounter Care Teams Tier Lift Truck Operator Relationship Specialty Start Date End Date Marielos Dumont MD [address] [place] [phone] PCP - General Family Medicine 10/04/18 documented as of this encounter
--- OUTSIDE RECORDS SUMMARY | 2025-05-29 11:50 | XMS_ITS | Clinical Summary ---
Author Organization [employer] Address [address] [facility] [address] [place] [address] Care Team Providers Care Fire Control System Installer Name Role Phone Marielos Dumont MD Primary Care Provider Allergies No known active allergies Medications cholecalciferol [...] by mouth 2 times daily. 5 Active meloxicam (Mobic) 7.5 MG tablet Take 1 or 2 tablets by mouth once daily as needed for pain. Do not take with ibuprofen. 30 tablet 3 5 Active Active Problems Problem Noted Date [...] swelling -XR left ankle -to see her agents' records clerk in 6 days -if no improve may need prednisone and possible arthrocentesis Right lateral epicondylitis 04/29/2023 Assessment & Plan (04/22/2025 7:43 PM EDT): - Following with [facility], last seen on 01/30/2025, patient received cortisone injection - Patient has tried physical therapy - Patient has been receiving cortisone injection periodically - Continue topical NSAID - continue activity modification - minimize oral NSAIDs/Cervantes 2 inhibitor use Assessment & Plan (12/10/2024 12:27 PM EDT): [...] Plan (04/11/2025 6:01 PM EDT): -followed by [facility] Treatment history 12/17/23, switched omeprazole to pantoprazole. 06/20/24 switched pantoprazole to esomeprazole -work on smoking cessation Assessment & Plan (08/07/2024 5:51 PM EST): -followed by [facility] Treatment history 12/17/23, switched omeprazole to [...] pt is unable to do stool antigen, [facility] lab takes urea breath test order from GI only. -minimize NSAIDs use -work on smoking cessation -requested EGD at the time of colonoscopy Assessment & Plan (05/05/2023 10:08 AM EDT): -start omeprazole 20 mg daily, may increase to bid if no improvement in symptoms -ordered H. 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 -Continue judicious use of NSAIDs and APAP prn Assessment & Plan (09/21/2022 10:04 AM EST): -Followed by agents' records clerk for RA and OA -Continue judicious use of NSAIDs and APAP prn Rheumatoid arthritis, seropositive 09/16/2022 Assessment & Plan (04/22/2025 7:41 PM EDT): -Followed by agents' records clerk, [facility], last seen in February 2025 -Positive Rheumatoid Factor, negative CCP -Current medication: leflunomide 20 mg every other day -Treatment Hx --Methotrexate (with folic acid) , discontinued due to its side effect --prednisone , tapered down and off after stabilization with DMARD -- leflunomide 20 mg every other day 2019 - February 2025, changed to hydroxychloroquine -Continue current Tx plan per agents' records clerk Assessment & Plan (12/05/2024 6:17 AM EST): -Followed by agents' records clerk [facility], last seen in Aug 2023 -Positive Rheumatoid Factor, negative CCP -Current medication: leflunomide 20 mg every other day -Treatment Hx --Methotrexate (with folic acid) , discontinued due to its side effect --prednisone , tapered down and off after stabilization with DMARD. -Continue current Tx plan per agents' records clerk - Ordered Sed Rate by Adi Carney 12/04/24 - Ordered C-reactive Protein 12/04/24 Assessment & Plan (08/07/2024 5:47 PM EST): -Followed by agents' records clerk [facility], last seen in Aug 2023 -Positive Rheumatoid Factor, negative CCP -Current medication: leflunomide 20 mg every other day -Treatment Hx --Methotrexate (with folic acid) , discontinued due to its side effect --prednisone , tapered down and off after stabilization with DMARD. -Continue current Tx plan per agents' records clerk Assessment & Plan (01/10/2024 5:21 PM EDT): -Followed by agents' records clerk [facility], last seen in Aug 2023 -Positive Rheumatoid Factor, negative CCP -Current medication: leflunomide 20 mg every other day -Treatment Hx --Methotrexate (with folic acid) , discontinued due to its side effect --prednisone , tapered down and off after stabilization with DMARD. -Continue current Tx plan per agents' records clerk Assessment & Plan (09/18/2023 6:50 AM EST): -Followed by agents' records clerk [facility], last seen in Aug 2023 -Positive Rheumatoid Factor, negative CCP -Current medication: leflunomide 20 mg every other day -Treatment Hx --Methotrexate (with folic acid) , discontinued due to its side effect --prednisone , tapered down and off after stabilization with DMARD. -Continue current Tx plan per agents' records clerk Assessment & Plan (05/05/2023 10:11 AM EDT): -Followed by agents' records clerk [facility], last seen on 01/14/23 -Positive Rheumatoid Factor, negative CCP -Current medication: leflunomide 20 mg daily -Treatment Hx --Methotrexate (with folic acid) , discontinued due to its side effect --prednisone , tapered down after stabilization with DMARD. -Continue current Tx plan per agents' records clerk Assessment & Plan (01/03/2023 7:20 AM EDT): -Followed by agents' records clerk [facility], last seen in Sep 2022 -Positive Rheumatoid Factor, negative CCP -Current medication: leflunomide 20 mg daily -Treatment Hx --Methotrexate (with folic acid) , discontinued due to its side effect --prednisone , tapered down after stabilization with DMARD. -Continue current Tx plan per agents' records clerk Assessment & Plan (09/21/2022 9:58 AM EST): -Followed by agents' records clerk [facility], last seen on 06/22/22 -Positive Rheumatoid Factor, negative CCP -Current medication: leflunomide 20 mg daily -Treatment Hx --Methotrexate (with folic acid) , discontinued due to its side effect --prednisone , tapered down after stabilization with DMARD. -Continue current Tx plan per agents' records clerk History of herpes zoster 09/15/2022 Tobacco [...] adenoma of colon 06/02/2016 Assessment & Plan (04/22/2025 7:39 PM EDT): -04/24/16 Colonoscopoy at [facility] -05/31/24 Colonoscopy at [facility] -Repeat colonoscopy in 5 years Assessment & Plan (08/07/2024 5:49 PM EST): -04/24/16 Colonoscopoy at [facility] -05/31/24 Colonoscopy at [facility] -Repeat colonoscopy in 5 years Assessment & Plan (01/10/2024 4:59 PM EDT): -04/24/16 Colonoscopoy at [facility] -Seen by [facility] on 12/17/23 and being scheduled for EGD / colonoscopy soon Assessment & Plan (09/18/2023 6:47 AM EST): -04/24/16 Colonoscopoy at [facility] -Seen for pre-colonoscopy appt in Jul 2021, but pt has not done it yet -Referred to [facility] in May 2023; advised to check with GI office for appt date Assessment & Plan (05/05/2023 10:06 AM EDT): -04/24/16 Colonoscopoy at [facility] -Seen for pre-colonoscopy appt in Jul 2021, but pt has not done it yet -Pt requests to be referred to GI in [place]; will refer Assessment & Plan (01/03/2023 7:17 AM EDT): -04/24/16 Colonoscopoy at [facility] -Seen for pre-colonoscopy appt in Jul 2021, but pt has not done it yet -Will ask for colonoscopy when she has EGD Assessment & Plan (09/21/2022 9:56 AM EST): -04/24/16 Colonoscopoy at [facility] -Seen for pre-colonoscopy appt in Jul [...] Type Department Care Team Description 04/12/2025 Telephone [facility] [address] [place] [phone] Marielos Dumont MD Medication Question 04/10/2025 11:15 AM EDT Office Visit [facility] [address] [place] [address] Marielos Dumont MD Gastroesophageal reflux disease, unspecified whether esophagitis present (Primary Dx); Galvez's esophagus without dysplasia; Primary osteoarthritis involving multiple joints; Mild intermittent asthma without complication; Rheumatoid arthritis, seropositive ([facility]/HCC); Tobacco use; Breast pain, right; Tubular adenoma of colon; Right lateral epicondylitis 04/10/2025 Travel 04/09/2025 Telephone [facility] [address] [place] [address] Marielos Dumont MD chart prep 04/02/2025 Patient Outreach [facility] [address] [place], [place] [phone] Marielos Dumont MD Pre-visit Planning (SDOH negative. Tobacco screening positive. ) 03/16/2025 Orders Only [facility] External Provider, [facility] from Last 3 Months Immunizations Immunization Administration [...] 09/16/2025 09/16/2022, 04/16/2021 Diabetes: Hemoglobin A1C 02/05/2026 025, 07/25/2021, 04/14/2021 SDOH Screening 04/02/2026 04/02/2025 Depression Screening 04/10/2026 04/10/2025, 04/10/20 25 Disability Screening 04/10/2026 04/10/2025 Tobacco Screening 04/22/2026 04/22/2025 Mammogram 09/18/2026 09/18/2024, 09/03, 04/17/2021, Additional history [...] Name Priority Date/Time Associated Diagnosis Comments XR CHEST 2 VIEWS Routine 04/13/2025 9:50 AM EDT Breast pain, right XR RIBS 2 VIEWS RIGHT Routine 04/13/2025 9:50 AM EDT Breast pain, right BD DEXA AXIAL Routine 03/16/2025 8:46 AM EDT HEPATITIS PANEL, GENERAL Routine 02/05/2025 7:37 AM EDT HEMOGLOBIN A1C Routine 02/05/2025 7:37 AM EDT Screening for diabetes mellitus LIPID PANEL WITH REFLEX TO DIRECT LDL Routine 02/05/2025 7:37 AM EDT Screening for lipid disorders BI MAMMOGRAM SCREENING TOMOSYNTHESIS BILATERAL Routine 09/18/2024 8:00 AM EST HM COLONOSCOPY Routine 05/31/2024 9:33 AM EDT THINPREP IMAGING PAP AND HPV MRNA E6/E7 WITH REFLEX TO HPV 16,18/45 Routine 09/16/2022 11:00 AM EST Encounter for annual routine gynecological examination Pap smear for cervical cancer screening from Last 3 Months or Most Recently Relevant to Health Maintenance Results * XR Ribs 2 Views Right (04/13/2025 9:50 AM EDT) Anatomical Region Laterality Modality Rib, Abdomen Right Radiographic Gina ging 04/13/2025 9:50 AM EDT Narrative 04/13/2025 10:11 AM EDT [address] [address] XRay Report Signed Patient: Jannette Hanley MR#: [id number] 953 : 1960 Acct:[id number] Age/Sex: 64 / F ADM Date: 04/13/25 Loc: HOSAMMY Attending Dr: Marielos Dumont MD Ordering Physician: Marielos Dumont MD Date of Service: 04/13/25 Procedure(s): XR ribs RT 2V Accession Number(s): [id number] cc: Marielos Dumont MD EXAMINATION: XR RIBS, RIGHT CLINICAL INFORMATION: right breast and rib pain COMPARISON: Correlated to x-ray same day. TECHNIQUE: Oblique views] hemithorax. There is skin bb marker placed in the right lower hemithorax. FINDINGS: No acute cortical disruption deformity in the ribs adjacent to the bb marker. XR/XR ribs RT 2V IMPRESSION: No acute rib fracture, right hemithorax. Electronically signed by: Monty Correa MD 04/13/2025 10:08 AM EDT RP Dictated By: Monty Marie MD Signed By: <Electronically signed by Monty Jacome MD in OV> 04/13/25 1008 DD/ 0950 TD/TT: 04/13/25 1002 Automatic Screwmaker: Procedure Note Donotuseinterpreter, Image - 04/13/[address] [address] XRay Report Signed Patient: Jannette HanleyMR#: [id number] 953 : 1960cct:[id number] Age/Sex: 64 / FADM Date: 04/13/25 Loc: JODIE Attending Dr: Marielos Dumont MD Ordering Physician: Marielos Dumont MD Date of Service: 04/13/25 Procedure(s): XR ribs RT 2V Accession Number(s): [id number] cc: Marielos Dumont MD EXAMINATION: XR RIBS, RIGHT CLINICAL INFORMATION: right breast and rib pain COMPARISON: Correlated to x-ray same day. TECHNIQUE: Oblique views] hemithorax. There is skin bb marker placed in the right lower hemithorax. FINDINGS: No acute cortical disruption deformity in the ribs adjacent to the bb marker. XR/XR ribs RT 2V IMPRESSION: No acute rib fracture, right hemithorax. Electronically signed by: Monty Correa MD 04/13/2025 10:08 AM EDT RP Dictated By: Monty Marie MD Signed By: <Electronically signed by Monty Jacome MDin OV> 04/13/25 1008 DD/ 0950 TD/TT: 04/13/25 1002 Automatic Screwmaker: Marielos Dumont MD IMG XR PROCEDURES Edited Result - Final * XR Chest 2 Views (04/13/2025 9:50 AM EDT) Anatomical Region Laterality Modality Chest Radiographic Gina ging 04/13/2025 9:50 AM EDT Narrative 04/13/2025 10:10 AM EDT [place] [address] XRay Report Signed Patient: Jannette Hanley MR#: [id number] 953 : 1960 Acct:[id number] Age/Sex: 64 / F ADM Date: 04/13/25 Loc: JODIE Attending Dr: Marielos Dumont MD Ordering Physician: Marielos Dumont MD Date of Service: 04/13/25 Procedure(s): XR chest 2V Accession Number(s): [id number] cc: Marielos Dumont MD EXAMINATION: XR CHEST CLINICAL INFORMATION: right breast and rib pain COMPARISON: July 19, 2024. TECHNIQUE: 2 views of the chest were obtained. FINDINGS: Bilateral apical lung scarring. Mild pulmonary reticular pattern. No consolidation pleural effusion or pneumothorax. Cardiomediastinal silhouette size is normal. Mild multilevel thoracic spondylosis. S-shaped curvature of the thoracic spine. XR/XR chest 2V IMPRESSION: Chronic interstitial lung disease without acute airspace disease. Mild scoliosis and multilevel spondylosis. Electronically signed by: Monty Correa MD 04/13/2025 10:07 AM EDT RP Dictated By: Monty Marie MD Signed By: <Electronically signed by Monty Jacome MD in OV> 04/13/25 1007 DD/ 0950 TD/TT: 04/13/25 1002 Automatic Screwmaker: Procedure Note Donotuseinterpreter, Image - 04/13/[address] [place] [address] XRay Report Signed Patient: Jannette HanleyMR#: [id number] 953 : 1960cct:[id number] Age/Sex: 64 / FADM Date: 04/13/25 Loc: HO.XRAY Attending Dr: Marielos Dumont MD Ordering Physician: Marielos Dumont MD Date of Service: 04/13/25 Procedure(s): XR chest 2V Accession Number(s): [id number] cc: Marielos Dumont MD EXAMINATION: XR CHEST CLINICAL INFORMATION: right breast and rib pain COMPARISON: July 19, 2024. TECHNIQUE: 2 views of the chest were obtained. FINDINGS: Bilateral apical lung scarring. Mild pulmonary reticular pattern. No consolidation pleural effusion or pneumothorax. Cardiomediastinal silhouette size is normal. Mild multilevel thoracic spondylosis. S-shaped curvature of the thoracic spine. XR/XR chest 2V IMPRESSION: Chronic interstitial lung disease without acute airspace disease. Mild scoliosis and multilevel spondylosis. Electronically signed by: Monty Correa MD 04/13/2025 10:07 AM EDT Dictated By: Monty Marie MD Signed By: <Electronically signed by Monty Jacome MDin OV> 04/13/25 1007 DD/ 0950 TD/TT: 04/13/25 1002 Automatic Screwmaker: Marielos Dumont MD IMG XR PROCEDURES Edited Result - Final * BD DEXA Axial (03/16/2025 8:46 AM EDT) Anatomical Region Laterality Modality Body Radiographic Gina ging 03/16/2025 8:46 AM EDT Narrative 03/16/2025 9:29 AM EDT [address] [place] [address] Mammography Report Signed Patient: Jannette Hanley MR#: [id number] 953 : 1960 Acct:[id number] Age/Sex: 64 / F ADM Date: 03/16/25 Loc: GALDINO Attending Dr: Kellen Dean MD Ordering Physician: Kellen Dean MD Results: Date of Service: 03/16/25 Follow Up: Procedure(s): XR DEXA axial skeleton Accession Number(s): [id number] cc: Kellen Dean MD; Marielos Dumont MD EXAMINATION: DXA BONE DENSITY AXIAL HISTORY: M81.0 - Age-related osteoporosis without current pathological fracture TECHNIQUE: Pirq Dual energy absorptiometry (DEXA) of the lumbar [...] is a trademark of the [employer] [place] for Metabolic Bone Disease, a World Health Organization (WHO) Collaborating Center. Electronically signed by: Krish Peters MD 03/16/2025 09:26 AM EDT RP Dictated By: Krish Peters MD Signed By: <Electronically signed by Krish Peters MD in OV> 03/16/[address] DD/ TD/TT: 03/16/25906 Automatic Screwmaker: Procedure Note Donotuseinterpreter, Image - 03/16/2025 [facility] [address] [place] [address] Mammography Report Signed Patient: Jannette Hanley#: [id number] 953 : 1960cct:[id number] Age/Sex: 64 / FADM Date: 03/16/25 Loc: GALDINO Attending Dr: Kellen Dean MD Ordering Physician: Kellen Deanesults: Date of Service: 03/16/25Follow Up: Procedure(s): XR DEXA axial skeleton Accession Number(s): [id number] cc: Kellen Dean MD; Marielos Dumont MD EXAMINATION: DXA BONE DENSITY AXIAL HISTORY: M81.0 - Age-related osteoporosis without current pathological fracture TECHNIQUE: Pirq Dual energy absorptiometry (DEXA) of the lumbar [...] is a trademark of the [employer] [place] for Metabolic Bone Disease, a World Health Organization (WHO) Collaborating Center. Electronically signed by: Krish Peters MD 03/16/2025 09:26 AM EDT Dictated By: Krish Peters MD Signed By: <Electronically signed by Krish Peters MD in OV> 03/16/[address] DD/ 0846 TD/TT: 03/16/25 0907 Automatic Screwmaker: us [facility] External Provider IMG DXA PROCEDURES Final Result * (ABNORMAL) Lipid Panel with Reflex to Direct LDL (02/05/2025 7:37 AM EDT) Triglycerides 122 <150 mg/dL [facility] Comment:Desirable Triglyceri de: less than 150 mg/dLBorderline High Triglyceride 150-199 mg/dLHigh Triglyceride: 200-499 mg/dLVery High Triglyceride: greater than or equal to 5OO mg/dL Cholesterol 230(H) <200 mg/dL [facility] Comment:Desirable Cholestero l: less than 200 mg/dLBorderline High Cholesterol: 200-239 mg/dLHigh Cholesterol: greater than 239 mg/dL LDL Cholesterol Calculated 162(H) <100 mg/dL [facility] Comment:Desirable LDL: less than 100 mg/dLNear Optimal/Above Optimal LDL: 110- 129 mg/dLBorderline High LDL: 130-159 mg/dLHigh LDL: 160-189 mg/dLVery High LDL: greater than or equal to 190 mg/dL HDL Cholesterol 44 >40 mg/dL [facility] Comment:Desirable HDL: great er than 40 mg/dL Note: This HDL assay may give artificially low results in patients with liver disease. Blood 02/05/2025 7:37 AM EDT 02/05/2025 7:37 AM EDT us Marielos Dumont MD LAB BLOOD ORDERABLES Final Resul t Performing Organization Address [facility] de Phone Number [facility] [address] [place] [phone] * Hepatitis Panel, General (02/05/2025 7:37 AM EDT) Hepatitis A IgM Nonreactive Nonreactive [facility] Comment:IgM antibodies to MONTERROSO V not detected; does not exclude earlyacute or recovered HAV infection. ~Hepatitis B Surface Antibody NONREACTIVE Nonreactive [facility] Comment:Nonreactive: < 8.00 mIU/mL Hepatitis B Core Antibody Nonreactive Nonreactive [facility] Hepatitis C Antibody Nonreactive Nonreactive [facility] Comment:Antibodies to HCV no t detected; does not exclude early acuteHCV infection. Hepatitis B Surface Ag Negative Negative [facility] 02/05/2025 7:37 AM EDT 02/05/2025 7:37 AM EDT us Generic External Data Provider LAB BLOOD ORDERAB LES Final Result Performing Organization Address City/[facility] Co de Phone Number [facility] [address] [place] [phone] * Hemoglobin A1c (02/05/2025 7:37 AM EDT) Hemoglobin A1c 5.8 <6.0 % [facility] Comment:Hemoglobin A1C Refer ence Range Adults: 4.8 - 6.0 % Non diabetic: < 6.0 % Goal: < 7.0 %Additional Action Suggested: > 8.0 %Note: Hemoglobin A1c results are invalid for patients with abnormal amounts of HbF. Blood transfusions may impact the HbA1c concentration in the patient sample. Estimated Average Glucose 120 mg/dL [facility] Comment:eAG = Estimated ave rage glucose which is %A1C expressed asaverage glucose, using the formula of the F9U-UiavsoqWexrgew Glucose study (ADAG), Diabetes Care, Vol.31,#8,May. 2007 Blood Venous blood specimen / Unknown 02/05/2025 7:37 AM EDT 02/05/2025 7:37 AM EDT us Marielos Dumont MD LAB BLOOD ORDERABLES Final Resul t [facility] [address] [place] [phone] * BI Mammogram Screening Tomosynthesis Bilateral (09/18/2024 8:00 AM EST) Anatomical Region Laterality Modality Breast Bilateral Mammography 09/18/2024 8:00 AM EST Narrative 09/26/2024 11:16 AM EST [facility] [address] [place] [address] Mammography Report Signed Patient: Jannette Hanley MR#: [id number] 953 : 1960 Acct:[id number] Age/Sex: 63 / F ADM Date: 09/18/24 Loc: GALDINO Attending Dr: Marielos Dumont MD Ordering Physician: Marielos Dumont MD Results: 1Negative Date of Service: 09/18/24 Follow Up: 1 Year From Orig inal Mammogram Procedure(s): MM tomosynthesis screening BI Accession Number(s): [id number] cc: Marielos Dumont MD EXAMINATION: MM SCREENING [...] by: Masha Souza DO 09/26/2024 11:13 AM [facility] Dictated By: Masha Souza DO Signed By: <Electronically signed by Masha Souza DO in OV> 09/26/24 1113 DD/ 0800 TD/TT: 09/18/24 0814 Automatic Screwmaker: Procedure Note Donotuseinterpreter, Image - 09/26/2024 [facility] [address] [place], [place] [address] Mammography Report Signed Patient: Jannette Hanley#: [id number] 953 : 1Acct:[id number] Age/Sex: 63 / FADM Date: 09/18/24 Loc: GALDINO Attending Dr: Marielos Dumont MD Ordering Physician: Marielos Dumont MDResults: 1Negative Date of Service: 09/18/24Follow Up: 1 Year From Orig inal Mammogram Procedure(s): MM tomosynthesis screening BI Accession Number(s): [id number] cc: Sakurai,Marielos MD EXAMINATION: MM SCREENING DIGITAL BREAST TOMOSYNTHESIS, [...] Masha Souza DO 09/26/2024 11:13 AM EST RP Dictated By: Masha Souza DO Signed By: <Electronically signed by Masha Souza DO in OV> 09/26/24 1113 DD/ 0800 TD/TT: 09/18/24 0814 Automatic Screwmaker: Marielos Dumont MD IM BI PROCEDURES Edited Result - Final * Thinprep TIS PAP And HPV mRNA E6/E7 With Reflex To HPV 16,18/45 (09/16/2022 11:00 AM EST) Clinical Information: None given [facility] LMP: NONE GIVEN [employer] Prev. PAP: NONE GIVEN [facility] Prev. BX: NONE GIVEN [facility] SOURCE: None given [facility] Statement Of Adequacy: SATISFACTORY FOR EVALUATION [employer] Interpretation/Re sult: [facility] Comment: Negative for intraepithelial lesion or malignancy. Atrophic pattern; predominantly parabasal cells COMMENT: This Pap test has been evaluated with computer assisted technology. [employer] Software Installer: Derrick ruiz [employer] [facility] Comment: BLC,CT(ASCP) CT screening location: [address] [address] (Always Message) [facility] Comment: EXPLANATORY NOTE: The Pap is a [...] HPV nRNA E6/E7 Not Detected Not Detected [employer] Comment: Methodology: Performance Improvement Specialist-Mediated Amplification This assay detects E6/E7 viral messenger RNA (mRNA) from 14 high-risk HPV types (16,18,31,33,35,39,45,51,52,56,58,59,66,68). Cervical sources are required for HPV testing. If a vaginal source from a patient who has had a total hysterectomy with removal of cervix was submitted, please contact the testing laboratory for alternative testing options. For additional information, please refer to http://education.[employer]/faq/YLS940h8 (This link if provided for information/ educational purposes only.) Genital fluid specimen (specimen) 09/16/2022 11:00 AM EST 09/17/2022 9:25 AM EST Marielos Dumont MD LAB PATHOLOGY ORDERABLES Final R esult [address], [place] [address] [employer] [address] [place] [address], (Nl2) [place] [address] * Colonoscopy (04/29/2016) Colonoscopy Normal Normal Sosa Provider HEALTH MAINTENANCE Final Result from Last 3 Months or Most Recently Relevant to Health Maintenance Insurance [employer] Care Teams Fire Control System Installer Relationship Specialty Start Date End Date Marielos Dumont MD [address] [facility] [place] [address] PCP - General Family Medicine 10/04/18
== END 2025-05-29 11:12 | disposition home or self-care (01) ==
LOC: HO.HOS 10:57
PROVIDERS: PCP Family Medicine; Visit Provider Physician Assistant
DX: M77.11 Lateral epicondylitis, right elbow (principal)
CPT/HCPCS: 99213

== ENCOUNTER 2025-06-06 09:52 | Outpatient (AMB) | payer OTHER, SELFPAY ==
--- NOTE | 2025-06-06 09:55 | MHC.OFFVIS ---
Vital Signs 06/06/25 10:04 Height 5 ft 5 in Weight 132 lb 4.438 oz BMI 22.0 BP 100/58 L Blood Pressure Location Lt brachial Position Sitting Intake Visit Reasons: 6 mos FUV. Intake Note: Patient is seen in office for 6 month follow up visit, following for GERD + Galvez's mgmt. Pt c/o: denies any concerns at the time of visit, no GI symptoms, per pt not taking the meds Rx on last visit, one was to expensive to purchase and the other she is not taking, she is unsure of the medications name Produce Clerk Required: No Accompanied by: Self / Same As Patient Allergies No Known Allergies (No Known Allergies*) Allergy (Verified 06/06/25 10:05) HPI HPI 6 mos FUV.: Details: LAST VISIT: Galvez's esophagus determined by endoscopy GERD (gastroesophageal reflux disease) Constipation Postprandial abdominal bloating Plan Continue Nexium every morning half an hour before breakfast. Avoid dietary triggers. Avoid lactose. Patient was encouraged to avoid eating late at night. May take famotidine at bedtime as needed. Continue taking Senokot. Increase fluid intake and activity to promote better bowel motility. Follow-up in 6 months, sooner on as needed basis. Patient is agreeable to current plan of care and verbalizes understanding of instructions. She was given the opportunity to ask questions and all questions answered. ? Thank you for allowing me to participate in her care Refilled esomeprazole magnesium (Nexium) 40 mg PO DAILY 90 caps 3RF K21.9 famotidine (Pepcid) 20 mg PO BEDTIME 90 tabs 3RF K21.9 sennosides (Natural Senna Laxative) 17.2 mg (2 x 8.6 mg) PO BEDTIME 180 tabs 1RF constipation K59.00 TODAY'S VISIT Patient is here today for follow-up. Patient reports that she has had doing very well. Patient was unable to get Nexium from pharmacy. Patient purchased [id number] omeprazole and that occasionally. Patient denies dyspepsia, dysphagia odynophagia. Taking Senokot as needed for constipation. Denies melena, hematochezia, unintentional weight loss or ribbon like stools. Patient denies any GI concerning symptoms. Patient reports that she changed her diet. Patient is avoiding eating late at night [facility] Medical History Galvez's esophagus determined by endoscopy Tubular adenoma of colon Fracture of right ulnar styloid Fracture of distal end of right radius Osteopenia DARLEEN positive GERD (gastroesophageal reflux disease) Seropositive rheumatoid arthritis Surgical History H/O abdominoplasty Hx of section Family History Mother HTN (hypertension) CVD (cardiovascular disease) Father Stroke HTN (hypertension) Brother CVD (cardiovascular disease) Social History Housing Other:: Born in [place]. In the [place] since 1984. Are you a primary clinical manager home care to a significant other at home: No Do you presently have visiting nurse or other home services: No Alcohol intake: never Patient Tobacco Use Status: Current everyday Tobacco user Tobacco use type: Cigarette Cigarettes Per Day: 6 Years Smoked: 30 e-Cigarette/Vaping Use: Never Used Current occupational status: employed Current occupation: [employer] Review of Systems Const Denies weight gain and Denies weight loss ENT Reports no additional complaints, Denies dysphagia and Denies odynophagia Card Reports no additional complaints Resp Reports no additional complaints GI Denies abdominal pain, Denies belching, Denies melena, Denies bloating, Denies change in bowel habits, Reports constipation (Occasional), Denies dysphagia, Denies excessive flatus, Denies dyspepsia, Reports heartburn (Occasional), Denies diarrhea, Denies loose stools, Denies nausea, Denies odynophagia and Denies vomiting Reports no additional complaints Musc Reports no additional complaints Neuro Reports no additional complaints Psych Reports no additional complaints Endo Reports no additional complaints Physical Exam Vital Signs: Last Vital Signs BP 100/58 L 06/06/25 10:04 BMI result Body Mass Index 22.0 Const General: healthy appearing, no acute distress and well developed Nutritional Appearance: well nourished Orientation/consciousness: patient oriented x3 Resp Effort & Inspection: normal respiratory effort, able to speak in complete sentences, no tracheal deviation and symmetric chest movement Auscultation: clear to auscultation bilaterally Cardio Rate: regular rate GI Inspection: Yes normal to inspection and No distended Palpation (GI): Soft to palpation, not firm, nontender and No hepatosplenomegaly present Auscultation: normal bowel sounds General: Yes no CVA tenderness Back/Spine/Pelvis Back: no CVA tenderness Skin General skin exam: elasticity normal, turgor normal and dry skin Neuro General: patient oriented x3 Psych Appearance: grossly normal Mental Status: mental status grossly normal Judgement: Good judgement present (Psych) Assessment & Plan Assessment & Plan (1) Galvez's esophagus determined by endoscopy: Code(s): K22.70 - Galvez's esophagus without dysplasia Category: Medical (2) GERD (gastroesophageal reflux disease): Code(s): K21.9 - Gastro-esophageal reflux disease without esophagitis Qualifiers: Esophagitis presence: esophagitis presence not specified Qualified Code(s): K21.9 - Gastro-esophageal reflux disease without esophagitis (3) Constipation: Code(s): K59.00 - Constipation, unspecified Qualifiers: Constipation type: slow transit constipation Qualified Code(s): K59.01 - Slow transit constipation (4) Postprandial abdominal bloating: Code(s): R14.0 - Abdominal distension (gaseous) Plan Patient will start taking pantoprazole every morning half an hour before breakfast. Continue famotidine as needed. Continue avoiding dietary triggers and late night snacking. Staying upright for minimal 3 hours after meals discussed with patient. Senokot as needed. Increase fluid intake and activity to promote better bowel motility. Patient will follow-up in the office in 1 year. She will call us if she will have any GI concerning symptoms. Patient is agreeable to this plan and verbalizes understanding of instructions. She was given the opportunity to ask questions and all questions answered. Thank you for allowing me to participate in her care Medications: New pantoprazole take one tablet half an hour before breakfast 40 mg PO DAILY 90 tabs 2RF K21.9 - Gastro-esophageal reflux disease without esophagitis Refilled sennosides (Natural Senna Laxative) 17.2 mg (2 x 8.6 mg) PO BEDTIME 180 tabs 1RF constipation K59.00 - Constipation, unspecified famotidine (Pepcid) 20 mg PO BEDTIME 90 tabs 3RF K21.9 - Gastro-esophageal reflux disease without esophagitis Coding Level of Care Code Est Pt Level 4 (69708) Complex EM visit Add On G2211 Diagnoses Galvez's esophagus determined by endoscopy K22.70 Gastroesophageal reflux disease, unspecified whether esophagitis present K21.9 Esophagitis presence: esophagitis presence not specified Slow transit constipation K59.01 Constipation type: slow transit constipation Postprandial abdominal bloating R14.0 Time Spent (min) 35 Comment 25 minutes spent with patient and additional 10 minutes spent reviewing her record
[2025-06-06 10:04] VITALS: BP 100/58; BMI 22.0
== END 2025-06-06 10:19 | disposition home or self-care (01) ==
LOC: HO.HGI 09:53
PROVIDERS: PCP Family Medicine; Visit Provider Nurse Practitioner Family
DX: K22.70 Barrett's esophagus without dysplasia (principal); K21.9 Gastro-esophageal reflux disease without esophagitis; K59.01 Slow transit constipation; R14.0 Abdominal distension (gaseous)
CPT/HCPCS: 99214

== ENCOUNTER 2025-08-01 11:42 | Outpatient (REF) | payer OTHER, SELFPAY ==
--- NOTE | ~2025-08-01 | XR_ITS ---
EXAMINATION: XR HIP 2 OR MORE VIEWS BILATERAL HISTORY: bilateral hip pain, rheumatoid COMPARISON: There are no prior studies available for comparison. FINDINGS: A single AP view of the pelvis and two views of each hip are submitted. Osseous mineralization is normal. There is no fracture or dislocation. There is mild narrowing of both hip joints. The soft tissues are unremarkable. XR/XR hip BI w PEL1V IMPRESSION: Mild narrowing of both hips. Electronically signed by: Krish Peters MD 08/01/2025 12:16 PM EDT
[2025-08-01 11:54] LABS: MANUAL DIFF FLAG NO
[2025-08-01 12:27] LABS: Hematocrit 38.1 % (37.0-47.0); Hemoglobin 12.6 g/dl (12.0-16.0); Imm Gran Abs Auto 0.03 X10*3/uL (0.00-0.03); Imm Gran Pct Auto 0.4 % (0.0-0.4); Lymphocytes Absolute Auto 2.2 X10*3/uL (1.2-4.9); Mean Corpuscular HGB Conc 33.1 g/dl (31.0-35.0); Mean Corpuscular Hemoglobin 27.8 pg (27.0-33.0); Mean Corpuscular Volume 83.9 fL (80.0-98.0); NRBC Abs Auto 0.000 X10*3/uL (0.0-0.012); NRBC Pct Auto 0.0 /100WBC (0.0-0.2); Platelet Count 334 X10*3/uL (160-400); Red Blood Count 4.54 X10*6/uL (4.20-5.50); White Blood Count 7.0 X10*3/uL (4.8-10.8)
[2025-08-01 13:06] LABS: Alanine Aminotransferase 17 U/L (0-31); Albumin Level 4.4 g/dL (3.5-5.0); Alkaline Phosphatase 103 U/L (39-117); Anion Gap 11 (12-20); Aspartate Amino Transferase 19 U/L (5-31); Blood Urea Nitrogen 16 mg/dL (9-16); Calcium 9.2 mg/dL (8.4-10.2); Carbon Dioxide 24 mmol/L (22-29); Chloride 107 mmol/L (96-108); Estimated Glomerular Filt Rate > 60; Potassium 4.1 mmol/L (3.3-5.1); Sodium 138 mmol/L (135-145); Total Protein 7.4 g/dL (6.5-8.0)
--- OUTSIDE RECORDS SUMMARY | 2025-08-01 15:06 | XMS_ITS | Encounter Summary ---
Author Organization [employer] Address [address] [facility] [address] [place] [address] Care Team Providers Care Neonatal Specialist Name Role Phone Marielos Dumont MD Primary Care Provider [phone] Encounter Details Date Type Department Care Team ([facility] st Contact Info) Description 08/01/2025 Orders Only [facility] MEDICINE [address] [place] [address] Marielos Dumont MD [address] [place], [place] [phone] Social History Tobacco Use Types Packs/Day Years [...] t he electric, gas, oil or water [employer] threatened to shut off services in your home? No 04/02/2025 Depression Answer Date Recorded Patient Health Questionnaire-2 Score 0 04/10/2025 Internet Access Answer Date Recorded Internet Access Q1 Yes 08/01/2025 Internet Access Q2 Not on file 08/01/2025 Comments No Sex and Gender Information Value Date Recorded Sex Assigned at Female 08/03/2022 10:14 AM EDT Legal Sex Female 10:14 AM EDT Gender Identity Female 08/03/2022 10:14 AM EDT Sexual Orientation Straight 08/03/2022 10 :14 AM EDT documented as of this encounter Plan of Treatment Not on file documented as of this encounter Procedures Procedure Name Priority Date/Time Associated Diagnosis Comments CBC WITH AUTO DIFFERENTIAL Routine 08/01/2025 11:53 AM EDT SED RATE BY MODIFIED WESTERGREN Routine 08/01/2025 11:53 AM EDT C-REACTIVE PROTEIN Routine 08/01/2025 11 :53 AM EDT COMPREHENSIVE METABOLIC PANEL Routine 08/01/2025 11:53 AM EDT documented in this encounter Results * C-reactive Protein (08/01/2025 11:53 AM EDT) C Reactive Protein 0.29 < or = 0.50 mg/dL [facility] 08/01/2025 11:5 3 AM EDT 08/01/2025 11:53 AM EDT us Marielos Dumont MD LAB BLOOD ORDERABLES Final Resul t [facility] [address] [place] [phone] * (ABNORMAL) Comprehensive Metabolic Panel (08/01/2025 11:53 AM EDT) Sodium 138 135 - 145 mmol/L [facility] Potassium 4.1 3.3 - 5.1 mmol/L [facility] Chloride 107 96 - 108 mmol/L [facility] Carbon Dioxide 24 22 - 29 mmol/L [facility] Anion Gap 11(L) 12 - 20 [facility] Urea Nitrogen (BUN) 16 9 - 16 mg/dL [facility] Creatinine, Serum 0.56 0.5 - 1.4 mg/dL [facility] Estimated Glomerular Filt Rate >60 [facility] Comment:Chronic Kidney Disea se: Estimated GFR < 60 mL/min/1.25m1Vhhtul Kidney Disease: Estimated GFR < 15 mL/min/1.73m2 Glucose 82 60 - 115 mg/dL [facility] Calcium 9.2 8.4 - 10.2 mg/dL [facility] Bilirubin, Total 0.2 0.0 - 1.0 mg/dL [facility] Aspartate Amino Transferase 19 5 - 31 U/L [facility] Alanine Aminotransferase 17 0 - 31 U/L [facility] Total Protein 7.4 6.5 - 8.0 g/dL [facility] Albumin Level 4.4 3.5 - 5.0 g/dL [facility] Alkaline Phosphatase 103 39 - 117 U/L [facility] 08/01/2025 11:5 3 AM EDT 08/01/2025 11:53 AM EDT us Marielos Dumont MD LAB BLOOD ORDERABLES Final Resul t [facility] [address] [place] [phone] * Sed Rate by Modified Gideonren (08/01/2025 11:53 AM EDT) Erythrocyte Sedimentation Rate 13 0 - 20 MM/HR [facility] Comment:Patients with polycy themia and many hemoglobin abnormalitiesmay have depressed sed rates whereas patients with anemiamay have elevated sed rates. 08/01/2025 11:5 3 AM EDT 08/01/2025 11:53 AM EDT us Marielos Dumont MD LAB BLOOD ORDERABLES Final Resul t [facility] [address] [place] [phone] * CBC auto differential (08/01/2025 11:53 AM EDT) White Blood Count 7.0 4.8 - 10.8 X10*3/uL [facility] Red Blood Count 4.54 4.20 - 5.50 X10*6/uL [facility] Hemoglobin 12.6 12.0 - 16.0 g/dl [facility] Hematocrit 38.1 37.0 - 47.0 % [facility] Mean Corpuscular Volume 83.9 80.0 - 98.0 fL [facility] Mean Corpuscular Hemoglobin 27.8 27.0 - 33.0 pg [facility] Mean Corpuscular HGB Conc 33.1 31.0 - 35.0 g/dl [facility] Red Cell Distribution Width 14.3 11.0 - 16.0 % [facility] Platelet Count 334 160 - 400 X10*3/uL [facility] Mean Platelet Volume 10.4 9.4 - 12.3 fL [facility] Neutrophils Percent Auto 60.3 45 - 73 % [facility] Imm Gran Pct Auto 0.4 0.0 - 0.4 % [facility] Lymphocytes Percent Auto 31.4 20 - 40 % [facility] Monocytes Percent Auto 6.0 2 - 11 % [facility] Eosinophils Percent Auto 1.3 0 - 4 % [facility] Basophils Percent Auto 0.6 0 - 2 % [facility] NRBC Pct Auto 0.0 0.0 - 0.2 /100WBC [facility] Neutrophils Absolute Auto 4.2 2.0 - 8.3 x10*3/uL [facility] Imm Gran Abs Auto 0.03 0.00 - 0.03 X10*3/uL [facility] Lymphocytes Absolute Auto 2.2 1.2 - 4.9 X10*3/uL [facility] Monocytes Absolute Auto 0.4 0.1 - 1.2 X10*3/uL [facility] Eosinophils Absolute Auto 0.1 0.0 - 0.4 X10*3/uL [facility] Basophils Absolute Auto 0.0 0.0 - 0.2 X10*3/uL [facility] NRBC Abs Auto 0.000 0.0 - 0.012 X10*3/uL [facility] 08/01/2025 11:5 3 AM EDT 08/01/2025 11:53 AM EDT us Marielos Dumont MD LAB BLOOD ORDERABLES Final Resul t [facility] [address] [place] [phone] documented in this encounter Visit Diagnoses Not on filedocumented in this encounter Additional Health Concerns Assessment Noted Time PHQ-9 Depression Total Score: 2 04/10/20 25 11:24 AM EDT documented as of this encounter Care Teams Neonatal Specialist Relationship Specialty Start Date End Date Marielos Dumont MD [address] [place] [address] PCP - General Family Medicine 10/04/18 documented as of this encounter
--- OUTSIDE RECORDS SUMMARY | 2025-08-01 15:06 | XMS_ITS | Encounter Summary ---
Author Organization [employer] Address [address] [facility] [address] [place] [address] Care Team Providers Care Finance Professor Name Role Phone Marielos Dumont MD Primary Care Provider [phone] Encounter Details Date Type Department Care Team ([facility] st Contact Info) Description 06/07/2024 Abstract [facility] MEDICINE [address] [place], [place] [phone] Marielos Dumont MD [address] [place], [place] [phone] Social History Tobacco Use Types Packs/Day Years [...] documented as of this encounter Care Teams Finance Professor Relationship Specialty Start Date End Date Marielos Dumont MD [address] [place] [phone] PCP - General Family Medicine 10/04/18 documented as of this encounter
--- OUTSIDE RECORDS SUMMARY | 2025-08-01 15:06 | XMS_ITS | Clinical Summary ---
Author Organization [employer] Address [address] [facility] [address] [place] [address] Care Team Providers Care Inspector Outside Production Name Role Phone Marielos Dumont MD Primary Care Provider [phone] Allergies No known active allergies Medications cholecalciferol (Vitamin D-3) 25 MCG (1000 UT) capsule Take 25 mcg by mouth in the morning. 2 Active cetirizine (ZyrTEC) 10 MG tabletIndicatio ns:Allergic rhinitis, unspecified seasonality, unspecified trigger Take 1 tablet (10 mg) by mouth in the morning. 30 tablet 5 2 Active famotidine (Pepcid) 20 MG tablet Take 20 mg by mouth at bedtime. 4 Active hydrocortisone 2.5 % cream Apply topically 2 times daily. Apply topically once daily, immediately after shower / bath 28 g 3 4 Active Diclofenac Sodium 1 % gel [...] 2 times daily. 1 each 5 Active hydroxychloroqu ine (Plaquenil) 200 MG tablet Take 1 tablet by mouth 2 times daily. 5 Active meloxicam (Mobic) 7.5 MG tablet Take 1 or 2 tablets by mouth once daily as needed for pain. Do not take with ibuprofen. 30 tablet 3 5 Active ibuprofen 600 MG tablet Take 1 tablet (600 mg) by mouth every 8 (eight) hours if needed for mild pain, fever or moderate pain. 90 tablet 2 5 Active ibuprofen 400 MG tabletIndicatio ns:Left ankle swelling Take 1 tablet by mouth every 8 hours as needed for pain or fever 30 tablet 4 025 Discontin ued(Dose adjustmen t) Active Problems Problem Noted Date Diagnosed Date [...] swelling -XR left ankle -to see her linen manager in 6 days -if no improve may need prednisone and possible arthrocentesis Right lateral epicondylitis 04/29/2023 Assessment & Plan (04/22/2025 7:43 PM EDT): - Following with [facility], last seen on 01/30/2025, patient received [...] Plan (04/11/2025 6:01 PM EDT): -followed by [facility] Treatment history 12/17/23, switched omeprazole to pantoprazole. 06/20/24 switched pantoprazole to esomeprazole -work on smoking cessation Assessment & Plan (08/07/2024 5:51 PM EST): -followed by [facility] Treatment history 12/17/23, switched omeprazole to [...] pt is unable to do stool antigen, C lab takes urea breath test order from GI only. -minimize NSAIDs use -work on smoking cessation -requested EGD at the time of colonoscopy Assessment & Plan (05/05/2023 10:08 AM EDT): -start omeprazole 20 mg daily, may increase to bid if no improvement in symptoms -ordered H. Pylori test; pt is unable to do stool antigen, C lab takes urea breath test order from [...] Plan (04/11/2025 6:02 PM EDT): -Followed by linen manager for RA and OA -Continue judicious use of NSAIDs and APAP prn Assessment & Plan (09/21/2022 10:04 AM EST): -Followed by linen manager for RA and OA -Continue judicious use of NSAIDs and APAP prn Rheumatoid arthritis, seropositive (CMS/HCC) Assessment & Plan (07/26/2025 10:55 PM EDT): -Followed by linen manager [facility], last seen in February 2025 -Positive Rheumatoid Factor, negative CCP -Current medication: leflunomide 20 mg every other day -Treatment Hx --Methotrexate (with folic acid) , discontinued due to its side effect --prednisone , tapered down and off after stabilization with DMARD -- leflunomide 20 mg every other day 2019 - February 2025, changed to hydroxychloroquine -Continue current Tx plan per linen manager Assessment & Plan (04/22/2025 7:41 PM EDT): -Followed by linen manager [facility], last seen in February 2025 -Positive Rheumatoid Factor, negative CCP -Current medication: leflunomide 20 mg every other day -Treatment Hx --Methotrexate (with folic acid) , discontinued due to its side effect --prednisone , tapered down and off after stabilization with DMARD -- leflunomide 20 mg every other day 2019 - February 2025, changed to hydroxychloroquine -Continue current Tx plan per linen manager Assessment & Plan (12/05/2024 6:17 AM EST): -Followed by linen manager [facility], last seen in Aug 2023 -Positive Rheumatoid Factor, negative CCP -Current medication: leflunomide 20 mg every other day -Treatment Hx --Methotrexate (with folic acid) , discontinued due to its side effect --prednisone , tapered down and off after stabilization with DMARD. -Continue current Tx plan per linen manager - Ordered Sed Rate by Adi Carney 12/04/24 - Ordered C-reactive Protein 12/04/24 Assessment & Plan (08/07/2024 5:47 PM EST): -Followed by linen manager, [facility], last seen in Aug 2023 -Positive Rheumatoid Factor, negative CCP -Current medication: leflunomide 20 mg every other day -Treatment Hx --Methotrexate (with folic acid) , discontinued due to its side effect --prednisone , tapered down and off after stabilization with DMARD. -Continue current Tx plan per linen manager Assessment & Plan (01/10/2024 5:21 PM EDT): -Followed by linen manager [facility], last seen in Aug 2023 -Positive Rheumatoid Factor, negative CCP -Current medication: leflunomide 20 mg every other day -Treatment Hx --Methotrexate (with folic acid) , discontinued due to its side effect --prednisone , tapered down and off after stabilization with DMARD. -Continue current Tx plan per linen manager Assessment & Plan (09/18/2023 6:50 AM EST): -Followed by linen manager [facility], last seen in Aug 2023 -Positive Rheumatoid Factor, negative CCP -Current medication: leflunomide 20 mg every other day -Treatment Hx --Methotrexate (with folic acid) , discontinued due to its side effect --prednisone , tapered down and off after stabilization with DMARD. -Continue current Tx plan per linen manager Assessment & Plan (05/05/2023 10:11 AM EDT): -Followed by linen manager [facility], last seen on 01/14/23 -Positive Rheumatoid Factor, negative CCP -Current medication: leflunomide 20 mg daily -Treatment Hx --Methotrexate (with folic acid) , discontinued due to its side effect --prednisone , tapered down after stabilization with DMARD. -Continue current Tx plan per linen manager Assessment & Plan (01/03/2023 7:20 AM EDT): -Followed by linen manager, [facility], last seen in Sep 2022 -Positive Rheumatoid Factor, negative CCP -Current medication: leflunomide 20 mg daily -Treatment Hx --Methotrexate (with folic acid) , discontinued due to its side effect --prednisone , tapered down after stabilization with DMARD. -Continue current Tx plan per linen manager Assessment & Plan (09/21/2022 9:58 AM EST): -Followed by linen manager, [facility], last seen on 06/22/22 -Positive Rheumatoid Factor, negative CCP -Current medication: leflunomide 20 mg daily -Treatment Hx --Methotrexate (with folic acid) , discontinued due to its side effect --prednisone , tapered down after stabilization with DMARD. -Continue current Tx plan per linen manager History of herpes zoster 09/15/2022 Tobacco use [...] (04/22/2025 7:39 PM EDT): -04/24/16 Colonoscopoy at [facility] -05/31/24 Colonoscopy at [facility] -Repeat colonoscopy in 5 years Assessment & Plan (08/07/2024 5:49 PM EST): -04/24/16 Colonoscopoy at [facility] -05/31/24 Colonoscopy at [facility] -Repeat colonoscopy in 5 years Assessment & Plan (01/10/2024 4:59 PM EDT): -04/24/16 Colonoscopoy at [facility] -Seen by [facility] on 12/17/23 and being scheduled for EGD / colonoscopy soon Assessment & Plan (09/18/2023 6:47 AM EST): -04/24/16 Colonoscopoy at [facility] -Seen for pre-colonoscopy appt in Jul 2021, but pt has not done it yet -Referred to [facility] in May 2023; advised to check with GI office for appt date Assessment & Plan (05/05/2023 10:06 AM EDT): -04/24/16 Colonoscopoy at [facility] -Seen for pre-colonoscopy appt in Jul 2021, but pt has not done it yet -Pt requests to be referred to GI in [place]; will refer Assessment & Plan (01/03/2023 7:17 AM EDT): -04/24/16 Colonoscopoy at [facility] -Seen for pre-colonoscopy appt in Jul 2021, but pt has not done it yet -Will ask for colonoscopy when she has EGD Assessment & Plan (09/21/2022 9:56 AM EST): -04/24/16 Colonoscopoy at [facility] -Seen for pre-colonoscopy appt in Jul [...] Encounters Date Type Department Care Team Description 08/01/2025 Orders Only [facility] [address] [place] [phone] Marielos Dumont MD 07/24/2025 11:15 AM EDT Office Visit [facility] [address] [place] [address] Marielos Dumont MD Rheumatoid arthritis, seropositive (CMS/HCC) (HCC) (Primary Dx); Bilateral hip pain 07/24/2025 Travel 07/23/2025 Telephone [facility] [address] [place] [address] Marielos Dumont MD chartprep 07/23/2025 Travel from Last 3 Months Immunizations Immunization Administration [...] Sign Reading Time Taken Comments Blood Pressure 100/70 07/24/2025 11:28 AM EDT Pulse 98 07/24/2025 11:28 AM EDT Temperature 36.7 C (98.1 F) 07/24/2025 11:28 AM EDT Respiratory Rate 17 07/24/2025 11:28 AM EDT Oxygen Saturation 98% 04/10/2025 11:24 AM EDT Inhaled Oxygen Concentration - - Weight 59.9 kg (132 lb 2 oz) 07/24/2025 11:28 AM EDT Height 160 cm (5' 3 ) 07/24/2025 11:28 AM EDT Body Mass Index 23.4 07/24/2025 11:28 AM EDT Plan of Treatment Health Maintenance Due Date Last Done Comments CT Colonography 1960 FIT DNA/Cologuard 1960 FIT 1960 FOBT 1960 Sigmoidoscopy 1960 Zoster Vaccines (1 of 2) 2010 RSV Patients and Patients Aged 60 years or older (1 - Risk 60-74 years 1-dose series) 2020 COVID-19 Vaccine ( season) 2025 10/14/2020, 09/20/2020 Influenza Vaccine (#1) 2025 , 07/17/2021, 07/10/2020, Additional history exists Pap Smear 09/16/2025 09/16/2022, 04/16/2021 Diabetes: Hemoglobin A1C 02/05/2026 025, 07/25/2021, 04/14/2021 SDOH Screening 04/02/2026 04/02/2025 Depression Screening 04/10/2026 04/10/2025, 04/10/20 25 Disability Screening 07/23/2026 07/23/2025 Alcohol/Substance Use Screening 07/24/2026 07/24/2025 Tobacco Screening 07/24/2026 07/24/2025 Mammogram 09/18/2026 09/18/2024, 09/03, 04/17/2021, Additional history [...] Name Priority Date/Time Associated Diagnosis Comments XR HIP BILATERAL WITH PELVIS 1 VIEW Routine 08/01/2025 12:07 PM EDT C-REACTIVE PROTEIN Routine 08/01/2025 11 :53 AM EDT COMPREHENSIVE METABOLIC PANEL Routine 08/01/2025 11:53 AM EDT SED RATE BY MODIFIED WESTERGREN Routine 08/01/2025 11:53 AM EDT CBC WITH AUTO DIFFERENTIAL Routine 08/01/2025 11:53 AM EDT HEPATITIS PANEL, GENERAL Routine 02/05/2025 [...] Relevant to Health Maintenance Results * XR Hips Bilateral with Pelvis 1 view (08/01/2025 12:07 PM EDT) Anatomical Region Laterality Modality Lower Extremities, Hip Bilateral Radiograp hic Imaging 08/01/2025 12:0 7 PM EDT Narrative 08/01/2025 12:18 PM EDT [address] [address] XRay Report Signed Patient: Jannette Hanley MR#: [id number] 953 : 1960 Acct:[id number] Age/Sex: 64 / F ADM Date: 08/01/25 Loc: HO.[facility] Attending Dr: Marielos Dumont MD Ordering Physician: Marielos Dumont MD Date of Service: 08/01/25 Procedure(s): XR hip BI w PEL1V Accession Number(s): [id number] cc: Marielos Dumont MD Reason for Exam: bilateral hip pain, rheumatoid EXAMINATION: XR HIP 2 OR MORE VIEWS BILATERAL HISTORY: bilateral hip pain, rheumatoid COMPARISON: There are no prior studies available for comparison. FINDINGS: A single AP view of the pelvis and two views of each hip are submitted. Osseous mineralization is normal. There is no fracture or dislocation. There is mild narrowing of both hip joints. The soft tissues are unremarkable. XR/XR hip BI w PEL1V IMPRESSION: Mild narrowing of both hips. Electronically signed by: Krish Peters MD 08/01/2025 12:16 PM EDT Dictated By: Krish Peters MD Signed By: <Electronically signed by Krish Peters MD in OV> 08/01/25 1216 DD/ 1207 TD/TT: 08/01/25 1210 Healthcare Associate: Procedure Note Donotuseinterpreter, Image - 08/01/[address] [address] XRay Report Signed Patient: Jannette HanleyMR#: [id number] 953 : 1960cct:[id number] Age/Sex: 64 / FADM Date: 08/01/25 Loc: HOS[facility] Attending Dr: Marielos Dumont MD Ordering Physician: Marielos Dumont MD Date of Service: 08/01/25 Procedure(s): XR hip BI w PEL1V Accession Number(s): [id number] cc: Marielos Dumont MD Reason for Exam: bilateral hip pain, rheumatoid EXAMINATION: XR HIP 2 OR MORE VIEWS BILATERAL HISTORY: bilateral hip pain, rheumatoid COMPARISON: There are no prior studies available for comparison. FINDINGS: A single AP view of the pelvis and two views of each hip are submitted. Osseous mineralization is normal. There is no fracture or dislocation. There is mild narrowing of both hip joints. The soft tissues are unremarkable. XR/XR hip BI w PEL1V IMPRESSION: Mild narrowing of both hips. Electronically signed by: Krish Peters MD 08/01/2025 12:16 PM EDT RP Dictated By: Krish Peters MD Signed By: <Electronically signed by Krish Peters MD in OV> 08/01/25 1216 DD/ 1207 TD/TT: 08/01/25 1210 Healthcare Associate: Marielos Dumont MD IMG XR PROCEDURES Final Result * CBC auto differential (08/01/2025 11:53 AM EDT) White Blood Count 7.0 4.8 - 10.8 X10*3/uL [facility] Red Blood Count 4.54 4.20 - 5.50 X10*6/uL [facility] Hemoglobin 12.6 12.0 - 16.0 g/dl [facility] Hematocrit 38.1 37.0 - 47.0 % [facility] Mean Corpuscular Volume 83.9 80.0 - 98.0 fL [facility] Mean Corpuscular Hemoglobin 27.8 27.0 - 33.0 pg [facility] Mean Corpuscular HGB Conc 33.1 31.0 - 35.0 g/dl [facility] Red Cell Distribution Width 14.3 11.0 - 16.0 % [facility] Platelet Count 334 160 - 400 X10*3/uL [facility] Mean Platelet Volume 10.4 9.4 - 12.3 fL [facility] Neutrophils Percent Auto 60.3 45 - 73 % [facility] Imm Gran Pct Auto 0.4 0.0 - 0.4 % [facility] Lymphocytes Percent Auto 31.4 20 - 40 % [facility] Monocytes Percent Auto 6.0 2 - 11 % [facility] Eosinophils Percent Auto 1.3 0 - 4 % [facility] Basophils Percent Auto 0.6 0 - 2 % [facility] NRBC Pct Auto 0.0 0.0 - 0.2 /100WBC [facility] Neutrophils Absolute Auto 4.2 2.0 - 8.3 x10*3/uL [facility] Imm Gran Abs Auto 0.03 0.00 - 0.03 X10*3/uL [facility] Lymphocytes Absolute Auto 2.2 1.2 - 4.9 X10*3/uL [facility] Monocytes Absolute Auto 0.4 0.1 - 1.2 X10*3/uL [facility] Eosinophils Absolute Auto 0.1 0.0 - 0.4 X10*3/uL [facility] Basophils Absolute Auto 0.0 0.0 - 0.2 X10*3/uL [facility] NRBC Abs Auto 0.000 0.0 - 0.012 X10*3/uL [facility] 08/01/2025 11:5 3 AM EDT 08/01/2025 11:53 AM EDT us Marielos Dumont MD LAB BLOOD ORDERABLES Final Resul t [facility] [address] [place] [phone] * Sed Rate by Modified Gideonren (08/01/2025 11:53 AM EDT) Erythrocyte Sedimentation Rate 13 0 - 20 MM/HR [facility] Comment:Patients with polycy themia and many hemoglobin abnormalitiesmay have depressed sed rates whereas patients with anemiamay have elevated sed rates. 08/01/2025 11:5 3 AM EDT 08/01/2025 11:53 AM EDT Marielos Dumont MD LAB BLOOD ORDERABLES Final Resul t Performing Organization Address City/[facility]/ZIP Co de Phone Number [facility] [address] [place] [phone] * C-reactive Protein (08/01/2025 11:53 AM EDT) C Reactive Protein 0.29 < or = 0.50 mg/dL [facility] 08/01/2025 11:5 3 AM EDT 08/01/2025 11:53 AM EDT Marielos Dumont MD LAB BLOOD ORDERABLES Final Resul t Performing Organization Address [facility] Co de Phone Number [facility] [address] [place] [phone] * (ABNORMAL) Comprehensive Metabolic Panel (08/01/2025 11:53 AM EDT) Sodium 138 135 - 145 mmol/L [facility] Potassium 4.1 3.3 - 5.1 mmol/L [facility] Chloride 107 96 - 108 mmol/L [facility] Carbon Dioxide 24 22 - 29 mmol/L [facility] Anion Gap 11(L) 12 - 20 [facility] Urea Nitrogen (BUN) 16 9 - 16 mg/dL [facility] Creatinine, Serum 0.56 0.5 - 1.4 mg/dL [facility] Estimated Glomerular Filt Rate >60 [facility] Comment:Chronic Kidney Disea se: Estimated GFR < 60 mL/min/1.95u5Ffbedh Kidney Disease: Estimated GFR < 15 mL/min/1.73m2 Glucose 82 60 - 115 mg/dL [facility] Calcium 9.2 8.4 - 10.2 mg/dL [facility] Bilirubin, Total 0.2 0.0 - 1.0 mg/dL [facility] Aspartate Amino Transferase 19 5 - 31 U/L [facility] Alanine Aminotransferase 17 0 - 31 U/L [facility] Total Protein 7.4 6.5 - 8.0 g/dL [facility] Albumin Level 4.4 3.5 - 5.0 g/dL [facility] Alkaline Phosphatase 103 39 - 117 U/L [facility] 08/01/2025 11:5 3 AM EDT 08/01/2025 11:53 AM EDT Marielos Dumont MD LAB BLOOD ORDERABLES Final Resul t [facility] [address] [place] [phone] * (ABNORMAL) Lipid Panel with Reflex to Direct LDL (02/05/2025 7:37 AM EDT) Triglycerides 122 <150 mg/dL [facility] Comment:Desirable Triglyceri de: less than 150 mg/dLBorderline High Triglyceride 150-199 mg/dLHigh Triglyceride: 200-499 mg/dLVery High Triglyceride: greater than or equal to 5OO mg/dL Cholesterol 230(H) <200 mg/dL [facility] Comment:Desirable Cholestero l: less than 200 mg/dLBorderline High Cholesterol: 200-239 mg/dLHigh Cholesterol: greater than 239 mg/dL LDL Cholesterol Calculated 162(H) <100 mg/dL [facility] Comment:Desirable LDL: less than 100 mg/dLNear Optimal/Above Optimal LDL: 110- 129 mg/dLBorderline High LDL: 130-159 mg/dLHigh LDL: 160-189 mg/dLVery High LDL: greater than or equal to 190 mg/dL HDL Cholesterol 44 >40 mg/dL [facility] Comment:Desirable HDL: great er than 40 mg/dL Note: This HDL assay may give artificially low results in patients with liver disease. Blood 02/05/2025 7:37 AM EDT 02/05/2025 7:37 AM EDT Marielos Dumont MD LAB BLOOD ORDERABLES Final Resul t Performing Organization Address [facility] Co de Phone Number [facility] [address] [place] [phone] * Hepatitis Panel, General (02/05/2025 7:37 AM EDT) Hepatitis A IgM Nonreactive Nonreactive [facility] Comment:IgM antibodies to MONTERROSO V not detected; does not exclude earlyacute or recovered HAV infection. ~Hepatitis B Surface Antibody NONREACTIVE Nonreactive [facility] Comment:Nonreactive: < 8.00 mIU/mL Hepatitis B Core Antibody Nonreactive Nonreactive [facility] Hepatitis C Antibody Nonreactive Nonreactive [facility] Comment:Antibodies to HCV no t detected; does not exclude early acuteHCV infection. Hepatitis B Surface Ag Negative Negative [facility] 02/05/2025 7:37 AM EDT 02/05/2025 7:37 AM EDT Generic External Data Provider LAB BLOOD ORDERAB LES Final Result Performing Organization Address [facility] Co de Phone Number [facility] [address] [place] [phone] * Hemoglobin A1c (02/05/2025 7:37 AM EDT) Hemoglobin A1c 5.8 <6.0 % [facility] Comment:Hemoglobin A1C Refer ence Range Adults: 4.8 - 6.0 % Non diabetic: < 6.0 % Goal: < 7.0 %Additional Action Suggested: > 8.0 %Note: Hemoglobin A1c results are invalid for patients with abnormal amounts of HbF. Blood transfusions may impact the HbA1c concentration in the patient sample. Estimated Average Glucose 120 mg/dL [facility] Comment:eAG = Estimated ave rage glucose which is %A1C expressed asaverage glucose, using the formula of the Y8B-XtfecaeAsgkqyx Glucose study (ADAG), Diabetes Care, Vol.31,#8,May. 2007 Blood Venous blood specimen / Unknown 02/05/2025 7:37 AM EDT 02/05/2025 7:37 AM EDT us Marielos Dumont MD LAB BLOOD ORDERABLES Final Resul t [facility] [address] [facility] [place] [address] [phone] * BI Mammogram Screening Tomosynthesis Bilateral (09/18/2024 8:00 AM EST) Anatomical Region Laterality Modality Breast Bilateral Mammography 09/18/2024 8:00 AM EST Narrative 09/26/2024 11:16 AM EST [address] [place] [address] Mammography Report Signed Patient: Jannette Hanley MR#: [id number] 953 : 1960 Acct:[id number] Age/Sex: 63 / F ADM Date: 09/18/24 Loc: [facility] Attending Dr: Marielos Dumont MD Ordering Physician: Marielos Dumont MD Results: 1Negative Date of Service: 09/18/24 Follow Up: 1 Year From Orig ina Mammogram Procedure(s): MM tomosynthesis screening BI Accession Number(s): [id number] cc: Marielos Dumont MD EXAMINATION: MM SCREENING [...] 09/26/24 1113 DD/ 0800 TD/TT: 09/18/24 0814 Healthcare Associate: Procedure Note Donotuseinterpreter, Image - [facility] [address] [place] [address] Mammography Report Signed Patient: Jannette HanleyMR#: [id number] 953 : 1960cct:[id number] Age/Sex: 63 / FADM Date: 09/18/24 Loc: [facility] Attending Dr: Marielos Dumont MD Ordering Physician: Marielos Dumont MDResults: 1Negative Date of Service: 09/18/24Follow Up: 1 Year From Orig inal Mammogram Procedure(s): MM tomosynthesis screening BI Accession Number(s): [id number] cc: Marielos Dumont MD EXAMINATION: MM SCREENING [...] 09/26/24 1113 DD/ 0800 TD/TT: 09/18/24 0814 Healthcare Associate: Marielos Dumont MD [facility] BI PROCEDURES Edited Result - Final * Thinprep TIS PAP And HPV mRNA E6/E7 With Reflex To HPV 16,18/45 (09/16/2022 11:00 AM EST) Clinical Information: None given [employer] LMP: NONE GIVEN [employer] Prev. PAP: NONE GIVEN [employer] Prev. BX: NONE GIVEN [employer] SOURCE: None given Last Guide Statement Of Adequacy: SATISFACTORY FOR EVALUATION Last Guide Interpretation/Re sult: Last Guide Comment: Negative for intraepithelial lesion or malignancy. Atrophic pattern; predominantly parabasal cells COMMENT: This Pap test has been evaluated with computer assisted technology. Last Guide [employer]: [employer] Comment: BLC,CT(ASCP) CT screening location: [place] [address] (Always Message) [facility] DocbookMD Comment: EXPLANATORY NOTE: The Pap is a [...] HPV nRNA E6/E7 Not Detected Not Detected Last Guide Comment: Methodology: Document Clerk-Mediated Amplification This assay detects E6/E7 viral messenger RNA (mRNA) from 14 high-risk HPV types (16,18,31,33,35,39,45,51,52,56,58,59,66,68). Cervical sources are required for HPV testing. If a vaginal source from a patient who has had a total hysterectomy with removal of cervix was submitted, please contact the testing laboratory for alternative testing options. For additional information, please refer to http://education.[employer]/faq/HEQ636x4 (This link if provided for information/ educational purposes only.) Genital fluid specimen (specimen) 09/16/2022 11:00 AM EST 09/17/2022 9:25 AM EST Marielos Dumont MD LAB PATHOLOGY ORDERABLES Final R esult [facility] [address] [place] [address] [employer] [facility] [address], ([address]) [place] [address] * Colonoscopy (04/29/2016) Colonoscopy Normal Normal Historical Provider HEALTH MAINTENANCE Final Result from Last 3 Months or Most Recently Relevant to Health Maintenance Insurance [employer] Care Teams Inspector Outside Production Relationship Specialty Start Date End Date Marielos Dumont MD [address] [place] [phone] PCP - General Family Medicine 10/04/18
== END 2025-08-01 11:43 | disposition home or self-care (01) ==
LOC: HO.XRAY 11:42
PROVIDERS: PCP Family Medicine; Visit Provider Family Medicine
DX: M05.9 Rheumatoid arthritis with rheumatoid factor, unspecified (principal); M25.551 Pain in right hip; M25.552 Pain in left hip; R06.00 Dyspnea, unspecified
CPT/HCPCS: 36415; 73521; 80053; 85025; 85652; 86140

== ENCOUNTER → 2025-08-01 11:55 | Outpatient (BNV) | payer OTHER, SELFPAY | PROVIDERS: PCP Family Medicine; Visit Provider Radiology Diagnostic Radiology | DX: M25.551 Pain in right hip (principal); M25.552 Pain in left hip; M06.051 Rheumatoid arthritis without rheumatoid factor, right hip; M06.052 Rheumatoid arthritis without rheumatoid factor, left hip | CPT/HCPCS: 73521 ==

== ENCOUNTER 2025-08-03 09:53 | Outpatient (AMB) | payer OTHER, SELFPAY ==
--- NOTE | 2025-08-03 09:56 | A.OFFVIS_ITS ---
Vital Signs 08/03/25 10:04 Height 5 ft 5 in Weight 133 lb 6.075 oz BMI 22.2 BP 124/72 Blood Pressure Location Lt brachial Position Sitting Pulse 89 Pulse Source Pulse Oximeter Pulse Oximetry (%) 99 Oxygen Delivery Method Room Air Intake Visit Reasons: RA Intake Note: Patient presents for RA follow up. Allergies No Known Allergies (No Known Allergies*) Allergy (Verified 08/03/25 10:02) Medication List - Last Reconciled 08/03/25 by Kellen Dean MD acetaminophen 1,000 mg (2 x 500 mg) PO QID PRN cholecalciferol (vitamin D3) 25 mcg PO DAILY famotidine (Pepcid) 20 mg PO BEDTIME hydroxychloroquine (Plaquenil) 200 mg PO BID 90 days ibuprofen 600 mg PO TID miscellaneous medical supply 1 ea miscellaneous DAILY pantoprazole 40 mg PO DAILY sennosides (Natural Senna Laxative) 17.2 mg (2 x 8.6 mg) PO BEDTIME HPI Comments Details: Patient is a 64-year-old female with Galvez's esophagus, polyarticular osteoarthritis, osteopenia and seropositive rheumatoid arthritis here today for follow up Interval History: Patient last seen 02/02/2025 with me - Not on any DMARDs - Has been off of her medication for the past 2 years. Last took leflunomide in 2022. Since then she has been having joint pain in the elbow and the knees, especially for the past year. Got an elbow injection 01/30 from orthopedics. Also complaining of pain to her hands a lot as well as prolonged morning stiffness. - Started HCQ Today - Hydroxychloroquine 200mg bid - Doing well overall on the medication - Still notes knee pain and hand pain - Sometimes in pain and needs to call out from work Rheumatologic History: Onset of rheumatoid arthritis, perhaps in 2019: Initial treatment with methotrexate complicated by GI intolerance. Leflunomide started 2019 Current Rheumatology Medication(s): Hydroxychloroquine 200mg bid [facility] Medical History Galvez's esophagus determined by endoscopy Tubular adenoma of colon Fracture of right ulnar styloid Fracture of distal end of right radius Osteopenia DARLEEN positive GERD (gastroesophageal reflux disease) Seropositive rheumatoid arthritis Surgical History H/O abdominoplasty Hx of section Family History Mother HTN (hypertension) CVD (cardiovascular disease) Father Stroke HTN (hypertension) Brother CVD (cardiovascular disease) Social History Housing Other:: Born in [place]. In the [place] since [place]. Are you a primary career guidance counselor to a significant other at home: No Do you presently have visiting nurse or other home services: No Alcohol intake: never Patient Tobacco Use Status: Current everyday Tobacco user Tobacco use type: Cigarette Cigarettes Per Day: 6 Years Smoked: 30 e-Cigarette/Vaping Use: Never Used Current occupational status: employed Current occupation: [employer] Review of Systems Narrative Review of Systems Constitutional: Denies fever, chills, weight loss ENT: Denies vision changes, eye pain or eye redness, dental caries, dry mouth GI: Denies nausea, vomiting, diarrhea, abdominal pain, change in BM Pulm: Denies SOB, GRIFFITHS, hemoptysis, wheezing Cards: Denies chest pain, palpitations Skin: Denies Raynaud's, rash, nail changes, photosensitivity, 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 Well appearing and in no apparent painful distress MSK Hands * Right Hand: Able to make a fist. No swelling or tenderness to palpation of the MCPs, PIPs or DIPs. * Left Hand: Able to make a fist. No swelling or tenderness to palpation of the MCPs, PIPs or DIPs. * Herbedens and Bouchards nodes noted bilaterally Wrists * Right Wrist: Full ROM to flexion and extension. No swelling or TTP * Left Wrist: Full ROM to flexion and extension. No swelling or TTP Elbows * Right Elbow: Full ROM. No swelling or TTP. No TTP of the medial epicondyle. TTP of the lateral epicondyle * Left Elbow: Full ROM. No swelling or TTP. No TTP of the medial epicondyle. No TTP of the lateral epicondyle Shoulders * Right shoulder: Full ROM. No swelling noted. TTP of the AC joint. No TTP of the subacromial bursa. No TTP of the posterior shoulder * Left shoulder: Full ROM. No swelling noted. TTP of the AC joint. No TTP of the subacromial bursa. No TTP of the posterior shoulder Knees * Right knee: Full ROM. No swelling noted. No TTP of the knee joint line. No TTP of pes anserine bursa * Left knee: Full ROM. No swelling noted. No TTP of the knee joint line. No TTP of pes anserine bursa. * Crepitations felt bilaterally Ankles * Right ankle: Good ankle dorsiflexion and plantar flexion. No swelling. No TTP of the ankle joint * Left ankle: Good ankle dorsiflexion and plantar flexion. No swelling. No TTP of the ankle joint Feet * Right foot: Negative squeeze test * Left foot: Negative squeeze test Tender points? * No tenderness to palpation of the bilateral trapezius, supraspinatus, anterior costochondral junctions, bilateral suboccipital muscle insertions SKIN No rashes Vital Signs: Last Vital Signs Pulse 89 08/03/25 10:04 BP 124/72 08/03/25 10:04 Pulse Ox 99 08/03/25 10:04 Oxygen Delivery Method Room Air 08/03/25 10:04 BMI result Body Mass Index 22.2 Results Reviewed Results Reviewed: Laboratory Tests 08/01/25 11:53 WBC 7.0 RBC 4.54 Hgb 12.6 Hct 38.1 Plt Count 334 ESR 13 Sodium 138 Potassium 4.1 Chloride 107 Carbon Dioxide 24 BUN 16 Creatinine 0.56 AST 19 ALT 17 C-Reactive Protein 0.29 XR Bilateral Wrist 02/2025 Findings: Bones intact. No dislocations. Mild bilateral symmetrical intercarpal and radiocarpal joint space narrowing. No erosions or localized soft tissue swelling. No radiopaque foreign body. IMPRESSION: 1. No acute fracture or dislocation. 2. Mild arthritic changes. 3. No erosive changes. XR BIlateral Hands 02/2025 Findings: Bones intact. No dislocations. Moderate narrowing of the right 3rd and 5th distal interphalangeal joints. Mild narrowing in the remaining interphalangeal joints bilaterally. No erosive changes. No radiopaque foreign body. No localized soft tissue swelling. IMPRESSION: 1. No acute fracture or dislocation. 2. [id number] arthritic changes. 3. No erosive changes. XR Bilateral Knees 02/2025 Findings: Right knee: No suprapatellar joint effusion. No acute fracture or dislocation. Very mild tricompartmental joint space narrowing. No erosions. No loose ossific body. No radiopaque foreign body. Left knee: No suprapatellar joint effusion. No acute fracture or dislocation. Very mild tricompartmental joint space narrowing. No erosions. No loose ossific body. No radiopaque foreign body. Impression: 1. Right knee: No acute process. Very mild arthritic changes. No erosions. 2. Left knee: No acute process. Very mild arthritic changes. No erosions. DEXA 03/2025 FINDINGS: The bone mineral density of the lumbar spine is 0.962, corresponding to a T-score of -1.8, and a Z-score of -0.1. This is indicative of osteopenia. This represents a BMD change of -0.9% compared to the prior exam. This is not statistically significant. The bone mineral density of the left total hip is 0.815, corresponding to a T-score of -1.5, and a Z-score of -0.2. This is indicative of osteopenia. This represents a BMD change of -3.9% compared to the prior exam. This is not statistically significant. The bone mineral density of the left femoral neck is 0.826, corresponding to a T-score of -1.5, and a Z-score of 0.1. This is indicative of osteopenia. This represents a BMD change of -0.7% compared to the prior exam. FRACTURE RISK: The FRAX index suggests a ten year probability of major osteoporotic fracture of 10.1%, and of hip fracture 2.0%. Assessment & Plan Assessment & Plan (1) Seropositive rheumatoid arthritis: Comment: Onset of rheumatoid arthritis, perhaps in 2019: Initial treatment with methotrexate complicated by GI intolerance. Leflunomide started 2019 Code(s): M05.9 - Rheumatoid arthritis with rheumatoid factor, unspecified Category: Medical Plan: #Seropositive RA Patient is a 64-year-old female with seropositive rheumatoid arthritis here today for follow up Stable on HCQ Still with intermittent pain likely 2/2 her extensive polyarticular OA Recommended copper compression gloves to help with hand OA Plan - Plaquenil 200mg bid - RTC 3 months - Labs before visit: CBC, CMP, ESR, CRP (2) Osteopenia: Comment: DEXA 12/2021: T-scores at hip-1.3 and at LS spine -1.7 DEXA 03/2025: AP Spine -1.8, Left femur neck -1.5, Left femur total -1.5. FRAX 07/05 Code(s): M85.80 - Other specified disorders of bone density and structure, unspecified site Category: Medical Qualifiers: Osteopenia location: multiple sites Qualified Code(s): M85.89 - Other specified disorders of bone density and structure, multiple sites Plan: #Osteopenia Stable osteopenia with low FRAX index Plan - Continue vitamin D supplementation - Vit D levels checked at next blood draw (3) Lateral epicondylitis of right elbow: Code(s): M77.11 - Lateral epicondylitis, right elbow Category: Medical Plan: #Right lateral epicondylitis Recommend topical diclofenac 1% 4 times per day (4) Encounter for monitoring of hydroxychloroquine therapy: Code(s): Z51.81 - Encounter for therapeutic drug level monitoring; Z79. - Other oil heaterman (current) drug therapy Plan: #Long-term Use of Hydroxychloroquine Discussed with patient the risks and benefits of hydroxychloroquine in managing the rheumatic condition Benefits include: - Reduced pain, reduce mortality, maintenance of remission and reduction of flares Risks include: - GI upset, skin hyperpigmentation, retinal toxicity (especially after more than 5 years of use), myopathy Advised yearly ophthalmology visits Plan I spent 32 minutes reviewing the record and labs, taking a history, examining the patient, discussing the treatment plan, ordering diagnostic work up and documenting in the medical record Orders: Orders Complete Blood Count Auto Diff 6 Months Z79.899 - Other oil heaterman (current) drug therapy Comprehensive Met. Panel 6 Months Z79.899 - Other oil heaterman (current) drug therapy C Reactive Protein 6 Months Z79.899 - Other nursing home (current) drug therapy Erythrocyte Sedimentation Rate 6 Months Z79.899 - Other oil heaterman (current) drug therapy Vitamin D 25-OH Total 6 Months Z79.899 - Other oil heaterman (current) drug therapy Medications: New diclofenac sodium 1% apply to right lateral elbow 2 grams topical QID 100 grams 0RF M05.9 - Rheumatoid arthritis with rheumatoid factor, unspecified Refilled hydroxychloroquine (Plaquenil) 200 mg PO BID 180 tabs 1RF 90 days M05.9 - Rheumatoid arthritis with rheumatoid factor, unspecified Coding Level of Care Code Est Pt Level 4 (48338) Complex EM visit Add On G2211 Diagnoses Seropositive rheumatoid arthritis M05.9 Osteopenia of multiple sites M85.89 Osteopenia location: multiple sites Lateral epicondylitis of right elbow M77.11 Encounter for monitoring of hydroxychloroquine therapy Z51.81; Z79.899
[2025-08-03 10:04] VITALS: BP 124/72; PULSE 89; O2SAT 99; BMI 22.2
--- OUTSIDE RECORDS SUMMARY | 2025-08-03 11:06 | XMS_ITS | Encounter Summary ---
Author Organization [email or web address] Address [address] [place] [address] Care Team Providers Care Loss Prevention Specialist Name Role Phone Marielos Dumont MD Primary Care Provider [phone] Encounter Details Date Type Department Care Team ([facility] st Contact Info) Description 08/01/[address] [facility] [address] [place] [address] Marielos Dumont MD [address] [place], [place] [phone] Social History Tobacco Use Types Packs/Day Years [...] t he electric, gas, oil or water [employer] threatened to shut off services in your [...] Protein 0.29 < or = 0.50 mg/dL [facility] 08/01/2025 11:5 3 AM EDT 08/01/2025 11:53 AM EDT us Marielos Dumont MD LAB BLOOD ORDERABLES Final Resul t [facility] [address] [place] [address] [phone] * (ABNORMAL) Comprehensive Metabolic Panel (08/01/2025 11:53 AM EDT) Sodium 138 135 - 145 mmol/L [facility] Potassium 4.1 3.3 - 5.1 mmol/L [facility] Chloride 107 96 - 108 mmol/L [facility] Carbon Dioxide 24 22 - 29 mmol/L [facility] Anion Gap 11(L) 12 - 20 [facility] Urea Nitrogen (BUN) 16 9 - 16 mg/dL [facility] Creatinine, Serum 0.56 0.5 - 1.4 mg/dL [facility] Estimated Glomerular Filt Rate >60 [facility] Comment:Chronic Kidney Disea se: Estimated GFR < 60 mL/min/[id number] Kidney Disease: Estimated GFR < 15 mL/min/1.73m2 Glucose 82 60 - 115 mg/dL [facility] Calcium 9.2 8.4 - 10.2 mg/dL [facility] Bilirubin, Total 0.2 0.0 - 1.0 mg/dL [facility] Aspartate Amino Transferase 19 5 - 31 U/L [facility] Alanine Aminotransferase 17 0 - 31 U/L [facility] Total Protein 7.4 6.5 - 8.0 g/dL [facility] Albumin Level 4.4 3.5 - 5.0 g/dL [facility] Alkaline Phosphatase 103 39 - 117 U/L [facility] 08/01/2025 11:5 3 AM EDT 08/01/2025 11:53 AM EDT us Marielos Dumont MD LAB BLOOD ORDERABLES Final Resul t [facility] [address] [place] [address] [phone] * Sed Rate by Modified Gideonren (08/01/2025 11:53 AM EDT) Erythrocyte Sedimentation Rate 13 0 - 20 MM/HR [facility] Comment:Patients with polycy themia and many hemoglobin abnormalitiesmay have depressed sed rates whereas patients with anemiamay have elevated sed rates. 08/01/2025 11:5 3 AM EDT 08/01/2025 11:53 AM EDT us Marielos Dumont MD LAB BLOOD ORDERABLES Final Resul t [facility] [address] [place] [address] [phone] * CBC auto differential (08/01/2025 11:53 AM EDT) White Blood Count 7.0 4.8 - 10.8 X10*3/uL [facility] Red Blood Count 4.54 4.20 - 5.50 X10*6/uL [facility] Hemoglobin 12.6 12.0 - 16.0 g/dl [facility] Hematocrit 38.1 37.0 - 47.0 % [facility] Mean Corpuscular Volume 83.9 80.0 - 98.0 fL [facility] Mean Corpuscular Hemoglobin 27.8 27.0 - 33.0 pg [facility] Mean Corpuscular HGB Conc 33.1 31.0 - 35.0 g/dl [facility] Red Cell Distribution Width 14.3 11.0 - 16.0 % [facility] Platelet Count 334 160 - 400 X10*3/uL [facility] Mean Platelet Volume 10.4 9.4 - 12.3 fL [facility] Neutrophils Percent Auto 60.3 45 - 73 % [facility] Imm Gran Pct Auto 0.4 0.0 - 0.4 % [facility] Lymphocytes Percent Auto 31.4 20 - 40 % [facility] Monocytes Percent Auto 6.0 2 - 11 % [facility] Eosinophils Percent Auto 1.3 0 - 4 % [facility] Basophils Percent Auto 0.6 0 - 2 % [facility] NRBC Pct Auto 0.0 0.0 - 0.2 /100WBC [facility] Neutrophils Absolute Auto 4.2 2.0 - 8.3 x10*3/uL [facility] Imm Gran Abs Auto 0.03 0.00 - 0.03 X10*3/uL [facility] Lymphocytes Absolute Auto 2.2 1.2 - 4.9 X10*3/uL [facility] Monocytes Absolute Auto 0.4 0.1 - 1.2 X10*3/uL [facility] Eosinophils Absolute Auto 0.1 0.0 - 0.4 X10*3/uL [facility] Basophils Absolute Auto 0.0 0.0 - 0.2 X10*3/uL [facility] NRBC Abs Auto 0.000 0.0 - 0.012 X10*3/uL [facility] 08/01/2025 11:5 3 AM EDT 08/01/2025 11:53 AM EDT us Marielos Dumont MD LAB BLOOD ORDERABLES Final Resul t [facility] [address] [place] [phone] documented in this encounter Visit Diagnoses Not on filedocumented in this encounter Additional Health Concerns Assessment Noted Time PHQ-9 Depression Total Score: 2 04/10/20 25 11:24 AM EDT documented as of this encounter Care Teams Loss Prevention Specialist Relationship Specialty Start Date End Date Marielos Dumont MD [address] [place] [address] PCP - General Family Medicine 10/04/18 documented as of this encounter
--- OUTSIDE RECORDS SUMMARY | 2025-08-03 11:06 | XMS_ITS | Clinical Summary ---
Author Organization [employer] Address [address] [facility] 7t [place] [address] Care Team Providers Care Smoking Pipe Liner Name Role Phone Marielos Dumont MD Primary Care Provider [phone] Allergies No known active allergies Medications cholecalciferol [...] swelling -XR left ankle -to see her cutter grind tool technician in 6 days -if no improve may need prednisone and possible arthrocentesis Right lateral epicondylitis 04/29/2023 Assessment & Plan (04/22/2025 7:43 PM EDT): - Following with [facility] Ortho, last seen on 01/30/2025, patient received [...] Plan (04/11/2025 6:01 PM EDT): -followed by [facility] GI Treatment history 12/17/23, switched omeprazole to pantoprazole. 06/20/24 switched pantoprazole to esomeprazole -work on smoking cessation Assessment & Plan (08/07/2024 5:51 PM EST): -followed by [facility] GI Treatment history 12/17/23, switched omeprazole to [...] Plan (04/11/2025 6:02 PM EDT): -Followed by cutter grind tool technician for RA and OA -Continue judicious use of NSAIDs and APAP prn Assessment & Plan (09/21/2022 10:04 AM EST): -Followed by cutter grind tool technician for RA and OA -Continue judicious use of NSAIDs and APAP prn Rheumatoid arthritis, seropositive (CMS/HCC) Assessment & Plan (07/26/2025 10:55 PM EDT): -Followed by cutter grind tool technician [facility], last seen in February 2025 -Positive Rheumatoid Factor, negative CCP -Current medication: leflunomide 20 mg every other day -Treatment Hx --Methotrexate (with folic acid) , discontinued due to its side effect --prednisone , tapered down and off after stabilization with DMARD -- leflunomide 20 mg every other day 2019 - February 2025, changed to hydroxychloroquine -Continue current Tx plan per cutter grind tool technician Assessment & Plan (04/22/2025 7:41 PM EDT): -Followed by cutter grind tool technician [facility], last seen in February 2025 -Positive Rheumatoid Factor, negative CCP -Current medication: leflunomide 20 mg every other day -Treatment Hx --Methotrexate (with folic acid) , discontinued due to its side effect --prednisone , tapered down and off after stabilization with DMARD -- leflunomide 20 mg every other day 2019 - February 2025, changed to hydroxychloroquine -Continue current Tx plan per cutter grind tool technician Assessment & Plan (12/05/2024 6:17 AM EST): -Followed by cutter grind tool technician [facility], last seen in Aug 2023 -Positive Rheumatoid Factor, negative CCP -Current medication: leflunomide 20 mg every other day -Treatment Hx --Methotrexate (with folic acid) , discontinued due to its side effect --prednisone , tapered down and off after stabilization with DMARD. -Continue current Tx plan per cutter grind tool technician - Ordered Sed Rate by Adi Carney 12/04/24 - Ordered C-reactive Protein 12/04/24 Assessment & Plan (08/07/2024 5:47 PM EST): -Followed by cutter grind tool technician, [facility], last seen in Aug 2023 -Positive Rheumatoid Factor, negative CCP -Current medication: leflunomide 20 mg every other day -Treatment Hx --Methotrexate (with folic acid) , discontinued due to its side effect --prednisone , tapered down and off after stabilization with DMARD. -Continue current Tx plan per cutter grind tool technician Assessment & Plan (01/10/2024 5:21 PM EDT): -Followed by cutter grind tool technician [facility], last seen in Aug 2023 -Positive Rheumatoid Factor, negative CCP -Current medication: leflunomide 20 mg every other day -Treatment Hx --Methotrexate (with folic acid) , discontinued due to its side effect --prednisone , tapered down and off after stabilization with DMARD. -Continue current Tx plan per cutter grind tool technician Assessment & Plan (09/18/2023 6:50 AM EST): -Followed by cutter grind tool technician [facility], last seen in Aug 2023 -Positive Rheumatoid Factor, negative CCP -Current medication: leflunomide 20 mg every other day -Treatment Hx --Methotrexate (with folic acid) , discontinued due to its side effect --prednisone , tapered down and off after stabilization with DMARD. -Continue current Tx plan per cutter grind tool technician Assessment & Plan (05/05/2023 10:11 AM EDT): -Followed by cutter grind tool technician [facility], last seen on 01/14/23 -Positive Rheumatoid Factor, negative CCP -Current medication: leflunomide 20 mg daily -Treatment Hx --Methotrexate (with folic acid) , discontinued due to its side effect --prednisone , tapered down after stabilization with DMARD. -Continue current Tx plan per cutter grind tool technician Assessment & Plan (01/03/2023 7:20 AM EDT): -Followed by cutter grind tool technician, [facility], last seen in Sep 2022 -Positive Rheumatoid Factor, negative CCP -Current medication: leflunomide 20 mg daily -Treatment Hx --Methotrexate (with folic acid) , discontinued due to its side effect --prednisone , tapered down after stabilization with DMARD. -Continue current Tx plan per cutter grind tool technician Assessment & Plan (09/21/2022 9:58 AM EST): -Followed by cutter grind tool technician, [facility], last seen on 06/22/22 -Positive Rheumatoid Factor, negative CCP -Current medication: leflunomide 20 mg daily -Treatment Hx --Methotrexate (with folic acid) , discontinued due to its side effect --prednisone , tapered down after stabilization with DMARD. -Continue current Tx plan per cutter grind tool technician History of herpes zoster 09/15/2022 Tobacco [...] (04/22/2025 7:39 PM EDT): -04/24/16 Colonoscopoy at [facility] -05/31/24 Colonoscopy at [facility] -Repeat colonoscopy in 5 years Assessment & Plan (08/07/2024 5:49 PM EST): -04/24/16 Colonoscopoy at [facility] -05/31/24 Colonoscopy at [facility] -Repeat colonoscopy in 5 years Assessment & Plan (01/10/2024 4:59 PM EDT): -04/24/16 Colonoscopoy at [facility] -Seen by [facility] GI on 12/17/23 and being scheduled for EGD / colonoscopy soon Assessment & Plan (09/18/2023 6:47 AM EST): -04/24/16 Colonoscopoy at [facility] -Seen for pre-colonoscopy appt in Jul 2021, but pt has not done it yet -Referred to [facility] GI in May 2023; advised to check with GI office for appt date Assessment & Plan (05/05/2023 10:06 AM EDT): -04/24/16 Colonoscopoy at [facility] -Seen for pre-colonoscopy appt in Jul 2021, but pt has not done it yet -Pt requests to be referred to GI in [place]; will refer Assessment & Plan (01/03/2023 7:17 AM EDT): -04/24/16 Colonoscopoy at [facility] -Seen for pre-colonoscopy appt in Jul 2021, but pt has not done it yet -Will ask for colonoscopy when she has EGD Assessment & Plan (09/21/2022 9:56 AM EST): -04/24/16 Colonoscopoy at [facility] -Seen for pre-colonoscopy appt in Jul 2021, [...] Encounters Date Type Department Care Team Description 08/02/2025 Results Follow-Up [facility] [address] [place] [address] Marielos Dumont MD XR Hips Bilateral with Pelvis 1 view 08/02/2025 Results Follow-Up [facility] [address] [place] [address] Marielos Dumont MD CBC auto differential, Sed Rate by Modified Westergren, Comprehensive Metabolic Panel, C-reactive Protein 08/01/2025 Orders Only [address] [phone] Marielos Dumont MD 07/24/2025 11:15 AM EDT Office Visit [address] [address] Marielos Dumont MD Rheumatoid arthritis, seropositive (CMS/HCC) (HCC) (Primary Dx); Bilateral hip pain 07/24/2025 Travel 07/23/[address] [address] Marielos Dumont MD chartprep 07/23/2025 Travel from [...] 04/02/2026 04/02/2025 Depression Screening 04/10/2026 04/10/2025, 04/10/20 Disability Screening 07/23/2026 07/23/2025 Alcohol/Substance Use Screening [...] PM EDT Narrative 08/01/2025 12:18 PM EDT [address] [address] XRay Report Signed Patient: Jannette Hanley MR#: [id number] 953 : 1960 Acct:[id number] Age/Sex: 64 / F ADM Date: 08/01/25 Loc: HO.XRAY Attending Dr: Marielos Dumont MD Ordering Physician: Marielos Dumont MD Date of Service: 08/01/25 Procedure(s): XR hip BI w PEL1V Accession Number(s): [id number] cc: Marielos Dumont MD Reason for Exam: [...] 08/01/25 1216 DD/ 1207 TD/TT: 08/01/25 1210 Power Generation Plant Operator: Procedure Note Donotuseinterpreter, Image - 08/01/[address] [address] XRay Report Signed Patient: Jannette HanleyMR#: [id number] 953 : 1960cct:[id number] Age/Sex: 64 / FADM Date: 08/01/25 Loc: HO.XRAY Attending Dr: Marielos Dumont MD Ordering Physician: Marielos Dumont MD Date of Service: 08/01/25 Procedure(s): XR hip BI w PEL1V Accession Number(s): [id number] cc: Marielos Dumont MD Reason for Exam: [...] 08/01/25 1216 DD/ 1207 TD/TT: 08/01/25 1210 Power Generation Plant Operator: Marielos Dumont MD IMG XR PROCEDURES Final Result * CBC auto differential (08/01/2025 11:53 AM EDT) White Blood Count 7.0 4.8 - 10.8 X10*3/uL [facility] Red Blood Count 4.54 4.20 - 5.50 X10*6/uL [facility] Hemoglobin 12.6 12.0 - 16.0 g/dl [facility] Hematocrit 38.1 37.0 - 47.0 % [facility] Mean Corpuscular Volume 83.9 80.0 - 98.0 fL [facility] Mean Corpuscular Hemoglobin 27.8 27.0 - 33.0 pg [facility] Mean Corpuscular HGB Conc 33.1 31.0 - 35.0 g/dl [facility] Red Cell Distribution Width 14.3 11.0 - 16.0 % [facility] Platelet Count 334 160 - 400 X10*3/uL [facility] Mean Platelet Volume 10.4 9.4 - 12.3 fL [facility] Neutrophils Percent Auto 60.3 45 - 73 % [facility] Imm Gran Pct Auto 0.4 0.0 - 0.4 % [facility] Lymphocytes Percent Auto 31.4 20 - 40 % [facility] Monocytes Percent Auto 6.0 2 - 11 % [facility] Eosinophils Percent Auto 1.3 0 - 4 % [facility] Basophils Percent Auto 0.6 0 - 2 % [facility] NRBC Pct Auto 0.0 0.0 - 0.2 /100WBC [facility] Neutrophils Absolute Auto 4.2 2.0 - 8.3 x10*3/uL [facility] Imm Gran Abs Auto 0.03 0.00 - 0.03 X10*3/uL [facility] Lymphocytes Absolute Auto 2.2 1.2 - 4.9 X10*3/uL [facility] Monocytes Absolute Auto 0.4 0.1 - 1.2 X10*3/uL [facility] Eosinophils Absolute Auto 0.1 0.0 - 0.4 X10*3/uL [facility] Basophils Absolute Auto 0.0 0.0 - 0.2 X10*3/uL [facility] NRBC Abs Auto 0.000 0.0 - 0.012 X10*3/uL [facility] 08/01/2025 11:5 3 AM EDT 08/01/2025 11:53 AM EDT us Marielos Dumont MD LAB BLOOD ORDERABLES Final Resul t [facility] [address] [place] [address] [phone] * Sed Rate by Modified Westergren (08/01/2025 11:53 AM EDT) Erythrocyte Sedimentation Rate 13 0 - 20 MM/HR [facility] Comment:Patients with polycy themia and many hemoglobin abnormalitiesmay have depressed sed rates whereas patients with anemiamay have elevated sed rates. 08/01/2025 11:5 3 AM EDT 08/01/2025 11:53 AM EDT Marielos Dumont MD LAB BLOOD ORDERABLES Final Resul t Performing Organization Address [facility] de Phone Number [facility] [address] [place] [phone] * C-reactive Protein (08/01/2025 11:53 AM EDT) Pathologist [facility] C Reactive Protein 0.29 < or = 0.50 mg/dL [facility] 08/01/2025 11:5 3 AM EDT 08/01/2025 11:53 AM EDT Marielos Dumont MD LAB BLOOD ORDERABLES Final Resul t Performing Organization Address [facility] de Phone Number [facility] [address] [place] [phone] * (ABNORMAL) Comprehensive Metabolic Panel (08/01/2025 11:53 AM EDT) Pathologist [facility] Sodium 138 135 - 145 mmol/L [facility] Potassium 4.1 3.3 - 5.1 mmol/L [facility] Chloride 107 96 - 108 mmol/L [facility] Carbon Dioxide 24 22 - 29 mmol/L [facility] Anion Gap 11(L) 12 - 20 [facility] Urea Nitrogen (BUN) 16 9 - 16 mg/dL [facility] Creatinine, Serum 0.56 0.5 - 1.4 mg/dL [facility] Estimated Glomerular Filt Rate >60 [facility] Comment:Chronic Kidney Disea se: Estimated GFR < 60 mL/min/[id number] Kidney Disease: Estimated GFR < 15 mL/min/1.73m2 Glucose 82 60 - 115 mg/dL [facility] Calcium 9.2 8.4 - 10.2 mg/dL [facility] Bilirubin, Total 0.2 0.0 - 1.0 mg/dL [facility] Aspartate Amino Transferase 19 5 - 31 U/L [facility] Alanine Aminotransferase 17 0 - 31 U/L [facility] Total Protein 7.4 6.5 - 8.0 g/dL [facility] Albumin Level 4.4 3.5 - 5.0 g/dL [facility] Alkaline Phosphatase 103 39 - 117 U/L [facility] 08/01/2025 11:5 3 AM EDT 08/01/2025 11:53 AM EDT us Marielos Dumont MD LAB BLOOD ORDERABLES Final Resul t [facility] [address] [place] [phone] * (ABNORMAL) Lipid Panel with Reflex to Direct LDL (02/05/2025 7:37 AM EDT) Triglycerides 122 <150 mg/dL [facility] Comment:Desirable Triglyceri de: less than 150 mg/dLBorderline High Triglyceride 150-199 mg/dLHigh Triglyceride: 200-499 mg/dLVery High Triglyceride: greater than or equal to 5OO mg/dL Cholesterol 230(H) <200 mg/dL [facility] Comment:Desirable Cholestero l: less than 200 mg/dLBorderline High Cholesterol: 200-239 mg/dLHigh Cholesterol: greater than 239 mg/dL LDL Cholesterol Calculated 162(H) <100 mg/dL [facility] Comment:Desirable LDL: less than 100 mg/dLNear Optimal/Above Optimal LDL: 110- 129 mg/dLBorderline High LDL: 130-159 mg/dLHigh LDL: 160-189 mg/dLVery High LDL: greater than or equal to 190 mg/dL HDL Cholesterol 44 >40 mg/dL [facility] Comment:Desirable HDL: great er than 40 mg/dL Note: This HDL assay may give artificially low results in patients with liver disease. Blood 02/05/2025 7:37 AM EDT 02/05/2025 7:37 AM EDT Marielos Dumont MD LAB BLOOD ORDERABLES Final Resul t Performing Organization Address [facility] Co de Phone Number [facility] [address] [place] [phone] * Hepatitis Panel, General (02/05/2025 7:37 AM EDT) Pathologist [facility] Hepatitis A IgM Nonreactive Nonreactive [facility] Comment:IgM antibodies to MONTERROSO V not detected; does not exclude earlyacute or recovered HAV infection. ~Hepatitis B Surface Antibody NONREACTIVE Nonreactive [facility] Comment:Nonreactive: < 8.00 mIU/mL Hepatitis B Core Antibody Nonreactive Nonreactive [facility] Hepatitis C Antibody Nonreactive Nonreactive [facility] Comment:Antibodies to HCV no t detected; does not exclude early acuteHCV infection. Hepatitis B Surface Ag Negative Negative [facility] 02/05/2025 7:37 AM EDT 02/05/2025 7:37 AM EDT us Generic External Data Provider LAB BLOOD ORDERAB LES Final Result Performing Organization Address [facility] Co de Phone Number [facility] [address] [place] [phone] * Hemoglobin A1c (02/05/2025 7:37 AM EDT) Hemoglobin A1c 5.8 <6.0 % [facility] Comment:Hemoglobin A1C Refer ence Range Adults: 4.8 - 6.0 % Non diabetic: < 6.0 % Goal: < 7.0 %Additional Action Suggested: > 8.0 %Note: Hemoglobin A1c results are invalid for patients with abnormal amounts of HbF. Blood transfusions may impact the HbA1c concentration in the patient sample. Estimated Average Glucose 120 mg/dL [facility] Comment:eAG = Estimated ave rage glucose which is %A1C expressed asaverage glucose, using the formula of the L5T-ApywkakNybhvjr Glucose study (ADAG), Diabetes Care, Vol.31,#8,May. 2007 Blood Venous blood specimen / Unknown 02/05/2025 7:37 AM EDT 02/05/2025 7:37 AM EDT us Marielos Dumont MD LAB BLOOD ORDERABLES Final Resul t [facility] [address] [place] [address] [phone] * BI Mammogram Screening Tomosynthesis Bilateral (09/18/2024 8:00 AM EST) Anatomical Region Laterality Modality Breast Bilateral Mammography 09/18/2024 8:00 AM EST Narrative 09/26/2024 11:16 AM EST [facility] [address] [place] [address] Mammography Report Signed Patient: Jannette Hanley MR#: [id number] 953 : 1960 Acct:[id number] Age/Sex: 63 / F ADM Date: 09/18/24 Loc: G[facility] Attending Dr: Marielos Dumont MD Ordering Physician: Marielos Dumont MD Results: 1Negative Date of Service: 09/18/24 Follow Up: 1 Year From [facility] Mammogram Procedure(s): MM tomosynthesis screening BI Accession Number(s): [id number] cc: Marielos Dumont MD EXAMINATION: MM SCREENING [...] 09/26/24 1113 DD/ 0800 TD/TT: 09/18/24 0814 Power Generation Plant Operator: Procedure Note Donotuseinterpreter, Image - 09/26/2024 [facility] [address] [place] [address] Mammography Report Signed Patient: Jannette HanleyMR#: [id number] 953 : 1960cct:[id number] Age/Sex: 63 / FADM Date: 09/18/24 Loc: GALDINO Attending Dr: Marielos Dumont MD Ordering Physician: Marielos Dumont MDResults: 1Negative Date of Service: 09/18/24Follow Up: 1 Year From [facility] Mammogram Procedure(s): MM tomosynthesis screening BI Accession Number(s): [id number] cc: Marielos Dumont MD EXAMINATION: MM SCREENING [...] 09/26/24 1113 DD/ 0800 TD/TT: 09/18/24 0814 Power Generation Plant Operator: Marielos Dumont MD IMG BI PROCEDURES Edited Result - Final * Thinprep TIS PAP And HPV mRNA E6/E7 With Reflex To HPV 16,18/45 (09/16/2022 11:00 AM EST) Clinical Information: None given [employer] LMP: NONE GIVEN [facility] Prev. PAP: NONE GIVEN [employer] Prev. BX: NONE GIVEN [employer] [facility] SOURCE: None given [facility] Statement Of Adequacy: SATISFACTORY FOR EVALUATION [employer] Interpretation/Re sult: [employer] Comment: Negative for intraepithelial lesion or malignancy. Atrophic pattern; predominantly parabasal cells COMMENT: This Pap test has been evaluated with computer assisted technology. [employer] Scheduling Representative: Derrick ruiz Occipitalt Comment: BLC,CT(ASCP) CT screening location: [place] [address] (Always Message) Count Includes [facility] [employer] Comment: EXPLANATORY NOTE: The Pap is a [...] HPV nRNA E6/E7 Not Detected Not Detected [employer] Comment: Methodology: Shot Blaster-Mediated Amplification This assay detects E6/E7 viral messenger RNA (mRNA) from 14 high-risk HPV types (16,18,31,33,35,39,45,51,52,56,58,59,66,68). Cervical sources are required for HPV testing. If a vaginal source from a patient who has had a total hysterectomy with removal of cervix was submitted, please contact the testing laboratory for alternative testing options. For additional information, please refer to [email or web address]/[email or web address] (This link if provided for information/ educational purposes only.) Genital fluid specimen (specimen) 09/16/2022 11:00 AM EST 09/17/2022 9:25 AM EST Marielos Dumont MD LAB PATHOLOGY ORDERABLES Final R esult [facility] [address], [place] [address] [employer] [facility] [address] [facility], ([address]) [place] [phone] * Colonoscopy (04/29/2016) Colonoscopy Normal Normal Sosa Provider HEALTH MAINTENANCE Final Result from Last 3 Months or Most Recently Relevant to Health Maintenance Insurance [employer] [place] [address] Care Teams Smoking Pipe Liner Relationship Specialty Start Date End Date Marielos Dumont MD [address] [place] [phone] PCP - General Family Medicine 10/04/18
--- OUTSIDE RECORDS SUMMARY | 2025-08-03 11:06 | XMS_ITS | Encounter Summary ---
Author Organization [employer] Address [address] [facility] [address]t [place] [address] Care Team Providers Care Bsa/Aml Compliance Officer Name Role Phone Marielos Dumont MD Primary Care Provider [phone] Encounter Details Date Type Department Care Team ([facility] st Contact Info) Description 08/02/2025 Results Follow-Up [facility] [address] [place] [address] Marielos Dumont MD [address] [place] [address] XR Hips Bilateral with Pelvis 1 view Social History Tobacco Use Types Packs/Day Years [...] documented as of this encounter Care Teams Bsa/Aml Compliance Officer Relationship Specialty Start Date End Date Marielos Dumont MD [address] [place] [phone] PCP - General Family Medicine 10/04/18 documented as of this encounter
--- OUTSIDE RECORDS SUMMARY | 2025-08-03 11:06 | XMS_ITS | Encounter Summary ---
Author Organization [employer] Address [address] [facility] 7t [place] [address] Care Team Providers Care City Engineer Name Role Phone Marielos Dumont MD Primary Care Provider [phone] Encounter Details Date Type Department Care Team ([facility] st Contact Info) Description 06/07/2024 Abstract [facility] [address] [place], [place] [phone] Marielos Dumont MD [address] [place], [place] [phone] Social History Tobacco Use Types Packs/Day Years [...] documented as of this encounter Care Teams City Engineer Relationship Specialty Start Date End Date Marielos Dumont MD [address] [place] [phone] PCP - General Family Medicine 10/04/18 documented as of this encounter
--- OUTSIDE RECORDS SUMMARY | 2025-08-03 11:06 | XMS_ITS | Encounter Summary ---
Author Organization [employer] Address [address] [facility] 7t [place] [address] Care Team Providers Care Test Center Administrator Name Role Phone Marielos Dumont MD Primary Care Provider [phone] Encounter Details Date Type Department Care Team (Latest Contact Info) Description 08/02/2025 Results Follow-Up [facility] [address] [place] [address] Marielos Dumont MD [address] [place] [address] CBC auto differential, Sed Rate by Modified Westergren, Comprehensive Metabolic Panel, C-reactive Protein Social History Tobacco Use Types Packs/Day Years [...] Telephone Encounter - Ceci Maldonado [place] - 08/02/2025 10:03 AM EDT T/c-ma called pt and inform of message below documented in this encounter Plan of Treatment Not on file documented as of this encounter Visit Diagnoses Not on filedocumented in this encounter Additional Health Concerns Assessment Noted Time PHQ-9 Depression Total Score: 2 04/10/20 25 11:24 AM EDT documented as of this encounter Care Teams Test Center Administrator Relationship Specialty Start Date End Date Marielos Dumont MD [address] [place] [address] PCP - General Family Medicine 10/04/18 documented as of this encounter
== END 2025-08-03 10:41 | disposition home or self-care (01) ==
LOC: HO.RHES 09:54
PROVIDERS: PCP Family Medicine; Visit Provider Student in an Organized Health Care Education/Training Program
DX: M05.9 Rheumatoid arthritis with rheumatoid factor, unspecified (principal); M85.89 Other specified disorders of bone density and structure, multiple sites; M77.11 Lateral epicondylitis, right elbow; Z51.81 Encounter for therapeutic drug level monitoring; Z79.899 Other long term (current) drug therapy
CPT/HCPCS: 99214